=== PATIENT | female | born 1965 | race Caucasian/White ===

== ENCOUNTER 2020-07-19 15:05 | Outpatient (CLI) | payer OTHER, SELFPAY ==
--- NOTE | 2020-07-19 15:18 | ECG_ITS ---
Measurements Intervals [place] Rate: 79 P: 67 [place]: 153 QRS: 73 QRSD: 101 T: 43 QT: 359 QTc: 413 Interpretive Statements SINUS RHYTHM BASELINE ARTIFACT- I, II, III, AVR, AVL NORMAL ECG Electronically Signed On 07-19-2020 15:36:19 CDT by Hudson Montoya D.O.
== END 2020-07-19 15:06 | disposition home or self-care (01) ==
LOC: ANHCARD 15:08
PROVIDERS: PCP Family Medicine; Visit Provider Podiatrist Foot & Ankle Surgery
DX: R03.0 Elevated blood-pressure reading, without diagnosis of hypertension (principal)
CPT/HCPCS: 93005

== ENCOUNTER → 2021-04-15 16:32 | Outpatient (CLI) | payer OTHER, SELFPAY ==
--- NOTE | ~2021-04-15 | MM_ITS ---
EXAMINATION: MM screening [facility] BI w kimber[place] HISTORY: Screening TECHNIQUE: Craniocaudal and mediolateral oblique 3-D tomosynthesis images were obtained and synthetic 2-D images were generated. CAD analysis was submitted and interpreted. COMPARISON: Comparison to multiple prior studies sequentially, with oldest reviewed study dated 12/2010. BREAST PARENCHYMAL COMPOSITION: There are scattered areas of fibroglandular density. FINDINGS: There is no evidence of suspicious mass, calcification, or architectural distortion to sugg est malignancy in either breast. There has been no suspicious interval change. IMPRESSION: 1. No mammographic evidence of malignancy. 2. Recommend routine screening mammography in one year. BI-RADS Category 1: Negative Reviewed, dictated and finalized at location A.
== END ==
PROVIDERS: Visit Provider Obstetrics & Gynecology
DX: Z12.31 Encounter for screening mammogram for malignant neoplasm of breast (principal)
CPT/HCPCS: 77063; 77067

== ENCOUNTER → 2022-07-01 15:10 | Outpatient (CLI) | payer OTHER, SELFPAY ==
--- NOTE | ~2022-07-01 | MM_ITS ---
EXAMINATION: MM screening [facility] BI w [place] HISTORY: Screening mammogram TECHNIQUE: Craniocaudal and mediolateral oblique 3-D tomosynthesis images were obtained and synthetic 2-D images were generated. CAD analysis was submitted and interpreted. COMPARISON: 04/07/2021 bilateral screening mammogram 05/31/2018 bilateral diagnostic mammography and limited left breast ultrasound 03/23/2017 bilateral screening mammogram BREAST PARENCHYMAL COMPOSITION: There are scattered areas of fibroglandular density. FINDINGS: Interval increased density is suggested in the anterior upper right breast on MLO view. New irregular approximately 1.5 x 5 mm opacity is noted in the right axillary tail area, upper outer quadrant of right breast. Diagnostic right mammogram and right breast ultrasound are recommended. Otherwise there is no evidence of suspicious mass, calcification, or architectural distortion to sugg est malignancy in either breast. There has been no other suspicious interval change. IMPRESSION: 1. Asymmetric increased density is in the upper anterior right breast and axillary tail of right calixto st on MLO view 2. Diagnostic right mammogram and right breast ultrasound examination are recommended BI-RADS Category 0: Incomplete: Needs additional imaging evaluation. Reviewed, dictated and finalized at location A. IMPRESSION: 1. Asymmetric increased density is in the upper anterior right breast and axill pam tail of right breast on MLO view 2. Diagnostic right mammogram and right breast ultrasound examination are recom mended BI-RADS Category 0: Incomplete: Needs additional imaging evaluation.
== END ==
PROVIDERS: PCP Family Medicine; Visit Provider Obstetrics & Gynecology
DX: Z12.31 Encounter for screening mammogram for malignant neoplasm of breast (principal); R92.8 Other abnormal and inconclusive findings on diagnostic imaging of breast
CPT/HCPCS: 77063; 77067

== ENCOUNTER → 2022-07-18 08:22 | Outpatient (CLI) | payer OTHER, SELFPAY ==
--- NOTE | ~2022-07-18 | MMUS_ITS ---
EXAMINATION: MM diagnostic [facility] RT w kimberley, US breast RT limited HISTORY: Asymmetric density in upper anterior right breast and right axillary tail TECHNIQUE: Additional 3-D tomosynthesis images of the right breast were performed and synthetic 2-D i mages were generated. CAD analysis was submitted and interpreted. High resolution upper outer and low er-outer quadrants and subareolar right breast ultrasound was performed. COMPARISON: 07/01/2022 bilateral screening mammogram FINDINGS: MAMMOGRAPHIC FINDINGS: No suspicious mass or architectural distortion is detected. No malignant calcification, skin thickeni ng or retraction. ULTRASOUND: There is a parallel circumscribed approximately 2 x 4.4 mm small cluster of cysts, without internal v ascularity or posterior shadowing, at 1:00 subareolar area. No suspicious mass is noted elsewhere in the subareolar area or lateral half of the right breast. IMPRESSION: 1. No mammographic evidence of malignancy 2. Routine mammographic screening is recommended BI-RADS Category 2: Benign finding(s). Reviewed, dictated and finalized at location A. IMPRESSION: 1. No mammographic evidence of malignancy 2. Routine mammographic screening is recommended BI-RADS Category 2: Benign finding(s).
== END ==
PROVIDERS: PCP Family Medicine; Visit Provider Obstetrics & Gynecology
DX: R92.8 Other abnormal and inconclusive findings on diagnostic imaging of breast (principal)
CPT/HCPCS: 76642; 77061; 77065; G0279

== ENCOUNTER 2022-12-11 09:48 | Outpatient (CLI) | payer OTHER, SELFPAY ==
--- NOTE | 2022-12-11 10:45 | NEURO_ITS ---
Impression: # Complains of pain in right wrist. # No Carpal Tunnel Syndrome or ulnar neuropathy. # Normal needle/EMG exam. # Clinical correlation recommended. Motor Nerve Conduction Upper Extremities Median Nerve Conduction Velocity (m/sec) Terminal Latency (msec) Response Voltage(mV) Elbow-Wrist Wrist Elbow Wrist Right 55 2.9 4 7 Left 55 3.3 2 4 Ulnar Nerve Conduction Velocity (m/sec) Terminal Latency (msec) Response Voltage(mV) Above Elbow Below Elbow Wrist Above Elbow Below Elbow Wrist Right 59 2.1 4 7 Left 57 2.2 5 6 F-Wave Latency Median (ms) Ulnar (ms) Right 25.1 25.1 Left 25.6 24.7 Sensory Nerve Conduction Upper Extremities Median Nerve Stimulation Terminal Latency (msec) Wrist/Digit Response Voltage (uV) Wrist Right 3.4/3.5 78/71 Left 3.0/2.9 89/80 Ulnar Nerve Stimulation Terminal Latency (msec) Wrist/Digit Response Voltage (uV) Wrist Right 2.5 78 Left 2.3 52 Radial Nerve Terminal Latency (msec) Response Voltage(mV) Right 2.3 16 Left 2.0 21 Left Right Muscles Examined Fibrillation Fasciculation Scarcity Voltage Duration Left Right Left Right Left Right Left Right Left Right Deltoid Biceps X X Brachioradialis Triceps X X Pronator Teres X X Ext Indicis X X Ext Digitorum X X Abd Poll Brev X X 1st Dorsal Interosseus X X Abd Dig Min MTDD
== END 2022-12-11 09:49 | disposition home or self-care (01) ==
LOC: ANHNEURO 09:48
PROVIDERS: PCP Family Medicine; Visit Provider Family Medicine
DX: M25.539 Pain in unspecified wrist (principal)
CPT/HCPCS: 95886; 95911

== ENCOUNTER → 2023-09-24 11:17 | Outpatient (CLI) | payer OTHER, SELFPAY ==
--- NOTE | ~2023-09-24 | MM_ITS ---
EXAMINATION: MM screening [facility] BI w kimber[place] HISTORY: Screening mammogram TECHNIQUE: Craniocaudal and mediolateral oblique 3-D tomosynthesis images were obtained and synthetic 2-D images were generated. CAD analysis was submitted and interpreted. COMPARISON: 07/18/2022, 07/01/2022, 04/15/2021, 05/31/2018 BREAST PARENCHYMAL COMPOSITION: There are scattered areas of fibroglandular density. FINDINGS: No suspicious mass, calcification, or architectural distortion are identified in either arnold ast to suggest malignancy. There has been no suspicious interval change. IMPRESSION: 1. No mammographic evidence of malignancy. 2. Recommend routine screening mammography in one year. BI-RADS Category 1: Negative Reviewed, dictated and finalized at location A. F MARKETING OFFICER
== END ==
PROVIDERS: PCP Family Medicine; Visit Provider Obstetrics & Gynecology
DX: Z12.31 Encounter for screening mammogram for malignant neoplasm of breast (principal)
CPT/HCPCS: 77063; 77067

== ENCOUNTER 2023-12-10 10:33 | Outpatient (CLI) | payer OTHER, SELFPAY ==
--- NOTE | 2023-12-10 11:07 | ECG_ITS ---
Measurements Intervals [place] Rate: 71 P: 66 [place]: 159 QRS: 72 QRSD: 104 T: 42 QT: 392 QTc: 428 Interpretive Statements SINUS RHYTHM COMPARED TO ECG 07/19/2020 15:27:45 NO SIGNIFICANT CHANGES Electronically Signed On 12-10-2023 13:29:27 PROMOTION OFFICER by Korina Roberts M.D.
[2023-12-10 11:20] LABS: Basophils Absolute Auto 0.1 K/mm3 (0.0-0.1); Basophils Percent Auto 0.8 % (0.2-1.2); Eosinophils Absolute Auto 0.1 K/mm3 (0-0.3); Eosinophils Percent Auto 1.1 % (0-4.4); Hematocrit 40.6 % (37.0-47.0); Hemoglobin 13.5 g/dL (12.0-15.0); Immature Granulocyte Absolute 0.02 K/mm3 (0.00-0.031); Immature Granulocyte Percent A 0.3 % (0-0.5); Lymphocytes Absolute Auto 2.36 K/mm3 (0.9-3.2); Lymphocytes Percent Auto 35.4 % (18.3-44.2); Mean Corpuscular HGB Conc 33.3 g/dl (32-36); Mean Corpuscular Volume 93.3 fl (80-100); Mean Platelet Volume 9.7 fl (7.4-10.4); Monocytes Absolute Auto 0.5 K/mm3 (0.1-0.6); Monocytes Percent Auto 7.5 % (2.6-8.5); Neutrophils Absolute Auto 3.7 K/mm3 (1.3-6.7); Neutrophils Percent Auto 54.9 % (45.5-73.1); Platelet Count Result 220 k/mm3 (150-375); Red Blood Count 4.35 M/mm3 (4.2-5.4); Red Cell Distribution Width 12.6 % (11.5-14.5); White Blood Count 6.7 K/mm3 (4.5-10.0)
[2023-12-10 11:32] LABS: Alanine Aminotransferase 43 U/L (6-35); Albumin Level 4.1 g/dL (3.5-5.1); Alkaline Phosphatase 88 U/L (38-126); Anion Gap 3 mmol/L (8-16); Aspartate Amino Transferase 39 U/L (14-36); Bilirubin,Total 0.5 mg/dL (0.2-1.3); Blood Urea Nitrogen 15 mg/dL (7-17); Calcium 9.4 mg/dL (8.4-10.2); Carbon Dioxide 30 mmol/L (22-30); Chloride 101 mmol/L (98-107); Estimated Glomerular Filt Rate > 60; Glucose 91 mg/dL (65-110); Potassium 3.6 mmol/L (3.4-5.0); Sodium 134 mmol/L (137-145)
== END 2023-12-10 10:34 | disposition home or self-care (01) ==
PROVIDERS: PCP Family Medicine; Referring Provider Orthopaedic Surgery; Visit Provider Family Medicine
DX: E11.9 Type 2 diabetes mellitus without complications (principal); R53.83 Other fatigue; I10 Essential (primary) hypertension; Z01.818 Encounter for other preprocedural examination; M75.121 Complete rotator cuff tear or rupture of right shoulder, not specified as traumatic
CPT/HCPCS: 36415; 80053; 85025; 93005

== ENCOUNTER 2024-08-22 09:37 | Outpatient (CLI) | payer OTHER, SELFPAY ==
--- NOTE | 2024-08-22 09:52 | ECG_ITS ---
Test Date: 2024-08-22 09:59:45 Measurements Intervals [place] Rate: 77 P: 64 [place]: 163 QRS: 69 QRSD: 104 T: 44 QT: 369 QTc: 418 Interpretive Statements SINUS RHYTHM BORDERLINE ST ABNORMALITY- INF/LAT LEADS BORDERLINE ECG No previous ECG available for comparison Electronically Signed On 08-22-2024 11:35:53 COMMISSARY REPRESENTATIVE by Hudson Montoya D.O.
== END 2024-08-22 09:38 | disposition home or self-care (01) ==
PROVIDERS: PCP Family Medicine; Visit Provider Family Medicine
DX: R55 Syncope and collapse (principal); R94.31 Abnormal electrocardiogram [ECG] [EKG]
CPT/HCPCS: 93005

== ENCOUNTER 2024-09-07 09:55 | Outpatient (CLI) | payer OTHER, SELFPAY ==
--- NOTE | ~2024-09-07 | CT_ITS ---
Non-contrast Head CT History: Syncope and collapse Technique: Axial non-contrast imaging of the brain was performed. Dose reduction technique was used on this scan by utilizing automated exposure control and iterative reconstruction technique. The dose -length product (DLP) was 599.57 mGy-cm. Findings: There is no evidence of intracranial hemorrhage, mass lesion, or acute infarct. Brain par enchyma appears normal. The ventricles and subarachnoid spaces are normal in size. The calvarium ap pears normal. The visualized paranasal sinuses and mastoid air cells are clear. Impression: No significant abnormality seen. Reviewed, dictated and finalized at location . LE WEBCENTER CONSULTANT Impression: No significant abnormality seen.
== END 2024-09-07 09:56 | disposition home or self-care (01) ==
LOC: MICIMG 09:56
PROVIDERS: PCP Family Medicine; Visit Provider Family Medicine
DX: R55 Syncope and collapse (principal)
CPT/HCPCS: 70450

== ENCOUNTER 2024-09-26 15:29 | Outpatient (CLI) | payer OTHER, SELFPAY ==
--- NOTE | ~2024-09-26 | MM_ITS ---
EXAMINATION: MM screening [facility] BI w [place] HISTORY: Screening TECHNIQUE: Craniocaudal and mediolateral oblique 3-D tomosynthesis images were obtained and synthetic 2-D images were generated. CAD analysis was submitted and interpreted. COMPARISON: Comparison to multiple prior studies sequentially, with oldest reviewed study dated 02/2017. BREAST PARENCHYMAL COMPOSITION: Not dense: There are scattered areas of fibroglandular density. FINDINGS: There is no evidence of suspicious mass, calcification, or architectural distortion to sugg est malignancy in either breast. There has been no suspicious interval change. IMPRESSION: 1. No mammographic evidence of malignancy. 2. Recommend routine screening mammography in one year. BI-RADS Category 1: Negative Reviewed, dictated and finalized at location B. ERCIAL ANALYST
== END 2024-09-26 15:30 | disposition home or self-care (01) ==
LOC: MICIMG 15:30
PROVIDERS: PCP Obstetrics & Gynecology; Visit Provider Obstetrics & Gynecology
DX: Z12.31 Encounter for screening mammogram for malignant neoplasm of breast (principal)
CPT/HCPCS: 77063; 77067

== ENCOUNTER 2025-01-02 14:56 | Observation (INO) | payer OTHER, SELFPAY ==
[2025-01-02] VITALS (12 sets, daily range): BP systolic 108–217; BP diastolic 55–96; PULSE 73–103; RESP 16–20; TEMP 36.4–36.8; O2SAT 96–100
--- NOTE | ~2025-01-02 | XR_ITS ---
CHEST RADIOGRAPH, PA AND LATERAL CLINICAL HISTORY: palpitations . COMPARISON: 07/31/2017 TECHNIQUE: PA and lateral views of the chest. FINDINGS The cardiomediastinal silhouette is unremarkable. The lungs are clear. Visualized osseous structures and soft tissues are unremarkable. IMPRESSION: No focal infiltrate or effusion. Reviewed, dictated and finalized at location A.
--- NOTE | ~2025-01-02 | CT_ITS ---
History: Headache PROCEDURE: CT head without contrast. COMPARISON: 09/07/2024 TECHNIQUE: Axial imaging of the head performed from the skull base to the vertex without IV contrast. Sagittal a nd coronal reformations obtained. DLP: 605 mGy-cm FINDINGS: The ventricles are normal in size, shape and position. There is no mass, mass effect or midline shift. Punctate calcification within the right basal ganglia, unchanged from prior. There is no abnormal extra-axial fluid collection or intracranial hemorrhage. Visualized paranasal sinuses are clear. The mastoid air cells are well aerated. No acute displaced fractures within the overlying cranium. Impression: No acute intracranial hemorrhage or suspicious mass effect. Reviewed, dictated and finalized at location A. Impression: No acute intracranial hemorrhage or suspicious mass effect.
--- NOTE | ~2025-01-02 | US_ITS ---
EXAMINATION: US retroperitoneal duplex ltd, US renal BI DATE: 01/04/2025 09:32 INDICATION: Uncontrolled hypertension TECHNIQUE: Multiple grayscale, color Doppler, and pulsed Doppler images of the kidneys and renal obdulio samuel were obtained. COMPARISON: None. FINDINGS: There is normal renal contour and echogenicity bilaterally. The right kidney measures 11.9 x 5.6 x 5. 8 cm and the left 11.7 x 7.1 x 7.7 cm. There are no focal renal lesions identified. There is no hyd ronephrosis. Bladder is normal. The aorta peak systolic velocity is 58 cm/s. The right renal artery peak systolic velocity is 71 cm/s in the proximal segment, 82 cm/s in the mid segment, and 51 cm/s in the distal segment. Normal segme ntal renal arterial resistive indices of 0.66-0.68 in the right kidney. The left renal artery peak sy stolic velocity is 98 cm/s in the proximal segment, 82 cm/s in the mid segment, and 98 cm/s in the di stal segment. Normal segmental renal arterial resistive indices of 0.51-0.66 in the left kidney. IMPRESSION: 1. Normal kidneys with no hydronephrosis. 2. No Doppler evidence of renal artery stenosis. Reviewed, dictated and finalized at location A. IMPRESSION: 1. Normal kidneys with no hydronephrosis. 2. No Doppler evidence of renal artery stenosis.
--- NOTE | 2025-01-02 16:23 | ECG_ITS ---
Test Date: 2025-01-02 17:45:13 Measurements Intervals [place] Rate: 84 P: 59 [place]: 168 QRS: 42 QRSD: 110 T: 22 QT: 373 QTc: 441 Interpretive Statements SINUS RHYTHM Compared to ECG 08/22/2024 09:59:45 No significant changes Electronically Signed On 01-03-2025 16:43:47 CDT by Korina Roberts M.D.
[2025-01-02 16:43] LABS: Basophils Percent Auto 0.4 % (0.2-1.2); Hematocrit 43.3 % (37.0-47.0); Hemoglobin 14.6 g/dL (12.0-15.0); Immature Granulocyte Absolute 0.03 K/mm3 (0.00-0.031); Immature Granulocyte Percent A 0.3 % (0-0.5); Immature Platelet Fraction Pct 4.2 % (0.9-11.2); Lymphocytes Absolute Auto 1.75 K/mm3 (0.9-3.2); Lymphocytes Percent Auto 15.5 % (18.3-44.2); Mean Corpuscular HGB Conc 33.7 g/dl (32-36); Mean Corpuscular Hemoglobin 30.6 pg (26-34); Mean Corpuscular Volume 90.8 fl (80-100); Mean Platelet Volume 10.1 fl (7.4-10.4); Monocytes Absolute Auto 0.5 K/mm3 (0.1-0.6); Monocytes Percent Auto 4.8 % (2.6-8.5); Neutrophils Absolute Auto 8.9 K/mm3 (1.3-6.7); Platelet Count Result 195 k/mm3 (150-375); Red Blood Count 4.77 M/mm3 (4.2-5.4); Red Cell Distribution Width 12.3 % (11.5-14.5); White Blood Count 11.3 K/mm3 (4.5-10.0)
[2025-01-02 17:04] LABS: NT Pro B Type Natriuretic Pept 23 pg/mL (19.9-100); Troponin I < 0.012 ng/mL (0.000-0.034)
[2025-01-02 17:17] LABS: Influenza A QL RT-PCR Negative (Negative); Influenza B QL RT-PCR Negative (Negative); RSV RNA, RT-PCR Negative (Negative); SARS-CoV-2 RNA PCR Negative (Negative)
--- NOTE | 2025-01-02 17:33 | PC.NURSE ---
IV attempted by 2x RN. RADHA Grace to bedside to attempt peripheral IV access.
--- OUTSIDE RECORDS SUMMARY | 2025-01-02 17:40 | XMS_ITS ---
Author Organization Unknown Medications Medication Instructions Effective Dates (start - stop) Status losartan potassium 50 MG Oral Tablet 202300:00:00Z - Completed estradiol 0.5 MG Oral Tablet [id number] 0:00:00Z - Completed diazepam 5 MG Oral Tablet [id number]:0 0:00Z - Completed losartan potassium 50 MG Oral Tablet 202200:00:00Z - Completed cephalexin 500 MG Oral Tablet 2023-12-21 00:00:00Z - Completed azelaic acid 0.15 MG/MG Topical Gel 00:00:00Z - Completed hydrochlorothiazide 25 MG Or al Tablet - Completed hydrochlorothiazide 25 MG Or al Tablet - Completed - - Compl eted hydrochlorothiazide 25 MG Or al Tablet - Completed estradiol 0.5 MG Oral Tablet [id number] 0:00:00Z - Completed diazepam 5 MG Oral Tablet [id number]:0 0:00Z - Completed estradiol 1 MG Oral Tablet [id number]: 00:00Z - Completed losartan potassium 50 MG Oral Tablet 202200:00:00Z - Completed acetaminophen 325 MG / oxyco done hydrochloride 5 MG Oral Tablet - Comple norman hydrochlorothiazide 25 MG Or al Tablet - Completed azelaic acid 0.15 MG/MG Topical Gel 00:00:00Z - Completed Patient Care team information Name Category Status Period Participants - - Proposed period not known -
--- OUTSIDE RECORDS SUMMARY | 2025-01-02 17:40 | XMS_ITS | Referral Summary ---
Author Organization [facility] Address [address] [place] [id number] Care Team Providers Care Quality Assurance/R&D Lab Technician Name Role Phone Luisa Jerry MD Primary Care Provider [phone] Allergies Active Allergy Reactions Criticality Noted Date Comments Nitroglycerin Unknown 08/20/2017 Medications indapamide (LOZOL) 2.5 mg tablet Take 2.5 mg by mouth daily. 08/16/2017 Active KLOR-CON 10 10 mEq CR tablet Take 10 mEq by mouth 2 (two) times a day. 08/16/2017 Active SOY ISOFLA/BLK COHOSH/MAG BARK (ESTROVEN ORAL) Take by mouth daily. Active cyanocobalamin (Vitamin B-12) 1,000 mcg tabletIndication s:Prevention of Vitamin B12 Deficiency Take 100 mcg by mouth daily. Active losartan (COZAAR) 50 mg tablet Take 50 mg by mouth daily 1 09/06/2019 Active hydroCHLOROthiaz ezio (HYDRODIURIL) 25 mg tablet Take 25 mg by mouth daily 1 08/04/2019 Active Active Problems No known active problems Social History Tobacco Use Types Packs/Day Years Used Date Smoking Tobacco: Never Smokeless Tobacco: Never Alcohol Use Standard Drinks/Week Comments No 0 (1 standard drink = 0.6 oz pur e alcohol) Comments Unknown Sex and Gender Information Value Date Recorded Sex Assigned at Not on file Legal Sex Female 3:31 AM CIVIL ENGINEERING SPECIALIST Gender Identity Not on file Sexual Orientation Not on file Last Filed Vital Signs Vital Sign Reading Time Taken Comments Blood Pressure 158/94 09/18/2017 10:01 AM CIVIL ENGINEERING SPECIALIST Pulse 75 08/20/2017 2:20 PM CDT Temperature - - Respiratory Rate - - Oxygen Saturation 98% 08/20/2017 2:20 PM CDT Inhaled Oxygen Concentration - - Weight 95.7 kg (211 lb) 09/18/2017 10:01 AM CIVIL ENGINEERING SPECIALIST Height 160 cm (5' 3 ) 09/18/2017 10:01 AM CIVIL ENGINEERING SPECIALIST Body Mass Index 37.38 09/18/2017 10:01 AM CIVIL ENGINEERING SPECIALIST Plan of Treatment Not on file Procedures Procedure Name Priority Date/Time Associated Diagnosis Comments MCT - MOBILE CARDIAC TELEMETRY EVENT MONITOR Routine 10/05/2024 3:41 PM CIVIL ENGINEERING SPECIALIST Dizziness Syncope and collapse from Last 3 Months Results * MCT Mobile Cardiac Telemetry Event Monitor (10/05/2024 3:41 PM CIVIL ENGINEERING SPECIALIST) Anatomical Region Laterality Modality Electrocardiogra phy Narrative 10/05/2024 3:41 PM CIVIL ENGINEERING SPECIALIST AMBULATORY MOLDER REPORT Patient Name: Radha Viera Date of : 1965 Requesting Physician: Dr. Gutierrez Date of interpretation: 10/05/24 Type of monitor : 30 day event monitor, time monitored 28 days, 7 hours, 35 minutes Date of the study/Enrollment period: 08/31/2024-09/30/2024 Indication: Dizziness Quality of the study: Adequate Interpretation: Underlying rhythm is sinus rhythm, heart rate ranges between 50 beats per minute to 132 beats per minute, average heart rate 82 beats per minute. Occasional PVCs and PACs with a burden of 1%, and less than 1% respectively for the duration of the study. One brief episode of supraventricular run at a heart rate of 136 beats per minute. No other significant arrhythmias or heart blocks. No symptoms reported. Conclusions: Predominant underlying rhythm is sinus rhythm, average heart rate 82 beats per minute. Occasional PACs and PVCs with a burden of less than 1%, and 1% respectively for the duration of the study. No symptoms reported. Voice recognition software was used to complete this document, therefore, restrictive preparation operator variances may occur. Norris Rodriguez MD, [facility] 10/05/24 Procedure Note Norris Rodriguez MD - 10/05/2024 AMBULATORY MOLDER REPORT Patient Name: Radha Viera Date of : 1965 Requesting Physician: Dr. Gutierrez Date of interpretation: 10/05/24 Type of monitor : 30 day event monitor, time monitored 28 days, 7 hours,35 minutes Date of the study/Enrollment period: 08/31/2024-09/30/2024 Indication: Dizziness Quality of the study: Adequate Interpretation: Underlying rhythm is sinus rhythm, heart rate rangesbetween 50 beats per minute to 132 beats per minute, average heart rate 82beats per minute. Occasional PVCs and PACs with a burden of 1%, and lessthan 1% respectively for the duration of the study. One brief episode ofsupraventricular run at a heart rate of 136 beats per minute. No othersignificant arrhythmias or heart blocks. No symptoms reported. Conclusions: Predominant underlying rhythm is sinus rhythm, average heart rate 82 beatsper minute. Occasional PACs and PVCs with a burden of less than 1%, and 1%respectively for the duration of the study. No symptoms reported. Voice recognition software was used to complete this document, therefore,restrictive preparation operator variances may occur. Norris Rodriguez MD, [facility] 10/05/24 Michelle Gutierrez MD [facility] PROCEDURES Final Result from Last 3 Months Insurance T SIG [id number] [facility] Care Teams Quality Assurance/R&D Lab Technician Relationship Specialty Start Date End Date Luisa Jerry MD PCP - General Family Practice 05/03/19
--- OUTSIDE RECORDS SUMMARY | 2025-01-02 17:40 | XMS_ITS | Encounter Summary ---
Author Organization [facility] Address [address] [place] [address] Care Team Providers Care Assistant Banquet Manager Name Role Phone Juan Rinaldi MD Primary Care Provider [phone] Encounter Details Date Type Department Care Team (Late st Contact Info) Description 08/24/2019 Lab Requisition [facility] [address] [place] [address] Leland Olivas MD [address] [place] [address] Social History Tobacco Use Types Packs/Day Years Used Date Smoking Tobacco: Never Assessed Sex and Gender Information Value Date Recorded Sex Assigned at Not on file Gender Identity Not on file Sexual Orientation Not on file documented as of this encounter Plan of Treatment Not on file documented as of this encounter Procedures Procedure Name Priority Date/Time Associated Diagnosis Comments DERMATOPATHOLOGY Routine 08/23/2019 12:0 0 AM VICE PRESIDENT AND PORTFOLIO MANAGER documented in this encounter Results * DERMATOPATHOLOGY (08/23/2019 12:00 AM VICE PRESIDENT AND PORTFOLIO MANAGER) Case Report Dermatopathology Report Case: [id number] Authorizing Provider: Leland Olivas MD Collected: 08/23/2019 12:00 AM Ordering Location: [facility] Received: 08/24/2019 12:40 PM Pathologist: Esteban Leonard MD Specimens: A) - Skin, above right elbow medially B) - Skin, left lateral breast C) - Skin, left medial breast 9 4:47 PM VICE PRESIDENT AND PORTFOLIO MANAGER DERMATOPATHOLOGY LABORATORY Final Diagnosis Specimen A. SKIN, above right elbow medially: LENTIGINOUS MELANOCYTIC NEVUS, COMPOUND TYPE, IRRITATED (COMPOUND MELANOCYTIC NEVUS WITH ARCHITECTURAL DISORDER) (D22.61) Specimen B. SKIN, left lateral breast: LENTIGINOUS MELANOCYTIC NEVUS, JUNCTIONAL TYPE, IRRITATED (JUNCTIONAL MELANOCYTIC NEVUS WITH ARCHITECTURAL DISORDER) (D22.5) Specimen C. SKIN, left medial breast: LENTIGINOUS MELANOCYTIC NEVUS, COMPOUND TYPE, IRRITATED (COMPOUND MELANOCYTIC NEVUS WITH ARCHITECTURAL DISORDER) (D22.5) 4:47 PM VICE PRESIDENT AND PORTFOLIO MANAGER DERMATOPATHOLOGY LABORATORY Clinical History A-C: R/O dys nevus. 4:47 PM [facility] Gross Description Specimen A: Received is one formalin filled container labeled with the patient's name and designated above right elbow medially. The specimen consists of a shave biopsy measuring [id number]. Jar 0. Specimen B: Received is one formalin filled container labeled with the patient's name and designated left lateral breast. The specimen consists of a shave biopsy measuring [id number]. Jar 0. Specimen C: Received is one formalin filled container labeled with the patient's name and designated left medial breast. The specimen consists of a shave biopsy measuring [id number]. Jar 0. 4:47 PM [facility] Microscopic Description Specimen A. SKIN, above right elbow medially: This is a compound nevus. There is melanin pigment in the stratum corneum. There is architectural disorder characterized by a lentiginous proliferation of melanocytes between irregular nevus nests of cells along the dermal epidermal junction. There is underlying fibroplasia of the papillary dermis. The intradermal component is bland in appearance and matures with depth. (Compound Erick's Nevus or Compound Dysplastic Nevus) Specimen B. SKIN, left lateral breast: This is a junctional nevus. There is melanin pigment in the stratum corneum. There is architectural disorder characterized by a lentiginous proliferation of melanocytes between irregular nests of cells along the dermal-epidermal junction. There is underlying fibroplasia of the papillary dermis. (Junctional Erick's Nevus or Junctional Dysplastic Nevus) Specimen C. SKIN, left medial breast: This is a compound nevus. There is melanin pigment in the stratum corneum. There is architectural disorder characterized by a lentiginous proliferation of melanocytes between irregular nevus nests of cells along the dermal epidermal junction. There is underlying fibroplasia of the papillary dermis. The intradermal component is bland in appearance and matures with depth. (Compound Erick's Nevus or Compound Dysplastic Nevus) 9 4:47 PM [facility] Disclaimer An external and internal positive and negative controls are appropriate for the histochemical, immunohistochemical and immunofluorescence stain(s) in this case (if any), except where stated explicitly. The performance characteristics of the stain(s) cited in this report were developed and its performance characteristic determined by the Dermatopathology Laboratory at [facility], directed by Dr. Gaurav Leonard. These tests need not be, and therefore are not, approved by the [place] Food and Drug Administration. The tests are used for clinical purposes. Billing Codes Specimen Charges Stain Charges 33757 [id number] 88286 1 1 1 9 4:47 PM VICE PRESIDENT AND PORTFOLIO MANAGER DERMATOPATHOLOGY LABORATORY Embedded Images 4:47 PM VICE PRESIDENT AND PORTFOLIO MANAGER DERMATOPATHOLOGY LABORATORY Pathology/Cytology TISSUE SPECIMEN FROM SKIN / Unknown 08/23/2019 08/24/2019 12:40 PM VICE PRESIDENT AND PORTFOLIO MANAGER Miscellaneous samples (specimen) TISSUE SPECIMEN FROM SKIN / Unknown 08/23/2019 08/24/2019 12:40 PM VICE PRESIDENT AND PORTFOLIO MANAGER Miscellaneous samples (specimen) TISSUE SPECIMEN FROM SKIN / Unknown 08/23/2019 08/24/2019 12:40 PM VICE PRESIDENT AND PORTFOLIO MANAGER Leland Olivas MD LAB - PATHOLOGY/CYTO LOGY ORDERABLES DERMATOPATHOLOGY LABORATORY [facility] - Department of Dermatology [facility] 5th Floor Lab [address] [phone] documented in this encounter Visit Diagnoses Not on filedocumented in this encounter Care Teams Assistant Banquet Manager Relationship Specialty Start Date End Date Juan Rinaldi MD [address] [place] [address] PCP - General 09/15/18 documented as of this encounter
--- OUTSIDE RECORDS SUMMARY | 2025-01-02 17:40 | XMS_ITS | Encounter Summary ---
Author Organization [facility] Address [address] [facility] [place] [address] Care Team Providers Care Tower Switch Operator Name Role Phone Juan Rinaldi MD Primary Care Provider [phone] Encounter Details Date Type Department Care Team (Late st Contact Info) Description 09/15/2018 Lab Requisition [facility] Care DermPath Lab [address] [facility], [place] [address] Leland Olivas MD [address] [place] [address] Social History Tobacco Use Types [...] Priority Date/Time Associated Diagnosis Comments DERMATOPATHOLOGY Routine 09/14/2018 12:0 0 AM MEDICAL CODER documented in this encounter Results * DERMATOPATHOLOGY (09/14/2018 12:00 AM MEDICAL CODER) Case Report Dermatopathology Report Case: [id number] Authorizing Provider: Leland Olivas MD Collected: 09/14/2018 12:00 AM Pathologist: Esteban Leonard MD Received: 09/15/2018 11:31 AM Specimens: A) - Skin, right deltoid B) - Skin, right proximal extensor forearm C) - Skin, RUQ abd on sup border of scar D) - Skin, right zygoma 8 5:23 PM MEDICAL CODER DERMATOPATHOLOGY LABORATORY Final Diagnosis Specimen A. SKIN, right deltoid: LENTIGINOUS MELANOCYTIC NEVUS, COMPOUND TYPE, IRRITATED (COMPOUND MELANOCYTIC NEVUS WITH ARCHITECTURAL DISORDER) (D22.61) Specimen B. SKIN, right proximal extensor forearm: LENTIGINOUS MELANOCYTIC NEVUS, COMPOUND TYPE, IRRITATED (COMPOUND MELANOCYTIC NEVUS WITH ARCHITECTURAL DISORDER) (D22.61) Specimen C. SKIN, RUQ abd on sup border of scar: LENTIGINOUS MELANOCYTIC NEVUS, COMPOUND TYPE, IRRITATED (COMPOUND MELANOCYTIC NEVUS WITH ARCHITECTURAL DISORDER) (D22.5) Specimen D. SKIN, right zygoma: COMPOUND MELANOCYTIC NEVUS, IRRITATED (D22.39) CHRONIC PERIFOLLICULITIS (L73.8) 8 5:23 PM [facility] DERMATOPATHOLOGY LABORATORY Clinical History A-D: R/O Dys nevus 8 5:23 PM [facility] DERMATOPATHOLOGY LABORATORY Gross Description Specimen A: Received is one formalin filled container labeled with the patient's name and designated right deltoid. The specimen consists of a shave biopsy measuring 7x7x1 mm. Jar 0. Specimen B: Received is one formalin filled container labeled with the patient's name and designated right proximal extensor forearm. The specimen consists of a shave biopsy measuring 8x7x1 mm. Jar 0. Specimen C: Received is one formalin filled container labeled with the patient's name and designated RUQ abd on sup border of scar. The specimen consists of a shave biopsy measuring 9x7x1 mm. Jar 0. Specimen D: Received is one formalin filled container labeled with the patient's name and designated right zygoma. The specimen consists of a shave biopsy measuring 5x5x1 mm. Jar 0. 8 5:23 PM [facility] DERMATOPATHOLOGY LABORATORY Microscopic Description Specimen A. SKIN, right deltoid: This is a compound nevus. There is [...] or Compound Dysplastic Nevus) Specimen B. SKIN, right proximal extensor forearm: This is a compound nevus. There is melanin pigment in the stratum corneum. There is architectural disorder characterized by a lentiginous proliferation of melanocytes between irregular nevus nests of cells along the dermal epidermal junction. There is underlying fibroplasia of the papillary dermis. The intradermal component is bland in appearance and matures with depth. (Compound Erick's Nevus or Compound Dysplastic Nevus) Specimen C. SKIN, RUQ abd on sup border of scar: This is a compound nevus. There is melanin pigment in the stratum corneum. There is architectural disorder characterized by a lentiginous proliferation of melanocytes between irregular nevus nests of cells along the dermal epidermal junction. There is underlying fibroplasia of the papillary dermis. The intradermal component is bland in appearance and matures with depth. (Compound Erick's Nevus or Compound Dysplastic Nevus) Specimen D. SKIN, right zygoma: There is melanin pigment in the stratum corneum. There are nests of melanocytes at the dermal-epidermal junction and within the dermis. Sections show a perifollicular lymphohistiocytic infiltrate. 8 5:23 PM MEDICAL CODER DERMATOPATHOLOGY LABORATORY Disclaimer An external and internal positive and negative controls are appropriate for the histochemical, immunohistochemical and immunofluorescence stain(s) in this case (if any), except where stated explicitly. The performance characteristics of the stain(s) cited in this report were developed and its performance characteristic determined by the Dermatopathology Laboratory at [facility]. These tests need not be, and therefore are not, approved by the [place] Food and Drug Administration. The tests are used for clinical purposes. Billing Codes Specimen Charges Stain Charges 40329 76069 47789 14194 1 1 1 1 8 5:23 PM MEDICAL CODER DERMATOPATHOLOGY LABORATORY Embedded Images 8 5:23 PM MEDICAL CODER DERMATOPATHOLOGY LABORATORY Pathology/Cytology TISSUE SPECIMEN FROM SKIN / Unknown 09/14/2018 09/15/2018 11:31 AM MEDICAL CODER Miscellaneous samples (specimen) TISSUE SPECIMEN FROM SKIN / Unknown 09/14/2018 09/15/2018 11:31 AM MEDICAL CODER Miscellaneous samples (specimen) TISSUE SPECIMEN FROM SKIN / Unknown 09/14/2018 09/15/2018 11:31 AM MEDICAL CODER Miscellaneous samples (specimen) TISSUE SPECIMEN FROM SKIN / Unknown 09/14/2018 09/15/2018 11:31 AM MEDICAL CODER Leland Olivas MD LAB - PATHOLOGY/CYTO LOGY ORDERABLES DERMATOPATHOLOGY LABORATORY [facility] - Department of Dermatology [facility] [facility], 5th Floor Lab B [address] [phone] documented in this encounter Visit Diagnoses Not on filedocumented in this encounter Care Teams Tower Switch Operator Relationship Specialty Start Date End Date Juan Rinaldi MD [address] [place], [place] [id number] PCP - General 09/15/18 documented as of this encounter
--- OUTSIDE RECORDS SUMMARY | 2025-01-02 17:41 | XMS_ITS | Encounter Summary ---
Author Organization [facility] Address [address] [facility] [place] [address] Care Team Providers Care Hand Alterations Tailor Name Role Phone Juan Rinaldi MD Primary Care Provider [phone] Encounter Details Date Type Department Care Team (Late st Contact Info) Description 11/07/2020 Lab Requisition [facility] DermPath Lab [address] [facility], [place] [address] Leland Olivas MD [address] [place] [address] Social History Tobacco Use Types [...] Priority Date/Time Associated Diagnosis Comments DERMATOPATHOLOGY Routine 11/06/2020 12:0 0 AM BISCUIT FACTORY WORKER documented in this encounter Results * DERMATOPATHOLOGY (11/06/2020 12:00 AM BISCUIT FACTORY WORKER) Case Report Dermatopathology Report Case: [id number] Authorizing Provider: Leland Olivas MD Collected: 11/06/2020 12:00 AM Ordering Location: [facility] DermPath Lab Received: 11/07/2020 02:27 PM Pathologist: Maureen Blount MD Specimens: A) - Skin, left superior buttock B) - Skin, right buttocks 3:21 PM BISCUIT FACTORY WORKER DERMATOPATHOLOGY LABORATORY Final Diagnosis Specimen A. SKIN, left superior buttock: LENTIGINOUS MELANOCYTIC NEVUS, COMPOUND TYPE, IRRITATED (COMPOUND MELANOCYTIC NEVUS WITH ARCHITECTURAL DISORDER) (D22.5) (see microscopic description) Specimen B. SKIN, right buttocks: LENTIGINOUS MELANOCYTIC NEVUS, COMPOUND TYPE, IRRITATED (COMPOUND MELANOCYTIC NEVUS WITH ARCHITECTURAL DISORDER) (D22.5) (see microscopic description) 3:21 PM [facility] DERMATOPATHOLOGY LABORATORY Clinical History A-B: R/O dys nevus. 3:21 PM [facility] DERMATOPATHOLOGY LABORATORY Gross Description Specimen A: Received is one formalin filled container labeled with the patient's name and designated left superior buttock. The specimen consists of a shave biopsy measuring [id number]. Jar 0. Specimen B: Received is one formalin filled container labeled with the patient's name and designated right buttocks. The specimen consists of a shave biopsy measuring [id number]. Jar 0. 3:21 PM [facility] DERMATOPATHOLOGY LABORATORY Microscopic Description Specimen A. SKIN, left superior buttock: This is a compound nevus. There is melanin pigment in the stratum corneum. There is architectural disorder characterized by a lentiginous proliferation of melanocytes between irregular nests of cells along the dermal-epidermal junction, highlighted by MART-1/Melan-A immunohistochemical staining. There is underlying fibroplasia of the papillary dermis. The intradermal component is bland appearance and matures with depth. (Compound Erick's Nevus or Compound Dysplastic Nevus) Specimen B. SKIN, right buttocks: This is a compound nevus. There is melanin pigment in the stratum corneum. There is architectural disorder characterized by a lentiginous proliferation of melanocytes between irregular nests of cells along the dermal-epidermal junction, highlighted by MART-1/Melan-A immunohistochemical staining. There is underlying fibroplasia of the papillary dermis. The intradermal component is bland appearance and matures with depth. (Compound Erick's Nevus or Compound Dysplastic Nevus) 3:21 PM [facility] DERMATOPATHOLOGY LABORATORY Disclaimer An external and internal positive and negative controls are appropriate for the histochemical, immunohistochemical and immunofluorescence stain(s) in this case (if any), except where stated explicitly. The performance characteristics of the stain(s) cited in this report were developed and its performance characteristic determined by the Dermatopathology Laboratory at [facility], directed by Dr. Gaurav Leonard. These tests need not be, and therefore are not, approved by the [place] Food and Drug Administration. The tests are used for clinical purposes. Billing Codes Specimen Charges Stain Charges 13429 36029 1 1 07637 54324 1 1 1 3:21 PM BISCUIT FACTORY WORKER DERMATOPATHOLOGY LABORATORY Embedded Images 3:21 PM BISCUIT FACTORY WORKER DERMATOPATHOLOGY LABORATORY Pathology/Cytology TISSUE SPECIMEN FROM SKIN / Unknown 11/06/2020 11/07/2020 2:27 PM BISCUIT FACTORY WORKER Miscellaneous samples (specimen) TISSUE SPECIMEN FROM SKIN / Unknown 11/06/2020 11/07/2020 2:27 PM BISCUIT FACTORY WORKER Leland Olivas MD LAB - PATHOLOGY/CYTO LOGY ORDERABLES DERMATOPATHOLOGY LABORATORY [facility] - Department of Dermatology [facility] Medicine [address] [place] [address], [address] [phone] documented in this encounter Visit Diagnoses Not on filedocumented in this encounter Care Teams Hand Alterations Tailor Relationship Specialty Start Date End Date Juan Rinaldi MD [address] [place] [address] PCP - General 09/15/18 documented as of this encounter
--- OUTSIDE RECORDS SUMMARY | 2025-01-02 17:41 | XMS_ITS | Encounter Summary ---
Author Organization [facility] Address [address] [facility] [place] [address] Care Team Providers Care Yard Engineer Name Role Phone Juan Rinaldi MD Primary Care Provider [phone] Encounter Details Date Type Department Care Team (Late st Contact Info) Description 11/05/2022 Lab Requisition [facility] DermPath Lab [address] [facility], [place] [address] Leland Olivas MD [address] [place] [address] Social History Tobacco Use Types [...] Priority Date/Time Associated Diagnosis Comments DERMATOPATHOLOGY Routine 11/04/2022 12:0 0 AM FOREST FIRE PREVENTION SPECIALIST documented in this encounter Results * DERMATOPATHOLOGY (11/04/2022 12:00 AM FOREST FIRE PREVENTION SPECIALIST) Case Report Dermatopathology Report Case: [id number] Authorizing Provider: Leland Olivas MD Collected: 11/04/2022 12:00 AM Ordering Location: [facility] DermPath Lab Received: 11/05/2022 02:16 PM Pathologist: Maureen Blount MD Specimen: Skin, right upper lateral breast 1:58 PM FOREST FIRE PREVENTION SPECIALIST DERMATOPATHOLOGY LABORATORY Final Diagnosis Specimen A. SKIN, right upper lateral breast: LENTIGINOUS MELANOCYTIC NEVUS, COMPOUND TYPE, IRRITATED (D22.5) 1:58 PM FOREST FIRE PREVENTION SPECIALIST DERMATOPATHOLOGY LABORATORY Clinical History R/O Dysplastic Nevus 3 1:58 PM [facility] DERMATOPATHOLOGY LABORATORY Gross Description Specimen A: Received is one formalin filled container labeled with the patient's name and designated right upper lateral breast. The specimen consists of a punch biopsy measuring 4x4x4 mm. Jar 0. 3 1:58 PM [facility] DERMATOPATHOLOGY LABORATORY Microscopic Description Specimen A. SKIN, right upper lateral breast: This is a compound nevus. There is melanin pigment in the stratum corneum. There is a lentiginous proliferation of melanocytes between nevus nests of cells along the dermal epidermal junction. There is underlying fibroplasia of the papillary dermis. The intradermal component is bland in appearance and matures with depth. (Compound Erick's Nevus) 3 1:58 PM [facility] DERMATOPATHOLOGY LABORATORY Disclaimer An external and internal positive and negative controls are appropriate for the histochemical, immunohistochemical and immunofluorescence stain(s) in this case (if any), except where stated explicitly. The performance characteristics of the stain(s) cited in this report were developed and its performance characteristic determined by the Dermatopathology Laboratory at [facility], directed by Dr. Gaurav Leonard. These tests need not be, and therefore are not, approved by the [place] Food and Drug Administration. The tests are used for clinical purposes. Billing Codes Specimen Charges Stain Charges 00687 1 3 1:58 PM FOREST FIRE PREVENTION SPECIALIST DERMATOPATHOLOGY LABORATORY Embedded Images 3 1:58 PM [facility] DERMATOPATHOLOGY LABORATORY Pathology/Cytolog y TISSUE SPECIMEN FROM SKIN / Unknown 11/04/2022 11/05/2022 2:16 PM FOREST FIRE PREVENTION SPECIALIST Leland Olivas MD LAB - PATHOLOGY/CYTO LOGY ORDERABLES DERMATOPATHOLOGY LABORATORY [facility] - Department of Dermatology [facility] Medicine [address] [place] [address], [address] [phone] documented in this encounter Visit Diagnoses Not on filedocumented in this encounter Care Teams Yard Engineer Relationship Specialty Start Date End Date Juan Rinaldi MD [address] [place] [address] PCP - General 09/15/18 documented as of this encounter
--- OUTSIDE RECORDS SUMMARY | 2025-01-02 17:41 | XMS_ITS | Clinical Summary ---
Author Organization [facility] Address [address], [address] [address] Phone Care Team Providers Care Casino Manager Name Role Phone Luisa Doll MD Primary Care Provi ivanna Social History Tobacco Use Types Packs/Day Years Used Date Smoking Tobacco: Never Assessed Comments Unknown Sex and Gender Information Value Date Recorded Sex Assigned at Not on file Legal Sex Female 12:10 AM CDT Gender Identity Not on file Sexual Orientation Not on file Plan of Treatment Health Maintenance Due Date Last Done Comments Hepatitis C Virus (HCV) Screening 1965 TdaP Immunization 1965 Hepatitis B Immunization (1 of 3 - 19+ 3-dose series) 1984 Pap Smear 1986 Cervical Cancer Screening (CCS) 1995 HPV/Cotest 1995 Cologuard 2015 Immunochemical Fecal Occult Blood 2015 Mammogram 2015 Pneumococcal Immunization (5 0+ years) (1 of 1 - PCV) 2015 Zoster Immunization (1 of 2) 2015 Influenza Immunization (#1) 2024 SARS-COV-2 Immunization ( - season) 2024 Colonoscopy 10/03/2024 10/03/2019 Colorectal Cancer Screening 10/03/2024 Respiratory Syncytial Virus (RSV) Immunization (Adult) (1 - 1-dose 75+ series) 2040 10/03/2019 Meningococcal Immunization (ACWY) Aged Out No longer eligible based on patient's age to complete this topic Pneumococcal Immunization Combined Aged Out No longer eligible based on patient's age to complete this topic Rotavirus Immunization Aged Out No lo nger eligible based on patient's age to complete this topic Procedures Procedure Name Priority Date/Time Associated Diagnosis Comments COLONOSCOPY Routine 10/03/2019 from Last 3 Months or Most Recently Relevant to Health Maintenance Results * COLONOSCOPY (10/03/2019) Krzysztof Earl Figueroa DO PROCEDURE/MINOR SURGICAL ORDERA BLES Final Result from Last 3 Months or Most Recently Relevant to Health Maintenance Insurance [facility] Care Teams Casino Manager Relationship Specialty Start Date End Date Luisa Doll MD [address] [place] [address] PCP - General Family Medicine 12/20/18
--- OUTSIDE RECORDS SUMMARY | 2025-01-02 17:41 | XMS_ITS | Encounter Summary ---
Author Organization [facility] Address [address] [facility] [place] [address] Care Team Providers Care Production Planner Name Role Phone Juan Rinaldi MD Primary Care Provider [phone] Encounter Details Date Type Department Care Team (Late st Contact Info) Description 04/28/2019 Lab Requisition [facility] Care DermPath Lab [address] [facility], [place] [address] Leland Olivas MD [address] [place] [address] Social History Tobacco Use Types [...] Priority Date/Time Associated Diagnosis Comments DERMATOPATHOLOGY Routine 04/27/2019 12:0 0 AM CDT documented in this encounter Results * DERMATOPATHOLOGY (04/27/2019 12:00 AM CDT) Case Report Dermatopathology Report Case: [id number] Authorizing Provider: Leland Olivas MD Collected: 04/27/2019 12:00 AM Pathologist: Esteban Leonard MD Received: 04/28/2019 12:06 PM Specimen: Skin, left sup breast cleavage 9 5:20 PM CDT DERMATOPATHOLOGY LABORATORY Final Diagnosis Specimen A. SKIN, left sup breast cleavage: MALIGNANT MELANOMA, LENTIGINOUS TYPE (C43.52) BRESLOW THICKNESS 0.6 MM, ERICK LEVEL III NOT PRESENT AT SAMPLED MARGIN (see microscopic description and synoptic report) 5:20 PM [facility] Clinical History R/O dys nevus with hemangioma 5:20 PM [facility] Gross Description Specimen A: Received is one formalin filled container labeled with the patient's name and designated left sup breast cleavage. The specimen consists of a shave biopsy measuring 31d80y9 mm. Jar 0. 5:20 PM [facility] Microscopic Description Specimen A. SKIN, left sup breast cleavage: There is an asymmetric proliferation of melanocytes distributed in an irregular pattern along the dermal-epidermal junction with single cells predominating, prominent extension down the follicular epithelium, and focal areas of confluence. In the dermis there are irregular nests of cytologically similar melanocytes. An immunostain for MART-1/Melan-A highlights the described distribution of melanocytes. There is focal inflammation and fibrosis with scattered melanophages. 5:20 PM [facility] Disclaimer An external and internal positive and negative controls are appropriate for the histochemical, immunohistochemical and immunofluorescence stain(s) in this case (if any), except where stated explicitly. The performance characteristics of the stain(s) cited in this report were developed and its performance characteristic determined by the Dermatopathology Laboratory at [facility], directed by Dr. Gaurav Leonard. These tests need not be, and therefore are not, approved by the [place] Food and Drug Administration. The tests are used for clinical purposes. Billing Codes Specimen Charges Stain Charges 23500 1 90804 1 5:20 PM [facility] Embedded Images 5:20 PM [facility] Synoptic Report MELANOMA OF THE SKIN: Biopsy (Melanoma Bx - A) SPECIMEN Procedure: Biopsy, shave Specimen Laterality: Left TUMOR Tumor Site: Skin of trunk: Left superior breast cleavage : Histologic Type: Lentigo maligna melanoma Maximum Tumor (Breslow) Thickness in Millimeters: 0.6 Millimeters (mm) Tumor Extent: Ulceration: Not identified Anatomic (Erick) Level: III (melanoma fills and expands papillary dermis) Accessory Findings: Mitotic Rate: None identified Lymphovascular Invasion: Not identified Neurotropism: Not identified Tumor-Infiltrating Lymphocytes: Present, nonbrisk Tumor Regression: Present MARGINS: Peripheral Margins: Uninvolved by invasive melanoma Status of Melanoma In Situ Involvement at Peripheral Margins: Uninvolved by melanoma in situ Deep Margin: Uninvolved by invasive melanoma PATHOLOGIC STAGE CLASSIFICATION (pTNM, AJCC 8th Edition): Primary Tumor (pT): pT1a 9 5:20 PM CDT DERMATOPATHOLOGY LABORATORY Pathology/Cytolog y TISSUE SPECIMEN FROM SKIN / Unknown 04/27/2019 04/28/2019 12:06 PM CDT Leland Olivas MD LAB - PATHOLOGY/CYTO LOGY ORDERABLES DERMATOPATHOLOGY LABORATORY [facility] - Department of Dermatology [address] [place] [address] [address] [phone] documented in this encounter Visit Diagnoses Not on filedocumented in this encounter Care Teams Production Planner Relationship Specialty Start Date End Date Juan Rinaldi MD [address] [place] [address] PCP - General 09/15/18 documented as of this encounter
--- OUTSIDE RECORDS SUMMARY | 2025-01-02 17:41 | XMS_ITS | Encounter Summary ---
Author Organization [facility] Address [address] [place] [address] Care Team Providers Care Insole Doubler Name Role Phone Juan Rinaldi MD Primary Care Provider [phone] Encounter Details Date Type Department Care Team (Late st Contact Info) Description 05/08/2023 Lab Requisition [facility] - DermPath Lab [address] [facility], [place] [address] Vero Mckeon PA [address] [place] [address] Neoplasm of uncertain behavior of skin Social History Tobacco Use Types Packs/Day Years Used Date Smoking Tobacco: Never Assessed Sex and Gender Information Value Date Recorded Sex Assigned at Not on file Gender Identity Not on file Sexual Orientation Not on file documented as of this encounter Plan of Treatment Not on file documented as of this encounter Procedures Procedure Name Priority Date/Time Associated Diagnosis Comments DERMATOPATHOLOGY Routine 05/07/2023 12:0 0 AM CDT Neoplasm of uncertain behavior of skin documented in this encounter Results * DERMATOPATHOLOGY (05/07/2023 12:00 AM CDT) Case Report Dermatopathology Report Case: [id number] Authorizing Provider: Vero Mckeon PA Collected: 05/07/2023 12:00 AM Ordering Location: [facility] DermPath Lab Received: 05/13/2023 01:28 PM Pathologist: Maureen Blount MD Specimens: A) - Skin, left mid-upper back B) - Skin, medial upper back 12:34 PM CDT DERMATOPATHOLOGY LABORATORY Final Diagnosis Specimen A. SKIN, left mid-upper back: LENTIGINOUS MELANOCYTIC NEVUS, COMPOUND TYPE, IRRITATED (D22.5) Specimen B. SKIN, medial upper back: LENTIGINOUS MELANOCYTIC NEVUS, COMPOUND TYPE, IRRITATED (D22.5) 3 12:34 PM [facility] DERMATOPATHOLOGY LABORATORY Clinical History A-B: Atypical Nevus vs. Melanoma 12:34 PM [facility] DERMATOPATHOLOGY LABORATORY Gross Description Specimen A: Received is one formalin filled container labeled with the patient's name and designated left mid-upper back. The specimen consists of a shave biopsy measuring 7x6x1 mm. Jar 0. Specimen B: Received is one formalin filled container labeled with the patient's name and designated medial upper back. The specimen consists of a shave biopsy measuring 7x7x1 mm. Jar 0. 3 12:34 PM [facility] DERMATOPATHOLOGY LABORATORY Microscopic Description Specimen A. SKIN, left mid-upper back: This is a compound nevus. There is melanin pigment within the stratum corneum. There is a lentiginous proliferation of melanocytes between nests of cells along the dermal-epidermal junction, highlighted by MART-1/Melan-A immunohistochemical staining. There is underlying fibroplasia of the papillary dermis. The intradermal component is bland appearance and matures with depth. (Compound Erick's Nevus) Specimen B. SKIN, medial upper back: This is a compound nevus. There is melanin pigment within the stratum corneum. There is a lentiginous proliferation of melanocytes between nests of cells along the dermal-epidermal junction, highlighted by MART-1/Melan-A immunohistochemical staining. There is underlying fibroplasia of the papillary dermis. The intradermal component is bland appearance and matures with depth. (Compound Erick's Nevus) 3 12:34 PM [facility] DERMATOPATHOLOGY LABORATORY Disclaimer An external and internal positive and negative controls are appropriate for the histochemical, immunohistochemical and immunofluorescence stain(s) in this case (if any), except where stated explicitly. The performance characteristics of the stain(s) cited in this report were developed and its performance characteristic determined by the Dermatopathology Laboratory at [facility], directed by Dr. Gaurav Leonard. These tests need not be, and therefore are not, approved by the [place] Food and Drug Administration. The tests are used for clinical purposes. Billing Codes Specimen Charges Stain Charges 56909 20701 1 1 77700 98990 1 1 3 12:34 PM CDT DERMATOPATHOLOGY LABORATORY Embedded Images 3 12:34 PM CDT DERMATOPATHOLOGY LABORATORY Pathology/Cytology TISSUE SPECIMEN FROM SKIN / Unknown 05/07/2023 05/13/2023 1:28 PM CDT Miscellaneous samples (specimen) TISSUE SPECIMEN FROM SKIN / Unknown 05/07/2023 05/13/2023 1:28 PM CDT [facility] - PATHOLOGY/CYT OLOGY ORDERABLES DERMATOPATHOLOGY LABORATORY [facility] - Department of Dermatology [address], [address] [phone] documented in this encounter Visit Diagnoses Diagnosis Neoplasm of uncertain behavior of skin documented in this encounter Care Teams Insole Doubler Relationship Specialty Start Date End Date Juan Rinaldi MD [address] [place] [address] PCP - General 09/15/18 documented as of this encounter
--- OUTSIDE RECORDS SUMMARY | 2025-01-02 17:41 | XMS_ITS | Clinical Summary ---
Author Organization [facility] [employer] Address [address] [place] [address] Care Team Providers Care Transportation Maintenance Worker Name Role Phone Juan Rinaldi MD Primary Care Provider Source Comments [facility] [employer],non-owned Affiliates and Associated Physician Practices is amultiple site organization consisting of ambulatory clinics and hospital sitesin [place], [place], [place] and [place]. This disclosure is being madepursuant to the Care Everywhere program and may not contain all information available regarding this patient. Last updated 18.[facility] [employer] Social History Tobacco Use Types Packs/Day Years Used Date Smoking Tobacco: Never Assessed Sex and Gender Information Value Date Recorded Sex Assigned at Not on file Gender Identity Not on file Sexual Orientation Not on file Plan of Treatment Health Maintenance Due Date Last Done Comments COLOGUARD (AGES 45-75) - COL ON CA SCREENING 1965 COLON MONITORING 1965 COLONOSCOPY - COLON CA SCREENING 1965 CT COLONOGRAPHY - COLON CA SCREENING 1965 Colorectal Cancer Screening 1965 FIT - COLON CA SCREENING 1965 FLEX SIG - COLON CA SCREENING 1965 LIPID TESTING 1965 MAMMOGRAM 1965 PAP SMEAR 1965 HIV SCREENING 1980 HEPATITIS C SCREENING 08/11/1983 DTAP/TDAP/TD VACCINES (1 - Tdap) 1984 HEPATITIS B VACCINE (1 of 3 - 19+ 3-dose series) 1984 PNEUMOCOCCAL VACCINE 50+ (1 of 1 - PCV) 2015 ZOSTER VACCINE (1 of 2) 2015 COVID-19 VACCINE ( - 2023-2 5 season) 2024 INFLUENZA VACCINE (#1) 2024 DEPRESSION SCREENING 10/19/2024 HIB VACCINE Aged Out No longer eligi ble based on patient's age to complete this topic HPV VACCINE Aged Out No longer eligi ble based on patient's age to complete this topic MENINGOCOCCAL (Group B) VACC INE SHARED DECISION-MAKING Aged Out No longer eligibl e based on patient's age to complete this topic MENINGOCOCCAL GROUPS A/C/Y/W VACCINE Aged Out No longer eligible b ased on patient's age to complete this topic PNEUMOCOCCAL VACCINE Aged Out No long er eligible based on patient's age to complete this topic Care Teams Transportation Maintenance Worker Relationship Specialty Start Date End Date Juan Rinaldi MD [address] [place] [address] PCP - General 09/15/18
--- OUTSIDE RECORDS SUMMARY | 2025-01-02 17:41 | XMS_ITS | Patient Health Summary ---
Author Organization [facility] Address [address] [place] [address] Care Team Providers Care Employee Relations Administrator Name Role Phone Juan Rinaldi MD Primary Care Provider [phone] Note from [facility],non-owned Affiliates and Associated Physician Practices is amultiple site organization consisting of ambulatory clinics and hospital sitesin [place], [place], [place] and [place]. This disclosure is being madepursuant to the Care Everywhere program and may not contain all information available regarding this patient. Last updated 18.[facility] Social History Tobacco Use Types Packs/Day Years Used Date Smoking Tobacco: Never Assessed Sex and Gender Information Value Date Recorded Sex Assigned at Not on file Gender Identity Not on file Sexual Orientation Not on file Procedures * DERMATOPATHOLOGY(Performed 05/07/2023) Performed for Neoplasm of uncertain behavior of skin * DERMATOPATHOLOGY(Performed 11/04/2022) * DERMATOPATHOLOGY(Performed 11/06/2020) * DERMATOPATHOLOGY(Performed 10/24/2020) * DERMATOPATHOLOGY(Performed 08/31/2019) * DERMATOPATHOLOGY(Performed 08/23/2019) * DERMATOPATHOLOGY(Performed 04/27/2019) * DERMATOPATHOLOGY(Performed 09/14/2018) * DERMATOPATHOLOGY(Performed 01/28/2011) * DERMATOPATHOLOGY(Performed 01/15/2011) Results * DERMATOPATHOLOGY (05/07/2023 12:00 AM CDT) Only the most recent of10 resultswithin the time period is included. Case Report Dermatopathology Report Case: [id number] Authorizing Provider: Vero Mckeon PA Collected: 05/07/2023 12:00 AM Ordering Location: [facility] DermPath Lab Received: 05/13/2023 01:28 PM Pathologist: Maureen Blount MD Specimens: A) - Skin, left mid-upper back B) - Skin, medial upper back 3 12:34 PM [facility] DERMATOPATHOLOGY LABORATORY Final Diagnosis Specimen A. SKIN, left mid-upper back: LENTIGINOUS MELANOCYTIC NEVUS, COMPOUND TYPE, IRRITATED (D22.5) Specimen B. SKIN, medial upper back: LENTIGINOUS MELANOCYTIC NEVUS, COMPOUND TYPE, IRRITATED (D22.5) 12:34 PM [facility] DERMATOPATHOLOGY LABORATORY Clinical History A-B: Atypical Nevus vs. Melanoma 12:34 PM [facility] DERMATOPATHOLOGY LABORATORY Gross Description Specimen [...] 7x7x1 mm. Jar 0. 3 12:34 PM [facility] DERMATOPATHOLOGY LABORATORY Microscopic Description Specimen [...] and matures with depth. (Compound Erick's Nevus) 12:34 PM [facility] DERMATOPATHOLOGY LABORATORY Disclaimer An external and internal positive and negative controls are appropriate for the histochemical, immunohistochemical and immunofluorescence stain(s) in this case (if any), except where stated explicitly. The performance characteristics of the stain(s) cited in this report were developed and its performance characteristic determined by the Dermatopathology Laboratory at [facility], directed by Dr. Gaurav Leonard. These tests need not be, and therefore are not, approved by the [place] Food and Drug Administration. The tests are used for clinical purposes. Billing Codes Specimen Charges Stain Charges 83131 75908 1 1 44165 48231 1 1 3 12:34 PM CDT DERMATOPATHOLOGY LABORATORY Embedded Images 3 12:34 PM CDT DERMATOPATHOLOGY LABORATORY Pathology/Cytology TISSUE SPECIMEN FROM SKIN / Unknown 05/07/2023 05/13/2023 1:28 PM CDT Miscellaneous samples (specimen) TISSUE SPECIMEN FROM SKIN / Unknown 05/07/2023 05/13/2023 1:28 PM CDT [facility] - PATHOLOGY/CYT OLOGY ORDERABLES DERMATOPATHOLOGY LABORATORY [facility] - Department of Dermatology [facility] [address] [place] [address], [address] [phone] Care Teams Employee Relations Administrator Relationship Specialty Start Date End Date Juan Rinaldi MD [address] [place] [address] PCP - General 09/15/18
--- OUTSIDE RECORDS SUMMARY | 2025-01-02 17:41 | XMS_ITS | Encounter Summary ---
Author Organization [facility] Address [address] [place] [address] Care Team Providers Care Paint Preparer Name Role Phone Juan Rinaldi MD Primary Care Provider [phone] Encounter Details Date Type Department Care Team (Late st Contact Info) Description 10/25/2020 Lab Requisition [facility] DermPath Lab [address] [facility] [place] [address] Leland Olivas MD [address] [place] [address] Social History Tobacco Use Types [...] Priority Date/Time Associated Diagnosis Comments DERMATOPATHOLOGY Routine 10/24/2020 12:0 0 AM ADJUNCT PROFESSOR OF ENGLISH documented in this encounter Results * DERMATOPATHOLOGY (10/24/2020 12:00 AM ADJUNCT PROFESSOR OF ENGLISH) Case Report Dermatopathology Report Case: [id number] Authorizing Provider: Leland Olivas MD Collected: 10/24/2020 12:00 AM Ordering Location: [facility] DermPath Lab Received: 10/25/2020 11:17 AM Pathologist: Esteban Leonard MD Specimens: A) - Skin, midline upper back B) - Skin, right distal lateral anterior thigh 1:02 PM ADJUNCT PROFESSOR OF ENGLISH DERMATOPATHOLOGY LABORATORY Final Diagnosis Specimen A. SKIN, midline upper back: LENTIGINOUS MELANOCYTIC NEVUS, COMPOUND TYPE (COMPOUND MELANOCYTIC NEVUS WITH ARCHITECTURAL DISORDER) (D22.5) Specimen B. SKIN, right distal lateral anterior thigh: LENTIGINOUS MELANOCYTIC NEVUS, JUNCTIONAL TYPE, IRRITATED (JUNCTIONAL MELANOCYTIC NEVUS WITH ARCHITECTURAL DISORDER) (D22.71) NOT PRESENT AT SAMPLED MARGIN 1 1:02 PM [facility] DERMATOPATHOLOGY LABORATORY Clinical History A: R/O dysplastic nevus B: R/O dysplastic nevus. Check margins 1:02 PM [facility] DERMATOPATHOLOGY LABORATORY Gross Description Specimen A: Received is one formalin filled container labeled with the patient's name and designated midline upper back. The specimen consists of a shave biopsy measuring 54k85a9 mm. Jar 0. Specimen B: Received is one formalin filled container labeled with the patients name and designated right distal lateral anterior thigh. The specimen consists of a shave removal measuring 9x6x1 mm, inked. Jar 0. 1 1:02 PM [facility] DERMATOPATHOLOGY LABORATORY Microscopic Description Specimen A. SKIN, midline upper back: This is a compound nevus. There is architectural disorder characterized by a lentiginous proliferation of melanocytes along the dermal-epidermal junction, highlighted by MART-1/Melan-A immunohistochemical staining. There is underlying fibroplasia of the papillary dermis. The intradermal component is bland in appearance and matures with depth. Original and deeper sections were reviewed. (Compound Erick's Nevus or Compound Dysplastic Nevus) Specimen B. SKIN, right distal lateral anterior thigh: This is a junctional nevus. There is melanin pigment in the stratum corneum. There is architectural disorder characterized by a lentiginous proliferation of melanocytes between irregular nests of cells along the dermal-epidermal junction. There is underlying fibroplasia of the papillary dermis. (Junctional Erick's Nevus or Junctional Dysplastic Nevus) This lesion is not present at the sampled margin of the specimen. 1 1:02 PM [facility] DERMATOPATHOLOGY LABORATORY Disclaimer An external and internal positive and negative controls are appropriate for the histochemical, immunohistochemical and immunofluorescence stain(s) in this case (if any), except where stated explicitly. The performance characteristics of the stain(s) cited in this report were developed and its performance characteristic determined by the Dermatopathology Laboratory at [facility], directed by Dr. Gaurav Leonard. These tests need not be, and therefore are not, approved by the [place] Food and Drug Administration. The tests are used for clinical purposes. Billing Codes Specimen Charges Stain Charges 77953 65002 1 1 43972 1 1 1:02 PM ADJUNCT PROFESSOR OF ENGLISH DERMATOPATHOLOGY LABORATORY Embedded Images 1:02 PM ADJUNCT PROFESSOR OF ENGLISH DERMATOPATHOLOGY LABORATORY Pathology/Cytology TISSUE SPECIMEN FROM SKIN / Unknown 10/24/2020 10/25/2020 11:17 AM ADJUNCT PROFESSOR OF ENGLISH Miscellaneous samples (specimen) TISSUE SPECIMEN FROM SKIN / Unknown 10/24/2020 10/25/2020 11:17 AM ADJUNCT PROFESSOR OF ENGLISH Leland Olivas MD LAB - PATHOLOGY/CYTO LOGY ORDERABLES DERMATOPATHOLOGY LABORATORY [facility] - Department of Dermatology [address] [phone] documented in this encounter Visit Diagnoses Not on filedocumented in this encounter Care Teams Paint Preparer Relationship Specialty Start Date End Date Juan Rinaldi MD [address] [place] [address] PCP - General 09/15/18 documented as of this encounter
--- OUTSIDE RECORDS SUMMARY | 2025-01-02 17:41 | XMS_ITS | Clinical Summary ---
Author Organization [facility] Address [address] [place] [address] Care Team Providers Care Billboard Erector Helper Name Role Phone Luisa Jerry MD Primary Care Provider [phone] Allergies Active Allergy Reactions Criticality Noted Date [...] Active Active Problems No known active problems Medical History Medical History Date Comments Hypertension Family History Medical History Relation Name Comments Colon cancer Father Emphysema Father Heart disease Maternal Grandfather Diabetes Maternal Grandmother Heart disease Maternal Grandmother Alzheimer's disease Mother Diabetes Mother Heart disease Mother Hypertension Mother Heart attack Paternal Grandfather Relation Name Status Comments Father Maternal Grandfather Maternal Grandmother Mother Paternal Grandfather Social History Tobacco Use Types Packs/Day Years Used Date Smoking Tobacco: Never Smokeless Tobacco: Never Alcohol Use Standard Drinks/Week Comments No 0 (1 standard drink = 0.6 oz pur e alcohol) Comments Unknown Sex and Gender Information Value Date Recorded Sex Assigned at Not on file Legal Sex Female 3:31 AM BRIAR SHOP SUPERVISOR Gender Identity Not on file Sexual Orientation Not on file Obstetrics History Last Filed Vital Signs Vital Sign Reading Time Taken Comments Blood Pressure 158/94 09/18/2017 10:01 AM BRIAR SHOP SUPERVISOR Pulse 75 08/20/2017 2:20 PM CDT Temperature - - Respiratory Rate - - Oxygen Saturation 98% 08/20/2017 2:20 PM CDT Inhaled Oxygen Concentration - - Weight 95.7 kg (211 lb) 09/18/2017 10:01 AM BRIAR SHOP SUPERVISOR Height 160 cm (5' 3 ) 09/18/2017 10:01 AM BRIAR SHOP SUPERVISOR Body Mass Index 37.38 09/18/2017 10:01 AM BRIAR SHOP SUPERVISOR Plan of Treatment Not on file Procedures Procedure Name Priority Date/Time Associated Diagnosis Comments MCT - MOBILE CARDIAC TELEMETRY EVENT MONITOR Routine 10/05/2024 3:41 PM BRIAR SHOP SUPERVISOR Dizziness Syncope and collapse from Last 3 Months Results * MCT Mobile Cardiac Telemetry Event Monitor (10/05/2024 3:41 PM BRIAR SHOP SUPERVISOR) Anatomical Region Laterality Modality Electrocardiogra phy Narrative 10/05/2024 3:41 PM BRIAR SHOP SUPERVISOR AMBULATORY BEAD MAKER REPORT Patient Name: Radha Viera Date of [...] was used to complete this document, therefore, box toe buffer variances may occur. Norris Rodriguez MD, [facility] 10/05/24 Procedure Note Norris Rodriguez MD - 10/05/2024 AMBULATORY BEAD MAKER REPORT Patient Name: Radha Viera Date of [...] software was used to complete this document, therefore,box toe buffer variances may occur. Norris Rodriguez MD, [facility] 10/05/24 Michelle Gutierrez MD [facility] CARDIAC SERVICES PROCEDURES Final Result from Last 3 Months Insurance [employer] SIG [id number] [facility] Care Teams Billboard Erector Helper Relationship Specialty Start Date End Date Luisa Jerry MD PCP - General Family Practice 05/03/19
--- OUTSIDE RECORDS SUMMARY | 2025-01-02 17:41 | XMS_ITS | Encounter Summary ---
Author Organization [facility] Address [address] [facility] [place] [address] Care Team Providers Care Soap Inspector Name Role Phone Juan Rinaldi MD Primary Care Provider [phone] Encounter Details Date Type Department Care Team (Late st Contact Info) Description 09/01/2019 Lab Requisition [facility] DermPath Lab [address], [place] [address] Leland Olivas MD [address] [place] [address] Social History Tobacco Use Types [...] Priority Date/Time Associated Diagnosis Comments DERMATOPATHOLOGY Routine 08/31/2019 12:0 0 AM ARSON AND BOMB INVESTIGATOR documented in this encounter Results * DERMATOPATHOLOGY (08/31/2019 12:00 AM ARSON AND BOMB INVESTIGATOR) Case Report Dermatopathology Report [id number]: [id number] Authorizing Provider: Leland Olivas MD Collected: 08/31/2019 12:00 AM Ordering Location: [facility] DermPath Lab Received: 09/01/2019 01:56 PM Pathologist: Maureen Blount MD Specimens: A) - Skin, right medial calf anterior lesion B) - Skin, right medial calf posterior lesion 9 4:59 PM ARSON AND BOMB INVESTIGATOR DERMATOPATHOLOGY LABORATORY Final Diagnosis Specimen A. 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 SKIN, right medial calf posterior lesion: JUNCTIONAL MELANOCYTIC NEVUS (D22.71) 4:59 PM [facility] DERMATOPATHOLOGY LABORATORY Clinical History A-B: R/O dys nevus, lentiginous melanocytic nevus. 4:59 PM [facility] DERMATOPATHOLOGY LABORATORY Gross Description Specimen A: Received is one formalin filled container labeled with the patient's name and designated right medial calf anterior lesion. The specimen consists of a shave biopsy measuring 6j9u5ar. Jar 0. Specimen B: Received is one formalin filled container labeled with the patient's name and designated right medial calf posterior lesion. The specimen consists of a shave biopsy measuring 5v1l3ye. Jar 0. 4:59 PM [facility] DERMATOPATHOLOGY LABORATORY Microscopic Description Specimen A. SKIN, right medial calf anterior lesion: There are nests of melanocytes at the dermal-epidermal junction and within the dermis. The intraepidermal component shows focal bridging, and is composed of occasional larger melanocytes with dusky cytoplasm and small nucleoli. Superficial dermal fibrosis and mild perivascular lymphoid infiltrate are present. By immunohistochemistr y, Danielson-1 highlights the intraepidermal and dermal components of the melanocytic proliferation. HMB-45 shows weak patchy positivity in the superficial dermal component. Specimen B. SKIN, right medial calf posterior lesion: There are nests of melanocytes at the dermal-epidermal junction that show focal bridging. The lesion is composed of occasional larger melanocytes with dusky cytoplasm and small nucleoli. Superficial dermal fibrosis and mild perivascular lymphoid infiltrate are present. By immunohistochemistr y, Danielson-1 highlights the intraepidermal melanocytic proliferation without revealing a dermal component. HMB-45 is positive within the intraepidermal melanocytic proliferation. 4:59 PM [facility] DERMATOPATHOLOGY LABORATORY Disclaimer An external and internal positive and negative controls are appropriate for the histochemical, immunohistochemical and immunofluorescence stain(s) in this case (if any), except where stated explicitly. The performance characteristics of the stain(s) cited in this report were developed and its performance characteristic determined by the Dermatopathology Laboratory at [facility], directed by Dr. Gaurav Leonard. These tests need not be, and therefore are not, approved by the [place] Food and Drug Administration. The tests are used for clinical purposes. Billing Codes Specimen Charges Stain Charges 39278 04058 1 1 73113 88726 08304 86057 1 1 1 1 9 4:59 PM ARSON AND BOMB INVESTIGATOR DERMATOPATHOLOGY LABORATORY Embedded Images 9 4:59 PM ARSON AND BOMB INVESTIGATOR DERMATOPATHOLOGY LABORATORY Pathology/Cytology TISSUE SPECIMEN FROM SKIN / Unknown 08/31/2019 09/01/2019 1:56 PM ARSON AND BOMB INVESTIGATOR Miscellaneous samples (specimen) TISSUE SPECIMEN FROM SKIN / Unknown 08/31/2019 09/01/2019 1:56 PM ARSON AND BOMB INVESTIGATOR Leland Olivas MD LAB - PATHOLOGY/CYTO LOGY ORDERABLES DERMATOPATHOLOGY LABORATORY [facility] - Department of Dermatology [address] [place] [address] [address] [phone] documented in this encounter Visit Diagnoses Not on filedocumented in this encounter Care Teams Soap Inspector Relationship Specialty Start Date End Date Juan Rinaldi MD [address] [place] [address] PCP - General 09/15/18 documented as of this encounter
--- OUTSIDE RECORDS SUMMARY | 2025-01-02 17:41 | XMS_ITS | Continuity of Care Document ---
Author Organization [facility] Address [address] [facility] [address] [place] [address] Phone Care Team Providers Care Bearing Ring Assembler Name Role Phone Guido PT,MPT,ATC, Chandana Unavailable Unavai lable Procedures Procedure Date Therapeutic Activities Neuromuscular Re-Ed Therapeutic Exercise Therapeutic Activities Neuromuscular Re-Ed Therapeutic Exercise Therapeutic Activities Neuromuscular Re-Ed Therapeutic Exercise Therapeutic Activities Neuromuscular Re-Ed Therapeutic Exercise Therapeutic Activities Neuromuscular Re-Ed Therapeutic Exercise Therapeutic Activities Neuromuscular Re-Ed Therapeutic Exercise Therapeutic Activities Neuromuscular Re-Ed Therapeutic Exercise Therapeutic Activities Neuromuscular Re-Ed Hot or Cold Pack Therapeutic Exercise Electrical Stimulation Therapeutic Activities Neuromuscular Re-Ed Therapeutic Exercise Therapeutic Activities Therapeutic Exercise Neuromuscular Re-Ed Therapeutic Activities Neuromuscular Re-Ed Therapeutic Exercise Therapeutic Activities Neuromuscular Re-Ed Therapeutic Exercise Therapeutic Activities Neuromuscular Re-Ed Therapeutic Exercise FOUNDING PARTNER Acute Therapeutic Activities Neuromuscular Re-Ed Therapeutic Exercise Therapeutic Activities Neuromuscular Re-Ed Therapeutic Exercise Therapeutic Activities Neuromuscular Re-Ed Therapeutic Exercise Therapeutic Activities Neuromuscular Re-Ed Therapeutic Exercise Manual Therapy Therapeutic Activities Neuromuscular Re-Ed Therapeutic Exercise Manual Therapy Therapeutic Activities Neuromuscular Re-Ed Therapeutic Exercise Manual Therapy Therapeutic Activities Neuromuscular Re-Ed Therapeutic Exercise Manual Therapy Progress Note Therapeutic Activities Neuromuscular Re-Ed Therapeutic Exercise Manual Therapy Therapeutic Activities Neuromuscular Re-Ed Therapeutic Exercise Manual Therapy Therapeutic Activities Therapeutic Exercise Neuromuscular Re-Ed Manual Therapy Therapeutic Activities Neuromuscular Re-Ed Therapeutic Exercise Manual Therapy Therapeutic Activities Therapeutic Exercise Manual Therapy Therapeutic Activities Therapeutic Exercise Manual Therapy Progress Note Therapeutic Activities Therapeutic Exercise Manual Therapy Therapeutic Activities Therapeutic Exercise Manual Therapy Therapeutic Activities Therapeutic Exercise Manual Therapy Therapeutic Activities Therapeutic Exercise Manual Therapy Therapeutic Activities Therapeutic Exercise Manual Therapy Therapeutic Activities Therapeutic Exercise Manual Therapy Therapeutic Activities Therapeutic Exercise Manual Therapy Therapeutic Activities Therapeutic Exercise Manual Therapy Therapeutic Activities Neuromuscular Re-Ed Manual Therapy Therapeutic Exercise Therapeutic Activities Neuromuscular Re-Ed Therapeutic Exercise Manual Therapy Progress Note Therapeutic Activities Neuromuscular Re-Ed Therapeutic Exercise Manual Therapy Therapeutic Activities Neuromuscular Re-Ed Therapeutic Exercise Manual Therapy Therapeutic Activities Neuromuscular Re-Ed Therapeutic Exercise Manual Therapy Therapeutic Activities Therapeutic Exercise Manual Therapy Therapeutic Activities Therapeutic Exercise Therapeutic Activities Therapeutic Exercise Therapeutic Activities Therapeutic Exercise Therapeutic Activities Therapeutic Exercise Therapeutic Activities Therapeutic Exercise PT Evaluation Moderate Complexity Therapeutic Activities Therapeutic Exercise Neuromuscular Re-Ed Therapeutic Activities Progress Note Manual Therapy Therapeutic Exercise Therapeutic Activities Neuromuscular Re-Ed Hot or Cold Pack Manual Therapy Therapeutic Exercise Therapeutic Activities Manual Therapy Neuromuscular Re-Ed Therapeutic Exercise Therapeutic Activities Neuromuscular Re-Ed Therapeutic Exercise Manual Therapy Hot or Cold Pack Therapeutic Activities PT Evaluation Low Complexity Hot or Cold Pack Therapeutic Exercise Neuromuscular Re-Ed Advance Directives Directive Yes / No Effective Date File Name No Information Encounters Encounter Description Practice Location Reason(s) For Visit Diagnoses Date Provider Providers Copied on Encounter [facility], [id number], tel:[phone] [place] No Information 4 [place], [place], [place]. [facility] [facility] [address], [place], [place], [id number], tel:[phone] [place] No Information Jun- 4 Ohnesorge Emmanuel. . Referring Provider: Frankie Cook, [address], [place], [address]. tel:[phone] [facility] [facility] [address], [place], [place], [id number], tel:[phone] [place] No Information Sep- 4 Ohnesorge Emmanuel. . Referring Provider: Frankie Cook, [address], [place], [address]. tel:[phone] [facility] [facility] [address], [place], [place], [id number], tel:[phone] [place] No Information Sep-0 4 Ohnesorge Emmanuel. . Referring Provider: Frankie Cook, [address], [place], [address]. tel:[phone] [facility], [address], [place], [place], [id number], [place] tel:[phone] [place] No Information 4 Ohnesorge Emmanuel. . Referring Provider: Frankie Cook, [address], [place], [address]. tel:[phone] [facility], [address], [place], [place], [address], [place] tel:[phone] [place] No Information 4 [facility] [place] [place]. Referring Provider: Frankie Cook, [address], [place], [address]. tel:[phone] [facility], [place], [place], [address], [place] tel:[phone] [place] No Information 4 Ohnesorge Emmanuel. . Referring Provider: Frankie Cook, [address], [place], [address]. tel:[phone] [facility], [address], [place], [place], [address], [place] tel:[phone] [place] No Information 4 [facility] Referring Provider: Frankie Cook, [address], [place], [address]. tel:[phone] [facility], [place], [place], [id number], [place] tel:[phone] [place] No Information 4 [place] , [place], [place]. Referring Provider: Parish [address], [place], [address]. tel:[phone] [place] [address] [address], [place], [place], [address], [place] tel:[phone] [place] No Information 4 Guido Smith , [place], [place]. Referring Provider: Frankie Cook, [address], [place], [address]. tel:[phone] [facility], [place], [place], [address], [place] tel:[phone] [place] No Information 4 Ohnesorge Emmanuel. . Referring Provider: [address], [place], [address]. tel:[phone] [place] [address] [address], [place], [place], [id number], [place] tel:[phone] [place] No Information 4 Ohnesorge Emmanuel. . Referring Provider: [address], [place], [address]. tel:[phone] [place] [address] [address], [place], [place], [address], [place] tel:[phone] [place] No Information 4 Ohnesorge Emmanuel. . Referring Provider: [address], [place], [address]. tel:[phone] [place] [address] [address], [place], [place], [address], [place] tel:[phone] [place] No Information 4 Guido Smith , [place], [place]. Referring Provider: [address], [place], [address]. tel:[phone] [place] [address] [address], [place], [place], [address], [place] tel:[phone] [place] No Information 4 [facility]. Referring Provider: [address], [place], [address]. tel:[phone] [place] [address], [address], [place], [place], [address], [place] tel:[phone] [place] No Information 4 [facility] [place]. Referring Provider: [address], [place], [address]. tel:[phone] [place] [address], [address], [place], [place], [address], [place] tel:[phone] [place] No Information 4 [place], [place], [place]. Referring Provider: [address], [place], [address]. tel:[phone] [place] [address], [address], [place], [place], [address], [place] tel:[phone] [place] No Information 4 [place], [place], [place]. Referring Provider: [address], [place], [address]. tel:[phone] [place] [address], [address], [place], [place], [address], [place] tel:[phone] [place] No Information 4 Sourav Benitez. . Referring Provider: [address], [place], [address]. tel:[phone] [place] [address] [address], [place], [address], [place] tel:[phone] [place] No Information 4 Angelito Tam. . Referring Provider: [address], [place], [address]. tel:[phone] [facility], [address], [place], [place], [address], [place] tel:[phone] [place] No Information Apr-0 - 4 Klahn Yonatan. . Referring Provider: Frankie Cook, [address], [place], [address]. tel:[phone] [facility], [address], [place], [place], [address], [place] tel:[phone] [place] No Information Mar-2 4 Klahn Yonatan. . Referring Provider: Frankie Cook, [address], [place], [address]. tel:[phone] [place] [address], [address], [place], [place], [address], [place] tel:[phone] [place] No Information Mar-2 4 Klahn Yonatan. . Referring Provider: [address], [place], [address]. tel:[phone] [place] [address], [address], [place], [place], [address], [place] tel:[phone] [place] No Information 2 0 4 Klahn Yonatan. . Referring Provider: [address], [place], [address]. tel:[phone] [place] [address], [address], [place], [place], [address], [place] tel:[phone] [place] No Information 4 Klahn Yonatan. . Referring Provider: [address], [place], [address]. tel:[phone] [facility], [address], [place], [place], [address], [place] tel:[phone] [place] No Information Mar-1 3 4 Klahn Yonatan. . Referring Provider: Frankie Cook, [address], [place], [address]. tel:[phone] [place] [address], [address], [place], [place], [address], [place] tel:[phone] [place] No Information 1 4 Klahn Yonatan. . Referring Provider: Frankie Cook, [address], [place], [address]. tel:[phone] [place] [address] [facility] [address], [place], [place], [address], [place] tel:[phone] [place] No Information Brandon-0 4 Klahn Yonatan. . Referring Provider: Frankie Cook, [address], [place], [address]. tel:[phone] [place] [address] [address], [place], [place], [address], [place] tel:[phone] [place] No Information Brandon-0 4 Klahn Yonatan. . Referring Provider: [address], [place], [address]. tel:[phone] [place] [address] [address], [place], [place], [address], [place] tel:[phone] [place] No Information February-3 0 4 Klahn Yonatan. . Referring Provider: [address], [place], [address]. tel:[phone] [place] [address] [address], [place], [place], [address], [place] tel:[phone] [place] No Information February-2 4 Klahn Yonatan. . Referring Provider: [address], [place], [address]. tel:[phone] [place] [address], [address], [place], [place], [address], [place] tel:[phone] [place] No Information May-2 3-202 4 Klahn Yonatan. . Referring Provider: [address], [place], [address]. tel:[phone] [place] [address], [address], [place], [place], [address], [place] tel:[phone] [place] No Information May-2 1-202 4 Klahn Yonatan. . Referring Provider: [address], [place], [address]. tel:[phone] [place] [address], [address], [place], [address], [place] tel:[phone] [place] No Information May-1 4-202 4 Klahn Yonatan. . Referring Provider: [address], [place], [address]. tel:[phone] [place] [address], [address], [place], [place], [address], [place] tel:[phone] [place] No Information May-1 0-202 4 Klahn Yonatan. . Referring Provider: [address], [place], [address]. tel:[phone] [place] [address], [address], [place], [place], [address], [place] tel:[phone] [place] No Information May-0 7-202 4 Klahn Yonatan. . Referring Provider: [address], [place], [address]. tel:[phone] [place] [address], [address], [place], [place], [address], [place] tel:[phone] [place] No Information May-0 2-202 4 Klahn Yonatan. . Referring Provider: Frankie Joey, [address], [place], [address]. tel:[phone] [facility], [address], [place], [place], [address], [place] tel:[phone] [place] No Information 4 Angelito Tam. . Referring Provider: Frankie Cook, [address], [place], [address]. tel:[phone] [place] [address], [address], [place], [place], [address], [place] tel:[phone] [place] No Information 4 Angelito Tam. . Referring Provider: Frankie Cook, [address], [place], [address]. tel:[phone] [place] [address], [address], [place], [address], [place] tel:[phone] [place] No Information 4 Angelito Tam. . Referring Provider: [address], [place], [address]. tel:[phone] [place] [address], [address], [place], [place], [address], [place] tel:[phone] [place] No Information 4 Angelito Tam. . Referring Provider: [address], [place], [address]. tel:[phone] [place] [address], [address], [place], [place], [address], [place] tel:[phone] [place] No Information 4 Angelito Tam. . Referring Provider: Cherie [address], [place], [address]. tel:[phone] [facility], [address], [place], [place], [address], [place] tel:[phone] [place] No Information Apr-0 9- 4 Klahn Yonatan. . Referring Provider: Frankie Cook, [address], [place], [address]. tel:[phone] [facility], [address], [place], [place], [address], [place] tel:[phone] [place] No Information Apr-0 4-202 4 Klahn Yonatan. . Referring Provider: Frankie Cook, [address], [place], [address]. tel:[phone] [facility], [address], [place], [place], [address], [place] tel:[phone] [place] No Information Apr-0 2-202 4 Klahn Yonatan. . Referring Provider: Frankie Cook, [address], [place], [address]. tel:[phone] [place] [address], [address], [place], [place], [address], [place] tel:[phone] [place] No Information Mar-2 4 Klahn Yonatan. . Referring Provider: Frankie Cook, [address], [place], [address]. tel:[phone] [facility], [address] [place], [place] [address], [place], [place], [address], [place] tel:[phone] [place] No Information Mar-2 - 4 Klahn Yonatan. . Referring Provider: Frankie Cook, [address], [place], [address]. tel:[phone] [facility], [place], [place], [address], [place] tel:[phone] [place] No Information February-3 1-202 2 [place]. . Referring Provider: Michelle Gutierrez, [address] , [place], [address]. tel:[phone] [place] [address], [address], [id number], tel:[phone] [place] No Information 7- 2 [place]. . Referring Provider: [address], [place], [address]. tel:[phone] [facility] [address], [id number], tel:[phone] [place] No Information February- 4-202 2 [place]. . Referring Provider: [address], [place], [address]. tel:[phone] [facility] [address], [id number], tel:[phone] [place] No Information 0-202 2 [place]. . Referring Provider: [address], [place], [address]. tel:[phone] 4298 [facility] [address], [id number], tel:[phone] [place] No Information 2 [place]. . Referring Provider: [address], [place], [address]. tel:[phone] Family History Family Member Type Diagnosis Age At Onset No Information Payers Payer name Insurance type Covered republican ID William watkins(s) [employer] EPO WC SP WC [id number] Social History Type Description Quantity Date Captured Comments Sex Female Smoking Status No Information Chief Complaint And Reason For Visit No Information Reason For Referral Reason For Referral No Information History Of Present Illness Encounter Date Complaint History Of Prese nt Illness No Information Functional Status Date Functional Assessmen t No Information Instructions Date Instruction Additional Infor mation Giving encouragement to exercise Related to Overweight Giving encouragement to exercise Related to Overweight Assessments Type Assessment Date No Information Patient Care Teams Name Effective Dates (start - stop) Status Members No Information
--- OUTSIDE RECORDS SUMMARY | 2025-01-02 17:41 | XMS_ITS | Referral Summary ---
Author Organization [facility] Address [address] [place] [address] Care Team Providers Care Data Integration Analyst Name Role Phone Juan Rinaldi MD Primary Care Provider [phone] Source Comments [facility],non-owned Affiliates and Associated Physician Practices is amultiple site organization consisting of ambulatory clinics and hospital sitesin [place], [place] and [place]. This disclosure is being madepursuant to the Care Everywhere program and may not contain all information available regarding this patient. Last updated 18.[facility] Social History Tobacco Use Types Packs/Day Years Used Date Smoking Tobacco: Never Assessed Sex and Gender Information Value Date Recorded Sex Assigned at Not on file Gender Identity Not on file Sexual Orientation Not on file Plan of Treatment Not on file Care Teams Data Integration Analyst Relationship Specialty Start Date End Date Juan Rinaldi MD [address] [place] [address] PCP - General 09/15/18
[2025-01-02 17:42] LABS: Alanine Aminotransferase 25 U/L (6-35); Albumin Level 4.6 g/dL (3.5-5.1); Alkaline Phosphatase 122 U/L (38-126); Anion Gap 11 mmol/L (4-12); Aspartate Amino Transferase 27 U/L (14-36); Bilirubin,Total 0.4 mg/dL (0.2-1.3); Blood Urea Nitrogen 14 mg/dL (7-17); Calcium 9.8 mg/dL (8.4-10.2); Carbon Dioxide 26 mmol/L (22-30); Chloride 95 mmol/L (98-107); Estimated Glomerular Filt Rate > 60; Glucose 106 mg/dL (65-110); Potassium 3.1 mmol/L (3.4-5.0); Sodium 132 mmol/L (137-145)
[2025-01-02 17:43] LABS: INR 0.9; Prothrombin Time 12.4 Seconds (11.1-14.7)
[2025-01-02 17:44] LABS: Partial Thromboplastin Time 27.3 Seconds (22.3-36.8)
[2025-01-02] MEDS: hydrALAZINE HCL 20 MG/ML VIAL 10 MG IV PUSH ×2 (17:53→18:41)
[2025-01-02] MEDS: POTASSIUM CHLORIDE 20 MEQ ER TABLET 40 MEQ PO (17:58)
--- NOTE | 2025-01-02 18:04 | ED.GENADULT ---
HPI - General Adult General Chief complaint: Weakness Stated complaint: near syncopal, dizziness, weakness Time Seen by Provider: 01/02/25 16:13 History of Present Illness HPI narrative: Patient is a 59-year-old female who presents ER with feeling weak and lightheaded. This has happened to her in the past and she has had episodes of syncope that she did not lose consciousness today. Symptoms have been persistent since earlier this morning when she was doing some filing work. She has had some discomfort in her left neck radiating up from her chest but no chest pain. She has had some sensation palpitations. Has history of vertigo but this is different as there is no rotational spinning. Patient has history of hypertension and has been compliant with her medications. No decongestants. Blood pressure elevated in the 200s. Patient has had issues with hypokalemia in the past when she is on hydrochlorothiazide and she was switched to chlorthalidone. No numbness or weakness in arm or leg. No slurred speech. Patient does report increased fatigue over the last month. Related Data Home Medications ?Medication ?Instructions ?Recorded ?Confirmed ?Last Taken ?Type azelaic acid 15 % topical gel 1 applic topical HS 10/26/24 12/28/24 Unknown History cholecalciferol (vitamin D3) 25 25 mcg PO DAILY 10/26/24 12/28/24 Unknown History mcg (1,000 unit) capsule loratadine 10 mg tablet (Claritin) 10 mg PO DAILY 10/26/24 12/28/24 Unknown History multivitamin (Daily Multi-Vitamin 1 tablet PO DAILY 10/26/24 12/28/24 Unknown History tablet) Allergies Allergy/AdvReac Type Severity Reaction Status Date / Time morphine Allergy Mild Vomiting Verified 12/28/24 08:32 nitroglycerin Allergy Unknown Other Verified 12/28/24 08:32 FOR[facility]LY [facility] Past Medical History Medical History Rosacea Melanoma (~05/2019) surgery to remove Torn rotator cuff Breast asymmetry Screening mammogram, encounter for Breast lump 05-31-2018 left breast lump, US done Benign subcutaneous cyst Acute viral syndrome Viral labyrinthitis syndrome Hx of melanoma of skin Hx of adenomatous colonic polyps Hypertension Surgical History Surgical History H/O rotator cuff surgery (~12/23/23) History of orthopedic surgery (08/13/20) joint replacement right foot History of hysterectomy, supracervical abdominal (subtotal) 03/19/05 enlarged uterus/menometrorrhagia/dsymenorrhea/extensive adhesiolysis, adenomyosis History of bunionectomy Hx of section x3 Hx of cholecystectomy 2003 Hx of appendectomy age 12 Family History Family History Mother Family history of thyroid disease Diabetes mellitus Hypertension Family history of transient ischemic attacks Family history of cardiovascular disease Family history of Alzheimer's disease Heart disease Father Hypertension Carcinoma of colon Family history of emphysema Sibling Heart disease brother Social History Social History (Updated 12/28/24 @ 08:42 by RIZWAN Lance) Smoking status: Never smoker Second hand tobacco smoke exposure: No Alcohol intake: never Substance use: never Substance use type: does not use Do You Feel Safe in your Home?: Yes Lack of Transportation: No Lack of Food: Never True Current Housing: I Have Housing Concerned About Future Housing: No Difficulty Paying Gas/Electric Bills: No Difficulty Paying for Meds: No Currently Unemployed: No Education: Trade/Vocational Certificate Difficulty w/ Childcare or Family Care: No Living arrangements: other Additional living arrangements comments: Occupation/Education: occupation 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 HEAD: Normocephalic, atraumatic. ENT: Mucous membranes moist. CHEST: Clear to auscultation. No respiratory distress. HEART: Regular rate and rhythm. Normal peripheral pulses. ABDOMEN: Soft, nontender, nondistended. EXTREMITIES: Normal range of motion. No edema. SKIN: Warm, dry, no rash. NEURO: No focal deficits. Alert and oriented x3. PSYCH: Normal mood and affect. Course Course Emergency Course: 1838: Patient still with significant elevated blood pressures after 10 of hydralazine. She is due for her home losartan 50 mg which she has with her and she is going to take. I will also give her 2nd dose of hydralazine. Patient's lab work appears normal the exception mild hypokalemia. I have given her oral potassium replacement. Reports mild BASS but dizziness/woozy feeling is improved. 1923: BP 108/55, patient feels lightheaded and nausous. Placed in trendelenburg, will give 1L NS and zofran. 1935: BP up to 131/67, she will go for CT. 2017: Accepted by hospitalist service. Will place on telemetry given significant rapid drop in blood pressure. Patient is feeling improved at this time. Vital Signs Vital signs: Vital Signs Temperature 97.5 F L 01/02/25 15:33 Pulse Rate 84 01/02/25 15:33 Respiratory Rate 16 01/02/25 15:33 Blood Pressure 217/90 H 01/02/25 15:33 Pulse Oximetry 100 01/02/25 15:33 Oxygen Delivery Room Air 01/02/25 15:33 Temperature 98.3 F 01/02/25 16:48 Pulse Rate 93 01/02/25 19:50 Respiratory Rate 16 01/02/25 19:50 Blood Pressure 129/65 01/02/25 19:50 Pulse Oximetry 100 01/02/25 19:50 Oxygen Delivery Room Air 01/02/25 16:48 Medical Decision Making Vital Signs Vital Signs: Vital Signs Temperature 97.5 F L 01/02/25 15:33 Pulse Rate 84 01/02/25 15:33 Respiratory Rate 16 01/02/25 15:33 Blood Pressure 217/90 H 01/02/25 15:33 Pulse Oximetry 100 01/02/25 15:33 Oxygen Delivery Room Air 01/02/25 15:33 Temperature 98.3 F 01/02/25 16:48 Pulse Rate 93 01/02/25 19:50 Respiratory Rate 16 01/02/25 19:50 Blood Pressure 129/65 01/02/25 19:50 Pulse Oximetry 100 01/02/25 19:50 Oxygen Delivery Room Air 01/02/25 16:48 Lab Data 01/02/25 16:36 01/02/25 17:20 Labs: Lab Results 01/02/25 01/02/25 01/02/25 Range/Units 16:36 17:20 19:30 WBC 11.3 H (4.5-10.0) K/mm3 RBC 4.77 (4.2-5.4) M/mm3 Hgb 14.6 (12.0-15.0) g/dL Hct 43.3 (37.0-47.0) % MCV 90.8 (80-100) fl MCH 30.6 (26-34) pg MCHC 33.7 (32-36) g/dl RDW 12.3 (11.5-14.5) % Plt Count 195 (150-375) k/mm3 MPV 10.1 (7.4-10.4) fl Immature Gran % (Auto) 0.3 (0-0.5) % Neut % (Auto) 79.0 H (45.5-73.1) % Lymph % (Auto) 15.5 L (18.3-44.2) % [place] % (Auto) 4.8 (2.6-8.5) % Eos % (Auto) 0.0 (0-4.4) % Baso % (Auto) 0.4 (0.2-1.2) % Lymph # (Auto) 1.75 (0.9-3.2) K/mm3 [place] # (Auto) 0.5 (0.1-0.6) K/mm3 Eos # (Auto) 0.0 (0-0.3) K/mm3 Baso # (Auto) 0.0 (0.0-0.1) K/mm3 Abs Immat Gran (auto) 0.03 (0.00-0.031) K/mm3 Absolute Neuts (auto) 8.9 H (1.3-6.7) K/mm3 Absolute Nucleated RBC 0.000 (0.0-0.012) K/mm3 Nucleated RBC % 0.0 (0.0-0.2) % % Immature Plt Fraction 4.2 (0.9-11.2) % PT 12.4 (11.1-14.7) Seconds INR 0.9 APTT 27.3 (22.3-36.8) Seconds Sodium Cancelled 132 L Potassium Cancelled 3.1 L Chloride Cancelled 95 L Carbon Dioxide Cancelled 26 Anion Gap Cancelled 11 BUN Cancelled 14 Creatinine Cancelled 0.56 L Estim Creat Clear Calc Cancelled Not Reportable Estimated GFR Cancelled > 60 Glucose Cancelled 106 Calcium Cancelled 9.8 Total Bilirubin Cancelled 0.4 AST Cancelled 27 ALT Cancelled 25 Alkaline Phosphatase Cancelled 122 Troponin I < 0.012 < 0.012 (0.000-0.034) ng/mL NT-Pro-B Natriuret Pep 23 (19.9-100) pg/mL Total Protein Cancelled 8.0 Albumin Cancelled 4.6 TSH (Reflex) 1.150 (0.465-4.68) uIU/mL Influenza A (RT-PCR) Negative (Negative) Influenza B (RT-PCR) Negative (Negative) RSV (RT-PCR) Negative (Negative) SARS-CoV-2 RNA (RT-PCR) Negative (Negative) Imaging Data Radiologist's impression: ITS Impressions Chest X-Ray 01/02/25 18:00 IMPRESSION: No focal infiltrate or effusion. ITS Impressions Chest X-Ray 01/02/25 18:00 IMPRESSION: No focal infiltrate or effusion. ECG Data EKG #1: ECG completion date: 01/02/25 ECG completion time: 17:45 EKG Interpretation: normal rate (84), sinus rhythm, non-specific ST changes, normal QRS, normal QT and NL axis Discharge Plan Discharge Clinical Impression: Hypertensive urgency, Acute hypokalemia Patient Disposition: Still a Patient Condition: Stable Patient Language: Estonian Prescriptions: No Action potassium chloride 10 mEq capsule, extended release 10 meq PO DAILY Qty: 90 1RF azelaic acid 15 % gel 1 applic TOPICAL HS cholecalciferol (vitamin D3) 25 mcg (1,000 unit) capsule 25 mcg PO DAILY multivitamin [Daily Multi-Vitamin] Tablet 1 tablet PO DAILY loratadine [Claritin] 10 mg tablet 10 mg PO DAILY estradiol 0.5 mg tablet 0.5 mg PO DAILY Qty: 90 3RF losartan 50 mg tablet 50 mg PO BID Qty: 180 1RF chlorthalidone 25 mg tablet 25 mg PO DAILY Qty: 30 1RF Follow-up/Referrals: Michelle Gutierrez MD [Primary Care Provider] -
--- NOTE | 2025-01-02 18:39 | PC.NURSE ---
Patient took home dose of losartan 50mg. EDP ok with patient taking home medication, this RN witnessed.
--- OUTSIDE RECORDS SUMMARY | 2025-01-02 18:51 | XMS_ITS | Encounter Summary ---
Author Organization [facility] Address [address] [place] [address] Care Team Providers Care Scientific Programmer Name Role Phone Juan Rinaldi MD Primary Care Provider [phone] Encounter Details Date Type Department Care Team (Late st Contact Info) Description 09/01/[address] [facility] DermPath Lab [address] [place] [address] Leland Olivas MD [address] [place] [address] Social History Tobacco Use Types [...] Comments DERMATOPATHOLOGY Routine 08/31/2019 12:0 0 AM OBIEE CONSULTANT documented in this encounter Results * DERMATOPATHOLOGY (08/31/2019 12:00 AM OBIEE CONSULTANT) Case Report Dermatopathology Report Case: [id number] Authorizing Provider: Leland Olivas MD Collected: 08/31/2019 12:00 AM Ordering Location: [facility] DermPath Lab Received: 09/01/2019 01:56 PM Pathologist: Maureen Blount MD Specimens: A) - Skin, right medial calf anterior lesion B) - Skin, right medial calf posterior lesion 9 4:59 PM [facility]BIEE CONSULTANT DERMATOPATHOLOGY LABORATORY Final Diagnosis Specimen A. 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 SKIN, right medial calf posterior lesion: JUNCTIONAL MELANOCYTIC NEVUS (D22.71) 4:59 PM [facility] DERMATOPATHOLOGY LABORATORY Clinical History A-B: R/O dys nevus, lentiginous melanocytic nevus. 4:59 PM [facility] DERMATOPATHOLOGY LABORATORY Gross Description Specimen A: Received is one formalin filled container labeled with the patient's name and designated right medial calf anterior lesion. The specimen consists of a shave biopsy measuring [id number]. Jar 0. Specimen B: Received is one formalin filled container labeled with the patient's name and designated right medial calf posterior lesion. The specimen consists of a shave biopsy measuring [id number]. Jar 0. 4:59 PM [facility] DERMATOPATHOLOGY LABORATORY Microscopic Description Specimen A. SKIN, right medial calf anterior lesion: There are nests of melanocytes at the dermal-epidermal junction and within the dermis. The intraepidermal component shows focal bridging, and is composed of occasional larger melanocytes with dusky cytoplasm and small nucleoli. Superficial dermal fibrosis and mild perivascular lymphoid infiltrate are present. By immunohistochemistr y, Brighton-1 highlights the intraepidermal and dermal components of [...] lymphoid infiltrate are present. By immunohistochemistr y, Brighton-1 highlights the intraepidermal melanocytic proliferation without revealing a dermal component. HMB-45 is positive within the intraepidermal melanocytic proliferation. 4:59 PM [facility] DERMATOPATHOLOGY LABORATORY Disclaimer An external and internal positive and negative controls are appropriate for the histochemical, immunohistochemical and immunofluorescence stain(s) in this case (if any), except where stated explicitly. The performance characteristics of the stain(s) cited in this report were developed and its performance characteristic determined by the Dermatopathology Laboratory at [facility], directed by Dr. Gaurav Leonard. These tests need not be, and therefore are not, approved by the [place] Food and Drug Administration. The tests are used for clinical purposes. Billing Codes Specimen Charges Stain Charges 72468 53482 1 1 74183 12520 [id number] 23345 1 1 1 1 9 4:59 PM [facility]EE CONSULTANT DERMATOPATHOLOGY LABORATORY Embedded Images 9 4:59 PM [facility]BIEE CONSULTANT DERMATOPATHOLOGY LABORATORY Pathology/Cytology TISSUE SPECIMEN FROM SKIN / Unknown 08/31/2019 09/01/2019 1:56 PM OBIEE CONSULTANT Miscellaneous samples (specimen) TISSUE SPECIMEN FROM SKIN / Unknown 08/31/2019 09/01/2019 1:56 PM OBIEE CONSULTANT Leland Olivas MD LAB - PATHOLOGY/CYTO LOGY ORDERABLES DERMATOPATHOLOGY LABORATORY [facility] - Department of Dermatology [address] [place] [address] [address] [phone] documented in this encounter Visit Diagnoses Not on filedocumented in this encounter Care Teams Scientific Programmer Relationship Specialty Start Date End Date Juan Rnialdi MD [address] [place] [address] PCP - General 09/15/18 documented as of this encounter
--- OUTSIDE RECORDS SUMMARY | 2025-01-02 18:51 | XMS_ITS | Encounter Summary ---
Author Organization [facility] Address [address] [place] [address] Care Team Providers Care Staff Internist Office Based Only Name Role Phone Juan Rinaldi MD Primary Care Provider [phone] Encounter Details Date Type Department Care Team (Late st Contact Info) Description 05/08/2023 Lab Requisition [facility] - DermPath Lab [address] [place] [address] Vero Mckeon PA [address] [place] [address] Neoplasm of uncertain behavior of [...] AM CDT) Case Report Dermatopathology Report Case: [id number] Authorizing Provider: Vero Mckeon PA Collected: 05/07/2023 12:00 AM Ordering Location: [facility] DermPath Lab Received: 05/13/2023 01:28 PM Pathologist: Maureen Blount MD Specimens: A) - Skin, left mid-upper back B) - Skin, medial upper back 12:34 PM CDT DERMATOPATHOLOGY LABORATORY Final Diagnosis Specimen A. SKIN, left mid-upper back: LENTIGINOUS MELANOCYTIC NEVUS, COMPOUND TYPE, IRRITATED (D22.5) Specimen B. SKIN, medial upper back: LENTIGINOUS MELANOCYTIC NEVUS, COMPOUND TYPE, IRRITATED (D22.5) 3 12:34 PM [facility] DERMATOPATHOLOGY LABORATORY Clinical History A-B: Atypical Nevus vs. Melanoma 12:34 PM [facility] DERMATOPATHOLOGY LABORATORY Gross Description Specimen A: [...] 7x7x1 mm. Jar 0. 3 12:34 PM [facility] DERMATOPATHOLOGY LABORATORY Microscopic Description Specimen A. [...] depth. (Compound Erick's Nevus) 3 12:34 PM [facility] DERMATOPATHOLOGY LABORATORY Disclaimer An external and internal positive and negative controls are appropriate for the histochemical, immunohistochemical and immunofluorescence stain(s) in this case (if any), except where stated explicitly. The performance characteristics of the stain(s) cited in this report were developed and its performance characteristic determined by the Dermatopathology Laboratory at [facility], directed by Dr. Gaurav Leonard. These tests need not be, and therefore are not, approved by the [place] Food and Drug Administration. The tests are used for clinical purposes. Billing Codes Specimen Charges Stain Charges 91124 81235 1 1 62150 65625 1 1 3 12:34 PM CDT DERMATOPATHOLOGY LABORATORY Embedded Images 3 12:34 PM CDT DERMATOPATHOLOGY LABORATORY Pathology/Cytology TISSUE SPECIMEN FROM SKIN / Unknown 05/07/2023 05/13/2023 1:28 PM CDT Miscellaneous samples (specimen) TISSUE SPECIMEN FROM SKIN / Unknown 05/07/2023 05/13/2023 1:28 PM CDT [facility] - PATHOLOGY/CYT OLOGY ORDERABLES DERMATOPATHOLOGY LABORATORY [facility] - Department of Dermatology [address], [address] [phone] documented in this encounter Visit Diagnoses Diagnosis Neoplasm of uncertain behavior of skin documented in this encounter Care Teams Staff Internist Office Based Only Relationship Specialty Start Date End Date Juan Rinaldi MD [address] [place] [address] PCP - General 09/15/18 documented as of this encounter
--- OUTSIDE RECORDS SUMMARY | 2025-01-02 18:51 | XMS_ITS | Clinical Summary ---
Author Organization [facility] Address [address], [address] [address] Phone Care Team Providers Care Rattle Leak And Squeak Repairer Name Role Phone Luisa Doll MD Primary [...] Most Recently Relevant to Health Maintenance Insurance [facility] Care Teams Rattle Leak And Squeak Repairer Relationship Specialty Start Date End Date Luisa Doll MD [address] [place] [id number] PCP - General Family Medicine 12/20/18
--- OUTSIDE RECORDS SUMMARY | 2025-01-02 18:51 | XMS_ITS | Patient Health Summary ---
Author Organization [facility] Address [address] [place] [address] Care Team Providers Care Financial Planning Advisor Name Role Phone Juan Rinaldi MD Primary Care Provider [phone] Note from [facility],non-owned Affiliates and Associated Physician Practices is amultiple site organization consisting of ambulatory clinics and hospital sitesin [place], [place], [place] and [place]. This disclosure is being madepursuant to the Care Everywhere program and may not contain all information available regarding this patient. Last updated 18.[facility] Social History Tobacco Use Types Packs/Day Years [...] is included. Case Report Dermatopathology Report Case: [id number] Authorizing Provider: Vero Mckeon PA Collected: 05/07/2023 12:00 AM Ordering Location: [facility] DermPath Lab Received: 05/13/2023 01:28 PM Pathologist: Maureen Blount MD Specimens: A) - Skin, left mid-upper back B) - Skin, medial upper back 3 12:[address] [facility] DERMATOPATHOLOGY LABORATORY Final Diagnosis Specimen A. SKIN, left mid-upper back: LENTIGINOUS MELANOCYTIC NEVUS, COMPOUND TYPE, IRRITATED (D22.5) Specimen B. SKIN, medial upper back: LENTIGINOUS MELANOCYTIC NEVUS, COMPOUND TYPE, IRRITATED (D22.5) 12:[address] [facility] DERMATOPATHOLOGY LABORATORY Clinical History A-B: Atypical Nevus vs. Melanoma 12:[address] [facility] DERMATOPATHOLOGY LABORATORY Gross Description Specimen A: [...] 7x7x1 mm. Jar 0. 3 12:[address] [facility] DERMATOPATHOLOGY LABORATORY Microscopic Description Specimen A. [...] with depth. (Compound Erick's Nevus) 12:[address] [facility] DERMATOPATHOLOGY LABORATORY Disclaimer An external and internal positive and negative controls are appropriate for the histochemical, immunohistochemical and immunofluorescence stain(s) in this case (if any), except where stated explicitly. The performance characteristics of the stain(s) cited in this report were developed and its performance characteristic determined by the Dermatopathology Laboratory at [facility], directed by Dr. Gaurav Leonard. These tests need not be, and therefore are not, approved by the [place] Food and Drug Administration. The tests are used for clinical purposes. Billing Codes Specimen Charges Stain Charges [id number] 74774 1 1 69418 54045 1 1 3 12:34 PM CDT DERMATOPATHOLOGY LABORATORY Embedded Images 3 12:34 PM CDT DERMATOPATHOLOGY LABORATORY Pathology/Cytology TISSUE SPECIMEN FROM SKIN / Unknown 05/07/2023 05/13/2023 1:28 PM CDT Miscellaneous samples (specimen) TISSUE SPECIMEN FROM SKIN / Unknown 05/07/2023 05/13/2023 1:28 PM CDT [facility] - PATHOLOGY/CYT OLOGY ORDERABLES DERMATOPATHOLOGY LABORATORY [facility] - Department of Dermatology [facility] [address] [place] [address], [address] [phone] Care Teams Financial Planning Advisor Relationship Specialty Start Date End Date Juan Rinaldi MD [address] [place] [address] PCP - General 09/15/18
--- OUTSIDE RECORDS SUMMARY | 2025-01-02 18:51 | XMS_ITS | Encounter Summary ---
Author Organization [facility] Address [address] [facility] [address] Care Team Providers Care Residential Sales Representative Name Role Phone Juan Rinaldi MD Primary Care Provider [phone] Encounter Details Date Type Department Care Team (Late st Contact Info) Description 10/25/2020 Lab Requisition [facility] DermPath Lab [address] [facility] [place] [address] Leland Olivas MD [address] [place] [...] Comments DERMATOPATHOLOGY Routine 10/24/2020 12:0 0 AM SALES SERVICE TECHNICIAN documented in this encounter Results * DERMATOPATHOLOGY (10/24/2020 12:00 AM SALES SERVICE TECHNICIAN) Case Report Dermatopathology Report Case: [id number] Authorizing Provider: Leland Olivas MD Collected: 10/24/2020 12:00 AM Ordering Location: [facility] DermPath Lab Received: 10/25/2020 11:17 AM Pathologist: Esteban Leonard MD Specimens: A) - Skin, midline upper back B) - Skin, right distal lateral anterior thigh 1:02 PM SALES SERVICE TECHNICIAN DERMATOPATHOLOGY LABORATORY Final Diagnosis Specimen A. SKIN, midline upper back: LENTIGINOUS MELANOCYTIC NEVUS, COMPOUND TYPE (COMPOUND MELANOCYTIC NEVUS WITH ARCHITECTURAL DISORDER) (D22.5) Specimen B. SKIN, right distal lateral anterior thigh: LENTIGINOUS MELANOCYTIC NEVUS, JUNCTIONAL TYPE, IRRITATED (JUNCTIONAL MELANOCYTIC NEVUS WITH ARCHITECTURAL DISORDER) (D22.71) NOT PRESENT AT SAMPLED MARGIN 1 1:02 PM [facility] DERMATOPATHOLOGY LABORATORY Clinical History A: R/O dysplastic nevus B: R/O dysplastic nevus. Check margins 1:02 PM [facility] DERMATOPATHOLOGY LABORATORY Gross Description Specimen A: Received is one formalin filled container labeled with the patient's name and designated midline upper back. The specimen consists of a shave biopsy measuring [id number] mm. Jar 0. Specimen B: Received is one formalin filled container labeled with the patients name and designated right distal lateral anterior thigh. The specimen consists of a shave removal measuring 9x6x1 mm, inked. Jar 0. 1 1:02 PM [facility] DERMATOPATHOLOGY LABORATORY Microscopic Description Specimen A. SKIN, [...] margin of the specimen. 1 1:02 PM [facility] DERMATOPATHOLOGY LABORATORY Disclaimer An external and internal positive and negative controls are appropriate for the histochemical, immunohistochemical and immunofluorescence stain(s) in this case (if any), except where stated explicitly. The performance characteristics of the stain(s) cited in this report were developed and its performance characteristic determined by the Dermatopathology Laboratory at [facility], directed by Dr. Gaurav Leonard. These tests need not be, and therefore are not, approved by the [place] Food and Drug Administration. The tests are used for clinical purposes. Billing Codes Specimen Charges Stain Charges 74555 03567 1 1 69002 1 1 1:02 PM SALES SERVICE TECHNICIAN DERMATOPATHOLOGY LABORATORY Embedded Images 1:02 PM SALES SERVICE TECHNICIAN DERMATOPATHOLOGY LABORATORY Pathology/Cytology TISSUE SPECIMEN FROM SKIN / Unknown 10/24/2020 10/25/2020 11:17 AM SALES SERVICE TECHNICIAN Miscellaneous samples (specimen) TISSUE SPECIMEN FROM SKIN / Unknown 10/24/2020 10/25/2020 11:17 AM SALES SERVICE TECHNICIAN Leland Olivas MD LAB - PATHOLOGY/CYTO LOGY ORDERABLES DERMATOPATHOLOGY LABORATORY [facility] - Department of Dermatology [address], [address] [phone] documented in this encounter Visit Diagnoses Not on filedocumented in this encounter Care Teams Residential Sales Representative Relationship Specialty Start Date End Date Juan Rinaldi MD [address] [place] [address] PCP - General 09/15/18 documented as of this encounter
--- OUTSIDE RECORDS SUMMARY | 2025-01-02 18:51 | XMS_ITS | Continuity of Care Document ---
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 Acute Therapeutic Activities Neuromuscular Re-Ed Therapeutic Exercise [...] Therapy Therapeutic Exercise Therapeutic Activities Neuromuscular Re-Ed Manual Therapy Hot or Cold Pack Therapeutic Exercise Therapeutic Activities Manual Therapy Neuromuscular Re-Ed Therapeutic Exercise Therapeutic Activities Neuromuscular Re-Ed Therapeutic Exercise Manual Therapy Hot or Cold Pack PT Evaluation Low Complexity Therapeutic Activities Neuromuscular Re-Ed Therapeutic Exercise Hot or Cold Pack Advance Directives Directive Yes / No Effective Date File Name No Information Encounters Encounter Description Practice Location Reason(s) For Visit Diagnoses Date Provider Providers Copied on Encounter [facility], [id number], tel:[phone] [place] No Information 4 [place], [place], [place]. [facility], [place], [place], [id number], tel:[phone] [place] No Information Jun- 4 [place]. . Referring Provider: Frankie Cook, [address], [place], [address]. tel:[phone] [facility], [place], [place], [id number], tel:[phone] [place] No Information Sep- 4 [place] Emmanuel. . Referring Provider: Frankie Cook, [address], [place], [address]. tel:[phone] [facility], [place], [place], [id number], tel:[phone] [place] No Information Sep-0 4 [place] Emmanuel. . Referring Provider: Frankie Cook, [address], [place], [address]. tel:[phone] [facility], [address], [place], [place], [id number], [place] tel:[phone] [place] No Information 4 [place] Emmanuel. . Referring Provider: Frankie Cook, [address], [place], [address]. tel:[phone] [facility], [address], [place], [place], [address], [place] tel:[phone] [place] No Information 4 [facility] [place]. Referring Provider: Frankie Cook, [address], [place], [address]. tel:[phone] [facility], [place], [place], [address], [place] tel:[phone] [place] No Information 4 [place] Emmanuel. . Referring Provider: Frankie Cook, [address], [place], [address]. tel:[phone] [facility], [address], [place], [address], [place] tel:[phone] [place] No Information 4 [facility] [place] Referring Provider: Frankie Cook, [address], [place], [address]. tel:[phone] [facility], [place], [address], [place] tel:[phone] [place] No Information 4 [place] , [place], [place]. Referring Provider: Parsih Barbour [address], [place], [address]. tel:[phone] [place] [address] [address], [place], [address], [place] tel:[phone] [place] No Information 4 Guido Smith , [place], [place]. Referring Provider: Frankie Cook, [address], [place], [address]. tel:[phone] [facility], [place], [address], [place] tel:[phone] [place] No Information 4 [place] Emmanuel. . Referring Provider: Parish [address], [place], [address]. tel:[phone] [place] [address] [address], [place], [place], [address], [place] tel:[phone] [place] No Information 4 [place] Emmanuel. . Referring Provider: Parish [address], [place], [address]. tel:[phone] [place] [address] [address], [place], [address], [place] tel:[phone] [place] No Information 4 [place] Emmanuel. . Referring Provider: Parish [address], [place], [address]. tel:[phone] [place] [address] [address], [place], [address], [place] tel:[phone] [place] No Information 4 Guido [place] , [place], [place]. Referring Provider: Parish [address], [place], [address]. tel:[phone] [place] [address] [address], [place], [place], [address], [place] tel:[phone] [place] No Information 4 [facility] [place] Referring Provider: Parish Barbour [address], [place], [address]. tel:[phone] [place] [address], [address], [place], [place], [address], [place] tel:[phone] [place] No Information 4 [facility] [place]. Referring Provider: Parish [address], [place], [address]. tel:[phone] [place] [address], [address], [place], [address], [place] tel:[phone] [place] No Information 4 [place], [place]. Referring Provider: Parish [address], [place], [address]. tel:[phone] [place] [address], [address], [place], [place], [address], [place] tel:[phone] [place] No Information 4 [place], [place]. Referring Provider: Parish [address], [place], [address]. tel:[phone] [place] [address], [address], [place], [place], [address], [place] tel:[phone] W[place] No Information 4 Sourav Benitez. . Referring Provider: Parish [address], [place], [address]. tel:[phone] [place] [address] [address], [place], [place], [address], [place] tel:[phone] [place] No Information 4 Angelito Tam. . Referring Provider: Parish [address], [place], [address]. tel:[phone] [facility], [address], [place], [place], [address], [place] tel:[phone] [place] No Information Apr-0 - 4 Klahn Yonatan. . Referring Provider: Frankie Cook, [address], [place], [address]. tel:[phone] [facility], [address], [place], [place], [address], [place] tel:[phone] [place] No Information Mar-2 4 Klahn Yonatan. . Referring Provider: Frankie Cook, [address], [place], [address]. tel:[phone] [place] [address], [address], [place], [place], [address], [place] tel:[phone] [place] No Information Mar-2 4 Klahn Yonatan. . Referring Provider: Parish [address], [place], [address]. tel:[phone] [place] [address], [address], [place], [address], [place] tel:[phone] [place] No Information 2 0 4 Klahn Yonatan. . Referring Provider: Parish [address], [place], [address]. tel:[phone] [place] [address], [address], [place], [address], [place] tel:[phone] [place] No Information 4 Klahn Yonatan. . Referring Provider: Parish [address], [place], [address]. tel:[phone] [facility], [address], [place], [address], [place] tel:[phone] [place] No Information Mar-1 3 4 Klahn Yonatan. . Referring Provider: Frankie Cook, [address], [place], [address]. tel:[phone] [place] [address], [address], [place], [address], [place] tel:[phone] [place] No Information 1 4 Klahn Yonatan. . Referring Provider: Frankie Cook, [address], [place], [address]. tel:[phone] [place] [address] [facility] [address], [place], [place], [address], [place] tel:[phone] [place] No Information Brandon-0 4 Klahn Yonatan. . Referring Provider: Frankie Cook, [address], [place], [address]. tel:[phone] [place] [address] [address], [place], [place], [address], [place] tel:[phone] [place] No Information Brandon-0 4 Klahn Yonatan. . Referring Provider: Parish [address], [place], [address]. tel:[phone] [place] [address] [address], [place], [place], [address], [place] tel:[phone] [place] No Information February-3 0 4 Klahn Yonatan. . Referring Provider: Parish Bar[address], [place], [address]. tel:[phone] [place] [address] [address], [place], [address], [place] tel:[phone] [place] No Information February-2 4 Klahn Yonatan. . Referring Provider: Parish Bar[address], [place], [address]. tel:[phone] [place] [address], [address], [place], [place], [address], [place] tel:[phone] [place] No Information May-2 3-202 4 Klahn Yonatan. . Referring Provider: Parish Bar[address], [place], [address]. tel:[phone] [place] [address], [address], [place], [place], [address], [place] tel:[phone] [place] No Information May-2 1-202 4 Klahn Yonatan. . Referring Provider: Parish Bar[address], [place], [address]. tel:[phone] [place] [address], [address], [place], [place], [address], [place] tel:[phone] [place] No Information May-1 4-202 4 Klahn Yonatan. . Referring Provider: Parish Barbour [address], [place], [address]. tel:[phone] [place] [address], [address], [place], [place], [address], [place] tel:[phone] [place] No Information May-1 0-202 4 Klahn Yonatan. . Referring Provider: Parish Barbour [address], [place], [address]. tel:[phone] [place] [address], [address], [place], [place], [address], [place] tel:[phone] [place] No Information May-0 7-202 4 Klahn Yonatan. . Referring Provider: Parish Barbour [address], [place], [address]. tel:[phone] [place] [address], [address], [place], [place], [address], [place] tel:[phone] [place] No Information May-0 2-202 4 Klahn Yonatan. . Referring Provider: Frankie Joey, [address], [place], [address]. tel:[phone] [facility], [address], [place], [place], [address], [place] tel:[phone] [place] No Information 4 Angelito Tam. . Referring Provider: Frankie Cook, [address], [place], [address]. tel:[phone] [place] [address], [address], [place], [address], [place] tel:[phone] [place] No Information 4 Angelito Tam. . Referring Provider: Frankie Cook, [address], [place], [address]. tel:[phone] [place] [address], [address], [place], [address], [place] tel:[phone] [place] No Information 4 Angelito Tam. . Referring Provider: Parish Barbour [address], [place], [address]. tel:[phone] [place] [address], [address], [place], [address], [place] tel:[phone] [place] No Information 4 Angelito Tam. . Referring Provider: Parish Barbour [address], [place], [address]. tel:[phone] [place] [address], [address], [place], [place], [address], [place] tel:[phone] [place] No Information 4 Angelito Tam. . Referring Provider: Cherie [address], [place], [address]. tel:[phone] [facility], [address], [place], [place], [address], [place] tel:[phone] [place] No Information Apr-0 9- 4 Klahn Yonatan. . Referring Provider: Frankie Cook, [address], [place], [address]. tel:[phone] [facility], [address], [place], [address], [place] tel:[phone] [place] No Information Apr-0 4-202 4 Klahn Yonatan. . Referring Provider: Frankie Cook, [address], [place], [address]. tel:[phone] [facility], [address], [place], [place], [address], [place] tel:[phone] [place] No Information Apr-0 2-202 4 Klahn Yonatan. . Referring Provider: Frankie Cook, [address], [place], [address]. tel:[phone] [place] [address], [address], [place], [place], [address], [place] tel:[phone] [place] No Information Mar-2 4 Klahn Yonatan. . Referring Provider: Frankie Cook, [address], [place], [address]. tel:[phone] [facility], [address] [place], [place] [address], [place], [place], [address], [place] tel:[phone] [place] No Information Mar-2 - 4 Klahn Yonatan. . Referring Provider: Frankie Cook, [address], [place], [address]. tel:[phone] [facility], [place], [place], [address], [place] tel:[phone] [place] No Information February-3 1-202 2 [place]. . Referring Provider: Michelle Gutierrez, [address] , [place], [address]. tel:[phone] [place] [address], [address], [id number], tel:[phone] [place] No Information 7- 2 [place]. . Referring Provider: [address], [place], [address]. tel:[phone] [facility] [address], [id number], tel:[phone] [place] No Information February- 4-202 2 [place]. . Referring Provider: [address], [place], [address]. tel:[phone] [facility] [address], [id number], tel:[phone] [place] No Information 0-202 2 [place]. . Referring Provider: [address], [place], [address]. tel:[phone] [facility] [address], [id number], tel:[phone] [place] No Information 2 [place]. . Referring Provider: [address], [place], [address]. tel:[phone] Family History Family Member Type Diagnosis Age At Onset No Information Payers Payer name Insurance type Covered democrat ID William watkins(s) [employer] EPO WC SP WC [id number] Social History Type Description Quantity Date Captured [...]
--- OUTSIDE RECORDS SUMMARY | 2025-01-02 18:51 | XMS_ITS | Encounter Summary ---
Author Organization [facility] Address [address] [facility] [place] [address] Care Team Providers Care Marketing Production Specialist Name Role Phone Juan Rinaldi MD Primary Care Provider [phone] Encounter Details Date Type Department Care Team (Late st Contact Info) Description 11/07/2020 Lab Requisition [facility] DermPath Lab [address] [facility] [place] [address] Leland Olivas MD [address] [place] [address] Social History Tobacco Use Types [...] Comments DERMATOPATHOLOGY Routine 11/06/2020 12:0 0 AM COLLET GLUER documented in this encounter Results * DERMATOPATHOLOGY (11/06/2020 12:00 AM COLLET GLUER) Case Report Dermatopathology Report Case: [id number] Authorizing Provider: Leland Olivas MD Collected: 11/06/2020 12:00 AM Ordering Location: [facility] DermPath Lab Received: 11/07/2020 02:27 PM Pathologist: Maureen Blount MD Specimens: A) - Skin, left superior buttock B) - Skin, right buttocks 3:21 PM COLLET GLUER DERMATOPATHOLOGY LABORATORY Final Diagnosis Specimen A. SKIN, left superior buttock: LENTIGINOUS MELANOCYTIC NEVUS, COMPOUND TYPE, IRRITATED (COMPOUND MELANOCYTIC NEVUS WITH ARCHITECTURAL DISORDER) (D22.5) (see microscopic description) Specimen B. SKIN, right buttocks: LENTIGINOUS MELANOCYTIC NEVUS, COMPOUND TYPE, IRRITATED (COMPOUND MELANOCYTIC NEVUS WITH ARCHITECTURAL DISORDER) (D22.5) (see microscopic description) 3:21 PM [facility] DERMATOPATHOLOGY LABORATORY Clinical History A-B: R/O dys nevus. 3:21 PM [facility] DERMATOPATHOLOGY LABORATORY Gross Description Specimen A: Received is one formalin filled container labeled with the patient's name and designated left superior buttock. The specimen consists of a shave biopsy measuring [id number]. Jar 0. Specimen B: Received is one formalin filled container labeled with the patient's name and designated right buttocks. The specimen consists of a shave biopsy measuring [id number]. Jar 0. 3:21 PM [facility] DERMATOPATHOLOGY LABORATORY Microscopic Description Specimen A. [...] Nevus or Compound Dysplastic Nevus) 3:21 PM [facility] DERMATOPATHOLOGY LABORATORY Disclaimer An external and internal positive and negative controls are appropriate for the histochemical, immunohistochemical and immunofluorescence stain(s) in this case (if any), except where stated explicitly. The performance characteristics of the stain(s) cited in this report were developed and its performance characteristic determined by the Dermatopathology Laboratory at [facility], directed by Dr. Gaurav Leonard. These tests need not be, and therefore are not, approved by the [place] Food and Drug Administration. The tests are used for clinical purposes. Billing Codes Specimen Charges Stain Charges 58664 55256 1 1 21567 36925 1 1 1 3:21 PM COLLET GL[facility]ER DERMATOPATHOLOGY LABORATORY Embedded Images 3:21 PM [facility] DERMATOPATHOLOGY LABORATORY Pathology/Cytology TISSUE SPECIMEN FROM SKIN / Unknown 11/06/2020 11/07/2020 2:27 PM COLLET GLUER Miscellaneous samples (specimen) TISSUE SPECIMEN FROM SKIN / Unknown 11/06/2020 11/07/2020 2:27 PM COLLET GLUER Leland Olivas MD LAB - PATHOLOGY/CYTO LOGY ORDERABLES DERMATOPATHOLOGY LABORATORY [facility] - Department of Dermatology [facility] [address] [place] [address], [address] [phone] documented in this encounter Visit Diagnoses Not on filedocumented in this encounter Care Teams Marketing Production Specialist Relationship Specialty Start Date End Date Juan Rinaldi MD [address] [place] [address] PCP - General 09/15/18 documented as of this encounter
--- OUTSIDE RECORDS SUMMARY | 2025-01-02 18:51 | XMS_ITS ---
Author Organization Unknown Medications Medication Instructions Effective Dates (start - stop) Status losartan potassium 50 MG Oral Tablet 202300:00:00Z - Completed estradiol 0.5 MG Oral Tablet [id number] 0:00:00Z - Completed diazepam 5 MG Oral Tablet [id number]:0 0:00Z - Completed losartan potassium 50 MG Oral Tablet 202200:00:00Z - Completed cephalexin 500 MG Oral Tablet 2023-12-21 00:00:00Z - Completed azelaic acid 0.15 MG/MG Topical Gel 00:00:00Z - Completed hydrochlorothiazide 25 MG Or al Tablet - Completed hydrochlorothiazide 25 MG Or al Tablet - Completed - - Compl eted hydrochlorothiazide 25 MG Or al Tablet - Completed estradiol 0.5 MG Oral Tablet [id number] 0:00:00Z - Completed diazepam 5 MG Oral Tablet [id number]:0 0:00Z - Completed estradiol 1 MG Oral Tablet [id number]: 00:00Z - Completed losartan potassium 50 MG [...]
--- OUTSIDE RECORDS SUMMARY | 2025-01-02 18:51 | XMS_ITS | Encounter Summary ---
Author Organization [facility] Address [address] [facility] [place] [address] Care Team Providers Care Neck Cutter Name Role Phone Juan Rinaldi MD Primary Care Provider [phone] Encounter Details Date Type Department Care Team (Late st Contact Info) Description 04/28/2019 Lab Requisition [facility] Care DermPath Lab [address] [facility], [place] [address] Leland Olivas MD [address] [place] [address] Social History Tobacco Use Types [...] AM CDT) Case Report Dermatopathology Report Case: [id number] Authorizing Provider: Leland Olivas MD Collected: 04/27/2019 12:00 AM Pathologist: Esteban Leonard MD Received: 04/28/2019 12:06 PM Specimen: Skin, left sup breast cleavage 9 5:20 PM CDT DERMATOPATHOLOGY LABORATORY Final Diagnosis Specimen A. 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 The specimen consists of a shave biopsy measuring [id number] mm. Jar 0. 5:20 PM [facility] DERMATOPATHOLOGY LABORATORY Microscopic Description [...] and fibrosis with scattered melanophages. 5:20 PM [facility] DERMATOPATHOLOGY LABORATORY Disclaimer An external and internal positive and negative controls are appropriate for the histochemical, immunohistochemical and immunofluorescence stain(s) in this case (if any), except where stated explicitly. The performance characteristics of the stain(s) cited in this report were developed and its performance characteristic determined by the Dermatopathology Laboratory at [facility], directed by Dr. Gaurav Leonard. These tests need not be, and therefore are not, approved by the [place] Food and Drug Administration. The tests are used for clinical purposes. Billing Codes Specimen Charges Stain Charges 90890 1 90873 1 5:20 PM [facility] DERMATOPATHOLOGY LABORATORY Embedded Images 5:20 PM [facility] DERMATOPATHOLOGY LABORATORY Synoptic Report MELANOMA OF THE [...] DERMATOPATHOLOGY LABORATORY [facility] - Department of Dermatology [address] [place] [address] [address] [phone] documented in this encounter Visit Diagnoses Not on filedocumented in this encounter Care Teams Neck Cutter Relationship Specialty Start Date End Date Juan Rinaldi MD [address] [place] [address] PCP - General 09/15/18 documented as of this encounter
--- OUTSIDE RECORDS SUMMARY | 2025-01-02 18:51 | XMS_ITS | Referral Summary ---
Author Organization [facility] Address [address] [place] [id number] Care Team Providers Care Solutions Specialist Name Role Phone Luisa Jerry MD Primary Care Provider [phone] Allergies Active Allergy Reactions Criticality Noted Date [...] on file Legal Sex Female 3:31 AM SENIOR SOFTWARE ENGINEER Gender Identity Not on file Sexual Orientation Not on file Last Filed Vital Signs Vital Sign Reading Time Taken Comments Blood Pressure 158/94 09/18/2017 10:01 AM SENIOR SOFTWARE ENGINEER Pulse 75 08/20/2017 2:20 PM CDT Temperature - - Respiratory Rate - - Oxygen Saturation 98% 08/20/2017 2:20 PM CDT Inhaled Oxygen Concentration - - Weight 95.7 kg (211 lb) 09/18/2017 10:01 AM SENIOR SOFTWARE ENGINEER Height 160 cm (5' 3 ) 09/18/2017 10:01 AM SENIOR SOFTWARE ENGINEER Body Mass Index 37.38 09/18/2017 10:01 AM SENIOR SOFTWARE ENGINEER Plan of Treatment Not on file Procedures Procedure Name Priority Date/Time Associated Diagnosis Comments MCT - MOBILE CARDIAC TELEMETRY EVENT MONITOR Routine 10/05/2024 3:41 PM SENIOR SOFTWARE ENGINEER Dizziness Syncope and collapse from Last 3 Months Results * MCT Mobile Cardiac Telemetry Event Monitor (10/05/2024 3:41 PM SENIOR SOFTWARE ENGINEER) Anatomical Region Laterality Modality Electrocardiogra phy Narrative 10/05/2024 3:41 PM SENIOR SOFTWARE ENGINEER AMBULATORY E COMMERCE MARKETING ANALYST REPORT Patient Name: Radha Viera Date of [...] was used to complete this document, therefore, client experience manager variances may occur. Norris Rodriguez MD, [facility] 10/05/24 Procedure Note Norris Rodriguez MD - 10/05/2024 AMBULATORY E COMMERCE MARKETING ANALYST REPORT Patient Name: Radha Viera Date of [...] software was used to complete this document, therefore,client experience manager variances may occur. Norris Rodriguez MD, [facility] 10/05/24 Michelle Gutierrez MD CV CARDIAC SERVICES PROCEDURES Final Result from Last 3 Months Insurance T SIG [id number] [facility] Care Teams Solutions Specialist Relationship Specialty Start Date End Date Luisa Jerry MD PCP - General Family Practice 05/03/19
--- OUTSIDE RECORDS SUMMARY | 2025-01-02 18:51 | XMS_ITS | Encounter Summary ---
Author Organization [facility] Address [address] [facility] [place] [address] Care Team Providers Care Product Marketer Name Role Phone Juan Rinaldi MD Primary Care Provider [phone] Encounter Details Date Type Department Care Team (Late st Contact Info) Description 11/05/2022 Lab Requisition [facility] DermPath Lab [address] [facility], [place] [address] Leland Olivas MD [address] [place] [address] Social History Tobacco Use Types [...] Comments DERMATOPATHOLOGY Routine 11/04/2022 12:0 0 AM STRAIGHTEDGE MAN documented in this encounter Results * DERMATOPATHOLOGY (11/04/2022 12:00 AM STRAIGHTEDGE MAN) Case Report Dermatopathology Report Case: [id number] Authorizing Provider: Leland Olivas MD Collected: 11/04/2022 12:00 AM Ordering Location: [facility] DermPath Lab Received: 11/05/2022 02:16 PM Pathologist: Maureen Blount MD Specimen: Skin, right upper lateral breast 1:58 PM STRAIGHTEDGE MAN DERMATOPATHOLOGY LABORATORY Final Diagnosis Specimen A. SKIN, right upper lateral breast: LENTIGINOUS MELANOCYTIC NEVUS, COMPOUND TYPE, IRRITATED (D22.5) 1:58 PM STRAIGHTEDGE MAN DERMATOPATHOLOGY LABORATORY Clinical History R/O Dysplastic Nevus 3 1:58 PM [facility] DERMATOPATHOLOGY LABORATORY Gross Description Specimen A: Received is one formalin filled container labeled with the patient's name and designated right upper lateral breast. The specimen consists of a punch biopsy measuring 4x4x4 mm. Jar 0. 3 1:58 PM [facility] DERMATOPATHOLOGY LABORATORY Microscopic Description Specimen A. SKIN, [...] depth. (Compound Erick's Nevus) 3 1:58 PM [facility] DERMATOPATHOLOGY LABORATORY Disclaimer An external and internal positive and negative controls are appropriate for the histochemical, immunohistochemical and immunofluorescence stain(s) in this case (if any), except where stated explicitly. The performance characteristics of the stain(s) cited in this report were developed and its performance characteristic determined by the Dermatopathology Laboratory at [facility], directed by Dr. Gaurav Leonard. These tests need not be, and therefore are not, approved by the [place] Food and Drug Administration. The tests are used for clinical purposes. Billing Codes Specimen Charges Stain Charges 56464 1 3 1:58 PM STRAIGHTEDGE MAN DERMATOPATHOLOGY LABORATORY Embedded Images 3 1:58 PM [facility] DERMATOPATHOLOGY LABORATORY Pathology/Cytolog y TISSUE SPECIMEN FROM SKIN / Unknown 11/04/2022 11/05/2022 2:16 PM STRAIGHTEDGE MAN Leland Olivas MD LAB - PATHOLOGY/CYTO LOGY ORDERABLES DERMATOPATHOLOGY LABORATORY [facility] - Department of Dermatology [facility] Medicine [address] [place] [address], [address]rd [address] [phone] documented in this encounter Visit Diagnoses Not on filedocumented in this encounter Care Teams Product Marketer Relationship Specialty Start Date End Date Juan Rinaldi MD [address] [place] [address] PCP - General 09/15/18 documented as of this encounter
--- OUTSIDE RECORDS SUMMARY | 2025-01-02 18:51 | XMS_ITS | Referral Summary ---
Author Organization [facility] Address [address] [facility] [place] [address] Care Team Providers Care Repair Department Supervisor Name Role Phone Juan Rinaldi MD Primary Care Provider [phone] Source Comments [facility],non-owned Affiliates and Associated Physician Practices is amultiple site organization consisting of ambulatory clinics and hospital sitesin [place], [place], [place] and [place]. This disclosure is being madepursuant to the Care Everywhere program and may not contain all information available regarding this patient. Last updated 18.[facility] [employer] Social History Tobacco Use Types Packs/Day Years Used Date Smoking Tobacco: Never Assessed Sex and Gender Information Value Date Recorded Sex Assigned at Not on file Gender Identity Not on file Sexual Orientation Not on file Plan of Treatment Not on file Care Teams Repair Department Supervisor Relationship Specialty Start Date End Date Juan Rinaldi MD [address] [address] PCP - General 09/15/18
--- OUTSIDE RECORDS SUMMARY | 2025-01-02 18:51 | XMS_ITS | Encounter Summary ---
Author Organization [facility] Address [address] [facility] [place] [address] Care Team Providers Care Pst Specialist Name Role Phone Juan Rinaldi MD Primary Care Provider [phone] Encounter Details Date Type Department Care Team (Late st Contact Info) Description 09/15/2018 Lab Requisition [facility] Care DermPath Lab [address] [facility] [place] [address] Leland Olivas MD [address] [place] [address] Social History Tobacco Use Types [...] Comments DERMATOPATHOLOGY Routine 09/14/2018 12:0 0 AM BORDER POLICE documented in this encounter Results * DERMATOPATHOLOGY (09/14/2018 12:00 AM BORDER POLICE) Case Report Dermatopathology Report Case: [id number] Authorizing Provider: Leland Olivas MD Collected: 09/14/2018 12:00 AM Pathologist: Esteban Leonard MD Received: 09/15/2018 11:31 AM Specimens: A) - Skin, right deltoid B) - Skin, right proximal extensor forearm C) - Skin, RUQ abd on sup border of scar D) - Skin, right zygoma 8 5:23 PM [employer] DERMATOPATHOLOGY LABORATORY Final Diagnosis Specimen A. SKIN, [...] (D22.39) CHRONIC PERIFOLLICULITIS (L73.8) 8 5:23 PM [facility] DERMATOPATHOLOGY LABORATORY Clinical History A-D: R/O Dys nevus 8 5:23 PM [facility] DERMATOPATHOLOGY LABORATORY Gross Description Specimen [...] 5x5x1 mm. Jar 0. 8 5:23 PM [facility] DERMATOPATHOLOGY LABORATORY Microscopic Description Specimen [...] a perifollicular lymphohistiocytic infiltrate. 8 5:23 PM [employer] DERMATOPATHOLOGY LABORATORY Disclaimer An external and internal positive and negative controls are appropriate for the histochemical, immunohistochemical and immunofluorescence stain(s) in this case (if any), except where stated explicitly. The performance characteristics of the stain(s) cited in this report were developed and its performance characteristic determined by the Dermatopathology Laboratory at [facility]. These tests need not be, and therefore are not, approved by the [place] Food and Drug Administration. The tests are used for clinical purposes. Billing Codes Specimen Charges Stain Charges 71734 56342 60288 13712 1 1 1 1 8 5:23 PM [employer] DERMATOPATHOLOGY LABORATORY Embedded Images 8 5:23 PM [employer] DERMATOPATHOLOGY LABORATORY Pathology/Cytology TISSUE SPECIMEN FROM SKIN / Unknown 09/14/2018 09/15/2018 11:31 AM BORDER POLICE Miscellaneous samples (specimen) TISSUE SPECIMEN FROM SKIN / Unknown 09/14/2018 09/15/2018 11:31 AM BORDER POLICE Miscellaneous samples (specimen) TISSUE SPECIMEN FROM SKIN / Unknown 09/14/2018 09/15/2018 11:31 AM [employer]ORDER POLICE Miscellaneous samples (specimen) TISSUE SPECIMEN FROM SKIN / Unknown 09/14/2018 09/15/2018 11:31 AM BORDER POLICE Leland Olivas MD LAB - PATHOLOGY/CYTO LOGY ORDERABLES DERMATOPATHOLOGY LABORATORY [facility] - Department of Dermatology [facility] [facility], 5th Floor Lab B [address] [phone] documented in this encounter Visit Diagnoses Not on filedocumented in this encounter Care Teams Pst Specialist Relationship Specialty Start Date End Date Juan Rinaldi MD [address] [place], [place] [id number] PCP - General 09/15/18 documented as of this encounter
--- OUTSIDE RECORDS SUMMARY | 2025-01-02 18:51 | XMS_ITS | Encounter Summary ---
Author Organization [facility] Address [address] [facility] [place] [address] Care Team Providers Care Tufting Supervisor Name Role Phone Juan Rinaldi MD Primary Care Provider [phone] Encounter Details Date Type Department Care Team (Late st Contact Info) Description 08/24/2019 Lab Requisition [facility] DermPath Lab [address] [facility], [place] [address] Leland Olivas MD [address] [place] [address] Social History Tobacco Use Types [...] Comments DERMATOPATHOLOGY Routine 08/23/2019 12:0 0 AM HAIR SALON MANAGER documented in this encounter Results * DERMATOPATHOLOGY (08/23/2019 12:00 AM HAIR SALON MANAGER) Case Report Dermatopathology Report Case: [id number] Authorizing Provider: Leland Olivas MD Collected: 08/23/2019 12:00 AM Ordering Location: [facility] DermPath Lab Received: 08/24/2019 12:40 PM Pathologist: Esteban Leonard MD Specimens: A) - Skin, above right elbow medially B) - Skin, left lateral breast C) - Skin, left medial breast 9 4:47 PM HAIR SALON MANAGER DERMATOPATHOLOGY LABORATORY Final Diagnosis Specimen A. [...] NEVUS WITH ARCHITECTURAL DISORDER) (D22.5) 4:47 PM HAIR SALON MANAGER DERMATOPATHOLOGY LABORATORY Clinical History A-C: R/O dys nevus. 4:47 PM [facility] DERMATOPATHOLOGY LABORATORY Gross Description Specimen A: Received is one formalin filled container labeled with the patient's name and designated above right elbow medially. The specimen consists of a shave biopsy measuring [id number]. Jar 0. Specimen B: Received is one formalin filled container labeled with the patient's name and designated left lateral breast. The specimen consists of a shave biopsy measuring 2j4j8wn. Jar 0. Specimen C: Received is one formalin filled container labeled with the patient's name and designated left medial breast. The specimen consists of a shave biopsy measuring 8w3m3ci. Jar 0. 4:47 PM [facility] DERMATOPATHOLOGY LABORATORY Microscopic Description Specimen [...] or Compound Dysplastic Nevus) 9 4:47 PM [facility] DERMATOPATHOLOGY LABORATORY Disclaimer An external and internal positive and negative controls are appropriate for the histochemical, immunohistochemical and immunofluorescence stain(s) in this case (if any), except where stated explicitly. The performance characteristics of the stain(s) cited in this report were developed and its performance characteristic determined by the Dermatopathology Laboratory at [facility], directed by Dr. Gaurav Leonard. These tests need not be, and therefore are not, approved by the [place] Food and Drug Administration. The tests are used for clinical purposes. Billing Codes Specimen Charges Stain Charges 26389 80344 86521 1 1 1 9 4:47 PM HAIR SALON MANAGER DERMATOPATHOLOGY LABORATORY Embedded Images 4:47 PM HAIR SALON MANAGER DERMATOPATHOLOGY LABORATORY Pathology/Cytology TISSUE SPECIMEN FROM SKIN / Unknown 08/23/2019 08/24/2019 12:40 PM HAIR SALON MANAGER Miscellaneous samples (specimen) TISSUE SPECIMEN FROM SKIN / Unknown 08/23/2019 08/24/2019 12:40 PM HAIR SALON MANAGER Miscellaneous samples (specimen) TISSUE SPECIMEN FROM SKIN / Unknown 08/23/2019 08/24/2019 12:40 PM HAIR SALON MANAGER Leland Olivas MD LAB - PATHOLOGY/CYTO LOGY ORDERABLES DERMATOPATHOLOGY LABORATORY [facility] - Department of Dermatology [facility] [facility] 5th Floor Lab B [address] [phone] documented in this encounter Visit Diagnoses Not on filedocumented in this encounter Care Teams Tufting Supervisor Relationship Specialty Start Date End Date Juan Rinaldi MD [address] [place] [address] PCP - General 09/15/18 documented as of this encounter
--- OUTSIDE RECORDS SUMMARY | 2025-01-02 18:51 | XMS_ITS | Clinical Summary ---
Author Organization [facility] Address [address] [place] [id number] Care Team Providers Care Freight Rate Specialist Name Role Phone Luisa Jerry MD Primary Care Provider [phone] Allergies Active Allergy Reactions Criticality Noted Date [...] on file Legal Sex Female 3:31 AM LAPIDARIST Gender Identity Not on file Sexual Orientation Not on file Obstetrics History Last Filed Vital Signs Vital Sign Reading Time Taken Comments Blood Pressure 158/94 09/18/2017 10:01 AM LAPIDARIST Pulse 75 08/20/2017 2:20 PM CDT Temperature - - Respiratory Rate - - Oxygen Saturation 98% 08/20/2017 2:20 PM CDT Inhaled Oxygen Concentration - - Weight 95.7 kg (211 lb) 09/18/2017 10:01 AM LAPIDARIST Height 160 cm (5' 3 ) 09/18/2017 10:01 AM LAPIDARIST Body Mass Index 37.38 09/18/2017 10:01 AM LAPIDARIST Plan of Treatment Not on file Procedures Procedure Name Priority Date/Time Associated Diagnosis Comments MCT - MOBILE CARDIAC TELEMETRY EVENT MONITOR Routine 10/05/2024 3:41 PM LAPIDARIST Dizziness Syncope and collapse from Last 3 Months Results * MCT Mobile Cardiac Telemetry Event Monitor (10/05/2024 3:41 PM LAPIDARIST) Anatomical Region Laterality Modality Electrocardiogra phy Narrative 10/05/2024 3:41 PM LAPIDARIST AMBULATORY PARTS PERSON REPORT Patient Name: Radha Viera Date of [...] was used to complete this document, therefore, gunstock spray unit adjuster variances may occur. Norris Rodriguez MD, [facility] 10/05/24 Procedure Note Norris Rodriguez MD - 10/05/2024 AMBULATORY PARTS PERSON REPORT Patient Name: Radha Viera Date of [...] software was used to complete this document, therefore,gunstock spray unit adjuster variances may occur. Norris Rodriguez MD, [facility] 10/05/24 Michelle Gutierrez MD CV CARDIAC SERVICES PROCEDURES Final Result from Last 3 Months Insurance [employer] SIG [id number] [facility] Care Teams Freight Rate Specialist Relationship Specialty Start Date End Date Luisa Jerry MD PCP - General Family Practice 05/03/19
--- OUTSIDE RECORDS SUMMARY | 2025-01-02 18:51 | XMS_ITS | Clinical Summary ---
Author Organization [facility] Address [address] [place] [address] Care Team Providers Care Parts Representative Name Role Phone Juan Rinaldi MD Primary Care Provider Source Comments [facility],non-owned Affiliates and Associated Physician Practices is amultiple site organization consisting of ambulatory clinics and hospital sitesin [place], [place], [place] and [place]. This disclosure is being madepursuant to the Care Everywhere program and may not contain all information available regarding this patient. Last updated 18.[facility] Social History Tobacco Use Types Packs/Day Years [...] age to complete this topic Care Teams Parts Representative Relationship Specialty Start Date End Date Juan Rinaldi MD [address] [place] [address] PCP - General 09/15/18
--- NOTE | 2025-01-02 19:20 | PC.NURSE ---
Pt. BP dropped significantly. Pt. diaphoretic and reports nausea. Dr. Givens immediately notified and to bedside to assess pt. Pt. placed in reverse Trendelenburg. See MAR for ordered interventions.
[2025-01-02] MEDS: SODIUM CHLORIDE 0.9% IV 1,000 ML 999 ML IV CONT (19:30)
--- NOTE | 2025-01-02 19:37 | PC.NURSE ---
Pt. reports no nausea. Speech clear. Pt. able to move all extremities without difficulty. Per Dr. Givens, pt. ok to go to CT at this time.
[2025-01-02] MEDS: ONDANSETRON INJ 4 MG/2 ML VIAL IV PUSH (19:49)
[2025-01-02 19:59] LABS: Troponin I < 0.012 ng/mL (0.000-0.034)
--- NOTE | 2025-01-02 20:10 | ECG_ITS ---
Test Date: 2025-01-02 20:39:02 Measurements Intervals [place] Rate: 94 P: 68 WA: 151 QRS: 71 QRSD: 106 T: 45 QT: 378 QTc: 473 Interpretive Statements SINUS RHYTHM WITH OCCASIONAL VENTRICULAR PREMATURE COMPLEXES WITH OCCASIONAL SUPRAVENTRICULAR PREMATURE COMPLEXES Compared to ECG 01/02/2025 17:45:13 Ventricular premature complex(es) now present Electronically Signed On 01-03-2025 16:46:07 CDT by Korina Roberts M.D.
[2025-01-02] MEDS: ACETAMINOPHEN 325 MG TABLET 650 MG PO (22:31)
--- NOTE | 2025-01-02 22:37 | ECG_ITS ---
Test Date: 2025-01-02 22:56:22 Measurements Intervals [place] Rate: 100 P: 62 CA: 116 QRS: 74 QRSD: 104 T: 46 QT: 375 QTc: 485 Interpretive Statements SINUS TACHYCARDIA Compared to ECG 01/02/2025 20:39:02 Ventricular premature complex(es) no longer present Electronically Signed On 01-03-2025 16:47:52 CDT by Korina Roberts M.D.
--- NOTE | 2025-01-02 22:56 | PC.NURSE ---
EKG for 6 hour troponin completed today at [address] Vargas.
[2025-01-02 23:39] LABS: Troponin I 0.029 ng/mL (0.000-0.034)
[2025-01-03] VITALS (10 sets, daily range): BP systolic 115–138; BP diastolic 61–71; PULSE 76–96; RESP 16–22; TEMP 35.7–37; O2SAT 97–98; BMI 41.3
--- NOTE | 2025-01-03 | ECHO_ITS ---
Patient Info Name: Radha Viera Age: 59 years : 1965 Gender: Female Ht: 62 in Wt: 200 lbs BSA: 2.04 m2 HR: 86 bpm BP: 125 / 61 mmHg Heart Rhythm: Sinus Rhythm Technical Quality: Good Exam Date: 01/03/2025 10:51 AM Exam Location: Echo Lab Patient Status: Outpatient Admit Date: 01/02/2025 Staff Ordering Physician: Wendy Vega DO [employer] [place]: Pat Rader RDCS Attending Provider: Wendy Vega DO Referring Physician: Gary SANABRIA; Exam Type: CA echo doppler color flow Study Info Indications - PND - Episodic hypertensive crisis Complete two-dimensional, color flow and Doppler transthoracic echocardiogram is performed. Summary 1. Left ventricular chamber dimension is normal. 2. Left ventricular systolic function is normal, estimated at 65-70%. 3. The left ventricular diastolic function is grade I diastolic dysfunction. 4. No significant valvular disease. Left Ventricle Left ventricular chamber dimension is normal. Left ventricular systolic function is normal, estimated at 65-70%. There is no increased left ventricular wall thickness. The left ventricular diastolic function is grade I diastolic dysfunction. Right Ventricle Right ventricular chamber dimension is normal. Right ventricular systolic function is normal. Left Atria Left atrial chamber dimension is normal. Right Atria Right atrial chamber dimension is normal. Atrial Septum Intact interatrial septum visualized by color flow imaging. Aortic Valve The aortic valve is probable trileaflet. There is no aortic valve stenosis. There is no aortic valve regurgitation. Pulmonic Valve The pulmonic valve is not well visualized. There is trace pulmonic regurgitation. Mitral Valve There is trace mitral valve regurgitation. Tricuspid Valve There is trace tricuspid valve regurgitation. Pericardium/Pleural There is no pericardial effusion. Inferior Vena Cava Normal inferior vena cava with >50% collapse upon inspiration consistent with normal right atrial pressure, 3 mmHg. Aorta The aortic root size at the sinus of Valsalva is normal. Left Ventricular Outflow Tract Name Value Normal LVOT 2D LVOT Diameter 1.9 cm LVOT Doppler LVOT Peak Gradient 7 mmHg LVOT Mean Gradient 4 mmHg LVOT VTI 24 cm LVOT VTI/AV VTI Ratio 0.8 LVOT Stroke Volume 67 ml LVOT CO 15.7 l/min LVOT CI 7.7 l/min/m2 Pulmonic Valve Name Value Normal PV Doppler PV Peak Gradient 4 mmHg Mitral Valve Name Value Normal MV Doppler MV Decel Moody 311 cm/s2 MV PHT 70 ms MV Area (PHT) 3.2 cm2 4.0-5.0 MV Diastolic Function MV E Peak Velocity 75 cm/s MV A Peak Velocity 103 cm/s MV E/A 0.7 MV Decel Time 240 ms MV Annular TDI MV E/e' (Septal) 7.0 <=8.0 MV E/e' (Lateral) 7.5 <=8.0 MV E/e' (Average) 7.2 Tricuspid Valve Name Value Normal TV Regurgitation Doppler TR Peak Velocity 215 cm/s TR Peak Gradient 17 mmHg Estimated PAP/RSVP RA Pressure 3 mmHg <=5 PA Systolic Pressure 22 mmHg <36 RV Systolic Pressure 22 mmHg <36 Aorta Name Value Normal Ascending Aorta Ao Root Diameter (MM) 2.5 cm Ao Root Diam Index (MM) 1.2 cm/m2 Aortic Valve Name Value Normal AV Doppler AV Peak Velocity 172 cm/s AV Peak Gradient 12 mmHg AV Mean Gradient 6 mmHg AV VTI 30 cm AV Area (Cont Eq VTI) 2.2 cm2 >=3.0 AV Area (Cont Eq Christ) 2.2 cm2 AV Regurgitation 2D LVOT Area 2.8 cm2 Ventricles Name Value Normal LV Dimensions 2D/MM IVS Diastolic Thickness (2D) 0.9 cm 0.6-1.0 LVID Diastole (2D) 4.6 cm 3.8-5.2 LVIW Diastolic Thickness (2D) 1.1 cm 0.6-0.9 LVID Systole (2D) 2.5 cm 2.2-3.5 LVOT Diameter 1.9 cm LV Mass (2D Cubed) 156.95 g 67.00-162.00 LV Mass Index (2D Cubed) 77 g/m2 43-95 Relative Wall Thickness (2D) 0.46 LV Fractional Shortening/Ejection Fraction 2D/MM LV Fractional Shortening (2D) 45 % 27-45 LV EF (2D Teicholz) 77 % 54-74 LV Diastolic Volume (4C MOD) 97 ml LV EF (4C MOD) 63 % LV Diastolic Volume (2C MOD) 84 ml LV EF (2C MOD) 66 % LV Diastolic Volume (BP MOD) 91 ml 46-106 LV Diastolic Volume Index (BP MOD) 45 ml/m2 29-61 LV Systolic Volume (BP MOD) 32 ml 14-42 LV Systolic Volume Index (BP MOD) 16 ml/m2 8-24 LV EF (BP MOD) 65 % 54-74 LV Diastolic Length (4C) 7.6 cm LV Systolic Length (4C) 6.0 cm LV Stroke Volume (4C MOD) 61 ml RV Dimensions 2D/MM RVID Diastole (2D) 4.5 cm 2.5-3.5 Atria Name Value Normal LA Dimensions LA Dimension (MM) 3.3 cm 2.7-3.8 LA Volume (4C A-L) 41 ml LA Volume (BP A-L) 45 ml RA Dimensions RA Area (4C) 15.5 cm2 <=18.0 Report Signatures
--- NOTE | 2025-01-03 00:24 | ADMGEN ---
This patient, Radha Viera, was admitted to [facility] Surg Room 324-02. Patient/family oriented to hospital policies and general routines including ID bracelet, bed and alarms, visiting hours, pain management, procedures, bathroom and other care routines, personal items, smoking policy, room service/diet, and visiting hours. Information on how to activate the Rapid Response Team has been discussed. Patient/Family are encouraged to report perceived risks to care and to ask questions if they do not understand what they are told or what they should do.
--- NOTE | 2025-01-03 01:35 | P.HP_ITS ---
H&P: HPI History of Present Illness Date/Time: 01/03/25 01:35 Chief Complaint: Feeling weak and lightheaded Narrative: 59-year-old female with a past medical history of postmenopausal, essential hypertension and obesity who presented to the ER with feeling is that she is going to pass out. 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 She reported that initially her mouth became dry and shortly thereafter she became lightheaded. She had his sensation of overall heaviness of her body. She felt as if she was being pushed down into the ground. She had a sensation of tightness in her neck. She denied any chest pain. She did feel a few palpitations. She does occasionally have palpitations but they do not necessarily correlate with these other symptoms. She has intermittent episodes of sweating and feeling flushed. She always assume that the symptoms were associated with her postmenopausal state. She is on hormone replacement therapy. She has had episodes of syncope in the past with associated elevated blood pressure. She has had several similar episodes over several years. Her most remarkable episode was in July where she had complete syncope after she got out of the shower and had markedly elevated blood pressures. At that time her potassium was noted to be low and her doctor had stopped her hydrochlorothiazide and switched her to amlodipine. However when she was placed on the amlodipine in October her blood pressures became much more elevated. Subsequently her Norvasc was discontinued and on the she was switched to chlorthalidone. Her losartan was also recently split from 100 mg once a day dosing to 50 mg b.i.d. dosing. She has not missed any of heard doses of her medications. She had not had routine monitoring of her blood pressures until her episode in July at which time she pre keeping a log to take to her doctor. Her logs at home had her blood pressures recently running around 130/80. She also reports that she has been having symptoms of fatigue. In recent months she has noticed a of heaviness in her neck area that makes her feels if she has trouble getting a good breath when she is lying down. She reports that the symptoms are better if she lays on her side. She does have a history of snoring but she always attributed this to her sinuses. She does notice some daytime fatigue mostly in the afternoon. She reports that any time she actually sits down at night she will immediately fall asleep even if she intends to do other activities. She has never been tested for sleep apnea. She denies any lower extremity edema or dyspnea on exertion. She had a echocardiogram September 2017 that demonstrated EF of 61 and was otherwise normal. Patient is an excellent historian and provides the majority of history. Med information also obtained from ER records and review external medical records. Review of Systems 2 Review of Systems: 12 systems were reviewed with pertinent positives and negatives per HPI. Except as documented in the HPI, all other systems were reviewed and are negative. [facility] Past Medical History Medical History (Updated 01/03/25 @ 04:29 by Wendy Vega DO) Morbid obesity with BMI of 40.0-44.9, adult Rosacea Melanoma (~05/2019) Torn rotator cuff Breast lump 05-31-2018 left breast lump, US done Benign subcutaneous cyst Viral labyrinthitis syndrome Hx of adenomatous colonic polyps Hypertension Surgical History Surgical History (Updated 01/03/25 @ 01:41 by Wendy Vega DO) S/P skin cancer resection (~05/2019) Removed from between her breast. H/O rotator cuff surgery (~12/23/23) History of orthopedic surgery (08/13/20) joint replacement right foot History of hysterectomy, supracervical abdominal (subtotal) 03/19/05 enlarged uterus/menometrorrhagia/dsymenorrhea/extensive adhesiolysis, adenomyosis History of bunionectomy Hx of section x3 Hx of cholecystectomy 2003 Hx of appendectomy age 12 Family History Family History (Updated 01/03/25 @ 04:29 by Wendy Vega DO) Mother Family history of thyroid disease Diabetes mellitus Hypertension Family history of transient ischemic attacks Family history of cardiovascular disease Family history of Alzheimer's disease Heart disease Father Hypertension Carcinoma of colon Family history of emphysema Intracranial aneurysm Sibling Heart disease brother Social History Social History (Updated 01/03/25 @ 04:28 by Wendy Vega DO) Social History: Code status: Full code Surrogate decision maker: Eduardo () Smoking status: Never smoker Second hand tobacco smoke exposure: No Alcohol intake: never Substance use: never Substance use type: does not use Do You Feel Safe in your Home?: Yes Lack of Transportation: No Lack of Food: Never True Current Housing: I Have Housing Concerned About Future Housing: No Difficulty Paying Gas/Electric Bills: No Difficulty Paying for Meds: No Currently Unemployed: No Education: Trade/Vocational Certificate Difficulty w/ Childcare or Family Care: No Living arrangements: other Additional living arrangements comments: Occupation/Education: occupation 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 Gender identity (if verbalized by the patient): Female Sexual Orientation (if Verbalized by the Patient): Straight or Heterosexual Spiritual care concerns: No Agree to blood products: Yes Meds Home Medications and Allergies Home Medications ?Medication ?Instructions ?Recorded ?Confirmed ?Type estradiol 0.5 mg tablet 0.5 mg PO DAILY #90 tabs 05/31/24 01/03/25 Rx potassium chloride 10 mEq 10 meq PO DAILY #90 caps 08/17/24 01/03/25 Rx capsule,extended release losartan 50 mg tablet 50 mg PO BID #180 tabs 09/16/24 01/03/25 Rx azelaic acid 15 % topical gel 1 applic topical HS 10/26/24 01/03/25 History cholecalciferol (vitamin D3) 25 25 mcg PO DAILY 10/26/24 01/03/25 History mcg (1,000 unit) capsule loratadine 10 mg tablet (Claritin) 10 mg PO DAILY 10/26/24 01/03/25 History multivitamin (Daily Multi-Vitamin 1 tablet PO DAILY 10/26/24 01/03/25 History tablet) chlorthalidone 25 mg tablet 25 mg PO DAILY #30 tabs 12/26/24 01/03/25 Rx Allergies Allergy/AdvReac Type Severity Reaction Status Date / Time morphine Allergy Mild Vomiting Verified 12/28/24 08:32 nitroglycerin Allergy Unknown Other Verified 12/28/24 08:32 Vital Signs Vital Signs - 24 hr 01/02/25 15:33 01/02/25 16:48 01/02/25 17:20 Temperature 97.5 F L 98.3 F Pulse Rate 84 86 87 Respiratory Rate 16 18 20 Blood Pressure 217/90 H 182/87 H 188/76 H Pulse Oximetry 100 100 97 Oxygen Delivery Room Air Room Air 01/02/25 17:53 01/02/25 18:37 01/02/25 19:20 Temperature Pulse Rate 88 97 90 Respiratory Rate 20 16 Blood Pressure 189/96 H 205/87 H 108/55 L Pulse Oximetry 100 100 Oxygen Delivery 01/02/25 19:35 01/02/25 19:50 01/02/25 20:30 Temperature Pulse Rate 73 93 88 Respiratory Rate 16 16 16 Blood Pressure 134/73 129/65 141/69 H Pulse Oximetry 100 100 100 Oxygen Delivery 01/02/25 21:39 01/02/25 22:20 01/02/25 23:15 Temperature Pulse Rate 85 98 103 H Respiratory Rate 18 16 20 Blood Pressure 136/69 122/70 122/70 Pulse Oximetry 97 96 98 Oxygen Delivery 01/03/25 00:13 01/03/25 00:20 Temperature 96.3 F L Pulse Rate 89 Respiratory Rate 16 Blood Pressure 138/71 Pulse Oximetry 98 Oxygen Delivery Room Air Exam 2 Narrative: Weight 102.5 kg BMI 41.3 Const: Other: Obese, no acute distress, appears stated age HENMT: Other: Crowded posterior oropharynx, no oral pharyngeal erythema, head is normocephalic atraumatic Eyes: Other: Pupils are equal and reactive, no scleral icterus, no conjunctival pallor Neck: Other: No JVD, large neck circumference, no thyromegaly Resp: Other: Clear to auscultation bilaterally, no increased work of breathing Cardio: Other: No JVD, regular rate, regular rhythm, normal S1-S2 GI: Other: Soft, nontender, nondistended, positive bowel sounds Skin: Other: No jaundice, no pallor, numerous moles Neuro: Other: Alert oriented x4, speech is clear, no facial asymmetry Extrem: Other: No clubbing, cyanosis or edema Psych: Other: Appropriate mood and affect, pleasant and cooperative, judgment and insight intact H&P: Results Labs Labs: Laboratory Tests 01/02/25 16:36 01/02/25 17:20 01/02/25 01/02/25 01/02/25 16:36 17:20 19:30 WBC 11.3 H RBC 4.77 Hgb 14.6 Hct 43.3 MCV 90.8 MCH 30.6 MCHC 33.7 RDW 12.3 Plt Count 195 MPV 10.1 Immature Gran % (Auto) 0.3 Neut % (Auto) 79.0 H Lymph % (Auto) 15.5 L [place] % (Auto) 4.8 Eos % (Auto) 0.0 Baso % (Auto) 0.4 Lymph # (Auto) 1.75 [place] # (Auto) 0.5 Eos # (Auto) 0.0 Baso # (Auto) 0.0 Abs Immat Gran (auto) 0.03 Absolute Neuts (auto) 8.9 H Absolute Nucleated RBC 0.000 Nucleated RBC % 0.0 % Immature Plt Fraction 4.2 PT 12.4 INR 0.9 APTT 27.3 Sodium Cancelled 132 L Potassium Cancelled 3.1 L Chloride Cancelled 95 L Carbon Dioxide Cancelled 26 Anion Gap Cancelled 11 BUN Cancelled 14 Creatinine Cancelled 0.56 L Estim Creat Clear Calc Cancelled Not Reportable Estimated GFR Cancelled > 60 Glucose Cancelled 106 Calcium Cancelled 9.8 Total Bilirubin Cancelled 0.4 AST Cancelled 27 ALT Cancelled 25 Alkaline Phosphatase Cancelled 122 Troponin I < 0.012 < 0.012 NT-Pro-B Natriuret Pep 23 Total Protein Cancelled 8.0 Albumin Cancelled 4.6 TSH (Reflex) 1.150 Influenza A (RT-PCR) Negative Influenza B (RT-PCR) Negative RSV (RT-PCR) Negative SARS-CoV-2 RNA (RT-PCR) Negative 01/02/25 22:52 WBC RBC Hgb Hct MCV MCH MCHC RDW Plt Count MPV Immature Gran % (Auto) Neut % (Auto) Lymph % (Auto) [place] % (Auto) Eos % (Auto) Baso % (Auto) Lymph # (Auto) [place] # (Auto) Eos # (Auto) Baso # (Auto) Abs Immat Gran (auto) Absolute Neuts (auto) Absolute Nucleated RBC Nucleated RBC % % Immature Plt Fraction PT INR APTT Sodium Potassium Chloride Carbon Dioxide Anion Gap BUN Creatinine Estim Creat Clear Calc Estimated GFR Glucose Calcium Total Bilirubin AST ALT Alkaline Phosphatase Troponin I 0.029 D NT-Pro-B Natriuret Pep Total Protein Albumin TSH (Reflex) Influenza A (RT-PCR) Influenza B (RT-PCR) RSV (RT-PCR) SARS-CoV-2 RNA (RT-PCR) Impressions Chest X-Ray 01/02/25 18:00 IMPRESSION: No focal infiltrate or effusion. Head CT 01/02/25 20:22 Impression: No acute intracranial hemorrhage or suspicious mass effect. EKG: Multiple EKGs reviewed. 1st EKG Sinus rhythm rate 84 QTC 441 cardiology interpretation pending Second EKG demonstrated occasional premature ventricular complexes the 30 EKG demonstrated sinus tachycardia with a rate of 100 with short AK interval All imaging and EKGs personally reviewed and interpreted. And unless stated otherwise agree with radiologic and cardiology interpretation. Assessment and Plan Assessment and plan (1) Hypertensive urgency: Code(s): I16.0 - Hypertensive urgency Status: Acute (2) Acute hypokalemia: Code(s): E87.6 - Hypokalemia Status: Acute (3) Paroxysmal nocturnal dyspnea: Code(s): R06.00 - Dyspnea, unspecified Status: Acute (4) Morbid obesity with BMI of 40.0-44.9, adult: Code(s): E66.01 - Morbid (severe) obesity due to excess calories; Z68.41 - Body mass index [BMI] 40.0-44.9, adult Status: Acute Plan The patient multiple episodes of hypertensive urgency. She also has some other concerning symptoms including flushing, sweating, palpitations, her symptoms of hypertension are also paroxysmal in nature. She has also been having some intermittent headaches. And reports some paroxysmal nocturnal dyspnea. Differential includes idiopathic causes verses anxiety versus pathology such as pheochromocytoma. Will order urine metanephrines. Will monitor blood pressures closely. The patient had a precipitous drop in her blood pressure after receiving her home losartan and dose of IV hydralazine and about the same time. Her blood pressures have returned to normal limits. Will resume the patient's home antihypertensives. She did not have any chest pain and cardiac ischemia ruled out with serial troponins she is being monitored on telemetry and has no evidence of arrhythmia. She does report paroxysmal nocturnal dyspnea and some daytime fatigue and snoring in given her body habitus she is certainly at increased risk of obstructive sleep apnea. Will obtain echocardiogram to further evaluate cardiac structure and function and she would benefit from outpatient polysomnogram. Patient has been admitted as observation status. Quality VTE Prophylaxis VTE prophylaxis: pharmacologic ordered (Lovenox 40 mg subQ daily.) Hospitalist [facility] Advance Care Plan I have confirmed that the patient's Advanced Care Plan is present, code status is documented, or surrogate decision maker is listed in patient medical record.: Yes Medication Reconciliation I have utilized all available resources to obtain, update and review the patients current medications (includes all prescriptions, OTC, herbals, cannabis, and nutritional supplements).: Yes
[2025-01-03] MEDS: ENOXAPARIN 40 MG/0.4 ML SYRINGE SUB-Q (08:34)
[2025-01-03] MEDS: LOSARTAN POTASSIUM 50 MG TABLET PO ×2 (08:34→16:54)
[2025-01-03] MEDS: LORATADINE 10 MG TABLET PO (08:34)
[2025-01-03] MEDS: POTASSIUM CHLORIDE 20 MEQ ER TABLET PO (08:34)
[2025-01-03] MEDS: CHLORTHALIDONE 25 MG TABLET PO (08:34)
[2025-01-03] MEDS: CHOLECALCIFEROL 1,000 UNITS TABLET 1000 UNITS PO (08:34)
[2025-01-03] MEDS: MULTIVITAMINS THERAPEUTIC TAB (*BKC) 1 TABLET PO (08:34)
--- NOTE | 2025-01-03 11:01 | PM.IMPN ---
Progress Note: A&P Assessment and Plan (1) Hypertensive urgency: Code(s): I16.0 - Hypertensive urgency Status: Acute (2) Acute hypokalemia: Code(s): E87.6 - Hypokalemia Status: Acute (3) Paroxysmal nocturnal dyspnea: Code(s): R06.00 - Dyspnea, unspecified Status: Acute (4) Morbid obesity with BMI of 40.0-44.9, adult: Code(s): E66.01 - Morbid (severe) obesity due to excess calories; Z68.41 - Body mass index [BMI] 40.0-44.9, adult Status: Acute Plan 59-year-old female with a past medical history of postmenopausal, essential hypertension and obesity who presented to the ER with feeling is that she is going to pass out. 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 She reported that initially her mouth became dry and shortly thereafter she became lightheaded. She had his sensation of overall heaviness of her body. She felt as if she was being pushed down into the ground. She had a sensation of tightness in her neck. She denied any chest pain. She did feel a few palpitations. Near-syncope Possible vasovagal syncope, or due to uncontrolled hypertension. Patient had symptoms of flushing, sweating, palpitations Patient does not have focal weakness, CT head shows no acute intracranial issues Neuro check Pending echocardiogram Telemetry monitoring Patient has intermittent palpitation, chest tightness associated with near syncope. Need to rule out arrhythmia related syncope. 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 Follow-up BMP outpatient polysomnogram. Patient has been admitted as observation status. Subjective Date/time seen: 01/03/25 11:01 Exam Narrative: GENERAL: Pleasant, in no acute distress. Well-nourished. - EYES: EOMI. Anicteric. - HENT: Moist mucous membranes. - LUNGS: Coarse breath sound bilaterally - CARDIOVASCULAR: Regular rate and rhythm. No murmur. No JVD. - ABDOMEN: Soft, non-tender and non-distended. No palpable masses. - EXTREMITIES: No edema. Peripheral pulses 2+. Non-tender. - NEUROLOGIC: No focal neurological deficits. CN II-XII grossly intact. - PSYCHIATRIC: Awake, Alert and oriented x 3. Appropriate mood and affect. - SKIN: No rashes or lesions. Warm. - LYMPH: No cervical lymphadenopathy. Objective Data Vital Signs Vital Signs: Vital Signs - 24 hr 01/02/25 15:33 01/02/25 16:48 01/02/25 17:20 Temperature 97.5 F L 98.3 F Pulse Rate 84 86 87 Respiratory Rate 16 18 20 Blood Pressure 217/90 H 182/87 H 188/76 H Pulse Oximetry 100 100 97 Oxygen Delivery Room Air Room Air 01/02/25 17:53 01/02/25 18:37 01/02/25 19:20 Temperature Pulse Rate 88 97 90 Respiratory Rate 20 16 Blood Pressure 189/96 H 205/87 H 108/55 L Pulse Oximetry 100 100 Oxygen Delivery 01/02/25 19:35 01/02/25 19:50 01/02/25 20:30 Temperature Pulse Rate 73 93 88 Respiratory Rate 16 16 16 Blood Pressure 134/73 129/65 141/69 H Pulse Oximetry 100 100 100 Oxygen Delivery 01/02/25 21:39 01/02/25 22:20 01/02/25 23:15 Temperature Pulse Rate 85 98 103 H Respiratory Rate 18 16 20 Blood Pressure 136/69 122/70 122/70 Pulse Oximetry 97 96 98 Oxygen Delivery 01/03/25 00:13 01/03/25 00:20 01/03/25 04:00 Temperature 96.3 F L Pulse Rate 89 87 Respiratory Rate 16 Blood Pressure 138/71 Pulse Oximetry 98 Oxygen Delivery Room Air 01/03/25 05:05 01/03/25 09:29 Temperature 98.2 F Pulse Rate 81 Respiratory Rate 16 Blood Pressure 125/61 Pulse Oximetry 97 97 Oxygen Delivery Room Air Intake/Output Intake/Output: Intake & Output 12/31/24 01/01/25 01/02/25 01/03/25 23:59 23:59 23:59 23:59 Intake Total 1000 290 Balance 1000 290 Meds/Results Medications: Active Medications Generic Name Dose Route Start Last Admin Trade Name Yoelq PRN Reason Stop Dose Admin Acetaminophen 650 mg 01/02/25 20:15 01/02/25 22:31 Acetaminophen 325 Mg Tablet PO 650 mg Q4H PRN Administration Mild Pain (1-3) or Fever Chlorthalidone 25 mg 01/03/25 09:00 01/03/25 08:34 Chlorthalidone 25 Mg Tablet PO 25 mg DAILY PIO Administration Enoxaparin Sodium 40 mg 01/03/25 09:00 01/03/25 08:34 Enoxaparin 40 Mg/0.4 Ml Syringe SUB-Q 40 mg DAILY PIO Administration Loratadine 10 mg 01/03/25 09:00 01/03/25 08:34 Loratadine 10 Mg Tablet PO 10 mg DAILY PIO Administration Losartan Potassium 50 mg 01/03/25 09:00 01/03/25 08:34 Losartan Potassium 50 Mg Tablet PO 50 mg BID PIO Administration Multivitamins Therapeutic 1 tablet 01/03/25 09:00 01/03/25 08:34 Multivitamins Therapeutic Tab (*Bkc) PO 1 tablet DAILY PIO Administration Ondansetron HCl 4 mg 01/02/25 20:15 Ondansetron Inj 4 Mg/2 Ml Vial IV PUSH Q4H PRN Nausea Perflutren Lipid Microsphere 0 ml 01/03/25 04:05 Perflutren Lipid Microspheres 1.5 Ml Vial Diluted To 10 Ml Total Volume IV PUSH 01/06/25 04:05 ONCE PRN adequate visualization Protocol Potassium Chloride 20 meq 01/03/25 08:00 01/03/25 08:34 Potassium Chloride 20 Meq Er Tablet PO 20 meq DAILY@0800 PIO Administration Vitamin D 1,000 units 01/03/25 09:00 01/03/25 08:34 Cholecalciferol 1,000 Units Tablet PO 1,000 units DAILY PIO Administration Radiology Results: ITS Impressions Chest X-Ray 01/02/25 18:00 IMPRESSION: No focal infiltrate or effusion. Head CT 01/02/25 20:22 Impression: No acute intracranial hemorrhage or suspicious mass effect. Labs Labs: Laboratory Results - last 24 hr 01/02/25 01/02/25 01/02/25 16:36 17:20 19:30 WBC 11.3 H RBC 4.77 Hgb 14.6 Hct 43.3 MCV 90.8 MCH 30.6 MCHC 33.7 RDW 12.3 Plt Count 195 MPV 10.1 Immature Gran % (Auto) 0.3 Neut % (Auto) 79.0 H Lymph % (Auto) 15.5 L [place] % (Auto) 4.8 Eos % (Auto) 0.0 Baso % (Auto) 0.4 Lymph # (Auto) 1.75 [place] # (Auto) 0.5 Eos # (Auto) 0.0 Baso # (Auto) 0.0 Abs Immat Gran (auto) 0.03 Absolute Neuts (auto) 8.9 H Absolute Nucleated RBC 0.000 Nucleated RBC % 0.0 % Immature Plt Fraction 4.2 PT 12.4 INR 0.9 APTT 27.3 Sodium Cancelled 132 L Potassium Cancelled 3.1 L Chloride Cancelled 95 L Carbon Dioxide Cancelled 26 Anion Gap Cancelled 11 BUN Cancelled 14 Creatinine Cancelled 0.56 L Estim Creat Clear Calc Cancelled Not Reportable Estimated GFR Cancelled > 60 Glucose Cancelled 106 Calcium Cancelled 9.8 Total Bilirubin Cancelled 0.4 AST Cancelled 27 ALT Cancelled 25 Alkaline Phosphatase Cancelled 122 Troponin I < 0.012 < 0.012 NT-Pro-B Natriuret Pep 23 Total Protein Cancelled 8.0 Albumin Cancelled 4.6 TSH (Reflex) 1.150 Influenza A (RT-PCR) Negative Influenza B (RT-PCR) Negative RSV (RT-PCR) Negative SARS-CoV-2 RNA (RT-PCR) Negative 01/02/25 22:52 WBC RBC Hgb Hct MCV MCH MCHC RDW Plt Count MPV Immature Gran % (Auto) Neut % (Auto) Lymph % (Auto) [place] % (Auto) Eos % (Auto) Baso % (Auto) Lymph # (Auto) [place] # (Auto) Eos # (Auto) Baso # (Auto) Abs Immat Gran (auto) Absolute Neuts (auto) Absolute Nucleated RBC Nucleated RBC % % Immature Plt Fraction PT INR APTT Sodium Potassium Chloride Carbon Dioxide Anion Gap BUN Creatinine Estim Creat Clear Calc Estimated GFR Glucose Calcium Total Bilirubin AST ALT Alkaline Phosphatase Troponin I 0.029 D NT-Pro-B Natriuret Pep Total Protein Albumin TSH (Reflex) Influenza A (RT-PCR) Influenza B (RT-PCR) RSV (RT-PCR) SARS-CoV-2 RNA (RT-PCR)
[2025-01-04] VITALS (10 sets, daily range): BP systolic 130–149; BP diastolic 69–78; PULSE 71–91; RESP 16–18; TEMP 36.4–37.1; O2SAT 96–99
[2025-01-04 07:05] LABS: Potassium 3.7 mmol/L (3.4-5.0)
[2025-01-04 08:21] LABS: Basophils Percent Auto 0.5 % (0.2-1.2); Eosinophils Absolute Auto 0.1 K/mm3 (0-0.3); Eosinophils Percent Auto 1.4 % (0-4.4); Hematocrit 37.8 % (37.0-47.0); Hemoglobin 12.6 g/dL (12.0-15.0); Immature Granulocyte Absolute 0.02 K/mm3 (0.00-0.031); Immature Granulocyte Percent A 0.3 % (0-0.5); Lymphocytes Absolute Auto 2.43 K/mm3 (0.9-3.2); Lymphocytes Percent Auto 41.4 % (18.3-44.2); Mean Corpuscular HGB Conc 33.3 g/dl (32-36); Mean Corpuscular Volume 92.9 fl (80-100); Mean Platelet Volume 10.1 fl (7.4-10.4); Monocytes Absolute Auto 0.5 K/mm3 (0.1-0.6); Monocytes Percent Auto 8.2 % (2.6-8.5); Neutrophils Absolute Auto 2.8 K/mm3 (1.3-6.7); Neutrophils Percent Auto 48.2 % (45.5-73.1); Platelet Count Result 202 k/mm3 (150-375); Red Blood Count 4.07 M/mm3 (4.2-5.4); Red Cell Distribution Width 12.8 % (11.5-14.5); White Blood Count 5.9 K/mm3 (4.5-10.0)
--- NOTE | 2025-01-04 08:54 | PM.IMPN ---
Progress Note: A&P Assessment and Plan (1) Hypertensive urgency: Code(s): I16.0 - Hypertensive urgency Status: Acute (2) Acute hypokalemia: Code(s): E87.6 - Hypokalemia Status: Acute (3) Paroxysmal nocturnal dyspnea: Code(s): R06.00 - Dyspnea, unspecified Status: Acute (4) Morbid obesity with BMI of 40.0-44.9, adult: Code(s): E66.01 - Morbid (severe) obesity due to excess calories; Z68.41 - Body mass index [BMI] 40.0-44.9, adult Status: Acute Plan 59-year-old female with a past medical history of postmenopausal, essential hypertension and obesity who presented to the ER with feeling is that she is going to pass out. 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 She reported that initially her mouth became dry and shortly thereafter she became lightheaded. She had his sensation of overall heaviness of her body. She felt as if she was being pushed down into the ground. She had a sensation of tightness in her neck. She denied any chest pain. She did feel a few palpitations. Near-syncope Possible vasovagal syncope, or due to uncontrolled hypertension. Patient had symptoms of flushing, sweating, palpitations Patient does not have focal weakness, CT head shows no acute intracranial issues Neuro check echocardiogram 1. Left ventricular chamber dimension is normal. 2. Left ventricular systolic function is normal, estimated at 65-70%. 3. The left ventricular diastolic function is grade I diastolic dysfunction. 4. No significant valvular disease. Telemetry monitoring Patient has intermittent palpitation, chest tightness associated with near syncope. Need to rule out arrhythmia related syncope. Consult account general manager for evaluation treatment Hypertension urgency paroxysmal nocturnal dyspnea possible due to anxiety Suspecting pheochromocytoma, urine metanephrines 24 hour urine is ordered per warehouse handler, result is pending Continue home medication losartan, patient also received hydralazine IV Blood pressure is better control now Follow renal ultrasound, renal arterial Doppler, pending Hyponatremia, hypokalemia Mild hyponatremia, possible due to hydrochlorothiazide Follow-up TSH 1.15 Replete potassium chloride p.o. Follow-up BMP outpatient polysomnogram. Patient has been admitted as observation status. Subjective Date/time seen: 01/04/25 08:54 Interval history: Blood pressure is well controlled, patient denies lightheadedness, headache, palpitation, chest pain abdomen pain nausea vomiting. Exam Narrative: GENERAL: Pleasant, in no acute distress. Well-nourished. - EYES: EOMI. Anicteric. - HENT: Moist mucous membranes. - LUNGS: Lungs clear bilaterally - CARDIOVASCULAR: Regular rate and rhythm. No murmur. No JVD. - ABDOMEN: Soft, non-tender and non-distended. No palpable masses. - EXTREMITIES: No edema. Peripheral pulses 2+. Non-tender. - NEUROLOGIC: No focal neurological deficits. CN II-XII grossly intact. - PSYCHIATRIC: Awake, Alert and oriented x 3. Appropriate mood and affect. - SKIN: No rashes or lesions. Warm. - LYMPH: No cervical lymphadenopathy. Objective Data Vital Signs Vital Signs: Vital Signs - 24 hr 01/03/25 09:29 01/03/25 12:03 01/03/25 14:00 Temperature 98.3 F Pulse Rate 96 87 Respiratory Rate 22 H Blood Pressure 115/65 Pulse Oximetry 97 98 Oxygen Delivery Room Air 01/03/25 16:01 01/03/25 20:00 01/03/25 20:00 Temperature Pulse Rate 82 82 82 Respiratory Rate 22 H Blood Pressure Pulse Oximetry 98 Oxygen Delivery Room Air 01/03/25 21:43 01/04/25 00:00 01/04/25 00:55 Temperature 98.6 F Pulse Rate 76 75 89 Respiratory Rate 16 Blood Pressure 136/69 Pulse Oximetry 98 Oxygen Delivery 01/04/25 04:00 01/04/25 05:48 Temperature 98.7 F Pulse Rate 71 75 Respiratory Rate 16 Blood Pressure 130/69 Pulse Oximetry 99 Oxygen Delivery Intake/Output Intake/Output: Intake & Output 01/01/25 01/02/25 01/03/25 01/04/25 23:59 23:59 23:59 23:59 Intake Total 1000 1440 200 Output Total 1750 300 Balance 1000 -310 -100 Meds/Results Medications: Active Medications Generic Name Dose Route Start Last Admin Trade Name Freq PRN Reason Stop Dose Admin Acetaminophen 650 mg 01/02/25 20:15 01/02/25 22:31 Acetaminophen 325 Mg Tablet PO 650 mg Q4H PRN Administration Mild Pain (1-3) or Fever Chlorthalidone 25 mg 01/03/25 09:00 01/03/25 08:34 Chlorthalidone 25 Mg Tablet PO 25 mg DAILY PIO Administration Enoxaparin Sodium 40 mg 01/03/25 09:00 01/03/25 08:34 Enoxaparin 40 Mg/0.4 Ml Syringe SUB-Q 40 mg DAILY PIO Administration Loratadine 10 mg 01/03/25 09:00 01/03/25 08:34 Loratadine 10 Mg Tablet PO 10 mg DAILY PIO Administration Losartan Potassium 50 mg 01/03/25 09:00 01/03/25 16:54 Losartan Potassium 50 Mg Tablet PO 50 mg BID PIO Administration Multivitamins Therapeutic 1 tablet 01/03/25 09:00 01/03/25 08:34 Multivitamins Therapeutic Tab (*Bkc) PO 1 tablet DAILY PIO Administration Ondansetron HCl 4 mg 01/02/25 20:15 Ondansetron Inj 4 Mg/2 Ml Vial IV PUSH Q4H PRN Nausea Perflutren Lipid Microsphere 0 ml 01/03/25 04:05 Perflutren Lipid Microspheres 1.5 Ml Vial Diluted To 10 Ml Total Volume IV PUSH 01/06/25 04:05 ONCE PRN adequate visualization Protocol Potassium Chloride 20 meq 01/03/25 08:00 01/03/25 08:34 Potassium Chloride 20 Meq Er Tablet PO 20 meq DAILY@0800 PIO Administration Vitamin D 1,000 units 01/03/25 09:00 01/03/25 08:34 Cholecalciferol 1,000 Units Tablet PO 1,000 units DAILY PIO Administration Radiology Results: ITS Impressions Chest X-Ray 01/02/25 18:00 IMPRESSION: No focal infiltrate or effusion. Head CT 01/02/25 20:22 Impression: No acute intracranial hemorrhage or suspicious mass effect. Labs Labs: Laboratory Results - last 24 hr 01/04/25 06:38 WBC 5.9 RBC 4.07 L Hgb 12.6 Hct 37.8 MCV 92.9 MCH 31.0 MCHC 33.3 RDW 12.8 Plt Count 202 MPV 10.1 Immature Gran % (Auto) 0.3 Neut % (Auto) 48.2 Lymph % (Auto) 41.4 [place] % (Auto) 8.2 Eos % (Auto) 1.4 Baso % (Auto) 0.5 Lymph # (Auto) 2.43 [place] # (Auto) 0.5 Eos # (Auto) 0.1 Baso # (Auto) 0.0 Abs Immat Gran (auto) 0.02 Absolute Neuts (auto) 2.8 Absolute Nucleated RBC 0.000 Nucleated RBC % 0.0 Potassium 3.7
[2025-01-04] MEDS: CHLORTHALIDONE 25 MG TABLET PO (09:35)
[2025-01-04] MEDS: ENOXAPARIN 40 MG/0.4 ML SYRINGE SUB-Q (09:35)
[2025-01-04] MEDS: MULTIVITAMINS THERAPEUTIC TAB (*BKC) 1 TABLET PO (09:35)
[2025-01-04] MEDS: LORATADINE 10 MG TABLET PO (09:35)
[2025-01-04] MEDS: CHOLECALCIFEROL 1,000 UNITS TABLET 1000 UNITS PO (09:35)
[2025-01-04] MEDS: LOSARTAN POTASSIUM 50 MG TABLET PO ×2 (09:35→17:54)
[2025-01-04] MEDS: POTASSIUM CHLORIDE 20 MEQ ER TABLET PO (09:36)
[2025-01-04 10:03] LABS: Alanine Aminotransferase 20 U/L (6-35); Albumin Level 3.6 g/dL (3.5-5.1); Alkaline Phosphatase 83 U/L (38-126); Anion Gap 8 mmol/L (4-12); Aspartate Amino Transferase 30 U/L (14-36); Bilirubin,Total 0.5 mg/dL (0.2-1.3); Blood Urea Nitrogen 11 mg/dL (7-17); Calcium 8.7 mg/dL (8.4-10.2); Carbon Dioxide 29 mmol/L (22-30); Chloride 97 mmol/L (98-107); Estimated CRCL calculation 96 ml/min; Estimated Glomerular Filt Rate > 60; Glucose 91 mg/dL (65-110); Potassium 3.8 mmol/L (3.4-5.0); Sodium 134 mmol/L (137-145)
[2025-01-05] VITALS: PULSE 72
[2025-01-05 04:00] VITALS: PULSE 75
[2025-01-05 04:44] VITALS: BP 140/77; PULSE 73; RESP 16; TEMP 37; O2SAT 96
--- NOTE | 2025-01-05 09:02 | PM.IMPN ---
Progress Note: A&P Assessment and Plan (1) Hypertensive urgency: Code(s): I16.0 - Hypertensive urgency Status: Acute (2) Acute hypokalemia: Code(s): E87.6 - Hypokalemia Status: Acute (3) Paroxysmal nocturnal dyspnea: Code(s): R06.00 - Dyspnea, unspecified Status: Acute (4) Morbid obesity with BMI of 40.0-44.9, adult: Code(s): E66.01 - Morbid (severe) obesity due to excess calories; Z68.41 - Body mass index [BMI] 40.0-44.9, adult Status: Acute Plan 59-year-old female with a past medical history of postmenopausal, essential hypertension and obesity who presented to the ER with feeling is that she is going to pass out. 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 She reported that initially her mouth became dry and shortly thereafter she became lightheaded. She had his sensation of overall heaviness of her body. She felt as if she was being pushed down into the ground. She had a sensation of tightness in her neck. She denied any chest pain. She did feel a few palpitations. Near-syncope Possible vasovagal syncope, or due to uncontrolled hypertension. Patient had symptoms of flushing, sweating, palpitations Patient does not have focal weakness, CT head shows no acute intracranial issues Neuro check echocardiogram 1. Left ventricular chamber dimension is normal. 2. Left ventricular systolic function is normal, estimated at 65-70%. 3. The left ventricular diastolic function is grade I diastolic dysfunction. 4. No significant valvular disease. Telemetry monitoring Patient has intermittent palpitation, chest tightness associated with near syncope. Need to rule out arrhythmia related syncope. Consult traffic division commanding officer for evaluation treatment traffic division commanding officer will follow-up patient in the office Hypertension urgency paroxysmal nocturnal dyspnea possible due to anxiety Suspecting pheochromocytoma, urine metanephrines 24 hour urine is ordered per grain and yeast plants supervisor, Urine epinephrine, norepinephrine, dopamine, catecholamine results are pending Continue home medication losartan, patient also received hydralazine IV Blood pressure is better control now Follow renal ultrasound, renal arterial Doppler, 1. Normal kidneys with no hydronephrosis. 2. No Doppler evidence of renal artery stenosis. blood pressure stable, continue home medication Hyponatremia, hypokalemia Mild hyponatremia, possible due to hydrochlorothiazide Follow-up TSH 1.15 Replete potassium chloride p.o. Follow-up BMP corrected outpatient polysomnogram. Subjective Date/time seen: 01/05/25 09:02 Interval history: Blood pressure is well controlled, patient has no new issue Or events overnight.patient denies lightheadedness, headache, palpitation, chest pain abdomen pain nausea vomiting. Exam Narrative: GENERAL: Pleasant, in no acute distress. Well-nourished. - EYES: EOMI. Anicteric. - HENT: Moist mucous membranes. - LUNGS: Lungs clear bilaterally - CARDIOVASCULAR: Regular rate and rhythm. No murmur. No JVD. - ABDOMEN: Soft, non-tender and non-distended. No palpable masses. - EXTREMITIES: No edema. Peripheral pulses 2+. Non-tender. - NEUROLOGIC: No focal neurological deficits. CN II-XII grossly intact. - PSYCHIATRIC: Awake, Alert and oriented x 3. Appropriate mood and affect. - SKIN: No rashes or lesions. Warm. - LYMPH: No cervical lymphadenopathy. Objective Data Vital Signs Vital Signs: Vital Signs - 24 hr 01/04/25 09:40 01/04/25 12:00 01/04/25 13:43 Temperature 98.7 F Pulse Rate 91 77 Respiratory Rate 18 Blood Pressure 144/78 H Pulse Oximetry 96 Oxygen Delivery Room Air 01/04/25 16:00 01/04/25 20:00 01/04/25 20:00 Temperature Pulse Rate 77 77 79 Respiratory Rate 18 Blood Pressure Pulse Oximetry 96 Oxygen Delivery Room Air 01/04/25 21:37 01/05/25 00:00 01/05/25 04:00 Temperature 97.6 F Pulse Rate 79 72 75 Respiratory Rate 16 Blood Pressure 149/75 H Pulse Oximetry 98 Oxygen Delivery 01/05/25 04:44 Temperature 98.6 F Pulse Rate 73 Respiratory Rate 16 Blood Pressure 140/77 Pulse Oximetry 96 Oxygen Delivery Intake/Output Intake/Output: Intake & Output 01/02/25 01/03/25 01/04/25 01/05/25 23:59 23:59 23:59 23:59 Intake Total 1000 1440 1920 275 Output Total 1750 300 Balance 1000 -310 1620 275 Meds/Results Medications: Active Medications Generic Name Dose Route Start Last Admin Trade Name Freq PRN Reason Stop Dose Admin Acetaminophen 650 mg 01/02/25 20:15 01/02/25 22:31 Acetaminophen 325 Mg Tablet PO 650 mg Q4H PRN Administration Mild Pain (1-3) or Fever Chlorthalidone 25 mg 01/03/25 09:00 01/04/25 09:35 Chlorthalidone 25 Mg Tablet PO 25 mg DAILY PIO Administration Enoxaparin Sodium 40 mg 01/03/25 09:00 01/04/25 09:35 Enoxaparin 40 Mg/0.4 Ml Syringe SUB-Q 40 mg DAILY PIO Administration Loratadine 10 mg 01/03/25 09:00 01/04/25 09:35 Loratadine 10 Mg Tablet PO 10 mg DAILY PIO Administration Losartan Potassium 50 mg 01/03/25 09:00 01/04/25 17:54 Losartan Potassium 50 Mg Tablet PO 50 mg BID PIO Administration Multivitamins Therapeutic 1 tablet 01/03/25 09:00 01/04/25 09:35 Multivitamins Therapeutic Tab (*Bkc) PO 1 tablet DAILY PIO Administration Ondansetron HCl 4 mg 01/02/25 20:15 Ondansetron Inj 4 Mg/2 Ml Vial IV PUSH Q4H PRN Nausea Perflutren Lipid Microsphere 0 ml 01/03/25 04:05 Perflutren Lipid Microspheres 1.5 Ml Vial Diluted To 10 Ml Total Volume IV PUSH 01/06/25 04:05 ONCE PRN adequate visualization Protocol Potassium Chloride 20 meq 01/03/25 08:00 01/04/25 09:36 Potassium Chloride 20 Meq Er Tablet PO 20 meq DAILY@0800 PIO Administration Vitamin D 1,000 units 01/03/25 09:00 01/04/25 09:35 Cholecalciferol 1,000 Units Tablet PO 1,000 units DAILY PIO Administration Radiology Results: ITS Impressions Chest X-Ray 01/02/25 18:00 IMPRESSION: No focal infiltrate or effusion. Head CT 01/02/25 20:22 Impression: No acute intracranial hemorrhage or suspicious mass effect. Arterial/Peripheral Duplex 01/04/25 11:01 IMPRESSION: 1. Normal kidneys with no hydronephrosis. 2. No Doppler evidence of renal artery stenosis. Renal Ultrasound 01/04/25 11:01 IMPRESSION: 1. Normal kidneys with no hydronephrosis. 2. No Doppler evidence of renal artery stenosis. Labs Labs: Laboratory Results - last 24 hr 01/04/25 06:38 Sodium 134 L Potassium 3.8 Chloride 97 L Carbon Dioxide 29 Anion Gap 8 BUN 11 Creatinine 0.60 L Estim Creat Clear Calc 96 Estimated GFR > 60 Glucose 91 Calcium 8.7 Total Bilirubin 0.5 AST 30 ALT 20 Alkaline Phosphatase 83 Total Protein 6.0 L Albumin 3.6
--- NOTE | 2025-01-05 09:03 | PM.CNCAR ---
Assessment and Plan Assessment and plan (1) Near syncope: Code(s): R55 - Syncope and collapse Status: Acute Assessment and Plan: History of syncope and near syncope with associated light headedness, palpitations, and a sensation of feeling as if she is going to pass out. Telemetry was reviewed and she has not demonstrated any arrhythmias - she is in sinus rhythm with rare PVC's. Echocardiogram was performed and showed normal LV function and structure and no significant valvular disease. Since structural cardiac problems have been ruled out and no arrhythmias have been identified, doubt there is a cardiac etiology to these events. Furthermore, her description of these events is more consistent with reflex/vasovagal syncope. No further inpatient cardiac workup is warranted. I did discuss the concept of a loop recorder since she has had multiple events over a span of years with two 30 day monitors not capturing any arrhythmias. She is unsure about loop implantation and would like some time to think about it. Can be discussed in outpatient follow up. (2) Hypertension: Qualifiers: Hypertension type: essential hypertension Qualified Code(s): I10 - Essential (primary) hypertension Code(s): I10 - Essential (primary) hypertension Status: Acute Assessment and Plan: Her blood pressure is controlled. Continue current medical regimen without change (3) Fatigue: Code(s): R53.83 - Other fatigue Status: Acute Assessment and Plan: Reports excessive daytime sleepiness. She does snore. Has not had evaluation for sleep apnea. Recommend outpatient sleep study. History of Present Illness History of Present Illness Consult date/time: 01/05/25 09:03 Requesting physician: Alireza Leija MD Consult reason: hypertension Reason For Visit: Hypertensive urgency, Hypokalemia Narrative: Radha Viera is a 59 year old female with morbid obesity and hypertension. She comes to the hospital after having an episode of feeling as if she was going to pass out. Cardiology is consulted for hypertension and near syncope. Patient reports multiple occurrences of near syncope and syncope dating back to 2018. She has worn 30 day telemetry monitors in the past that reportedly did not reveal any arrhythmias. 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 She sat down but her symptoms persisted, therefore she called EMS and was brought to the hospital. In July of last year she reports an episode of syncope which occurred immediately after taking a shower. She reports a near syncopal event while riding a motorcycle and another time while sitting in the car. These episodes are always associated with a prodrome and she has never had an abrupt loss of consciousness without any warning signs. At the time of my evaluation she is feeling well and has not had any near syncopal or syncopal episodes while hospitalized. Review of Systems Review of Systems: All systems reviewed & are unremarkable except as noted in HPI and below PMFSH Past Medical History Medical History Morbid obesity with BMI of 40.0-44.9, adult Rosacea Melanoma (~05/2019) Torn rotator cuff Breast lump 05-31-2018 left breast lump, US done Benign subcutaneous cyst Viral labyrinthitis syndrome Hx of adenomatous colonic polyps Hypertension Surgical History Surgical History S/P skin cancer resection (~05/2019) Removed from between her breast. H/O rotator cuff surgery (~12/23/23) History of orthopedic surgery (08/13/20) joint replacement right foot History of hysterectomy, supracervical abdominal (subtotal) 03/19/05 enlarged uterus/menometrorrhagia/dsymenorrhea/extensive adhesiolysis, adenomyosis History of bunionectomy Hx of section x3 Hx of cholecystectomy 2003 Hx of appendectomy age 12 Family History Family History Mother Family history of thyroid disease Diabetes mellitus Hypertension Family history of transient ischemic attacks Family history of cardiovascular disease Family history of Alzheimer's disease Heart disease Father Hypertension Carcinoma of colon Family history of emphysema Intracranial aneurysm Sibling Heart disease brother Social History Social History Social History: Code status: Full code Surrogate decision maker: Eduardo () Smoking status: Never smoker Second hand tobacco smoke exposure: No Alcohol intake: never Substance use: never Substance use type: does not use Do You Feel Safe in your Home?: Yes Lack of Transportation: No Lack of Food: Never True Current Housing: I Have Housing Concerned About Future Housing: No Difficulty Paying Gas/Electric Bills: No Difficulty Paying for Meds: No Currently Unemployed: No Education: Trade/Vocational Certificate Difficulty w/ Childcare or Family Care: No Living arrangements: other Additional living arrangements comments: Occupation/Education: occupation 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 Gender identity (if verbalized by the patient): Female Sexual Orientation (if Verbalized by the Patient): Straight or Heterosexual Spiritual care concerns: No Agree to blood products: Yes Meds Home Medications and Allergies Home Medications ?Medication ?Instructions ?Recorded ?Confirmed ?Type estradiol 0.5 mg tablet 0.5 mg PO DAILY #90 tabs 05/31/24 01/03/25 Rx potassium chloride 10 mEq 10 meq PO DAILY #90 caps 08/17/24 01/03/25 Rx capsule,extended release losartan 50 mg tablet 50 mg PO BID #180 tabs 09/16/24 01/03/25 Rx azelaic acid 15 % topical gel 1 applic topical HS 10/26/24 01/03/25 History cholecalciferol (vitamin D3) 25 25 mcg PO DAILY 10/26/24 01/03/25 History mcg (1,000 unit) capsule loratadine 10 mg tablet (Claritin) 10 mg PO DAILY 10/26/24 01/03/25 History multivitamin (Daily Multi-Vitamin 1 tablet PO DAILY 10/26/24 01/03/25 History tablet) chlorthalidone 25 mg tablet 25 mg PO DAILY #30 tabs 12/26/24 01/03/25 Rx Allergies Allergy/AdvReac Type Severity Reaction Status Date / Time morphine Allergy Mild Vomiting Verified 12/28/24 08:32 nitroglycerin Allergy Unknown Other Verified 12/28/24 08:32 Vital Signs Vital Signs - 24 hr 01/04/25 09:40 01/04/25 12:00 01/04/25 13:43 Temperature 37.1 C Pulse Rate 91 77 Respiratory Rate 18 Blood Pressure 144/78 H Pulse Oximetry 96 Oxygen Delivery Room Air 01/04/25 16:00 01/04/25 20:00 01/04/25 20:00 Temperature Pulse Rate 77 77 79 Respiratory Rate 18 Blood Pressure Pulse Oximetry 96 Oxygen Delivery Room Air 01/04/25 21:37 01/05/25 00:00 01/05/25 04:00 Temperature 36.4 C Pulse Rate 79 72 75 Respiratory Rate 16 Blood Pressure 149/75 H Pulse Oximetry 98 Oxygen Delivery 01/05/25 04:44 Temperature 37.0 C Pulse Rate 73 Respiratory Rate 16 Blood Pressure 140/77 Pulse Oximetry 96 Oxygen Delivery Exam Const: General: comfortable, no acute distress, alert and awake Orientation/consciousness: patient oriented x3 HENMT: Head: normal to inspection Eyes: General: appearance normal, both eyes and all related structures Pupils: Equal, round and reactive pupils present Neck: Neck: normal visual inspection, supple and no JVD Carotids: normal carotid upstroke and no bruits Resp: Effort & Inspection: normal respiratory effort Auscultation: clear to auscultation bilaterally Cardio: Rate: regular rate Rhythm: regular rhythm Heart sounds: S1 normal heart sound present, S2 normal heart sound present and no murmurs GI: Auscultation: normal bowel sounds Skin: General skin exam: normal color Neuro: General: patient oriented x3 Cranial nerves: Yes Equal, round and reactive pupils present Extrem: General: normal to inspection Psych: Appearance: grossly normal Mental Status: mental status grossly normal Results Labs and Meds 01/04/25 06:38 01/04/25 06:38 Lab results: Cardiac Enzymes 01/04/25 Range/Units 06:38 AST 30 (14-36) U/L Comprehensive Metabolic Panel 01/04/25 Range/Units 06:38 Sodium 134 L (137-145) mmol/L Potassium 3.8 (3.4-5.0) mmol/L Chloride 97 L (98-107) mmol/L Carbon Dioxide 29 (22-30) mmol/L BUN 11 (7-17) mg/dL Creatinine 0.60 L (0.7-1.0) mg/dL Glucose 91 (65-110) mg/dL Calcium 8.7 (8.4-10.2) mg/dL AST 30 (14-36) U/L ALT 20 (6-35) U/L Alkaline Phosphatase 83 (38-126) U/L Total Protein 6.0 L (6.3-8.2) g/dL Albumin 3.6 (3.5-5.1) g/dL Intake and Output 01/04/25 01/05/25 01/05/25 23:59 07:59 15:59 Intake Total 1240 275 Balance 1240 275 Intake: Oral 1240 275 Other: # Unmeasured Voids 1 3
[2025-01-05] MEDS: POTASSIUM CHLORIDE 20 MEQ ER TABLET PO (09:55)
[2025-01-05] MEDS: LORATADINE 10 MG TABLET PO (09:55)
[2025-01-05] MEDS: LOSARTAN POTASSIUM 50 MG TABLET PO (09:55)
[2025-01-05] MEDS: MULTIVITAMINS THERAPEUTIC TAB (*BKC) 1 TABLET PO (09:55)
[2025-01-05] MEDS: ENOXAPARIN 40 MG/0.4 ML SYRINGE SUB-Q (09:56)
[2025-01-05] MEDS: CHOLECALCIFEROL 1,000 UNITS TABLET 1000 UNITS PO (09:56)
[2025-01-05] MEDS: CHLORTHALIDONE 25 MG TABLET PO (09:56)
--- NOTE | 2025-01-05 11:48 | PM.DS ---
DS: Admitting Diagnosis Discharge Date 01/05 Admitting Diagnosis (1) Hypertensive urgency: Code(s): I16.0 - Hypertensive urgency Status: Acute (2) Acute hypokalemia: Code(s): E87.6 - Hypokalemia Status: Acute (3) Paroxysmal nocturnal dyspnea: Code(s): R06.00 - Dyspnea, unspecified Status: Acute (4) Morbid obesity with BMI of 40.0-44.9, adult: Code(s): E66.01 - Morbid (severe) obesity due to excess calories; Z68.41 - Body mass index [BMI] 40.0-44.9, adult Status: Acute DS: Discharge Diagnosis Discharge Diagnosis (1) Hypertensive urgency: Code(s): I16.0 - Hypertensive urgency Status: Acute (2) Acute hypokalemia: Code(s): E87.6 - Hypokalemia Status: Acute (3) Paroxysmal nocturnal dyspnea: Code(s): R06.00 - Dyspnea, unspecified Status: Acute (4) Morbid obesity with BMI of 40.0-44.9, adult: Code(s): E66.01 - Morbid (severe) obesity due to excess calories; Z68.41 - Body mass index [BMI] 40.0-44.9, adult Status: Acute DS: Summary Hospital Course Hospital Course: 59-year-old female with a past medical history of postmenopausal, essential hypertension and obesity who presented to the ER with feeling is that she is going to pass out. 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 She reported that initially her mouth became dry and shortly thereafter she became lightheaded. She had his sensation of overall heaviness of her body. She felt as if she was being pushed down into the ground. She had a sensation of tightness in her neck. She denied any chest pain. She did feel a few palpitations. the following med issues have been addressed during hospitalization Near-syncope Possible vasovagal syncope, or due to uncontrolled hypertension. Patient had symptoms of flushing, sweating, palpitations Patient does not have focal weakness, CT head shows no acute intracranial issues Neuro check echocardiogram 1. Left ventricular chamber dimension is normal. 2. Left ventricular systolic function is normal, estimated at 65-70%. 3. The left ventricular diastolic function is grade I diastolic dysfunction. 4. No significant valvular disease. Telemetry monitoring: no significant arrhythmia related to syncope Patient has intermittent palpitation, chest tightness associated with near syncope. Need to rule out arrhythmia related syncope. Consult surgical manager for evaluation treatment surgical manager will follow-up patient in the office Hypertension urgency paroxysmal nocturnal dyspnea possible due to anxiety Suspecting pheochromocytoma, urine metanephrines 24 hour urine is ordered per teletray operator, Urine epinephrine, norepinephrine, dopamine, catecholamine results are pending Continue home medication losartan, patient also received hydralazine IV Blood pressure is better control now Follow renal ultrasound, renal arterial Doppler, 1. Normal kidneys with no hydronephrosis. 2. No Doppler evidence of renal artery stenosis. blood pressure stable, continue home medication Hyponatremia, hypokalemia Mild hyponatremia, possible due to hydrochlorothiazide Follow-up TSH 1.15 Replete potassium chloride p.o. Follow-up BMP corrected outpatient polysomnogram. Time Spent with Patient Time attestation: Total time spent providing and/or coordinating discharge services: Exam Narrative: GENERAL: Pleasant, in no acute distress. Well-nourished. - EYES: EOMI. Anicteric. - HENT: Moist mucous membranes. - LUNGS: Lungs clear bilaterally - CARDIOVASCULAR: Regular rate and rhythm. No murmur. No JVD. - ABDOMEN: Soft, non-tender and non-distended. No palpable masses. - EXTREMITIES: No edema. Peripheral pulses 2+. Non-tender. - NEUROLOGIC: No focal neurological deficits. CN II-XII grossly intact. - PSYCHIATRIC: Awake, Alert and oriented x 3. Appropriate mood and affect. - SKIN: No rashes or lesions. Warm. - LYMPH: No cervical lymphadenopathy. Discharge Plan Discharge Attending physician on discharge: Alireza Leija Consulting providers: Pily Guzman Discharging Clinician: Alireza Leija Anticipated Discharge Date/Time: 01/05/25 11:48 Patient Disposition: Home, Self-Care Activity: as tolerated Diet: as tolerated and heart healthy Patient Instructions: Antibiotic Form Patient Language: Hong Konger Stand Alone Forms: General Discharge Information Follow-up/Referrals: Michelle Gutierrez MD [Primary Care Provider] - (pt needs to see PCP in one week ) Saulo Mora MD [Physician] - 3 Weeks (4/10/25 at 10:00. Arrive at 9:45.) Discharge Medications: Continued potassium chloride 10 mEq capsule, extended release 10 meq PO DAILY Qty: 90 1RF azelaic acid 15 % gel 1 applic TOPICAL HS cholecalciferol (vitamin D3) 25 mcg (1,000 unit) capsule 25 mcg PO DAILY multivitamin [Daily Multi-Vitamin] Tablet 1 tablet PO DAILY loratadine [Claritin] 10 mg tablet 10 mg PO DAILY estradiol 0.5 mg tablet 0.5 mg PO DAILY Qty: 90 3RF losartan 50 mg tablet 50 mg PO BID Qty: 180 1RF chlorthalidone 25 mg tablet 25 mg PO DAILY Qty: 30 1RF Date of admission: 01/02/25 20:15 Primary Care Provider: Michelle Gutierrez Admitting Provider: Wendy Vega Attending physician on admission: Wendy Vega Condition: Stable
[2025-01-07 18:38] LABS: Calculated Total (E+NE) 57 mcg/24 h (26-121); Dopamine, 24hr Urine 244 mcg/24 h (52-480); Norepinephrine, 24hr Urine 57 mcg/24 h (15-100)
== END 2025-01-05 13:10 | disposition home or self-care (01) ==
LOC: ANHED 20:18 → ANH3MEDSUR 01-03 15:30
PROVIDERS: Admitting Provider Internal Medicine; Emergency Provider Emergency Medicine; PCP Family Medicine; Visit Provider Hospitalist
DX: I16.0 Hypertensive urgency (principal); I10 Essential (primary) hypertension; E87.6 Hypokalemia; E87.1 Hypo-osmolality and hyponatremia; R55 Syncope and collapse; R06.83 Snoring; R53.83 Other fatigue; E66.9 Obesity, unspecified; Z68.41 Body mass index [BMI] 40.0-44.9, adult; Z78.0 Asymptomatic menopausal state; Z79.899 Other long term (current) drug therapy; R06.00 Dyspnea, unspecified; Z20.822 Contact with and (suspected) exposure to COVID-19; Z90.711 Acquired absence of uterus with remaining cervical stump; Z90.49 Acquired absence of other specified parts of digestive tract
CPT/HCPCS: 36415; 70450; 71046; 76775; 80053; 82384; 83880; 84132; 84443; 84484; 85025; 85055; 85610; 85730; 87637; 93005; 93306; 93976; 96361; 96372; 96374; 96375; 96376; 99285; A9270; G0378; J0360; J1650; J2405; J7030

== ENCOUNTER 2025-02-08 10:12 | Outpatient (CLI) | payer OTHER, SELFPAY ==
--- NOTE | ~2025-02-08 | XR_ITS ---
Left foot Technique: AP, oblique, and lateral views were obtained. Clinical History: Pain Findings: No acute fracture or dislocation is seen. Osseous alignment is anatomic. There is postopera tive change about the first MTP joint region. Joint spaces are preserved without erosive or degenerat jacob change. Soft tissues are unremarkable. Impression: No acute abnormality. Postoperative change, as above. Reviewed, dictated and finalized at location . Impression: No acute abnormality. Postoperative change, as above.
--- NOTE | ~2025-02-08 | XR_ITS ---
Left ankle Technique: AP, oblique, and lateral views were obtained. Clinical History: Pain Findings: No acute fracture or dislocation is seen. Chronic avulsion fracture from the medial malleol us noted. Osseous alignment is anatomic. Ankle mortise and other visualized joint spaces are preserve d. Soft tissues are otherwise unremarkable. Impression: No acute abnormality. Reviewed, dictated and finalized at location . Impression: No acute abnormality.
== END 2025-02-08 10:13 | disposition home or self-care (01) ==
LOC: MICIMG 10:14
PROVIDERS: PCP Family Medicine; Visit Provider Family Medicine
DX: M25.572 Pain in left ankle and joints of left foot (principal); M79.672 Pain in left foot
CPT/HCPCS: 73610; 73630

== ENCOUNTER 2025-03-10 01:49 | Day surgery (SDC) | payer OTHER, SELFPAY ==
[2024-10-26 13:36] VITALS: BMI 36.6
--- NOTE | 2025-03-02 13:44 | PC.NURSE ---
Called and spoke with patient regarding rescheduled procedure. Updated patient with new dates and times. Patient denies any changes to health history, and medications have been updated. Patient has no questions at this time.
--- OUTSIDE RECORDS SUMMARY | 2025-03-10 01:51 | XMS_ITS | Clinical Summary ---
Author Organization [facility] Address [address], [address] [address] Phone Care Team Providers Care Picker / Packer Name Role Phone Luisa Doll MD Primary [...] Most Recently Relevant to Health Maintenance Insurance [facility] Care Teams Picker / Packer Relationship Specialty Start Date End Date Luisa Doll MD [address] [place] [address] PCP - General Family Medicine 12/20/18
--- OUTSIDE RECORDS SUMMARY | 2025-03-10 01:51 | XMS_ITS | Clinical Summary ---
Author Organization [facility] Address [address] [place] [id number] Care Team Providers Care Tassel Maker Name Role Phone Michelle Gutierrez MD Primary Care Provider [phone] Allergies Active Allergy Reactions Criticality Noted Date Comments Nitroglycerin Other (See comments) High 08/20/2017 She had a sinus pause of 5 seconds after receiving NTG in the ER Medications losartan (COZAAR) 50 mg tablet Take 1 tablet (50 mg total) by mouth 2 (two) times a day 1 9 Active estradioL (ESTRACE) 0.5 mg tablet Take 1 tablet (0.5 mg total) by mouth daily 5 Active doxycycline hyclate 100 mg capsule PLEASE SEE ATTACHED FOR DETAILED DIRECTIONS 5 Active spironolactone (ALDACTONE) 25 mg tablet Take 1 tablet (25 mg total) by mouth every morning 5 Active Active Problems No known active problems Encounters Date Type Department Care Team Description 03/06/2025 Results Follow-Up [facility] Card[facility] [address] [place] [address] [place] [phone] Jesenia Jacob NP Aldosterone/Renin Ratio 01/26/2025 10:00 AM CDT Office Visit [facility] Cardiology [address] [place] [address] [address] [place] [phone] Jesenia Jacob NP Labile hypertension (Primary Dx); Near syncope; History of syncope; Hospital discharge follow-up 01/10/2025 Orders Only [facility] Cardiology [address] [place] [address] [address] [place] [address] Pily Guzman NP from Last 3 Months Medical History Medical History Date Comments Hypertension [...] Date Smoking Tobacco: Never Smokeless Tobacco: Never Tobacco Cessation:Counseling Given: Not Answered Alcohol Use Standard Drinks/Week Comments No 0 (1 standard drink = 0.6 oz pur e alcohol) Comments Unknown Sex and Gender Information Value Date Recorded Sex Assigned at Not on file Legal Sex Female 3:31 AM SWITCH MAKER Gender Identity Not on file Sexual Orientation Not on file Obstetrics History Last Filed Vital Signs Vital Sign Reading Time Taken Comments Blood Pressure 144/84 01/26/2025 10:00 AM CDT Pulse 73 01/26/2025 10:00 AM CDT Temperature - - Respiratory Rate - - Oxygen Saturation 99% 01/26/2025 10:00 AM CDT Inhaled Oxygen Concentration - - Weight 98 kg (216 lb) 01/26/2025 10:00 AM CDT Height 160 cm (5' 3 ) 01/26/2025 10:00 AM CDT Body Mass Index 38.26 01/26/2025 10:00 AM CDT Plan of Treatment Health Maintenance Due Date Last Done Comments Breast Cancer Screening-Mammogram 1965 Cervical Cancer Screening 1965 Colon Cancer Screening-Colonoscopy 1965 Depression Screening 1965 Hepatitis C Screening 1965 Hepatitis B Screening 1983 Regular Well Visit/Exam 18-64 1983 Zoster Vaccine (1 of 2) 2015 DTaP/Tdap/Td Vaccine (2 - Td or Tdap) 08/05/2024 08/05/2014 Influenza Vaccine (Season Ended) 2025 Pneumococcal vaccine <65 Aged Out No longer eligible based on patient's age to complete this topic Procedures Procedure Name Priority Date/Time Associated Diagnosis Comments ALDOSTERONE/RENIN RATIO Routine 03/01/2025 8:05 AM CDT Labile hypertension CARDIOLOGY DOCUMENT SCAN Routine 01/05/2025 10:26 AM CDT from Last 3 Months Results * Aldosterone/Renin Ratio (03/01/2025 8:05 AM CDT) Aldosterone 6.0 0.0 - 30.0 ng/dL [facility] - 01 Renin Activity, Plasma 0.693 0.167 - 5.380 ng/mL/hr [facility] - 01 Aldos/Renin Ratio 8.7 0.0 - 30.0 [facility] - 01 Comment:Units: ng/dL per ng/ mL/hr Blood 03/01/2025 8:05 AM CDT 03/01/2025 Narrative [facility] - 03/06/2025 11:10 AM CDT Test(s) [id number]; [id number]-[id number] Activity, Plasma was developed and its performance characteristics determined by [facility]. It has not been cleared or approved by the Food and Drug Administration. Performed at: 01 - [address] [id number] [employer]: Austin Peters MD, Phone: [phone] Specimen Comment: A courtesy copy of this report has been sent to [phone] Jesenia Jacob NP LAB BLOOD ORDERABLES Debbie tapia Result [facility] - 01 * Cardiology Document Scan (01/05/2025 10:26 AM CDT) Anatomical Region Laterality Modality Other Pily Guzman NP CV CARDIAC SERVICES PROCEDUR ES Final Result from Last 3 Months Insurance [employer] SIG [id number] [facility] [facility] Care Teams Tassel Maker Relationship Specialty Start Date End Date Michelle Gutierrez MD [address] [place] [address] PCP - General Family Medicine 01/26/25
--- OUTSIDE RECORDS SUMMARY | 2025-03-10 01:51 | XMS_ITS | Encounter Summary ---
Author Organization [facility] Address [address] [place] [address] Care Team Providers Care Ceramic Painter Name Role Phone Juan Rinaldi MD Primary Care Provider [phone] Encounter Details Date Type Department Care Team (Late st Contact Info) Description 09/15/2018 Lab Requisition [facility] [address] [facility] [place] [address] Leland Olivas MD [address] [place] [address] Social History Tobacco Use Types Packs/Day Years Used Date Smoking Tobacco: Never Assessed Comments Unknown Sex and Gender Information Value Date Recorded Sex Assigned at Not on file Legal Sex Female 5:51 AM RAW STOCK MACHINE 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 Gender Identity Not on file Sexual Orientation Not on file documented as of this encounter Plan of Treatment Not on file documented as of this encounter Procedures Procedure Name Priority Date/Time Associated Diagnosis Comments DERMATOPATHOLOGY Routine 09/14/2018 12:0 0 AM RAW STOCK MACHINE LOADER documented in this encounter Results * DERMATOPATHOLOGY (09/14/2018 12:00 AM RAW STOCK MACHINE LOADER) Case Report Dermatopathology Report Case: [id number] Authorizing Provider: Leland Olivas MD Collected: 09/14/2018 12:00 AM Pathologist: Esteban Leonard MD Received: 09/15/2018 11:31 AM Specimens: A) - Skin, right deltoid B) - Skin, right proximal extensor forearm C) - Skin, RUQ abd on sup border of scar D) - Skin, right zygoma 8 5:23 PM RAW STOCK MACHINE LOADER DERMATOPATHOLOGY LABORATORY Final Diagnosis Specimen A. SKIN, [...] (D22.39) CHRONIC PERIFOLLICULITIS (L73.8) 8 5:23 PM [facility] DERMATOPATHOLOGY [facility]ORATORY at [address] RAW STOCK MACHINE LOADER Clinical History A-D: R/O Dys nevus 8 5:23 PM [facility] DERMATOPATHOLOGY LABORATORY [...] 5x5x1 mm. Jar 0. 8 5:23 PM [facility] DERMATOPATHOLOGY [facility]ORATORY [...] a perifollicular lymphohistiocytic infiltrate. 8 5:23 PM [facility] DERMATOPATHOLOGY [facility]ORATORY Disclaimer An external and internal positive and negative controls are appropriate for the histochemical, immunohistochemical and immunofluorescence stain(s) in this case (if any), except where stated explicitly. The performance characteristics of the stain(s) cited in this report were developed and its performance characteristic determined by the Dermatopathology Laboratory at [facility]. These tests need not be, and therefore are not, approved by the [place] Food and Drug Administration. The tests are used for clinical purposes. Billing Codes Specimen Charges Stain Charges 42207 [id number] 1 1 1 1 8 5:23 PM RAW STOCK MACHINE LOADER DERMATOPATHOLOGY LABORATORY Embedded Images 8 5:23 PM RAW STOCK MACHINE LOADER DERMATOPATHOLOGY LABORATORY Pathology/Cytology TISSUE SPECIMEN FROM SKIN / Unknown 09/14/2018 09/15/2018 11:31 AM RAW STOCK MACHINE LOADER Miscellaneous samples (specimen) TISSUE SPECIMEN FROM SKIN / Unknown 09/14/2018 09/15/2018 11:31 AM RAW STOCK MACHINE LOADER Miscellaneous samples (specimen) TISSUE SPECIMEN FROM SKIN / Unknown 09/14/2018 09/15/2018 11:31 AM RAW STOCK MACHINE LOADER Miscellaneous samples (specimen) TISSUE SPECIMEN FROM SKIN / Unknown 09/14/2018 09/15/2018 11:31 AM RAW STOCK MACHINE LOADER us Leland Olivas MD LAB - PATHOLOGY/CYTOLOGY ORD ERABLES Final Result DERMATOPATHOLOGY LABORATORY [facility] - Department of Dermatology [address] [facility] [address] [place] [address], [facility] [phone] documented in this encounter Visit Diagnoses Not on filedocumented in this encounter Care Teams Ceramic Painter Relationship Specialty Start Date End Date Juan Rinaldi MD [address] [place] [address] PCP - General 09/15/18 documented as of this encounter
--- OUTSIDE RECORDS SUMMARY | 2025-03-10 01:51 | XMS_ITS | Encounter Summary ---
Author Organization [facility] Address [address] [place] [address] Care Team Providers Care Senior Case Manager Name Role Phone Juan Rinaldi MD Primary Care Provider [phone] Encounter Details Date Type Department Care Team (Late st Contact Info) Description 11/05/2022 Lab Requisition [facility] DermPath Lab [address] [facility] [address] [place] [address] Leland Olivas MD [address] [place] [address] Social History Tobacco Use Types Packs/Day Years Used Date Smoking Tobacco: Never Assessed Comments Unknown Sex and Gender Information Value Date Recorded Sex Assigned at Not on file Legal Sex Female 5:51 AM HANDWRITING EXPERT Gender Identity Not on file Sexual Orientation Not on file documented as of this encounter Plan of Treatment Not on file documented as of this encounter Procedures Procedure Name Priority Date/Time Associated Diagnosis Comments DERMATOPATHOLOGY Routine 11/04/2022 12:0 0 AM HANDWRITING EXPERT documented in this encounter Results * DERMATOPATHOLOGY (11/04/2022 12:00 AM HANDWRITING EXPERT) Case Report Dermatopathology Report Case: [id number] Authorizing Provider: Leland Olivas MD Collected: 11/04/2022 12:00 AM Ordering Location: [facility] DermPath Lab Received: 11/05/2022 02:16 PM Pathologist: Maureen Blount MD Specimen: Skin, right upper lateral breast 1:58 PM HANDWRITING EXPERT DERMATOPATHOLOGY LABORATORY Final Diagnosis Specimen A. SKIN, right upper lateral breast: LENTIGINOUS MELANOCYTIC NEVUS, COMPOUND TYPE, IRRITATED (D22.5) 3 1:58 PM [facility] DERMATOPATHOLOGY LABORATORY at 1358 HANDWRITING EXPERT Clinical History R/O Dysplastic Nevus 3 1:58 PM [facility] DERMATOPATHOLOGY LABORATORY Gross Description Specimen A: Received is one formalin filled container labeled with the patient's name and designated right upper lateral breast. The specimen consists of a punch biopsy measuring 4x4x4 mm. Jar 0. 3 1:58 PM [facility] DERMATOPATHOLOGY LABORATORY Microscopic Description Specimen [...] depth. (Compound Erick's Nevus) 3 1:58 PM [facility] DERMATOPATHOLOGY LABORATORY Disclaimer An external and internal positive and negative controls are appropriate for the histochemical, immunohistochemical and immunofluorescence stain(s) in this case (if any), except where stated explicitly. The performance characteristics of the stain(s) cited in this report were developed and its performance characteristic determined by the Dermatopathology Laboratory at [facility], directed by Dr. Gaurav Leonard. These tests need not be, and therefore are not, approved by the [place] Food and Drug Administration. The tests are used for clinical purposes. Billing Codes Specimen Charges Stain Charges 65162 1 3 1:58 PM [facility] DERMATOPATHOLOGY LABORATORY Embedded Images 3 1:58 PM [facility] DERMATOPATHOLOGY LABORATORY Pathology/Cytolog y TISSUE SPECIMEN FROM SKIN / Unknown 11/04/2022 11/05/2022 2:16 PM [facility] Leland Olivas MD LAB - PATHOLOGY/CYTOLOGY ORD ERABLES Final Result DERMATOPATHOLOGY LABORATORY [facility] - Department of Dermatology [address], [address] [phone] documented in this encounter Visit Diagnoses Not on filedocumented in this encounter Care Teams Senior Case Manager Relationship Specialty Start Date End Date Malench, Juan E, MD [address] [place] [address] PCP - General 09/15/18 documented as of this encounter
--- OUTSIDE RECORDS SUMMARY | 2025-03-10 01:51 | XMS_ITS | Encounter Summary ---
Author Organization [facility] Address [address] [place] [address] Care Team Providers Care Gate Watchman Name Role Phone Juan Rinaldi MD Primary Care Provider [phone] Encounter Details Date Type Department Care Team (Late st Contact Info) Description 04/28/2019 Lab Requisition [facility] Care DermPath Lab [address] [facility] [place] [address] Leland Olivas MD [address] [place] [address] Social History Tobacco Use Types Packs/Day Years Used Date Smoking Tobacco: Never Assessed Comments Unknown Sex and Gender Information Value Date Recorded Sex Assigned at Not on file Legal Sex Female 5: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 Gender Identity Not on file Sexual Orientation Not on file documented as of this encounter Plan of Treatment Not on file documented as of this encounter Procedures Procedure Name Priority Date/Time Associated Diagnosis Comments DERMATOPATHOLOGY Routine 04/27/2019 12:0 0 AM CDT documented in this encounter Results * DERMATOPATHOLOGY (04/27/2019 12:00 AM CDT) Case Report Dermatopathology Report Case: [id number] Authorizing Provider: Leland Olivas MD Collected: 04/27/2019 12:00 AM Pathologist: Esteban Leonard MD Received: 04/28/2019 12:06 PM Specimen: Skin, left sup breast cleavage 9 5:20 PM CDT DERMATOPATHOLOGY LABORATORY Final Diagnosis Specimen A. 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 The specimen consists of a shave biopsy measuring [id number] mm. Jar 0. 5:20 PM CDT DERMATOPATHOLOGY LABORATORY Microscopic Description Specimen A. SKIN, [...] and fibrosis with scattered melanophages. 5:20 PM [facility] DERMATOPATHOLOGY LABORATORY Disclaimer An external and internal positive and negative controls are appropriate for the histochemical, immunohistochemical and immunofluorescence stain(s) in this case (if any), except where stated explicitly. The performance characteristics of the stain(s) cited in this report were developed and its performance characteristic determined by the Dermatopathology Laboratory at [facility], directed by Dr. Gaurav Leonard. These tests need not be, and therefore are not, approved by the [place] Food and Drug Administration. The tests are used for clinical purposes. Billing Codes Specimen Charges Stain Charges 25112 1 75846 1 5:20 PM CDT DERMATOPATHOLOGY LABORATORY Embedded Images 5:20 PM T DERMATOPATHOLOGY LABORATORY Synoptic Report MELANOMA OF THE [...] PM CDT Leland Olivas MD LAB - PATHOLOGY/CYTOLOGY ORD ERABLES Final Result DERMATOPATHOLOGY LABORATORY [facility] - Department of Dermatology [address] [place] [address], [address] Floor Lab [address] [phone] documented in this encounter Visit Diagnoses Not on filedocumented in this encounter Care Teams Gate Watchman Relationship Specialty Start Date End Date Juan Rinaldi MD [address] [place] [address] PCP - General 09/15/18 documented as of this encounter
--- OUTSIDE RECORDS SUMMARY | 2025-03-10 01:51 | XMS_ITS | Clinical Summary ---
Author Organization [facility] Address [address] [place] [address] Care Team Providers Care Web Mobile Designer Name Role Phone Juan Rinaldi MD Primary Care Provider Source Comments [facility],non-owned Affiliates and Associated Physician Practices is amultiple site organization consisting of ambulatory clinics and hospital sitesin [place], [place], [place] and [place]. This disclosure is being madepursuant to the Care Everywhere program and may not contain all information available regarding this patient. 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
--- OUTSIDE RECORDS SUMMARY | 2025-03-10 01:51 | XMS_ITS | Continuity of Care Document ---
Author Organization [facility] Address [address] [facility] [address] [place] [address] Phone Care Team Providers Care Welding Machine Operator Arc Name Role Phone Guido PT,MPT,ATC, Chandana Unavailable [...] Exercise Therapeutic Activities Neuromuscular Re-Ed Therapeutic Exercise DRIVER MESSENGER Acute Therapeutic Activities Neuromuscular Re-Ed Therapeutic Exercise [...] Complexity Therapeutic Activities Therapeutic Exercise Neuromuscular Re-Ed Progress Note Therapeutic Activities Therapeutic Exercise Manual Therapy Therapeutic Activities Therapeutic Exercise Manual Therapy Hot or Cold Pack Neuromuscular Re-Ed Therapeutic Activities Manual Therapy Neuromuscular Re-Ed Therapeutic Exercise Therapeutic Activities Neuromuscular Re-Ed Therapeutic Exercise Manual Therapy Hot or Cold Pack PT Evaluation Low Complexity Therapeutic Activities Neuromuscular Re-Ed Hot or Cold Pack Therapeutic Exercise Advance Directives Directive Yes / No Effective Date File Name No Information Encounters Encounter Description Practice Location Reason(s) For Visit Diagnoses Date Provider Providers Copied on Encounter [facility], [id number], tel:[phone] [place] No Information 4 [place], [place], [place]. [facility] [facility] [address] [place] [address], [id number], tel:[phone] [place] No Information Jun- 4 Sourav Benitez. . Referring Provider: Frankie Cook, [address], [place], [address]. tel:[phone] [facility] [facility], [place], [place], [id number], tel:[phone] [place] No Information Sep- 4 Ohkrunal Benitez. . Referring Provider: Frankie Cook, [address], [place], [address]. tel:[phone] [facility] [facility], [place], [place], [id number], tel:[phone] [place] No Information Sep-0 4 Ohnesorge Emmanuel. . Referring Provider: Frankie Cook, [address], [place], [address]. tel:[phone] [place] [address], [address], [place], [place], [id number], [place] tel:[phone] [place] No Information 4 Ohnesorge Emmanuel. . Referring Provider: Frankie Cook, [address], [place], [address]. tel:[phone] [place] [address], [address], [place], [id number], [place] tel:[phone] [place] No Information 4 [place]. Referring Provider: Frankie Cook, [address], [place], [address]. tel:[phone] [place] [address], [place], [place], [id number], [place] tel:[phone] [place] No Information 4 Ohnesorge Emmanuel. . Referring Provider: Frankie Cook, [address], [place], [address]. tel:[phone] [place] [address], [address], [place], [id number], [place] tel:[phone] [place] No Information 4 [facility] [place] Referring Provider: Cherie Barbour[address], [place], [address]. tel:[phone] [place] [address] [address], [place], [place], [id number], [place] tel:[phone] [place] No Information 4 [facility] [place] Referring Provider: Parish [address], [place], [address]. tel:[phone] [facility], [address], [place], [place], [id number], [place] tel:[phone] [place] No Information 4 Guido Smith , [place], [place]. Referring Provider: Frankie Cook, [address], [place], [address]. tel:[phone] [place], [place] [address], [place], [place], [id number], [place] tel:[phone] [place] No Information 4 Ohnesorge Emmanuel. . Referring Provider: Frankie Cook, [address], [place], [address]. tel:[phone] [place] [address], [address], [place], [place], [address], [place] tel:[phone] [place] No Information 4 Ohnesorge Emmanuel. . Referring Provider: Frankie Cook, [address], [place], [address]. tel:[phone] [place], [place] [address], [place], [place], [id number], [place] tel:[phone] [place] No Information 4 Ohnesorge Emmanuel. . Referring Provider: Parish [address], [place], [address]. tel:[phone] [place], [place] [address], [place], [place], [id number], [place] tel:[phone] [place] No Information 4 Guido Smith , [place], [place]. Referring Provider: Frankie Cook, [address], [place], [address]. tel:[phone] [place] [address], [address], [place], [place], [id number], [place] tel:[phone] [place] No Information 4 [facility] [place] [place]. Referring Provider: Parish [address], [place], [address]. tel:[phone] [place] [address], [address], [place], [place], [id number], [place] tel:[phone] [place] No Information 4 [facility] Referring Provider: Parish [address], [place], [address]. tel:[phone] [place] [address], [address], [place], [id number], [place] tel:[phone] [place] No Information 4 [facility] Referring Provider: Parish [address], [place], [address]. tel:[phone] [place] [address], [address], [place], [place], [id number], [place] tel:[phone] [place] No Information 4 [place]. Referring Provider: Parish [address], [place], [address]. tel:[phone] [place] [address], [address], [place], [place], [address], [place] tel:[phone] [place] No Information 4 Sourav Benitez. . Referring Provider: Parish [address], [place], [address]. tel:[phone] [place], [place] [address], [place], [place], [id number], [place] tel:[phone] [place] No Information 4 Angelito Tam. . Referring Provider: Parish [address], [place], [address]. tel:[phone] [facility], [address], [place], [place], [address], [place] tel:[phone] [place] No Information 0 2- 4 Klahn Yonatan. . Referring Provider: Frankie Cook, [address], [place], [address]. tel:[phone] [facility], [address], [place], [place], [address], [place] tel:[phone] [place] No Information Brandon-2 4 Klahn Yonatan. . Referring Provider: Frankie Cook, [address], [place], [address]. tel:[phone] [place] [address], [address], [place], [place], [address], [place] tel:[phone] [place] No Information Mar-2 4 Klahn Yonatan. . Referring Provider: Parish [address], [place], [address]. tel:[phone] [place] [address], [address], [place], [place], [address], [place] tel:[phone] [place] No Information Mar-2 0- 4 Klahn Yonatan. . Referring Provider: Parish [address], [place], [address]. tel:[phone] [place], [place] [address] [address], [place], [place], [address], [place] tel:[phone] [place] No Information 1 4 Klahn Yonatan. . Referring Provider: Parish [address], [place], [address]. tel:[phone] [facility], [address], [place], [place], [address], [place] tel:[phone] [place] No Information Brandon-1 3-202 4 Klahn Yonatan. . Referring Provider: Parish [address], [place], [address]. tel:[phone] [place] [address], [facility] [address], [place], [place], [id number], [place] tel:[phone] [place] No Information Brandon-1 1- 4 Klahn Yonatan. . Referring Provider: Frankie Cook, [address], [place], [address]. tel:[phone] [place] [address], [facility] [address], [place], [place], [address], [place] tel:[phone] [place] No Information Brandon-0 4 Klahn Yonatan. . Referring Provider: Parish [address], [place], [address]. tel:[phone] [place] [address] [facility] [address], [place], [place], [address], [place] tel:[phone] [place] No Information Brandon-0 - 4 Klahn Yonatan. . Referring Provider: Parish [address], [place], [address]. tel:[phone] [place] [address] [place], [place] [address], [place], [place], [address], [place] tel:[phone] [place] No Information February-3 0- 4 Klahn Yonatan. . Referring Provider: Parish [address], [place], [address]. tel:[phone] [place] [address] [address], [place], [place], [address], [place] tel:[phone] [place] No Information February-2 8 4 Klahn Yonatan. . Referring Provider: Parish [address], [place], [address]. tel:[phone] [place] [address] [address], [place], [place], [address], [place] tel:[phone] [place] No Information May-2 3-202 4 Klahn Yonatan. . Referring Provider: Parish [address], [place], [address]. tel:[phone] [place] [address], [address], [place], [place], [address], [place] tel:[phone] [place] No Information May-2 1-202 4 Klahn Yonatan. . Referring Provider: Parish [address], [place], [address]. tel:[phone] [place] [address], [address], [place], [place], [address], [place] tel:[phone] [place] No Information May-1 4-202 4 Klahn Yonatan. . Referring Provider: Parish [address], [place], [address]. tel:[phone] [place] [address], [address], [place], [place], [address], [place] tel:[phone] [place] No Information May-1 0-202 4 Klahn Yonatan. . Referring Provider: Parish [address], [place], [address]. tel:[phone] [place] [address] [address], [place], [place], [address], [place] tel:[phone] [place] No Information May-0 7-202 4 Klahn Yonatan. . Referring Provider: Parish [address], [place], [address]. tel:[phone] [place], [place] [address] [address], [place], [place], [address], [place] tel:[phone] [place] No Information May-0 2-202 4 Klahn Yonatan. . Referring Provider: Frankie Joey, [address], [place], [address]. tel:[phone] [facility], [address], [place], [place], [address], [place] tel:[phone] [place] No Information 4 Angelito Tam. . Referring Provider: Frankie Cook, [address], [place], [address]. tel:[phone] [place] [address], [address], [place], [address], [place] tel:[phone] [place] No Information 4 Angelito Tam. . Referring Provider: Frankie Cook, [address], [place], [address]. tel:[phone] [place] [address], [address], [place], [place], [address], [place] tel:[phone] [place] No Information 4 Angelito Tam. . Referring Provider: Frankie Cook, [address], [place], [address]. tel:[phone] [place] [address], [address], [place], [place], [address], [place] tel:[phone] [place] No Information 4 Angelito aTm. . Referring Provider: Cherie Barbour[address], [place], [address]. tel:[phone] [place] [address], [address], [place], [place], [address], [place] tel:[phone] [place] No Information 4 Angelito Tam. . Referring Provider: Frankie Cook, [address], [place], [address]. tel:[phone] [facility], [address], [place], [place], [address], [place] tel:[phone] [place] No Information Apr-0 9- 4 Klahn Yonatan. . Referring Provider: Parish [address], [place], [address]. tel:[phone] [facility], [address], [place], [place], [address], [place] tel:[phone] [place] No Information Apr-0 4-202 4 Klahn Yonatan. . Referring Provider: Frankie Cook, [address], [place], [address]. tel:[phone] [facility], [address], [place], [place], [address], [place] tel:[phone] [place] No Information Apr-0 2-202 4 Klahn Yonatan. . Referring Provider: Parish [address], [place], [address]. tel:[phone] [place], [place] [address], [place], [place], [address], [place] tel:[phone] [place] No Information Mar-2 4 Klahn Yonatan. . Referring Provider: Parish [address], [place], [address]. tel:[phone] [address], [place], [place], [address], [place] tel:[phone] [place] No Information Mar-2 - 4 Klahn Yonatan. . Referring Provider: Parish [address], [place], [address]. tel:[phone], [place], [place], [address], [place] tel:[phone] [place] No Information February-3 1-202 2 Short [place]. . Referring Provider: Michelle Gutierrez, [address] , [place], [address]. tel:[phone] [place] [address], [id number], tel:[phone] [place] No Information 2 [place]. . Referring Provider: [address], [place], [address]. tel:[phone] [address] [place] [address], [id number], tel:[phone] [place] No Information 4-202 2 [place]. . Referring Provider: [address], [place], [address]. tel:[phone] [address] [place] [address] [place] [address], [id number], tel:[phone] [place] No Information 0-202 2 Short [place]. . Referring Provider: [address], [place], [address]. tel:[phone] [address] [place] [address] [place] [address], [id number], tel:[phone] [place] No Information 2 Short [place]. . Referring Provider: Kyrie [address], [place], [address]. tel:[phone] Family History Family Member Type Diagnosis Age At Onset No Information Payers Payer name Insurance type Covered constitution party ID William watkins(s) [employer] EPO WC SP WC [id number] Social History Type Description Quantity Date Captured [...]
--- OUTSIDE RECORDS SUMMARY | 2025-03-10 01:51 | XMS_ITS | Encounter Summary ---
Author Organization [facility] Address [address] [facility] [place] [address] Care Team Providers Care Advocacy Director Name Role Phone Juan Rinaldi MD Primary Care Provider [phone] Encounter Details Date Type Department Care Team (Late st Contact Info) Description 10/25/2020 Lab Requisition [facility] [address] [facility], [place] [address] Leland Olivas MD [address] [place] [address] Social History Tobacco Use Types Packs/Day Years Used Date Smoking Tobacco: Never Assessed Comments Unknown Sex and Gender Information Value Date Recorded Sex Assigned at Not on file Legal Sex Female 5:51 AM TOWBOAT PILOT Gender Identity Not on file Sexual Orientation Not on file documented as of this encounter Plan of Treatment Not on file documented as of this encounter Procedures Procedure Name Priority Date/Time Associated Diagnosis Comments DERMATOPATHOLOGY Routine 10/24/2020 12:0 0 AM T[facility]BOAT PILOT documented in this encounter Results * DERMATOPATHOLOGY (10/24/2020 12:00 AM TOWBOAT PILOT) Case Report Dermatopathology Report Case: [id number] Authorizing Provider: Leland Olivas MD Collected: 10/24/2020 12:00 AM Ordering Location: [facility] Received: 10/25/2020 11:17 AM Pathologist: Esteban Leonard MD Specimens: A) - Skin, midline upper back B) - Skin, right distal lateral anterior thigh 1:02 PM [facility] DERMATOPATHOLOGY LABORATORY Final Diagnosis Specimen A. SKIN, midline upper back: LENTIGINOUS MELANOCYTIC NEVUS, COMPOUND TYPE (COMPOUND MELANOCYTIC NEVUS WITH ARCHITECTURAL DISORDER) (D22.5) Specimen B. SKIN, right distal lateral anterior thigh: LENTIGINOUS MELANOCYTIC NEVUS, JUNCTIONAL TYPE, IRRITATED (JUNCTIONAL MELANOCYTIC NEVUS WITH ARCHITECTURAL DISORDER) (D22.71) NOT PRESENT AT SAMPLED MARGIN 1 1:02 PM [facility]OR[facility] at [address]2 [address] Clinical History A: R/O dysplastic nevus B: R/O dysplastic nevus. Check margins 1 1:02 PM [facility] Gross Description Specimen A: Received is one formalin filled container labeled with the patient's name and designated midline upper back. The specimen consists of a shave biopsy measuring 89k70i6 mm. Jar 0. Specimen B: Received is one formalin filled container labeled with the patients name and designated right distal lateral anterior thigh. The specimen consists of a shave removal measuring 9x6x1 mm, inked. Jar 0. 1 1:02 PM [facility] Microscopic Description Specimen A. [...] margin of the specimen. 1 1:02 PM [facility] Disclaimer An external and internal positive and negative controls are appropriate for the histochemical, immunohistochemical and immunofluorescence stain(s) in this case (if any), except where stated explicitly. The performance characteristics of the stain(s) cited in this report were developed and its performance characteristic determined by the Dermatopathology Laboratory at [facility], directed by Dr. Gaurav Leonard. These tests need not be, and therefore are not, approved by the [place] Food and Drug Administration. The tests are used for clinical purposes. Billing Codes Specimen Charges Stain Charges 82857 71630 1 1 83306 1 1 1:02 PM [facility] DERMATOPATHOLOGY LABORATORY Embedded Images 1 1:02 PM [facility] DERMATOPATHOLOGY LABORATORY Pathology/Cytology TISSUE SPECIMEN FROM SKIN / Unknown 10/24/2020 10/25/2020 11:17 AM [facility] P[facility] Miscellaneous samples (specimen) TISSUE SPECIMEN FROM SKIN / Unknown 10/24/2020 10/25/2020 11:17 AM [facility] P[facility]OT Leland Olivas MD LAB - PATHOLOGY/CYTOLOGY ORD ERABLES Final Result DERMATOPATHOLOGY LABORATORY [facility] - Department of Dermatology [facility] Medicine [address] [place] [address], [address] [phone] documented in this encounter Visit Diagnoses Not on filedocumented in this encounter Care Teams Advocacy Director Relationship Specialty Start Date End Date Juan Rinaldi MD [address] [place] [address] PCP - General 09/15/18 documented as of this encounter
--- OUTSIDE RECORDS SUMMARY | 2025-03-10 01:51 | XMS_ITS | Encounter Summary ---
Author Organization [facility] Address [address] [facility] [place] [address] Care Team Providers Care Armored Car Driver Name Role Phone Juan Rinaldi MD Primary Care Provider [phone] Encounter Details Date Type Department Care Team (Late st Contact Info) Description 05/08/2023 Lab Requisition [facility] - [facility] [address] [facility], [place] [address] Vero Mckeon PA [address] [place] [address] Neoplasm of uncertain behavior of skin Social History Tobacco Use Types Packs/Day Years Used Date Smoking Tobacco: Never Assessed Comments Unknown Sex and Gender Information Value Date Recorded Sex Assigned at Not on file Legal Sex Female 5:51 AM 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 Gender Identity Not on file Sexual Orientation Not on file documented as of this encounter Plan of Treatment Not on file documented as of this encounter Procedures Procedure Name Priority Date/Time Associated Diagnosis Comments DERMATOPATHOLOGY Routine 05/07/2023 12:0 0 AM CDT Neoplasm of uncertain behavior of skin documented in this encounter Results * DERMATOPATHOLOGY (05/07/2023 12:00 AM CDT) Case Report Dermatopathology Report Case: [id number] Authorizing Provider: Vero Mckeon PA Collected: 05/07/2023 12:00 AM Ordering Location: [facility] Received: 05/13/2023 01:28 PM Pathologist: Maureen Blount MD Specimens: A) - Skin, left mid-upper back B) - Skin, medial upper back 3 12:34 PM CDT DERMATOPATHOLOGY LABORATORY Final Diagnosis Specimen A. SKIN, left mid-upper back: LENTIGINOUS MELANOCYTIC NEVUS, COMPOUND TYPE, IRRITATED (D22.5) Specimen B. SKIN, medial upper back: LENTIGINOUS MELANOCYTIC NEVUS, COMPOUND TYPE, IRRITATED (D22.5) 3 12:34 PM CDT DERMATOPATHOLOGY LABORATORY at 1234 CDT Clinical History A-B: Atypical Nevus vs. Melanoma 3 12:34 PM CDT DERMATOPATHOLOGY LABORATORY Gross Description Specimen A: Received [...] 7x7x1 mm. Jar 0. 3 12:34 PM CDT DERMATOPATHOLOGY LABORATORY Microscopic Description Specimen [...] depth. (Compound Erick's Nevus) 3 12:34 PM CDT DERMATOPATHOLOGY LABORATORY Disclaimer An external and internal positive and negative controls are appropriate for the histochemical, immunohistochemical and immunofluorescence stain(s) in this case (if any), except where stated explicitly. The performance characteristics of the stain(s) cited in this report were developed and its performance characteristic determined by the Dermatopathology Laboratory at [facility], directed by Dr. Gaurav Leonard. These tests need not be, and therefore are not, approved by the [place] Food and Drug Administration. The tests are used for clinical purposes. Billing Codes Specimen Charges Stain Charges 06440 67068 1 1 39513 34957 1 1 3 12:34 PM CDT DERMATOPATHOLOGY LABORATORY Embedded Images 3 12:34 PM CDT DERMATOPATHOLOGY LABORATORY Pathology/Cytology TISSUE SPECIMEN FROM SKIN / Unknown 05/07/2023 05/13/2023 1:28 PM CDT Miscellaneous samples (specimen) TISSUE SPECIMEN FROM SKIN / Unknown 05/07/2023 05/13/2023 1:28 PM CDT [facility] - PATHOLOGY/CYTOLOGY OR DERABLES Final Result DERMATOPATHOLOGY LABORATORY [facility] - Department of Dermatology [facility] Medicine [address] [place] [address], [address] [phone] documented in this encounter Visit Diagnoses Diagnosis Neoplasm of uncertain behavior of skin documented in this encounter Care Teams Armored Car Driver Relationship Specialty Start Date End Date Juan Rinaldi MD [address] [place], [place] [id number] PCP - General 09/15/18 documented as of this encounter
--- OUTSIDE RECORDS SUMMARY | 2025-03-10 01:51 | XMS_ITS | Encounter Summary ---
Author Organization [facility] Address [address] [facility] [place] [address] Care Team Providers Care Customer Supply Coordinator Name Role Phone Juan Rinaldi MD Primary Care Provider [phone] Encounter Details Date Type Department Care Team (Late st Contact Info) Description 08/24/2019 Lab Requisition [facility] DermPath Lab [address] 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 Gender Identity Not on file Sexual Orientation Not on file documented as of this encounter Plan of Treatment Not on file documented as of this encounter Procedures Procedure Name Priority Date/Time Associated Diagnosis Comments DERMATOPATHOLOGY Routine 08/23/2019 12:0 0 AM COUNTY HEALTH OFFICER documented in this encounter Results * DERMATOPATHOLOGY (08/23/2019 12:00 AM COUNTY HEALTH OFFICER) Case Report Dermatopathology Report Case: [id number] Authorizing Provider: Leland Olivas MD Collected: 08/23/2019 12:00 AM Ordering Location: [facility] DermPath Lab Received: 08/24/2019 12:40 PM Pathologist: Esteban Leonard MD Specimens: A) - Skin, above right elbow medially B) - Skin, left lateral breast C) - Skin, left medial breast 4:47 PM COUNTY HEALTH OFFICER DERMATOPATHOLOGY LABORATORY Final Diagnosis Specimen A. SKIN, [...] NEVUS WITH ARCHITECTURAL DISORDER) (D22.5) 4:47 PM [facility] DERMATOPATHOLOGY LABORATORY at [address] [facility] Clinical History A-C: R/O dys nevus. 4:47 PM [facility] DERMATOPATHOLOGY LABORATORY Gross Description Specimen A: Received is one formalin filled container labeled with the patient's name and designated above right elbow medially. The specimen consists of a shave biopsy measuring [id number]. Jar 0. Specimen B: Received is one formalin filled container labeled with the patient's name and designated left lateral breast. The specimen consists of a shave biopsy measuring [id number]. Jar 0. Specimen C: Received is one formalin filled container labeled with the patient's name and designated left medial breast. The specimen consists of a shave biopsy measuring 4m0w5sp. Jar 0. 4:47 PM [facility] DERMATOPATHOLOGY LABORATORY [...] or Compound Dysplastic Nevus) 9 4:47 PM COUNTY HEALTH OFFICER DERMATOPATHOLOGY LABORATORY Disclaimer An external and internal positive and negative controls are appropriate for the histochemical, immunohistochemical and immunofluorescence stain(s) in this case (if any), except where stated explicitly. The performance characteristics of the stain(s) cited in this report were developed and its performance characteristic determined by the Dermatopathology Laboratory at [facility], directed by Dr. Gaurav Leonard. These tests need not be, and therefore are not, approved by the [place] Food and Drug Administration. The tests are used for clinical purposes. Billing Codes Specimen Charges Stain Charges 61905 38989 32309 1 1 1 9 4:47 PM COUNTY HEALTH OFFICER DERMATOPATHOLOGY LABORATORY Embedded Images 9 4:47 PM COUNTY HEALTH OFFICER DERMATOPATHOLOGY LABORATORY Pathology/Cytology TISSUE SPECIMEN FROM SKIN / Unknown 08/23/2019 08/24/2019 12:40 PM COUNTY HEALTH OFFICER Miscellaneous samples (specimen) TISSUE SPECIMEN FROM SKIN / Unknown 08/23/2019 08/24/2019 12:40 PM COUNTY HEALTH OFFICER Miscellaneous samples (specimen) TISSUE SPECIMEN FROM SKIN / Unknown 08/23/2019 08/24/2019 12:40 PM COUNTY HEALTH OFFICER Leland Olivas MD LAB - PATHOLOGY/CYTOLOGY ORD ERABLES Final Result DERMATOPATHOLOGY LABORATORY [facility] - Department of Dermatology [address] [facility] [address] [facility], [address]th [place] [address], [facility] [phone] documented in this encounter Visit Diagnoses Not on filedocumented in this encounter Care Teams Customer Supply Coordinator Relationship Specialty Start Date End Date Juan Rinaldi MD [address] [place] [address] PCP - General 09/15/18 documented as of this encounter
--- OUTSIDE RECORDS SUMMARY | 2025-03-10 01:51 | XMS_ITS | Encounter Summary ---
Author Organization [facility] Address [address] [place] [address] Care Team Providers Care Director Of Automation Name Role Phone Juan Rinaldi MD Primary Care Provider [phone] Encounter Details Date Type Department Care Team (Late st Contact Info) Description 11/07/2020 Lab Requisition [facility] DermPath Lab [address] [facility] [place] [address] Leland Olivas MD [address] [place] [address] Social History Tobacco Use Types Packs/Day Years Used Date Smoking Tobacco: Never Assessed Comments Unknown Sex and Gender Information Value Date Recorded Sex Assigned at Not on file Legal Sex Female 5:51 AM CONTAINER REPAIRER Gender Identity Not on file Sexual Orientation Not on file documented as of this encounter Plan of Treatment Not on file documented as of this encounter Procedures Procedure Name Priority Date/Time Associated Diagnosis Comments DERMATOPATHOLOGY Routine 11/06/2020 12:0 0 AM CONTAINER REPAIRER documented in this encounter Results * DERMATOPATHOLOGY (11/06/2020 12:00 AM CONTAINER REPAIRER) Case Report Dermatopathology Report Case: [id number] Authorizing Provider: Leland Olivas MD Collected: 11/06/2020 12:00 AM Ordering Location: [facility] DermPath Lab Received: 11/07/2020 02:27 PM Pathologist: Maureen Blount MD Specimens: A) - Skin, left superior buttock B) - Skin, right buttocks 3:21 PM CONTAINER REPAIRER DERMATOPATHOLOGY LABORATORY Final Diagnosis Specimen A. SKIN, left superior buttock: LENTIGINOUS MELANOCYTIC NEVUS, COMPOUND TYPE, IRRITATED (COMPOUND MELANOCYTIC NEVUS WITH ARCHITECTURAL DISORDER) (D22.5) (see microscopic description) Specimen B. SKIN, right buttocks: LENTIGINOUS MELANOCYTIC NEVUS, COMPOUND TYPE, IRRITATED (COMPOUND MELANOCYTIC NEVUS WITH ARCHITECTURAL DISORDER) (D22.5) (see microscopic description) 3:21 PM [facility] DERMATOPATHOLOGY LABORATORY at [address] [facility] Clinical History A-B: R/O dys nevus. 3:21 PM [facility] DERMATOPATHOLOGY LABORATORY Gross Description Specimen A: Received is one formalin filled container labeled with the patient's name and designated left superior buttock. The specimen consists of a shave biopsy measuring 45a3d5ft. Jar 0. Specimen B: Received is one formalin filled container labeled with the patient's name and designated right buttocks. The specimen consists of a shave biopsy measuring [id number]. Jar 0. 3:21 PM [facility] DERMATOPATHOLOGY LABORATORY Microscopic Description Specimen [...] Nevus or Compound Dysplastic Nevus) 3:21 PM [facility] DERMATOPATHOLOGY LABORATORY Disclaimer An external and internal positive and negative controls are appropriate for the histochemical, immunohistochemical and immunofluorescence stain(s) in this case (if any), except where stated explicitly. The performance characteristics of the stain(s) cited in this report were developed and its performance characteristic determined by the Dermatopathology Laboratory at [facility], directed by Dr. Gaurav Leonard. These tests need not be, and therefore are not, approved by the [place] Food and Drug Administration. The tests are used for clinical purposes. Billing Codes Specimen Charges Stain Charges 04964 94612 1 1 93651 98382 1 1 1 3:21 PM CONTAINER REPAIRER DERMATOPATHOLOGY LABORATORY Embedded Images 1 3:21 PM CONTAINER REPAIRER DERMATOPATHOLOGY LABORATORY Pathology/Cytology TISSUE SPECIMEN FROM SKIN / Unknown 11/06/2020 11/07/2020 2:27 PM CONTAINER REPAIRER Miscellaneous samples (specimen) TISSUE SPECIMEN FROM SKIN / Unknown 11/06/2020 11/07/2020 2:27 PM CONTAINER REPAIRER Leland Olivas MD LAB - PATHOLOGY/CYTOLOGY ORD ERABLES Final Result DERMATOPATHOLOGY LABORATORY [facility] - Department of Dermatology [facility] Medicine [address] [place] [address], [address] [phone] documented in this encounter Visit Diagnoses Not on filedocumented in this encounter Care Teams Director Of Automation Relationship Specialty Start Date End Date Juan Rinaldi MD [address] [place] [address] PCP - General 09/15/18 documented as of this encounter
--- OUTSIDE RECORDS SUMMARY | 2025-03-10 01:51 | XMS_ITS | Referral Summary ---
Author Organization [facility] Address [address] [place] [address] Care Team Providers Care Branch Operations Specialist Name Role Phone Michelle Gutierrez MD Primary Care Provider [phone] Encounters Date Type Department Care Team Description 03/06/2025 Results Follow-Up [facility] Cardiology [address] [place] [address] [address] [place] [phone] Jesenia Jacob NP Aldosterone/Renin Ratio 01/26/2025 10:00 AM CDT Office Visit [facility] Medical [facility] Cardiology [address] [place] [address] [address] [place] [phone] Jesenia Jacob NP Labile hypertension (Primary Dx); Near syncope; History of syncope; Hospital discharge follow-up 01/10/2025 Orders Only [facility] Medical [facility] Cardiology [address] [place] [address] [address] [place] [phone] Pily Guzman NP from Last 3 Months Allergies Active Allergy Reactions Criticality Noted Date [...] (25 mg total) by mouth every morning Active Active Problems No known active problems Social History Tobacco Use Types Packs/Day Years Used Date Smoking Tobacco: Never Smokeless Tobacco: Never Tobacco Cessation:Counseling Given: Not Answered Alcohol Use Standard Drinks/Week Comments No 0 (1 standard drink = 0.6 oz pur e alcohol) Comments Unknown Sex and Gender Information Value Date Recorded Sex Assigned at Not on file Legal Sex Female 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 Gender Identity Not on file Sexual Orientation [...] 01/26/2025 10:00 AM CDT Plan of Treatment Not on file Procedures Procedure Name Priority Date/Time Associated Diagnosis Comments ALDOSTERONE/RENIN RATIO Routine 03/01/2025 8:05 AM CDT Labile hypertension CARDIOLOGY DOCUMENT SCAN Routine 01/05/2025 10:26 AM CDT from Last 3 Months Results * Aldosterone/Renin Ratio (03/01/2025 8:05 AM CDT) Pathologist [facility] Aldosterone 6.0 0.0 - 30.0 ng/dL [facility] - 01 Renin Activity, Plasma 0.693 0.167 - 5.380 ng/mL/hr [facility] - 01 Aldos/Renin Ratio 8.7 0.0 - 30.0 [facility] - 01 Comment:Units: ng/dL per ng /mL/hr Blood 03/01/2025 8:05 AM CDT 03/01/2025 Narrative [facility] - 03/06/2025 11:10 AM CDT Test(s) 731765-Qlrpljabntx; 235349-Qcgth Activity, Plasma was developed and its performance characteristics determined by [facility]. It has not been cleared or approved by the Food and Drug Administration. Performed at: - [facility] [address], [place], [place] [id number] Nut Orchardist: Austin Peters MD, Phone: [phone] Specimen Comment: A courtesy copy of this report has been sent to [phone] us Jesenia Jacob NP LAB BLOOD ORDERABLES Debbie tapia Result [facility] - 01 * Cardiology Document Scan (01/05/2025 10:26 AM CDT) Anatomical Region Laterality Modality Other us Pily Guzman NP CV CARDIAC SERVICES PROCEDUR ES Final Result from Last 3 Months Insurance [employer] [facility] [id number] [employer] [facility] Care Teams Branch Operations Specialist Relationship Specialty Start Date End Date Michelle Gutierrez MD [address] [place] [address] PCP - General Family Medicine 01/26/25
--- OUTSIDE RECORDS SUMMARY | 2025-03-10 01:51 | XMS_ITS | Encounter Summary ---
Author Organization [facility] Address [address] [place] [address] Care Team Providers Care Cigar Head Stringer Name Role Phone Juan Rinaldi MD Primary Care Provider [phone] Encounter Details Date Type Department Care Team (Late st Contact Info) Description 09/01/2019 Lab Requisition [facility] DermPath Lab [address] [facility] [place] [address] Leland Olivas MD [address] [place] [address] Social History Tobacco Use Types Packs/Day Years Used Date Smoking Tobacco: Never Assessed Comments Unknown Sex and Gender Information Value Date Recorded Sex Assigned at Not on file Legal Sex Female 5:51 AM PERSONAL CARE WORKER Gender Identity Not on file Sexual Orientation Not on file documented as of this encounter Plan of Treatment Not on file documented as of this encounter Procedures Procedure Name Priority Date/Time Associated Diagnosis Comments DERMATOPATHOLOGY Routine 08/31/2019 12:0 0 AM PERSONAL CARE WORKER documented in this encounter Results * DERMATOPATHOLOGY (08/31/2019 12:00 AM PERSONAL CARE WORKER) Case Report Dermatopathology Report Case: [id number] Authorizing Provider: Leland Olivas MD Collected: 08/31/2019 12:00 AM Ordering Location: [facility] DermPath Lab Received: 09/01/2019 01:56 PM Pathologist: Maureen Blount MD Specimens: A) - Skin, right medial calf anterior lesion B) - Skin, right medial calf posterior lesion 9 4:59 PM PERSONAL CARE WORKER DERMATOPATHOLOGY LABORATORY Final Diagnosis Specimen A. 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 SKIN, right medial calf posterior lesion: JUNCTIONAL MELANOCYTIC NEVUS (D22.71) 4:59 PM [facility] DERMATOPATHOLOGY LABORATORY at [address] PERSONAL CARE WORKER Clinical History A-B: R/O dys nevus, lentiginous melanocytic nevus. 4:59 PM [facility] DERMATOPATHOLOGY LABORATORY Gross Description Specimen A: Received is one formalin filled container labeled with the patient's name and designated right medial calf anterior lesion. The specimen consists of a shave biopsy measuring [id number]. Jar 0. Specimen B: Received is one formalin filled container labeled with the patient's name and designated right medial calf posterior lesion. The specimen consists of a shave biopsy measuring 2b4s3yo. Jar 0. 4:59 PM [facility] DERMATOPATHOLOGY LABORATORY Microscopic Description Specimen A. SKIN, right medial calf anterior lesion: There are nests of melanocytes at the dermal-epidermal junction and within the dermis. The intraepidermal component shows focal bridging, and is composed of occasional larger melanocytes with dusky cytoplasm and small nucleoli. Superficial dermal fibrosis and mild perivascular lymphoid infiltrate are present. By immunohistochemistr y, [place]-1 highlights the intraepidermal and dermal components of [...] lymphoid infiltrate are present. By immunohistochemistr y, [place]-1 highlights the intraepidermal melanocytic proliferation without revealing a dermal component. HMB-45 is positive within the intraepidermal melanocytic proliferation. 4:59 PM [facility] DERMATOPATHOLOGY LABORATORY Disclaimer An external and internal positive and negative controls are appropriate for the histochemical, immunohistochemical and immunofluorescence stain(s) in this case (if any), except where stated explicitly. The performance characteristics of the stain(s) cited in this report were developed and its performance characteristic determined by the Dermatopathology Laboratory at [facility], directed by Dr. Gaurav Leonard. These tests need not be, and therefore are not, approved by the [place] Food and Drug Administration. The tests are used for clinical purposes. Billing Codes Specimen Charges Stain Charges 86846 00538 1 1 53752 76042 89603 26012 1 1 1 1 9 4:59 PM PERSONAL CARE WORKER DERMATOPATHOLOGY LABORATORY Embedded Images 9 4:59 PM PERSONAL CARE WORKER DERMATOPATHOLOGY LABORATORY Pathology/Cytology TISSUE SPECIMEN FROM SKIN / Unknown 08/31/2019 09/01/2019 1:56 PM PERSONAL CARE WORKER Miscellaneous samples (specimen) TISSUE SPECIMEN FROM SKIN / Unknown 08/31/2019 09/01/2019 1:56 PM PERSONAL CARE WORKER Leland Olivas MD LAB - PATHOLOGY/CYTOLOGY ORD ERABLES Final Result DERMATOPATHOLOGY LABORATORY [facility] - Department of Dermatology [address] [place] [address], 5th Floor Lab [address] [phone] documented in this encounter Visit Diagnoses Not on filedocumented in this encounter Care Teams Cigar Head Stringer Relationship Specialty Start Date End Date Juan Rinaldi MD [address] [place] [address] PCP - General 09/15/18 documented as of this encounter
[2025-03-10 08:20] VITALS: BP 136/78; PULSE 85; RESP 16; TEMP 36.3; O2SAT 100; BMI 38.7
[2025-03-10] MEDS: LACTATED RINGERS 1,000 ML 150 ML IV CONT (09:17)
--- NOTE | 2025-03-10 09:24 | P.PNAN_ITS ---
Anes - Initial Pre Proc Eval Procedure: Operation Date: 03/10/25 09:30 Proposed Procedures p Screening Colonoscopy - Jose De Jesus Wong MD Date/Time: 03/10/25 09:24 Surgeon: Jose De Jesus Wong MD Pre Op Diagnosis: Screening for malignant neoplasm of colon Patient Data Age: 59 Gender: F Height: 1.57 m Weight: 96.2 kg Last Vital Signs Temp 36.3 C L 03/10/25 08:20 Pulse 85 03/10/25 08:20 Resp 16 03/10/25 08:20 BP 136/78 03/10/25 08:20 Pulse Ox 100 03/10/25 08:20 O2 Del Method Room Air 03/10/25 08:20 Allergies Allergy/AdvReac Type Severity Reaction Status Date / Time morphine Allergy Mild Vomiting Verified 03/10/25 08:18 nitroglycerin Allergy Unknown Other Verified 03/10/25 08:18 Home Medications ?Medication ?Instructions ?Recorded ?Confirmed ?Type estradiol 0.5 mg tablet 0.5 mg PO DAILY #90 tabs 05/31/24 03/10/25 Rx losartan 50 mg tablet 50 mg PO BID #180 tabs 09/16/24 03/10/25 Rx azelaic acid 15 % topical gel 1 applic topical HS 10/26/24 02/08/25 History cholecalciferol (vitamin D3) 25 25 mcg PO DAILY 10/26/24 03/10/25 History mcg (1,000 unit) capsule loratadine 10 mg tablet (Claritin) 10 mg PO DAILY 10/26/24 03/10/25 History multivitamin (Daily Multi-Vitamin 1 tablet PO DAILY 10/26/24 03/10/25 History tablet) spironolactone 25 mg tablet 25 mg PO DAILY #30 tabs 03/03/25 03/10/25 Rx Patient hx anesthesia problems: none Family hx anesthesia problems: none Results Review: All pre-operative results and documents have been reviewed as part of the pre- operative evaluation. [facility] Past Medical History Medical History Morbid obesity with BMI of 40.0-44.9, adult Rosacea Melanoma (~05/2019) Torn rotator cuff Breast lump 05-31-2018 left breast lump, US done Benign subcutaneous cyst Viral labyrinthitis syndrome Hx of adenomatous colonic polyps Hypertension Surgical History Surgical History S/P skin cancer resection (~05/2019) Removed from between her breast. H/O rotator cuff surgery (~12/23/23) History of orthopedic surgery (08/13/20) joint replacement right foot History of hysterectomy, supracervical abdominal (subtotal) 03/19/05 enlarged uterus/menometrorrhagia/dsymenorrhea/extensive adhesiolysis, adenomyosis History of bunionectomy Hx of section x3 Hx of cholecystectomy 2003 Hx of appendectomy age 12 Family History Family History Mother Family history of thyroid disease Diabetes mellitus Hypertension Family history of transient ischemic attacks Family history of cardiovascular disease Family history of Alzheimer's disease Heart disease Father Hypertension Carcinoma of colon Family history of emphysema Intracranial aneurysm Sibling Heart disease brother Social History Social History Social History: Code status: Full code Surrogate decision maker: Eduardo () Smoking status: Never smoker Second hand tobacco smoke exposure: No Alcohol intake: never Substance use: never Substance use type: does not use Do You Feel Safe in your Home?: Yes Lack of Transportation: No Lack of Food: Never True Current Housing: I Have Housing Concerned About Future Housing: No Difficulty Paying Gas/Electric Bills: No Difficulty Paying for Meds: No Currently Unemployed: No Education: Trade/Vocational Certificate Difficulty w/ Childcare or Family Care: No Living arrangements: other Additional living arrangements comments: Occupation/Education: occupation 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 Gender identity (if verbalized by the patient): Female Sexual Orientation (if Verbalized by the Patient): Straight or Heterosexual Spiritual care concerns: No Agree to blood products: Yes Anes - Eval Final PreProcedure Day of Procedure 03/10/25 09:24 Patient weight: obese Heart: regular rate and rhythm Lungs: clear to auscultation Airway: Mallampati scale class III Neurological: alert and oriented Last oral intake: >/= 8 hours ASA classification: III Emergent: no Anesthetic plan: proceed Anesthesia type and monitoring: general GIVS and standard monitoring Results Review: All pre-operative results and documents have been reviewed as part of the pre- operative evaluation. Informed Consent: The patient's anesthetic plan and its attendant risks and benefits were discussed with the patient/family/POA. Questions were solicited and answers provided to the satisfaction of the patient/family/POA.
--- NOTE | 2025-03-10 09:30 | PM.IMHP ---
H&P: HPI History of Present Illness Date/Time: 03/10/25 09:30 Chief Complaint: family history of colon cancer - history of colon polyps Narrative: This patient has family history of colorectal cancer. her father had when he was in his 50s. The patient has Also a history of colonic polyps, the last colonoscopy was 5 years ago. Review of Systems Review of Systems: All systems reviewed & are unremarkable except as noted in HPI and below PMFSH Past Medical History Medical History Morbid obesity with BMI of 40.0-44.9, adult Rosacea Melanoma (~05/2019) Torn rotator cuff Breast lump 05-31-2018 left breast lump, US done Benign subcutaneous cyst Viral labyrinthitis syndrome Hx of adenomatous colonic polyps Hypertension Surgical History Surgical History S/P skin cancer resection (~05/2019) Removed from between her breast. H/O rotator cuff surgery (~12/23/23) History of orthopedic surgery (08/13/20) joint replacement right foot History of hysterectomy, supracervical abdominal (subtotal) 03/19/05 enlarged uterus/menometrorrhagia/dsymenorrhea/extensive adhesiolysis, adenomyosis History of bunionectomy Hx of section x3 Hx of cholecystectomy 2003 Hx of appendectomy age 12 Family History Family History Mother Family history of thyroid disease Diabetes mellitus Hypertension Family history of transient ischemic attacks Family history of cardiovascular disease Family history of Alzheimer's disease Heart disease Father Hypertension Carcinoma of colon Family history of emphysema Intracranial aneurysm Sibling Heart disease brother Social History Social History Social History: Code status: Full code Surrogate decision maker: Eduardo () Smoking status: Never smoker Second hand tobacco smoke exposure: No Alcohol intake: never Substance use: never Substance use type: does not use Do You Feel Safe in your Home?: Yes Lack of Transportation: No Lack of Food: Never True Current Housing: I Have Housing Concerned About Future Housing: No Difficulty Paying Gas/Electric Bills: No Difficulty Paying for Meds: No Currently Unemployed: No Education: Trade/Vocational Certificate Difficulty w/ Childcare or Family Care: No Living arrangements: other Additional living arrangements comments: Occupation/Education: occupation 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 Gender identity (if verbalized by the patient): Female Sexual Orientation (if Verbalized by the Patient): Straight or Heterosexual Spiritual care concerns: No Agree to blood products: Yes Meds Home Medications and Allergies Home Medications ?Medication ?Instructions ?Recorded ?Confirmed ?Type estradiol 0.5 mg tablet 0.5 mg PO DAILY #90 tabs 05/31/24 03/10/25 Rx losartan 50 mg tablet 50 mg PO BID #180 tabs 09/16/24 03/10/25 Rx azelaic acid 15 % topical gel 1 applic topical HS 10/26/24 02/08/25 History cholecalciferol (vitamin D3) 25 25 mcg PO DAILY 10/26/24 03/10/25 History mcg (1,000 unit) capsule loratadine 10 mg tablet (Claritin) 10 mg PO DAILY 10/26/24 03/10/25 History multivitamin (Daily Multi-Vitamin 1 tablet PO DAILY 10/26/24 03/10/25 History tablet) spironolactone 25 mg tablet 25 mg PO DAILY #30 tabs 03/03/25 03/10/25 Rx Allergies Allergy/AdvReac Type Severity Reaction Status Date / Time morphine Allergy Mild Vomiting Verified 03/10/25 08:18 nitroglycerin Allergy Unknown Other Verified 03/10/25 08:18 Vital Signs Vital Signs - 24 hr 03/10/25 08:20 Temperature 97.4 F L Pulse Rate 85 Respiratory Rate 16 Blood Pressure 136/78 Pulse Oximetry 100 Oxygen Delivery Room Air Exam Const: General: cooperative and healthy appearing Resp: Effort & Inspection: normal respiratory effort and able to speak in complete sentences Auscultation: clear to auscultation bilaterally Cardio: Rate: regular rate Rhythm: regular rhythm GI: Inspection: normal to inspection GI Palp: No No hepatosplenomegaly present Auscultation: normal bowel sounds Rectal Exam: deferred Skin: General skin exam: normal color Psych: Appearance: grossly normal Mental Status: mental status grossly normal Assessment and Plan Assessment and plan (1) Family hx of colon cancer: Code(s): Z80.0 - Family history of malignant neoplasm of digestive organs Status: Acute Assessment and Plan: The patient is deemed a good candidate for the procedure. Consent signed. Will proceed. (2) Hx of adenomatous colonic polyps: Code(s): Z86.010 - Personal history of colon polyps Status: Acute
[2025-03-10 09:59] VITALS: BP 118/74; PULSE 70; RESP 19; O2SAT 100
[2025-03-10 10:09] VITALS: BP 123/77; PULSE 73; RESP 17; O2SAT 100
[2025-03-10 10:19] VITALS: BP 127/76; PULSE 74; RESP 18; O2SAT 100
== END 2025-03-10 10:35 | disposition home or self-care (01) ==
PROVIDERS: PCP Family Medicine; Visit Provider Internal Medicine Gastroenterology
PROC: 0DJD8ZZ Inspection of Lower Intestinal Tract, Via Natural or Artificial Opening Endoscopic (ICD-10-PCS; CPT 45378; principal; 2025-03-10 09:30)
DX: Z12.11 Encounter for screening for malignant neoplasm of colon (principal); K63.5 Polyp of colon; K57.30 Diverticulosis of large intestine without perforation or abscess without bleeding; I10 Essential (primary) hypertension; E66.9 Obesity, unspecified; Z68.38 Body mass index [BMI] 38.0-38.9, adult; Z98.890 Other specified postprocedural states; Z90.49 Acquired absence of other specified parts of digestive tract; Z85.820 Personal history of malignant melanoma of skin; Z80.0 Family history of malignant neoplasm of digestive organs; Z82.49 Family history of ischemic heart disease and other diseases of the circulatory system
CPT/HCPCS: 45385; 88305; J2704; J7120

== ENCOUNTER 2025-03-30 08:51 | Outpatient (CLI) | payer OTHER, SELFPAY ==
--- OUTSIDE RECORDS SUMMARY | 2025-03-30 09:13 | XMS_ITS | Encounter Summary ---
Author Organization [facility] Address [address] [facility] [place] [address] Care Team Providers Care Link Machine Operator Name Role Phone Juan Rinaldi MD Primary Care Provider [phone] Encounter Details Date Type Department Care Team (Late st Contact Info) Description 04/28/2019 Lab Requisition [facility] Care DermPath Lab [address] [facility], [place] [address] Leland Olivas MD [address] [place] [address] Social History Tobacco Use Types Packs/Day Years Used Date Smoking Tobacco: Never Assessed Comments Unknown Sex and Gender Information Value Date Recorded Sex Assigned at Not on file Legal Sex Female 5: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 MANAGER 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 Gender Identity Not on file Sexual Orientation Not on file documented as of this encounter Plan of Treatment Not on file documented as of this encounter Procedures Procedure Name Priority Date/Time Associated Diagnosis Comments DERMATOPATHOLOGY Routine 04/27/2019 12:0 0 AM CDT documented in this encounter Results * DERMATOPATHOLOGY (04/27/2019 12:00 AM CDT) Case Report Dermatopathology Report Case: [id number] Authorizing Provider: Leland Olivas MD Collected: 04/27/2019 12:00 AM Pathologist: Esteban Leonard MD Received: 04/28/2019 12:06 PM Specimen: Skin, left sup breast cleavage 9 5:20 PM CDT DERMATOPATHOLOGY LABORATORY Final Diagnosis Specimen A. SKIN, left sup breast cleavage: MALIGNANT MELANOMA, LENTIGINOUS TYPE (C43.52) BRESLOW THICKNESS 0.6 MM, ERICK LEVEL III NOT PRESENT AT SAMPLED MARGIN (see microscopic description and synoptic report) 5:20 PM T DERMATOPATHOLOGY LABORATORY at 1720 CDT Clinical History R/O dys nevus with hemangioma 5:20 PM CDT DERMATOPATHOLOGY LABORATORY Gross Description Specimen A: Received is one formalin filled container labeled with the patient's name and designated left sup breast cleavage. The specimen consists of a shave biopsy measuring [id number] mm. Jar 0. 5:20 PM T DERMATOPATHOLOGY LABORATORY Microscopic Description Specimen A. SKIN, [...] and fibrosis with scattered melanophages. 5:20 PM [facility] DERMATOPATHOLOGY LABORATORY Disclaimer An external and internal positive and negative controls are appropriate for the histochemical, immunohistochemical and immunofluorescence stain(s) in this case (if any), except where stated explicitly. The performance characteristics of the stain(s) cited in this report were developed and its performance characteristic determined by the Dermatopathology Laboratory at [facility], directed by Dr. Gaurav Leonard. These tests need not be, and therefore are not, approved by the [place] Food and Drug Administration. The tests are used for clinical purposes. Billing Codes Specimen Charges Stain Charges 29859 1 78949 1 5:20 PM CDT DERMATOPATHOLOGY LABORATORY Embedded Images 5:20 PM CDT DERMATOPATHOLOGY LABORATORY Synoptic Report MELANOMA OF THE [...] PATHOLOGY/CYTOLOGY ORD ERABLES Final Result DERMATOPATHOLOGY LABORATORY [facility] - Department of Dermatology [address] [facility], 5th Floor Lab B [address] [phone] documented in this encounter Visit Diagnoses Not on filedocumented in this encounter Care Teams Link Machine Operator Relationship Specialty Start Date End Date Juan Rinaldi MD [address] [place] [address] PCP - General 09/15/18 documented as of this encounter
--- OUTSIDE RECORDS SUMMARY | 2025-03-30 09:13 | XMS_ITS | Encounter Summary ---
Author Organization [facility] Address [address] [facility] [place] [address] Care Team Providers Care Sewer Line Repairer Name Role Phone Juan Rinaldi MD Primary Care Provider [phone] Encounter Details Date Type Department Care Team (Late st Contact Info) Description 09/01/[address] [facility] DermPath Lab [address] [facility], [place] [address] Leland Olivas MD [address] [place] [address] Social History Tobacco Use Types Packs/Day Years Used Date Smoking Tobacco: Never Assessed Comments Unknown Sex and Gender Information Value Date Recorded Sex Assigned at Not on file Legal Sex Female 5:51 AM LEAN MANAGER Gender Identity Not on file Sexual Orientation Not on file documented as of this encounter Plan of Treatment Not on file documented as of this encounter Procedures Procedure Name Priority Date/Time Associated Diagnosis Comments DERMATOPATHOLOGY Routine 08/31/2019 12:0 0 AM LEAN MANAGER documented in this encounter Results * DERMATOPATHOLOGY (08/31/2019 12:00 AM LEAN MANAGER) Case Report Dermatopathology Report Case: [id number] Authorizing Provider: Leland Olivas MD Collected: 08/31/2019 12:00 AM Ordering Location: [facility] DermPath Lab Received: 09/01/2019 01:56 PM Pathologist: Maureen Blount MD Specimens: A) - Skin, right medial calf anterior lesion B) - Skin, right medial calf posterior lesion 9 4:59 PM LEAN MANAGER DERMATOPATHOLOGY LABORATORY Final Diagnosis Specimen A. 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 SKIN, right medial calf posterior lesion: JUNCTIONAL MELANOCYTIC NEVUS (D22.71) 4:59 PM [facility] DERMATOPATHOLOGY LABORATORY at 1659 LEAN MANAGER Clinical History A-B: R/O dys nevus, lentiginous melanocytic nevus. 4:59 PM [facility] DERMATOPATHOLOGY LABORATORY Gross Description Specimen A: Received is one formalin filled container labeled with the patient's name and designated right medial calf anterior lesion. The specimen consists of a shave biopsy measuring [id number]. Jar 0. Specimen B: Received is one formalin filled container labeled with the patient's name and designated right medial calf posterior lesion. The specimen consists of a shave biopsy measuring 0s3i1mr. Jar 0. 4:59 PM [facility] lymphoid infiltrate are present. By immunohistochemistr y, [place]-1 highlights the intraepidermal and dermal components of [...] lymphoid infiltrate are present. By immunohistochemistr y, [place]-1 highlights the intraepidermal melanocytic proliferation without revealing [...] purposes. Billing Codes Specimen Charges Stain Charges 94310 93336 1 1 97723 02675 85188 66793 1 1 1 1 9 4:59 PM LEAN MANAGER DERMATOPATHOLOGY LABORATORY Embedded Images 9 4:59 PM LEAN MANAGER DERMATOPATHOLOGY LABORATORY Pathology/Cytology TISSUE SPECIMEN FROM SKIN / Unknown 08/31/2019 09/01/2019 1:56 PM LEAN MANAGER Miscellaneous samples (specimen) TISSUE SPECIMEN FROM SKIN / Unknown 08/31/2019 09/01/2019 1:56 PM LEAN MANAGER Leland Olivas MD LAB - PATHOLOGY/CYTOLOGY ORD ERABLES Final Result DERMATOPATHOLOGY LABORATORY [facility] - Department of Dermatology [address] [place] [address], 5th Floor Lab [address] [phone] documented in this encounter Visit Diagnoses Not on filedocumented in this encounter Care Teams Sewer Line Repairer Relationship Specialty Start Date End Date Juan Rinaldi MD [address] [facility] [place] [address] PCP - General 09/15/18 documented as of this encounter
--- OUTSIDE RECORDS SUMMARY | 2025-03-30 09:13 | XMS_ITS | Clinical Summary ---
Author Organization [facility] Address [address] [place] [phone] Care Team Providers Care Chief Controller Tower Name Role Phone Michelle Gutierrez MD Primary Care Provider [phone] Allergies Active Allergy Reactions Criticality Noted Date [...] Department Care Team Description 03/06/2025 Results Follow-Up [facility] Cardiology [address] [place] [address] [place] [phone] Jesenia Jacob NP Aldosterone/Renin Ratio 01/26/2025 10:00 AM CDT Office Visit [facility] Cardiology [address] [place] [address] [address] [place] [phone] Jesenia Jacob NP Labile hypertension (Primary Dx); Near syncope; History of syncope; Hospital discharge follow-up 01/10/2025 Orders Only [facility] Medical [facility] Cardiology [address] [place] [address] [address] [place] [address] Pily Guzman NP from Last 3 Months [...] on file Legal Sex Female 3:31 AM GAMING DEPARTMENT HEAD Gender Identity Not on file Sexual Orientation [...] 10:00 AM CDT Height 160 cm (5' 3) 01/26/2025 10:00 AM CDT Body Mass Index [...] [facility] - 03/06/2025 11:10 AM CDT Test(s) 164369-Nfckxvbvjnd; [id number]-Rhhcy Activity, Plasma was developed and its performance characteristics determined by [facility]. It has not been cleared or approved by the Food and Drug Administration. Performed at: 01 - [address] [id number] High School Business Teacher: Austin Peters MD, Phone: [phone] Specimen Comment: A courtesy copy of this report has been sent to [phone] Jesenia Jacob NP LAB BLOOD ORDERABLES Debbie tapia Result [facility] - 01 * Cardiology Document Scan (01/05/2025 10:26 AM CDT) Anatomical Region Laterality Modality Other Pily Guzman NP CV CARDIAC SERVICES PROCEDUR ES Final Result from Last 3 Months Insurance [employer] SIG [id number] [facility] Care Teams Chief Controller Tower Relationship Specialty Start Date End Date Michelle Gutierrez MD [address] [place] [address] PCP - General Family Medicine 01/26/25
--- OUTSIDE RECORDS SUMMARY | 2025-03-30 09:13 | XMS_ITS | Encounter Summary ---
Author Organization [facility] Address [address] [facility] [place] [address] Care Team Providers Care Editor Magazine Name Role Phone Juan Rinaldi MD Primary Care Provider [phone] Encounter Details Date Type Department Care Team (Late st Contact Info) Description 11/05/2022 Lab Requisition [facility] DermPath Lab [address] [facility] [place] [address] Leland Olivas MD [address] [place] [address] Social History Tobacco Use Types Packs/Day Years Used Date Smoking Tobacco: Never Assessed Comments Unknown Sex and Gender Information Value Date Recorded Sex Assigned at Not on file Legal Sex Female 5:51 AM CONTAINERS SALES REPRESENTATIVE Gender Identity Not on file Sexual Orientation Not on file documented as of this encounter Plan of Treatment Not on file documented as of this encounter Procedures Procedure Name Priority Date/Time Associated Diagnosis Comments DERMATOPATHOLOGY Routine 11/04/2022 12:0 0 AM CONTAINERS SALES REPRESENTATIVE documented in this encounter Results * DERMATOPATHOLOGY (11/04/2022 12:00 AM CONTAINERS SALES REPRESENTATIVE) Case Report Dermatopathology Report Case: [id number] Authorizing Provider: Leland Olivas MD Collected: 11/04/2022 12:00 AM Ordering Location: [facility] DermPath Lab Received: 11/05/2022 02:16 PM Pathologist: Maureen Blount MD Specimen: Skin, right upper lateral breast 1:58 PM CONTAINERS SALES REPRESENTATIVE DERMATOPATHOLOGY LABORATORY Final Diagnosis Specimen A. SKIN, right upper lateral breast: LENTIGINOUS MELANOCYTIC NEVUS, COMPOUND TYPE, IRRITATED (D22.5) 3 1:58 PM [facility] DERMATOPATHOLOGY LABORATORY at 1358 CONTAINERS SALES REPRESENTATIVE Clinical History R/O Dysplastic Nevus 3 1:58 PM [facility] DERMATOPATHOLOGY LABORATORY Gross Description Specimen A: Received is one formalin filled container labeled with the patient's name and designated right upper lateral breast. The specimen consists of a punch biopsy measuring 4x4x4 mm. Jar 0. 3 1:58 PM [facility] DERMATOPATHOLOGY LABORATORY Microscopic Description Specimen A. [...] depth. (Compound Erick's Nevus) 3 1:58 PM [facility] DERMATOPATHOLOGY LABORATORY Disclaimer An external and internal positive and negative controls are appropriate for the histochemical, immunohistochemical and immunofluorescence stain(s) in this case (if any), except where stated explicitly. The performance characteristics of the stain(s) cited in this report were developed and its performance characteristic determined by the Dermatopathology Laboratory at [facility], directed by Dr. Gaurav Leonard. These tests need not be, and therefore are not, approved by the [place] Food and Drug Administration. The tests are used for clinical purposes. Billing Codes Specimen Charges Stain Charges 12161 1 3 1:58 PM [facility] DERMATOPATHOLOGY LABORATORY Embedded Images 3 1:58 PM [facility] DERMATOPATHOLOGY LABORATORY Pathology/Cytolog y TISSUE SPECIMEN FROM SKIN / Unknown 11/04/2022 11/05/2022 2:16 PM [facility] Leland Olivas MD LAB - PATHOLOGY/CYTOLOGY ORD ERABLES Final Result DERMATOPATHOLOGY LABORATORY [facility] - Department of Dermatology [address], [address] [phone] documented in this encounter Visit Diagnoses Not on filedocumented in this encounter Care Teams Editor Magazine Relationship Specialty Start Date End Date Juan Rinaldi MD [address] [place] [address] PCP - General 09/15/18 documented as of this encounter
--- OUTSIDE RECORDS SUMMARY | 2025-03-30 09:13 | XMS_ITS | Encounter Summary ---
Author Organization [facility] Address [address] [facility] [place] [address] Care Team Providers Care Facing Baster Jumpbasting Name Role Phone Juan Rinaldi MD Primary Care Provider [phone] Encounter Details Date Type Department Care Team (Late st Contact Info) Description 08/24/2019 Lab Requisition [facility] DermPath Lab [address] [facility], [place] [address] Leland Olivas MD [address] [place] [address] Social History Tobacco Use Types Packs/Day Years Used Date Smoking Tobacco: Never Assessed Comments Unknown Sex and Gender Information Value Date Recorded Sex Assigned at Not on file Legal Sex Female 5:51 AM EDUCATIONAL ADMINISTRATION TEACHER Gender Identity Not on file Sexual Orientation Not on file documented as of this encounter Plan of Treatment Not on file documented as of this encounter Procedures Procedure Name Priority Date/Time Associated Diagnosis Comments DERMATOPATHOLOGY Routine 08/23/2019 12:0 0 AM EDUCATIONAL ADMINISTRATION TEACHER documented in this encounter Results * DERMATOPATHOLOGY (08/23/2019 12:00 AM EDUCATIONAL ADMINISTRATION TEACHER) Case Report Dermatopathology Report Case: [id number] Authorizing Provider: Leland Olivas MD Collected: 08/23/2019 12:00 AM Ordering Location: [facility] DermPath Lab Received: 08/24/2019 12:40 PM Pathologist: Esteban Leonard MD Specimens: A) - Skin, above right elbow medially B) - Skin, left lateral breast C) - Skin, left medial breast 9 4:47 PM EDUCATIONAL ADMINISTRATION TEACHER DERMATOPATHOLOGY LABORATORY Final Diagnosis Specimen A. SKIN, [...] NEVUS WITH ARCHITECTURAL DISORDER) (D22.5) 4:47 PM [facility] DERMATOPATHOLOGY LABORATORY at [address] [facility] Clinical History A-C: R/O dys nevus. 4:47 PM [facility] DERMATOPATHOLOGY LABORATORY Gross Description Specimen A: Received is one formalin filled container labeled with the patient's name and designated above right elbow medially. The specimen consists of a shave biopsy measuring 7v4w6jj. Jar 0. Specimen B: Received is one formalin filled container labeled with the patient's name and designated left lateral breast. The specimen consists of a shave biopsy measuring 2i5d5xh. Jar 0. Specimen C: Received is one formalin filled container labeled with the patient's name and designated left medial breast. The specimen consists of a shave biopsy measuring 3g1j7jl. Jar 0. 4:47 PM [facility] DERMATOPATHOLOGY LABORATORY Microscopic Description Specimen A. [...] or Compound Dysplastic Nevus) 9 4:47 PM [facility] DERMATOPATHOLOGY LABORATORY Disclaimer An external and internal positive and negative controls are appropriate for the histochemical, immunohistochemical and immunofluorescence stain(s) in this case (if any), except where stated explicitly. The performance characteristics of the stain(s) cited in this report were developed and its performance characteristic determined by the Dermatopathology Laboratory at [facility], directed by Dr. Gaurav Leonard. These tests need not be, and therefore are not, approved by the [place] Food and Drug Administration. The tests are used for clinical purposes. Billing Codes Specimen Charges Stain Charges 98522 17321 97952 1 1 1 9 4:47 PM EDUCATIONAL ADMINISTRATION TEACHER DERMATOPATHOLOGY LABORATORY Embedded Images 9 4:47 PM EDUCATIONAL ADMINISTRATION TEACHER DERMATOPATHOLOGY LABORATORY Pathology/Cytology TISSUE SPECIMEN FROM SKIN / Unknown 08/23/2019 08/24/2019 12:40 PM EDUCATIONAL ADMINISTRATION TEACHER Miscellaneous samples (specimen) TISSUE SPECIMEN FROM SKIN / Unknown 08/23/2019 08/24/2019 12:40 PM EDUCATIONAL ADMINISTRATION TEACHER Miscellaneous samples (specimen) TISSUE SPECIMEN FROM SKIN / Unknown 08/23/2019 08/24/2019 12:40 PM EDUCATIONAL ADMINISTRATION TEACHER Leland Olivas MD LAB - PATHOLOGY/CYTOLOGY ORD ERABLES Final Result DERMATOPATHOLOGY LABORATORY [facility] - Department of Dermatology [address] [facility], 5th [place] [address], [facility] [phone] documented in this encounter Visit Diagnoses Not on filedocumented in this encounter Care Teams Facing Baster Jumpbasting Relationship Specialty Start Date End Date Juan [place]inal[place] [address] [place] [address] PCP - General 09/15/18 documented as of this encounter
--- OUTSIDE RECORDS SUMMARY | 2025-03-30 09:13 | XMS_ITS ---
Author Organization Unknown Medications Medication Instructions Effective Dates (start - stop) Status losartan potassium 50 MG Oral Tablet 202300:00:00Z - Completed estradiol 0.5 MG Oral Tablet [id number] 0:00:00Z - Completed diazepam 5 MG Oral Tablet [id number]:0 0:00Z - Completed losartan potassium 50 MG Oral Tablet 202200:00:00Z - Completed cephalexin 500 MG Oral Tablet 2023-12-21 00:00:00Z - Completed azelaic acid 0.15 MG/MG Topical Gel 00:00:00Z - Completed hydrochlorothiazide 25 MG Or al Tablet - Completed hydrochlorothiazide 25 MG Or al Tablet - Completed - - Compl eted hydrochlorothiazide 25 MG Or al Tablet - Completed estradiol 0.5 MG Oral Tablet [id number] 0:00:00Z - Completed diazepam 5 MG Oral Tablet [id number]:0 0:00Z - Completed estradiol 1 MG Oral Tablet [id number]: 00:00Z - Completed losartan potassium 50 MG [...]
--- OUTSIDE RECORDS SUMMARY | 2025-03-30 09:13 | XMS_ITS | Encounter Summary ---
Author Organization [facility] Address [address] [place] [address] Care Team Providers Care Activated Sludge Operator Name Role Phone Juan Rinladi MD Primary Care Provider [phone] Encounter Details Date Type Department Care Team (Late st Contact Info) Description 05/08/2023 Lab Requisition [facility] - DermPath Lab [address] [place] [address] Vero Mckeon PA [address] [place] [address] Neoplasm of uncertain behavior of skin Social History Tobacco Use Types Packs/Day Years Used Date Smoking Tobacco: Never Assessed Comments Unknown Sex and Gender Information Value Date Recorded Sex Assigned at Not on file Legal Sex Female 5:51 AM NURSE PLASTICS Gender Identity Not on file Sexual Orientation Not on file documented as of this encounter Plan of Treatment Not on file documented as of this encounter Procedures Procedure Name Priority Date/Time Associated Diagnosis Comments DERMATOPATHOLOGY Routine 05/07/2023 12:0 0 AM CDT Neoplasm of uncertain behavior of skin documented in this encounter Results * DERMATOPATHOLOGY (05/07/2023 12:00 AM CDT) Case Report Dermatopathology Report Case: [id number] Authorizing Provider: Vero Mckeon PA Collected: 05/07/2023 [...] determined by the Dermatopathology Laboratory at [facility], directed by Dr. Gaurav Leonard. These tests need not be, and therefore are not, approved by the [place] Food and Drug Administration. The tests are used for clinical purposes. Billing Codes Specimen Charges Stain Charges 60394 05524 1 1 37286 49818 1 1 3 12:34 PM CDT DERMATOPATHOLOGY LABORATORY Embedded Images 3 12:34 PM CDT DERMATOPATHOLOGY LABORATORY Pathology/Cytology TISSUE SPECIMEN FROM SKIN / Unknown 05/07/2023 05/13/2023 1:28 PM CDT Miscellaneous samples (specimen) TISSUE SPECIMEN FROM SKIN / Unknown 05/07/2023 05/13/2023 1:28 PM CDT Vero VINSON LAB - PATHOLOGY/CYTOLOGY OR DERABLES Final Result DERMATOPATHOLOGY LABORATORY [facility] - Department of Dermatology [facility] Specialized Medicine [address] [place] [address], [address] [phone] documented in this encounter Visit Diagnoses Diagnosis Neoplasm of uncertain behavior of skin documented in this encounter Care Teams Activated Sludge Operator Relationship Specialty Start Date End Date Juan Rinaldi MD [address] [place] [address] PCP - General 09/15/18 documented as of this encounter
--- OUTSIDE RECORDS SUMMARY | 2025-03-30 09:13 | XMS_ITS | Encounter Summary ---
Author Organization [facility] Address [address] [facility] [place] [address] Care Team Providers Care Facility Rehab Director Name Role Phone Juan Rinaldi MD Primary Care Provider [phone] Encounter Details Date Type Department Care Team (Late st Contact Info) Description 10/25/2020 Lab Requisition [facility] DermPath Lab [address] [facility], [place] [address] Leland Olivas MD [address] [place] [address] Social History Tobacco Use Types Packs/Day Years Used Date Smoking Tobacco: Never Assessed Comments Unknown Sex and Gender Information Value Date Recorded Sex Assigned at Not on file Legal Sex Female 5:51 AM INDEPENDENT SALES REPRESENTATIVE Gender Identity Not on file Sexual Orientation Not on file documented as of this encounter Plan of Treatment Not on file documented as of this encounter Procedures Procedure Name Priority Date/Time Associated Diagnosis Comments DERMATOPATHOLOGY Routine 10/24/2020 12:0 0 AM INDEPENDENT SALES REPRESENTATIVE documented in this encounter Results * DERMATOPATHOLOGY (10/24/2020 12:00 AM INDEPENDENT SALES REPRESENTATIVE) Case Report Dermatopathology Report Case: [id number] Authorizing Provider: Leland Olivas MD Collected: 10/24/2020 12:00 AM Ordering Location: [facility] DermPath Lab Received: 10/25/2020 11:17 AM Pathologist: Esteban Leonard MD Specimens: A) - Skin, midline upper back B) - Skin, right distal lateral anterior thigh 1:02 PM INDEPENDENT SALES REPRESENTATIVE DERMATOPATHOLOGY LABORATORY Final Diagnosis Specimen A. SKIN, midline upper back: LENTIGINOUS MELANOCYTIC NEVUS, COMPOUND TYPE (COMPOUND MELANOCYTIC NEVUS WITH ARCHITECTURAL DISORDER) (D22.5) Specimen B. SKIN, right distal lateral anterior thigh: LENTIGINOUS MELANOCYTIC NEVUS, JUNCTIONAL TYPE, IRRITATED (JUNCTIONAL MELANOCYTIC NEVUS WITH ARCHITECTURAL DISORDER) (D22.71) NOT PRESENT AT SAMPLED MARGIN 1 1:02 PM [facility] at [address] INDEPENDENT SALES REPRESENTATIVE Clinical History A: R/O dysplastic nevus B: R/O dysplastic nevus. Check margins 1 1:02 PM [facility] Gross Description Specimen A: Received is one formalin filled container labeled with the patient's name and designated midline upper back. The specimen consists of a shave biopsy measuring [id number] mm. Jar 0. Specimen B: Received is one formalin filled container labeled with the patients name and designated right distal lateral anterior thigh. The specimen consists of a shave removal measuring 9x6x1 mm, inked. Jar 0. 1 1:02 PM [facility] Microscopic Description Specimen A. SKIN, [...] margin of the specimen. 1 1:02 PM [facility] Disclaimer An external and internal positive and negative controls are appropriate for the histochemical, immunohistochemical and immunofluorescence stain(s) in this case (if any), except where stated explicitly. The performance characteristics of the stain(s) cited in this report were developed and its performance characteristic determined by the Dermatopathology Laboratory at [facility], directed by Dr. Gaurav Leonard. These tests need not be, and therefore are not, approved by the [place] Food and Drug Administration. The tests are used for clinical purposes. Billing Codes Specimen Charges Stain Charges 99246 58529 1 1 09630 1 1 1:02 PM INDEPENDENT SALES REPRESENTATIVE DERMATOPATHOLOGY LABORATORY Embedded Images 1 1:02 PM INDEPENDENT SALES REPRESENTATIVE DERMATOPATHOLOGY LABORATORY Pathology/Cytology TISSUE SPECIMEN FROM SKIN / Unknown 10/24/2020 10/25/2020 11:17 AM INDEPENDENT SALES REPRESENTATIVE Miscellaneous samples (specimen) TISSUE SPECIMEN FROM SKIN / Unknown 10/24/2020 10/25/2020 11:17 AM INDEPENDENT SALES REPRESENTATIVE Leland Olivas MD LAB - PATHOLOGY/CYTOLOGY ORD ERABLES Final Result DERMATOPATHOLOGY LABORATORY [facility] - Department of Dermatology [facility] Specialized Medicine [address] [place] [address], [address] [phone] documented in this encounter Visit Diagnoses Not on filedocumented in this encounter Care Teams Facility Rehab Director Relationship Specialty Start Date End Date Juan Rinaldi MD [address] [place], [place] [id number] PCP - General 09/15/18 documented as of this encounter
--- OUTSIDE RECORDS SUMMARY | 2025-03-30 09:13 | XMS_ITS | Referral Summary ---
Author Organization [facility] Address [address] [place] [address] Care Team Providers Care Cake Icer Name Role Phone Michelle Gutierrez MD Primary Care Provider [phone] Encounters Date Type Department Care Team Description 03/06/2025 Results Follow-Up [facility] Medical Group Cardiology [address] [place] [address] [address] [place] [phone] Jesenia Jacob NP Aldosterone/Renin Ratio 01/26/2025 10:00 AM CDT Office Visit [facility] Medical [facility] Cardiology [address] [place] [address] [address] [place] [phone] Jesenia Jacob NP Labile hypertension (Primary Dx); Near syncope; History of syncope; Hospital discharge follow-up 01/10/2025 Orders Only [facility] Medical [facility] Cardiology [address] [place] [address] [address] [place] [phone] Pily Guzman NP from Last 3 [...] on file Legal Sex Female 3:31 AM PEDIATRIC DENTAL ASSISTANT Gender Identity Not on file Sexual Orientation [...] Aldosterone/Renin Ratio (03/01/2025 8:05 AM CDT) Pathologist [facility] Aldosterone 6.0 0.0 - 30.0 ng/dL [facility] - 01 Renin Activity, Plasma 0.693 0.167 - 5.380 ng/mL/hr [facility] - 01 Aldos/Renin Ratio 8.7 0.0 - 30.0 [facility] - 01 Comment:Units: ng/dL per ng /mL/hr Blood 03/01/2025 8:05 AM CDT 03/01/2025 Narrative [facility] - 03/06/2025 11:10 AM CDT Test(s) 656036-Koftbxjdgis; 027967-Bypxk Activity, Plasma was developed and its performance characteristics determined by [facility]. It has not been cleared or approved by the Food and Drug Administration. Performed at: - [facility] [address], [place], [place] [id number] Leadership Development Manager: Austin Peters MD, Phone: [phone] Specimen Comment: A courtesy copy of this report has been sent to [phone] us Jesenia Jacob NP LAB BLOOD ORDERABLES Debbie tapia Result [facility] - 01 * Cardiology Document Scan (01/05/2025 10:26 AM CDT) Anatomical Region Laterality Modality Other us Pily Guzman NP CV CARDIAC SERVICES PROCEDUR ES Final Result from Last 3 Months Insurance AETNA [facility] [id number] [employer]NA [facility] Care Teams Cake Icer Relationship Specialty Start Date End Date Michelle Gutierrez MD [address] [place] [address] PCP - General Family Medicine 01/26/25
--- OUTSIDE RECORDS SUMMARY | 2025-03-30 09:13 | XMS_ITS | Encounter Summary ---
Author Organization [facility] Address [address] [facility] [place] [address] Care Team Providers Care Packing And Wrapping Supervisor Name Role Phone Juan Rinaldi MD Primary Care Provider [phone] Encounter Details Date Type Department Care Team (Late st Contact Info) Description 11/07/2020 Lab Requisition [facility] DermPath Lab [address] [facility], [place] [address] Leland Olivas MD [address] [place] [address] Social History Tobacco Use Types Packs/Day Years Used Date Smoking Tobacco: Never Assessed Comments Unknown Sex and Gender Information Value Date Recorded Sex Assigned at Not on file Legal Sex Female 5:51 AM DREDGE PUMP OPERATOR Gender Identity Not on file Sexual Orientation Not on file documented as of this encounter Plan of Treatment Not on file documented as of this encounter Procedures Procedure Name Priority Date/Time Associated Diagnosis Comments DERMATOPATHOLOGY Routine 11/06/2020 12:0 0 AM DREDGE PUMP OPERATOR documented in this encounter Results * DERMATOPATHOLOGY (11/06/2020 12:00 AM DREDGE PUMP OPERATOR) Case Report Dermatopathology Report Case: [id number] Authorizing Provider: Leland Olivas MD Collected: 11/06/2020 12:00 AM Ordering Location: [facility] DermPath Lab Received: 11/07/2020 02:27 PM Pathologist: Maureen Blount MD Specimens: A) - Skin, left superior buttock B) - Skin, right buttocks 3:21 PM DREDGE PUMP OPERATOR DERMATOPATHOLOGY LABORATORY Final Diagnosis Specimen A. SKIN, left superior buttock: LENTIGINOUS MELANOCYTIC NEVUS, COMPOUND TYPE, IRRITATED (COMPOUND MELANOCYTIC NEVUS WITH ARCHITECTURAL DISORDER) (D22.5) (see microscopic description) Specimen B. SKIN, right buttocks: LENTIGINOUS MELANOCYTIC NEVUS, COMPOUND TYPE, IRRITATED (COMPOUND MELANOCYTIC NEVUS WITH ARCHITECTURAL DISORDER) (D22.5) (see microscopic description) 3:21 PM [facility] DERMATOPATHOLOGY LABORATORY at [address] [facility] Clinical History A-B: R/O dys nevus. 3:21 PM [facility] DERMATOPATHOLOGY LABORATORY Gross Description Specimen A: Received is one formalin filled container labeled with the patient's name and designated left superior buttock. The specimen consists of a shave biopsy measuring [id number]. Jar 0. Specimen B: Received is one formalin filled container labeled with the patient's name and designated right buttocks. The specimen consists of a shave biopsy measuring [id number]. Jar 0. 3:21 PM [facility] [...] by the Dermatopathology Laboratory at [facility], directed by Dr. Gaurav Leonard. These tests need not be, and therefore are not, approved by the [place] Food and Drug Administration. The tests are used for clinical purposes. Billing Codes Specimen Charges Stain Charges 66078 63251 1 1 83274 06815 1 1 1 3:21 PM DREDGE PUMP OPERATOR DERMATOPATHOLOGY LABORATORY Embedded Images 1 3:21 PM DREDGE PUMP OPERATOR DERMATOPATHOLOGY LABORATORY Pathology/Cytology TISSUE SPECIMEN FROM SKIN / Unknown 11/06/2020 11/07/2020 2:27 PM DREDGE PUMP OPERATOR Miscellaneous samples (specimen) TISSUE SPECIMEN FROM SKIN / Unknown 11/06/2020 11/07/2020 2:27 PM DREDGE PUMP OPERATOR Leland Olivas MD LAB - PATHOLOGY/CYTOLOGY ORD ERABLES Final Result DERMATOPATHOLOGY LABORATORY [facility] - Department of Dermatology [facility] Medicine [address] [place] [address], [address] [phone] documented in this encounter Visit Diagnoses Not on filedocumented in this encounter Care Teams Packing And Wrapping Supervisor Relationship Specialty Start Date End Date Juan Rinaldi MD [address] [place] [address] PCP - General 09/15/18 documented as of this encounter
--- OUTSIDE RECORDS SUMMARY | 2025-03-30 09:13 | XMS_ITS | Clinical Summary ---
Author Organization [facility] Address [address], [facility] [address] [place] [address] Phone Care Team Providers Care Drain Tile Machine Operator Name Role Phone Luisa Doll MD Primary [...] (Adult) (1 - 1-dose 75+ series) 2040 Meningococcal Immunization (ACWY) Aged Out No longer [...] Health Maintenance Results * COLONOSCOPY (10/03/2019) Krzysztof Figueroa DO PROCEDURE/MINOR SURGICAL ORDERA BLES Final Result from Last 3 Months or Most Recently Relevant to Health Maintenance Insurance [facility] Care Teams Drain Tile Machine Operator Relationship Specialty Start Date End Date Luisa Doll MD [address] [place] [id number] PCP - General Family Medicine 12/20/18
--- OUTSIDE RECORDS SUMMARY | 2025-03-30 09:13 | XMS_ITS | Encounter Summary ---
Author Organization [facility] Address [address] [facility] [place] [address] Care Team Providers Care Debate Director Name Role Phone Juan Rinaldi MD Primary Care Provider [phone] Encounter Details Date Type Department Care Team (Late st Contact Info) Description 09/15/2018 Lab Requisition [facility] Care DermPath Lab [address] [facility], [place] [address] Leland Olivas MD [address] [place] [address] Social History Tobacco Use Types Packs/Day Years Used Date Smoking Tobacco: Never Assessed Comments Unknown Sex and Gender Information Value Date Recorded Sex Assigned at Not on file Legal Sex Female 5:51 AM SPICE MILLER Gender Identity Not on file Sexual Orientation Not on file documented as of this encounter Plan of Treatment Not on file documented as of this encounter Procedures Procedure Name Priority Date/Time Associated Diagnosis Comments DERMATOPATHOLOGY Routine 09/14/2018 12:0 0 AM SPICE MILLER documented in this encounter Results * DERMATOPATHOLOGY (09/14/2018 12:00 AM SPICE MILLER) Case Report Dermatopathology Report Case: [id number] Authorizing Provider: Leland Olivas MD Collected: 09/14/2018 12:00 AM Pathologist: Esteban Leonard MD Received: 09/15/2018 11:31 AM Specimens: A) - Skin, right deltoid B) - Skin, right proximal extensor forearm C) - Skin, RUQ abd on sup border of scar D) - Skin, right zygoma 8 5:23 PM [facility] DERMATOPATH[facility]Y LABORATORY Final Diagnosis Specimen A. SKIN, [...] (D22.39) CHRONIC PERIFOLLICULITIS (L73.8) 8 5:23 PM [facility] DERMATOPATHOLOGY LABORATORY at [address] [facility] Clinical History A-D: R/O Dys nevus 8 5:23 PM [facility] DERMATOPATHOLOGY LABORATORY Gross Description [...] 5x5x1 mm. Jar 0. 8 5:23 PM [facility] DERMATOPATHOLOGY LABORATORY Microscopic Description [...] a perifollicular lymphohistiocytic infiltrate. 8 5:23 PM [facility] DERMATOPATHOLOGY LABORATORY Disclaimer An external and internal positive and negative controls are appropriate for the histochemical, immunohistochemical and immunofluorescence stain(s) in this case (if any), except where stated explicitly. The performance characteristics of the stain(s) cited in this report were developed and its performance characteristic determined by the Dermatopathology Laboratory at [facility]. These tests need not be, and therefore are not, approved by the [place] Food and Drug Administration. The tests are used for clinical purposes. Billing Codes Specimen Charges Stain Charges 88299 61061 95086 74219 1 1 1 1 8 5:23 PM [facility] DERMATOPATHOLOGY LABORATORY Embedded Images 8 5:23 PM [facility] DERMATOPATHOLOGY LABORATORY Pathology/Cytology TISSUE SPECIMEN FROM SKIN / Unknown 09/14/2018 09/15/2018 11:31 AM SPICE MILLER Miscellaneous samples (specimen) TISSUE SPECIMEN FROM SKIN / Unknown 09/14/2018 09/15/2018 11:31 AM SPICE MILLER Miscellaneous samples (specimen) TISSUE SPECIMEN FROM SKIN / Unknown 09/14/2018 09/15/2018 11:31 AM SPICE MILLER Miscellaneous samples (specimen) TISSUE SPECIMEN FROM SKIN / Unknown 09/14/2018 09/15/2018 11:31 AM SPICE MILLER us Leland Olivas MD LAB - PATHOLOGY/CYTOLOGY ORD ERABLES Final Result DERMATOPATHOLOGY LABORATORY [facility] - Department of Dermatology [address] [facility], 5th Floor Lab [address] [phone] documented in this encounter Visit Diagnoses Not on filedocumented in this encounter Care Teams Debate Director Relationship Specialty Start Date End Date Juan Rinaldi MD [address] [place] [address] PCP - General 09/15/18 documented as of this encounter
--- OUTSIDE RECORDS SUMMARY | 2025-03-30 09:13 | XMS_ITS | Clinical Summary ---
Author Organization [facility] Address [address] [place] [address] Care Team Providers Care License And Permit Specialist Name Role Phone Juan Rinaldi MD Primary Care Provider Source Comments [facility],non-owned Affiliates and Associated Physician Practices is amultiple site organization consisting of ambulatory clinics and hospital sitesin [place], [place], [place] and [place]. This disclosure is being madepursuant to the Care Everywhere program and may not contain all information available regarding this patient. Last updated 18.[facility] Social History Tobacco Use Types Packs/Day Years Used Date Smoking Tobacco: Never Assessed Comments Unknown Sex and Gender Information Value Date Recorded Sex Assigned at Not on file Legal Sex Female 5:51 AM ENGINEER GAS PUMPING STATION Gender Identity Not on file Sexual Orientation [...] SCREENING 1965 LIPID TESTING 1965 MAMMOGRAM 1965 HIV SCREENING 1980 HEPATITIS C SCREENING 08/11/1983 DTAP/TDAP/TD VACCINES (1 - Tdap) 1984 HEPATITIS B VACCINE (1 of 3 - 19+ 3-dose series) 1984 PAP SMEAR 1986 PAP with HPV 1995 PNEUMOCOCCAL VACCINE 50+ (1 of 1 - [...] to complete this topic Insurance A[employer]NA [facility] Address: [facility] [id number] [place] [phone] SELF PAY NO INSURANCE Member Subscriber Plan / Payer (Ef fective for All Dates) Name:Maximiliano Radha L Member ID:Not on file Relation to Subscriber:Not on file Name:RADHA REICH Subscriber ID:Not on file (Home) Address: [address] [place] [address] Payer ID:Not on file Group ID:Not on file Type:Self Pay Address: [place], [place] Care Teams License And Permit Specialist Relationship Specialty Start Date End Date Juan Rinaldi MD [address] [place] [address] PCP - General 09/15/18
--- NOTE | 2025-04-25 14:44 | WPDSLEEPSTUD ---
Sleep Study Date of Study: 03/30/25 Ordering Provider: Michelle Gutierrez MD Interpreting Physician: Charis Dubose DO Sleep Study Type: Split Polysomnogram Height: 1.57 m Weight: 90.718 kg Body Mass Index: 36.6 Neck Circumference (inches): 14.5 Jerome: 12 Reason for Sleep Study Daytime hypersomnia Sleep History The patient is a 59-year-old female who had a sleep study ordered by her primary care physician for evaluation of sleep apnea. The patient denies awakening from sleep short of breath. She occasionally awakens at night with heartburn, belching, or cough. She occasionally snores, and it is occasionally loud enough that others complain. She frequently has trouble sleeping when she has a cold. She denies waking up gasping for air throughout the night. She denies having breathing problems at night observed by herself or others. She denies sweating excessively at night. She denies having heart palpitations or irregular heartbeats during the night. She rarely falls asleep during the day and never while driving. She denies sleep paralysis, cataplexy, and hypnagogic/hypnopompic hallucinations. She rarely has trouble at school or work due to sleepiness. She denies feeling afraid of going to sleep. She occasionally has nightmares. She occasionally remembers her dreams. She occasionally has thoughts racing through her mind. She rarely feels sad or depressed. She occasionally has anxiety. She occasionally has muscular tension. She denies noticing parts of her body jerk. She rarely kicks during the night. She denies having crawling and aching feelings in her legs. She rarely experiences leg pain during the night. She frequently grinds her teeth during sleep but rarely awakens with morning jaw pain due to wearing a night mouth guard. She is occasionally bothered by pain during the day and rarely awakened by pain during the night. She is occasionally waking up feeling stiff in the morning. She occasionally wakes up with sore or achy muscles. She occasionally wakes up with pain in the neck, spine, and other joints. She goes to bed at 10:30 p.m. on weekdays and at 11 p.m. on the weekends. She's able to fall asleep immediately. She wakes up 1-2 times throughout the night to urinate and is able to fall back asleep immediately. She wakes up at 5:30 a.m. on weekdays and at 7 a.m. on the weekends. She typically gets 6-7 hours of sleep per night. She will stay in bed for five minutes after waking up in the morning. She currently lives with her . She denies consuming any caffeinated beverages within two hours of bedtime. She denies engaging in physical exercise before bedtime. She will read before falling asleep. She denies watching television before falling asleep. She denies taking naps in the afternoon or the evening. She consumes 2-3 cups of coffee every morning. She denies tobacco, alcohol, and recreational drug use. [facility] Past Medical History Medical History Morbid obesity with BMI of 40.0-44.9, adult Rosacea Melanoma (~05/2019) Torn rotator cuff Breast lump 05-31-2018 left breast lump, US done Benign subcutaneous cyst Viral labyrinthitis syndrome Hx of adenomatous colonic polyps Hypertension Surgical History Surgical History S/P skin cancer resection (~05/2019) Removed from between her breast. H/O rotator cuff surgery (~12/23/23) History of orthopedic surgery (08/13/20) joint replacement right foot History of hysterectomy, supracervical abdominal (subtotal) 03/19/05 enlarged uterus/menometrorrhagia/dsymenorrhea/extensive adhesiolysis, adenomyosis History of bunionectomy Hx of section x3 Hx of cholecystectomy 2003 Hx of appendectomy age 12 Family History Family History Mother Family history of thyroid disease Diabetes mellitus Hypertension Family history of transient ischemic attacks Family history of cardiovascular disease Family history of Alzheimer's disease Heart disease Father Hypertension Carcinoma of colon Family history of emphysema Intracranial aneurysm Sibling Heart disease brother Social History Social History Social History: Code status: Full code Surrogate decision maker: Eduardo () Smoking status: Never smoker Second hand tobacco smoke exposure: No Alcohol intake: never Substance use: never Substance use type: does not use Do You Feel Safe in your Home?: Yes Lack of Transportation: No Lack of Food: Never True Current Housing: I Have Housing Concerned About Future Housing: No Difficulty Paying Gas/Electric Bills: No Difficulty Paying for Meds: No Currently Unemployed: No Education: Trade/Vocational Certificate Difficulty w/ Childcare or Family Care: No Living arrangements: other Additional living arrangements comments: Occupation/Education: occupation 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 Gender identity (if verbalized by the patient): Female Sexual Orientation (if Verbalized by the Patient): Straight or Heterosexual Spiritual care concerns: No Agree to blood products: Yes Medications Home Medications ?Medication ?Instructions ?Recorded ?Confirmed ?Type estradiol 0.5 mg tablet 0.5 mg PO DAILY #90 tabs 05/31/24 03/10/25 Rx azelaic acid 15 % topical gel 1 applic topical HS 10/26/24 02/08/25 History cholecalciferol (vitamin D3) 25 25 mcg PO DAILY 10/26/24 03/10/25 History mcg (1,000 unit) capsule loratadine 10 mg tablet (Claritin) 10 mg PO DAILY 10/26/24 03/10/25 History multivitamin (Daily Multi-Vitamin 1 tablet PO DAILY 10/26/24 03/10/25 History tablet) losartan 50 mg tablet 50 mg PO BID #180 tabs 03/16/25 Rx spironolactone 25 mg tablet 25 mg PO DAILY #30 tabs 04/04/25 Rx Sleep Procedure A full night split study using the Post-i multi-channel system recorded the standard physiologic parameters including EEG, EOG, submentalis EMG, anterior tibialis EMG, EKG, body position, nasal and oral airflow using nasal pressure sensor and thermistor.? Respiratory parameters of chest and abdominal movements were recorded with Respiratory Inductance Plethysmography belts. Oxygen saturation was recorded by pulse oximetry. Video monitoring was also performed. Sleep stages, periodic limb movements, and EEG arousals were scored in 30 second epochs according to the criteria of the AASM Scoring Manual. The Apnea-Hypopnea Index was calculated using CMS guidelines for definition of hypopnea with 4% O2 desaturations while scoring respiratory events. Sleep Architecture During the diagnostic portion of the study, the total recording time was 161.4 minutes. The total sleep time was 135.5 minutes. Sleep latency was 14.9 minutes.? REM latency was 85.0 minutes. Sleep Efficiency was 84.0%. The patient had 6 awakenings for an awakening index of 2.7. Wake after sleep onset time was 11.0 minutes. The patient spent 4.0 minutes, 3.0% of total sleep time in Stage N1. The patient spent 63.5 minutes, 46.9% in Stage N2. The patient spent 45.0 minutes, 33.2% in Stage N3. The patient spent 23.0 minutes, 17.0% in Stage REM sleep. At 01:20:15 AM the patient was placed on PAP treatment and was titrated at pressures ranging from 5* cm/H20 with supplemental oxygen at - up to 7* cm/H20 with supplemental oxygen at -. During the treatment portion of the study, the total recording time was 206.3 minutes.? The total sleep time was 129.5 minutes. Sleep latency was 41.0 minutes. REM latency was 71.0 minutes. Sleep Efficiency was 62.8%. Wake after Sleep Onset time was 35.5 minutes. The patient spent 8.0 minutes, 6.2% of total sleep time in Stage N1. The patient spent 69.0 minutes, 53.3% in Stage N2. The patient spent 23.0 minutes, 17.8% in Stage N3. The patient spent 29.5 minutes, 22.8% in Stage REM. Respiratory Analysis During the diagnostic portion of the study, the patient had 18 hypopneas and 2 obstructive apneas for an overall Apnea Hypopnea Index of 8.9 events per hour. The REM Apnea Hypopnea Index was 47.0. The NREM Apnea Hypopnea Index was 1.6. The patient had a Central Apnea Hypopnea Index of 0. There was no evidence of Edgar-Miguel Respirations. During the treatment portion of the study, the patient had 2 hypopneas for an overall Apnea Hypopnea Index of 0.9 events per hour. The REM Apnea Hypopnea Index was 4.1. The NREM Apnea Hypopnea Index was 0. The patient had a Central Apnea Hypopnea Index of 0. There was no evidence of Edgar-Miguel Respirations. The patient was started on CPAP 5 cm H2O and titrated to CPAP 7 cm H2O due to hypopneas. The patient was able to fall asleep starting onCPAP 5 cm H2O. The patient was able to achieve REM sleep starting on CPAP 5 cm H2O. The patient was able to achieve a residual AHI less than 5 with both NREM and REM sleep in the supine position on both pressure settings. On CPAP 5 cm H2O, the patient spent 69 minutes in NREM and 16 minutes in REM with 1 hypopnea, resulting in an AHI of 0.7. On CPAP 7 cm H2O, the patient spent 31 minutes in NREM and 13.5 minutes in REM with 1 hypopnea, resulting in an AHI of 1.3. The patient had a sleep efficiency of 66.4% on 5 cm H2O and 56.7% on 7 cm H2O. Arousals During the diagnostic portion of the study, there were a total of 42 arousals for an arousal index of 18.6.? There were 3 respiratory arousals for an index of 1.3. There was 1 periodic limb movement arousal for an index of 0.4.? There were 3 isolated limb movement arousals for an index of 1.3. There were 35 spontaneous arousals for an index of 15.5. During the treatment portion of the study, there were a total of 38 arousals for an index of 17.6.? There were 0 respiratory arousals for an index of 0. There were 0 periodic limb movement arousals for an index of 0.? There were 3 isolated limb movement arousals for an index of 1.4. There were 35 spontaneous arousals for an index of 16.2. Periodic Limb Movements During the diagnostic portion of the study, the patient had 3 isolated limb movements with an index of 1.3. The patient had 4 periodic limb movements with an index of 1.8. The patient had a total of 7 limb movements with a total limb movement index of 3.1. During the treatment portion of the study, the patient had 7 isolated limb movements with an index of 3.2. The patient had 0 periodic limb movements with an index of 0. The patient had a total of 7 limb movements with a total limb movement index of 3.2. Oximetry Data During the diagnostic portion of the study, the patient had an average oxygen saturation of 97.2% in wake with a minimum oxygen saturation of 93% and a maximum oxygen saturation of 99%. The patient had an average oxygen saturation of 95.6% in sleep with a minimum oxygen saturation of 86.0% and a maximum oxygen saturation of 99.0%. The patient had 24 oxygen desaturations resulting in an Oxygen Desaturation Index of 10.6. The patient spent 0.9 minutes, 0.6% of total sleep time with an oxygen saturation less than 88%. During the treatment portion of the study, the patient had an average oxygen saturation of 95.9% in wake with a minimum oxygen saturation of 92.0% and a maximum oxygen saturation of 98.0%. The patient had an average oxygen saturation of 94.4% in sleep with a minimum oxygen saturation of 91.0% and a maximum oxygen saturation of 98.0%. The patient had 5 oxygen desaturations resulting in an Oxygen Desaturation Index of 2.3. The patient spent 0 minutes of total sleep time with an oxygen saturation less than 88%. Snoring Profile Snoring was not present throughout the study. Cardiac Profile The EKG lead showed normal sinus rhythm. No arrhythmias or premature beats were seen. During the diagnostic portion of the study, the average pulse rate was 67.7 bpm.? The minimum pulse rate was 61.0 bpm. The maximum pulse rate was 80.0 bpm. During the treatment portion of the study, the average pulse rate was 68.2 bpm.? The minimum pulse rate was 61.0 bpm. The maximum pulse rate was 93.0 bpm. EEG Profile No signs of seizure activity seen. Assessment and Plan Assessment and Plan (1) JOSE (obstructive sleep apnea): Code(s): G47.33 - Obstructive sleep apnea (adult) (pediatric) Status: Acute Assessment and Plan: In the baseline portion of the study, the patient had an overall AHI of 8.9 with desaturation down to 86%. This is consistent with mild sleep apnea. Due to the patient's hypertension, she qualifies for treatment. The patient was started on CPAP 5 cm H2O and titrated to CPAP 7 cm H2O due to hypopneas. I recommend that the patient be prescribed CPAP 7 cm H2O, size small Respironics DreamWear UTN nasal mask, CPAP filters/tubing and heated humidity. If the patient is not interested in CPAP therapy, she could consider a mandivular advancement device for treatment. This should be used with all episodes of sleep.? Compliance should be reviewed within 31-90 days of starting therapy for usage greater than 4 hours per night greater than 70% of the nights. The patient should be asked about symptoms such as?excessive daytime sleepiness, quality of sleep, decreased nocturia, increased?mental functioning such as memory, mood, and concentration. Data The data obtained during this sleep study is adequate for interpretation. Certification This sleep study has been reviewed by a board certified sleep medicine physician.
[2025-04-25 16:05] VITALS: BMI 36.6
== END 2025-03-31 05:32 | disposition home or self-care (01) ==
LOC: ANHCSM 08:52
PROVIDERS: PCP Family Medicine; Visit Provider Family Medicine
DX: G47.30 Sleep apnea, unspecified (principal); G47.33 Obstructive sleep apnea (adult) (pediatric)
CPT/HCPCS: 95811

== ENCOUNTER 2025-08-08 11:06 | Inpatient (IN) | payer OTHER, SELFPAY ==
[2025-08-08] VITALS (9 sets, daily range): BP systolic 138–200; BP diastolic 86–112; PULSE 18–95; RESP 15–20; TEMP 36.3–36.9; O2SAT 96–100; BMI 39.3
--- NOTE | ~2025-08-08 | CT_ITS ---
EXAMINATION: CT brain wo con DATE: 08/08/2025 12:50 INDICATION: Headache. Presyncope. TECHNIQUE: Computed tomography (CT) of the head was performed without intravenous contrast. Sagittal and coronal reconstructions were performed. The mA was adjusted according to patient size. Iterative reconstruction technique was employed. The dose-length product was 605.33 mGy-cm. COMPARISON: head CT dated 01/02/25 FINDINGS: No acute intracranial hemorrhage, acute infarction or abnormal extra axial fluid collection. There is mild scattered white matter hypoattenuation consistent with chronic small vessel ischemic disease. Ventricles are normal and symmetric. No mass/mass effect. Because of thickening bilateral ethmoid sinuses and small amount of dependently layering fluid/mucus in the left maxillary sinus which could be seen with acute sinusitis. The orbits and mastoid air cells are normal. IMPRESSION: 1. Mild scattered white matter hypoattenuation consistent with chronic small vessel ischemic disease. No acute intracranial process. 2. Mucosal thickening in the bilateral ethmoid sinuses with dependently layering fluid/mucous in the left maxillary sinus consistent with acute sinusitis. Reviewed, dictated and finalized at location A. IMPRESSION: 1. Mild scattered white matter hypoattenuation consistent with chronic small ve ssel ischemic disease. No acute intracranial process. 2. Mucosal thickening in the bilateral ethmoid sinuses with dependently layerin g fluid/mucous in the left maxillary sinus consistent with acute sinusitis.
--- NOTE | ~2025-08-08 | XR_ITS ---
EXAMINATION: XR chest 1V, 08/08/2025 12:50 CDT HISTORY: Presyncope COMPARISON: No comparisons available. Technique: Single view. Findings: The lungs are clear, no effusion. No pneumothorax. Heart is normal size. Mediastinal and hilar contours are within normal limits. Bony thorax no acute abnormality. Impression: No acute cardiopulmonary abnormality. Reviewed, dictated and finalized at location P. Impression: No acute cardiopulmonary abnormality.
--- NOTE | 2025-08-08 11:19 | ECG_ITS ---
Test Date: 2025-08-08 11:26:08 Measurements Intervals [place] Rate: 87 P: 62 AK: 157 QRS: 60 QRSD: 101 T: 25 QT: 354 QTc: 428 Interpretive Statements SINUS RHYTHM BORDERLINE ST-T WAVE ABNORMALITY- INF/LAT LEADS BASELINE ARTIFACT- II, III BORDERLINE ECG COMPARED WITH PRIOR ECG 01-02-25 22:56 HEART RATE HAS DECREASED Electronically Signed On 08-08-2025 11:27:24 CDT by Hudson Montoya D.O.
[2025-08-08 11:47] LABS: BEDSIDEPREGUCG Negative (Negative)
[2025-08-08 11:47] LABS: Add Urine Microscopic? NO; Appearance Urine Clear (Clear); Glucose Urine UA Negative (Negative); Leukocyte Esterase Ur Negative LEU/UL (Negative); Nitrate Urine Negative (Negative); Specific Grav Ur 1.004 (1.001-1.035)
[2025-08-08 11:56] LABS: Hematocrit 44.7 % (37.0-47.0); Hemoglobin 14.6 g/dL (12.0-15.0); Immature Granulocyte Percent A 0.4 % (0-0.5); Lymphocytes Absolute Auto 1.75 K/mm3 (0.9-3.2); Mean Corpuscular HGB Conc 32.7 g/dl (32-36); Mean Corpuscular Hemoglobin 30.5 pg (26-34); Mean Corpuscular Volume 93.3 fl (80-100); Nucleated Red Blood Cells Absolute Auto 0.000 K/mm3 (0.0-0.012); Nucleated Red Blood Cells Perc 0.0 % (0.0-0.2); Platelet Count Result 240 k/mm3 (150-375); Red Blood Count 4.79 M/mm3 (4.2-5.4); White Blood Count 7.9 K/mm3 (4.5-10.0)
[2025-08-08 12:21] LABS: Alanine Aminotransferase 49 U/L (6-35); Albumin Level 4.6 g/dL (3.5-5.1); Alkaline Phosphatase 125 U/L (38-126); Anion Gap 10 mmol/L (4-12); Aspartate Amino Transferase 47 U/L (14-36); Bilirubin,Total 0.5 mg/dL (0.2-1.3); Blood Urea Nitrogen 10 mg/dL (7-17); Calcium 9.2 mg/dL (8.4-10.2); Carbon Dioxide 23 mmol/L (22-30); Chloride 102 mmol/L (98-107); Estimated CRCL calculation 103 ml/min; Estimated Glomerular Filt Rate > 60; Glucose 104 mg/dL (65-110); Potassium 3.7 mmol/L (3.4-5.0); Sodium 135 mmol/L (137-145); Total Protein 8.6 g/dL (6.3-8.2)
[2025-08-08 12:53] LABS: Troponin I < 0.012 ng/mL (0.000-0.034)
--- OUTSIDE RECORDS SUMMARY | 2025-08-08 13:58 | XMS_ITS | Encounter Summary ---
Author Organization [facility] Address [address] [place] [address] Care Team Providers Care Food Counselor Name Role Phone Juan Rinaldi MD Primary Care Provider [phone] Encounter Details Date Type Department Care Team (Late st Contact Info) Description 06/14/2025 Lab Requisition [facility] - DermPath Lab [address] [place] [address] Sharif Coto MD [address] [place] [address] Basal cell carcinoma of skin of right upper limb, including shoulder Social History Tobacco Use Types Packs/Day Years Used Date Smoking Tobacco: Never Assessed Comments Unknown Sex and Gender Information Value Date Recorded Sex Assigned at Not on file 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 Gender Identity Not on file Sexual Orientation Not on file documented as of this encounter Plan of Treatment Not on file documented as of this encounter Procedures Procedure Name Priority Date/Time Associated Diagnosis Comments DERMATOPATHOLOGY Routine 06/13/2025 9:15 AM CDT Basal cell carcinoma of skin of right upper limb, including shoulder documented in this encounter Results * DERMATOPATHOLOGY (06/13/2025 9:15 AM CDT) Case Report Dermatopathology Report Case: [id number] Authorizing Provider: Sharif Coto MD Collected: 06/13/2025 09:15 AM Ordering Location: [facility] - Received: 06/14/2025 02:05 PM DermPath Lab Pathologist: Hilary Blount MD Specimen: Skin, right anterior shoulder 12:46 PM CDT DERMATOPATHOLOGY LABORATORY Final Diagnosis Specimen A. SKIN, right anterior shoulder: RESIDUAL BASAL CELL CARCINOMA (C44.612) NOT PRESENT AT MARGIN DERMAL SCAR (L90.5) (see microscopic description) 12:46 PM CDT DERMATOPATHOLOGY LABORATORY at 1246 CDT Clinical History BCC Check margins 12:46 PM CDT DERMATOPATHOLOGY LABORATORY Gross Description Specimen A: Received is one formalin filled container labeled with the patient's name and designated right anterior shoulder. The specimen consists of a non-oriented ellipse of skin measuring [id number] mm. The epidermal surface is unremarkable. The margin is inked green. The 12 o'clock and 6 o'clock tips are submitted in cassette 1. The remainder of the ellipse is serially sectioned and submitted in cassette 2-3. Jar 0. 12:46 PM CDT DERMATOPATHOLOGY LABORATORY Microscopic Description Specimen A. SKIN, right anterior shoulder: Sections show an area of fibrosis, flanked by residual neoplasm composed of atypical basaloid keratinocytes. This lesion is not present at the margin of the specimen. Additional deeper sections were obtained and reviewed. 12:46 PM CDT DERMATOPATHOLOGY LABORATORY Disclaimer An external and internal positive and negative controls are appropriate for the histochemical, immunohistochemical and immunofluorescence stain(s) in this case (if any), except where stated explicitly. The performance characteristics of the stain(s) cited in this report were developed and its performance characteristic determined by the Dermatopathology Laboratory at [facility], directed by Dr. Gaurav Leonard. These tests need not be, and therefore are not, approved by the [place] Food and Drug Administration. The tests are used for clinical purposes. Billing Codes Specimen Charges Stain Charges 97976 1 12:46 PM CDT DERMATOPATHOLOGY LABORATORY Embedded Images 12:46 PM CDT DERMATOPATHOLOGY LABORATORY Pathology/Cytolo gy TISSUE SPECIMEN FROM SKIN / Unknown 06/13/2025 9:15 AM CDT 06/14/2025 2:05 PM CDT Sharif Coto MD LAB - PATHOLOGY/CYTOLOGY ORDERAB LES Final Result DERMATOPATHOLOGY LABORATORY [facility] - Department of Dermatology [address] [phone] documented in this encounter Visit Diagnoses Diagnosis Basal cell carcinoma of skin of right upper limb, including shoulder Basal cell carcinoma of skin of upper limb, including shoulder documented in this encounter Care Teams Food Counselor Relationship Specialty Start Date End Date Juan Rinaldi MD [address] [place] [address] PCP - General 09/15/18 documented as of this encounter
--- OUTSIDE RECORDS SUMMARY | 2025-08-08 13:58 | XMS_ITS | Encounter Summary ---
Author Organization [facility] Address [address] [place] [address] Care Team Providers Care Account Manager Sales Representative Name Role Phone Juan Rinaldi MD Primary Care Provider [phone] Encounter Details Date Type Department Care Team (Late st Contact Info) Description 09/01/2019 Lab Requisition [facility] DermPath Lab [address] [place] [address] Leland Olivas MD [address] [place] [address] Social History Tobacco Use Types Packs/Day Years Used Date Smoking Tobacco: Never Assessed Comments Unknown Sex and Gender Information Value Date Recorded Sex Assigned at Not on file 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 Gender Identity Not on file Sexual Orientation Not on file documented as of this encounter Plan of Treatment Not on file documented as of this encounter Procedures Procedure Name Priority Date/Time Associated Diagnosis Comments DERMATOPATHOLOGY Routine 08/31/2019 12:0 0 AM DREDGING INSPECTOR documented in this encounter Results * DERMATOPATHOLOGY (08/31/2019 12:00 AM DREDGING INSPECTOR) Case Report Dermatopathology Report Case: [id number] Authorizing Provider: Leland Olivas MD Collected: 08/31/2019 12:00 AM Ordering Location: [facility] Derm[facility] Lab Received: 09/01/2019 01:56 PM Pathologist: Maureen Blount MD Specimens: A) - Skin, right medial calf anterior lesion B) - Skin, right medial calf posterior lesion 9 4:59 PM DREDGING INSPECTOR DERMATOPATHOLOGY LABORATORY Final Diagnosis Specimen A. 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 SKIN, right medial calf posterior lesion: JUNCTIONAL MELANOCYTIC NEVUS (D22.71) 4:[address] [facility] DERMATOPATHOLOGY LABORATORY at 1659 DREDGING INSPECTOR Clinical History A-B: R/O dys nevus, lentiginous melanocytic nevus. 4:[address] [facility] DERMATOPATHOLOGY LABORATORY Gross Description Specimen A: Received is one formalin filled container labeled with the patient's name and designated right medial calf anterior lesion. The specimen consists of a shave biopsy measuring [id number]. Jar 0. Specimen B: Received is one formalin filled container labeled with the patient's name and designated right medial calf posterior lesion. The specimen consists of a shave biopsy measuring [id number]. Jar 0. 4:[address] [facility] DERMATOPATHOLOGY LABORATORY Microscopic Description Specimen A. SKIN, right medial calf anterior lesion: There are nests of melanocytes at the dermal-epidermal junction and within the dermis. The intraepidermal component shows focal bridging, and is composed of occasional larger melanocytes with dusky cytoplasm and small nucleoli. Superficial dermal fibrosis and mild perivascular lymphoid infiltrate are present. By immunohistochemistr y, Wellington-1 highlights the intraepidermal and dermal components of [...] lymphoid infiltrate are present. By immunohistochemistr y, Wellington-1 highlights the intraepidermal melanocytic proliferation without revealing a dermal component. HMB-45 is positive within the intraepidermal melanocytic proliferation. 4:[address] [facility] DERMATOPATHOLOGY LABORATORY Disclaimer An external and internal positive and negative controls are appropriate for the histochemical, immunohistochemical and immunofluorescence stain(s) in this case (if any), except where stated explicitly. The performance characteristics of the stain(s) cited in this report were developed and its performance characteristic determined by the Dermatopathology Laboratory at [facility], directed by Dr. Gaurav Leonard. These tests need not be, and therefore are not, approved by the [place] Food and Drug Administration. The tests are used for clinical purposes. Billing Codes Specimen Charges Stain Charges 61515 44032 1 1 69197 62143 71460 05569 1 1 1 1 9 4:59 PM DREDGING INSPECTOR DERMATOPATHOLOGY LABORATORY Embedded Images 9 4:59 PM DREDGING INSPECTOR DERMATOPATHOLOGY LABORATORY Pathology/Cytology TISSUE SPECIMEN FROM SKIN / Unknown 08/31/2019 09/01/2019 1:56 PM DREDGING INSPECTOR Miscellaneous samples (specimen) TISSUE SPECIMEN FROM SKIN / Unknown 08/31/2019 09/01/2019 1:56 PM DREDGING INSPECTOR Leland Olivas MD LAB - PATHOLOGY/CYTOLOGY ORD ERABLES Final Result DERMATOPATHOLOGY LABORATORY [facility] - Department of Dermatology [address] [place] [address], [address] Floor Lab [address] [phone] documented in this encounter Visit Diagnoses Not on filedocumented in this encounter Care Teams Account Manager Sales Representative Relationship Specialty Start Date End Date Juan Rinaldi MD [address] [facility] [place] [address] PCP - General 09/15/18 documented as of this encounter
--- OUTSIDE RECORDS SUMMARY | 2025-08-08 13:58 | XMS_ITS | Clinical Summary ---
Author Organization [facility] Address [address], [address] [address] Phone Care Team Providers Care Wood Fuel Pelletizer Name Role Phone Luisa Doll MD Primary [...] Cancer Screening (CCS) 1995 HPV/Cotest 1995 Cologuard 2010 Immunochemical Fecal Occult Blood 2010 Pneumococcal Immunization (5 0+ years) (1 of 1 - PCV) 2015 Zoster Immunization (1 of 2) 2015 Colonoscopy 10/03/2024 10/03/2019 Colorectal Cancer Screening 10/03/2024 Influenza Immunization (#1) 2025 SARS-COV-2 Immunization ( season) 2025 Respiratory Syncytial Virus (RSV) Immunization (Adult) (1 - 1-dose 75+ series) 2040 Human Papillomavirus (HPV) Immunization Aged Out No longer eligible b ased on patient's age to complete this topic Meningococcal Immunization (ACWY) Aged Out No longer [...] Most Recently Relevant to Health Maintenance Insurance [facility] Care Teams Wood Fuel Pelletizer Relationship Specialty Start Date End Date Luisa Doll MD [address] [place] [id number] PCP - General Family Medicine 12/20/18
--- OUTSIDE RECORDS SUMMARY | 2025-08-08 13:58 | XMS_ITS | Clinical Summary ---
Author Organization [facility] Address [address] [place] [address] Care Team Providers Care Television Cameraman Name Role Phone Juan Rinaldi MD Primary Care Provider Source Comments [facility],non-owned Affiliates and Associated Physician Practices is amultiple site organization consisting of ambulatory clinics and hospital sitesin [place], [place], [place] and [place]. This disclosure is being madepursuant to the Care Everywhere program and may not contain all information available regarding this patient. Last updated 18.[facility] Encounters Date Type Department Care Team Description 06/14/2025 Lab Requisition [facility] - DermPath Lab [address] [place] [address] Sharif Coto MD Basal cell carcinoma of skin of right upper limb, including shoulder 05/24/2025 Lab Requisition [facility] - DermPath Lab [address] [place] [address] Dangelo Moses MD Neoplasm of uncertain behavior of skin from Last 3 Months Social History Tobacco Use Types Packs/Day Years Used Date Smoking Tobacco: Never Assessed Comments Unknown Sex and Gender Information Value Date Recorded Sex Assigned at Not on file 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 Case Report Dermatopathology Report Case: [id number] Authorizing Provider: Sharif Coto MD Collected: 06/13/2025 09:15 AM Ordering Location: [facility] - Received: 06/14/2025 02:05 PM DermPath Lab [...] of a non-oriented ellipse of skin measuring 04d63w0 mm. The epidermal surface is unremarkable. The [...] purposes. Billing Codes Specimen Charges Stain Charges 81573 1 12:46 PM CDT DERMATOPATHOLOGY LABORATORY Embedded Images 12:46 PM CDT DERMATOPATHOLOGY LABORATORY Pathology/Cytolo gy TISSUE SPECIMEN FROM SKIN / Unknown 06/13/2025 9:15 AM CDT 06/14/2025 2:05 PM CDT us Sharif Coto MD LAB - PATHOLOGY/CYTOLOGY ORDERAB LES Final Result DERMATOPATHOLOGY LABORATORY [facility] - Department of Dermatology [address], [address] [phone] from Last 3 Months Insurance AETNA AETNA SELF PAY NO INSURANCE Member Subscriber Plan / Payer (Ef fective for All Dates) Name:Radha Reich Member ID:Not on file Relation to Subscriber:Not on file Name:RADHA REICH Subscriber ID:Not on file (Home) Address: [address] [place] [address] Payer ID:Not on file Group ID:Not on file Type:Self Pay Address: [place], [place] Care Teams Television Cameraman Relationship Specialty Start Date End Date Juan Rinaldi MD [address] [place] [address] PCP - General 09/15/18
--- OUTSIDE RECORDS SUMMARY | 2025-08-08 13:58 | XMS_ITS | Encounter Summary ---
Author Organization [facility] Healthcare Address [address] [place] [address] Care Team Providers Care Profile Saw Setup Operator Name Role Phone Luisa Jerry MD Primary Care Provider Michelle Gutierrez MD Primary Care Provider [phone] Encounter Details Date Type Department Care Team (Late st Contact Info) Description 01/04/2025 Orders Only [facility] Health Information Management [address] [place] [phone] Scanning, Provider Social History Tobacco Use Types Packs/Day Years Used Date Smoking Tobacco: Never Smokeless Tobacco: Never Alcohol Use Standard Drinks/Week Comments No 0 (1 standard drink = 0.6 oz pur e alcohol) Comments Unknown Sex and Gender Information Value Date Recorded Sex Assigned at Not on file 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 Gender Identity Not on file Sexual Orientation Not on file documented as of this encounter Plan of Treatment Not on file documented as of this encounter Procedures Procedure Name Priority Date/Time Associated Diagnosis Comments SCAN - RADIOLOGY/IMAGING 01/04/2025 SCAN - LABS 01/04/2025 documented in this encounter Results * SCAN - LABS (01/04/2025) us Provider Scanning Final Result * SCAN - RADIOLOGY/IMAGING (01/04/2025) Anatomical Region Laterality Modality Other us Provider Scanning Final Result documented in this encounter Visit Diagnoses Not on filedocumented in this encounter Care Teams Profile Saw Setup Operator Relationship Specialty Start Date End Date Luisa Jerry MD PCP - General Family Practice 05/03/19 01/25/25 Michelle Gutierrez MD PCP - General Family Medicine 01/26/25 documented as of this encounter
--- OUTSIDE RECORDS SUMMARY | 2025-08-08 13:58 | XMS_ITS | Clinical Summary ---
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 Gender Identity Not on file Sexual Orientation Not on file Obstetrics History Last Filed Vital Signs Vital Sign Reading Time Taken Comments Blood Pressure 132/84 05/02/2025 8:15 AM CDT Pulse 76 05/02/2025 8:15 AM CDT Temperature - - Respiratory Rate - - Oxygen Saturation 98% 05/02/2025 8:15 AM CDT Inhaled Oxygen Concentration - - Weight 99.3 kg (219 lb) 05/02/2025 8:15 AM CDT Height 160 cm (5' 3) 05/02/2025 8:15 AM CDT Body Mass Index 38.79 05/02/2025 8:15 AM CDT Plan of Treatment Health Maintenance Due Date Last Done Comments Breast Cancer Screening-Mammogram 1965 Cervical Cancer Screening 1965 Colon Cancer Screening-Colonoscopy 1965 Depression Screening 1965 Hepatitis C Screening 1965 Hepatitis B Screening 1983 Regular Well Visit/Exam 18-64 1983 Zoster Vaccine (1 of 2) 2015 DTaP/Tdap/Td Vaccine (2 - Td or Tdap) 08/05/2024 08/05/2014 Influenza Vaccine (#1) 2025 Pneumococcal vaccine <65 Aged Out No longer eligible based on patient's age to complete this topic Insurance AETNA SIG [id number] AETNA [facility] Care Teams Asset Management Coordinator Relationship Specialty Start Date End Date Michelle Gutierrez MD PCP - General Family Medicine 01/26/25
--- OUTSIDE RECORDS SUMMARY | 2025-08-08 13:58 | XMS_ITS | Encounter Summary ---
Author Organization [facility] Address [address] [place] [address] Care Team Providers Care Administrative Assistant Receptionist Name Role Phone Juna Rinaldi MD Primary Care Provider [phone] Encounter Details Date Type Department Care Team (Late st Contact Info) Description 05/08/2023 Lab Requisition [facility] - DermPath Lab [address] [place] [address] Vero Mckeon PA [address] [place] [id number] Neoplasm of uncertain behavior of skin Social History Tobacco Use Types Packs/Day Years Used Date Smoking Tobacco: Never Assessed Comments Unknown Sex and Gender Information Value Date Recorded Sex Assigned at Not on file 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 DermPath Lab Received: 05/13/2023 01:28 PM Pathologist: [...] characteristic determined by the Dermatopathology Laboratory at [facility], directed by Dr. Gaurav Leonard. These tests need not be, and therefore are not, approved by the [place] Food and Drug Administration. The tests are used for clinical purposes. Billing Codes Specimen Charges Stain Charges 27066 96727 1 1 03330 75741 1 1 3 12:34 PM CDT DERMATOPATHOLOGY LABORATORY Embedded Images 3 12:34 PM CDT DERMATOPATHOLOGY LABORATORY Pathology/Cytology TISSUE SPECIMEN FROM SKIN / Unknown 05/07/2023 05/13/2023 1:28 PM CDT Miscellaneous samples (specimen) TISSUE SPECIMEN FROM SKIN / Unknown 05/07/2023 05/13/2023 1:28 PM CDT Vero VINSON LAB - PATHOLOGY/CYTOLOGY OR DERABLES Final Result DERMATOPATHOLOGY LABORATORY [facility] - Department of Dermatology [facility] [address] [place] [address], [address] [phone] documented in this encounter Visit Diagnoses Diagnosis Neoplasm of uncertain behavior of skin documented in this encounter Care Teams Administrative Assistant Receptionist Relationship Specialty Start Date End Date Jaun Rinaldi MD [address] [place] [address] PCP - General 09/15/18 documented as of this encounter
--- OUTSIDE RECORDS SUMMARY | 2025-08-08 13:58 | XMS_ITS | Encounter Summary ---
Author Organization [facility] Address [address] [place] [address] Care Team Providers Care Medical And Health Services Manager Name Role Phone Juan Rinaldi MD Primary Care Provider [phone] Encounter Details Date Type Department Care Team (Late st Contact Info) Description 11/05/2022 Lab Requisition [facility] DermPath Lab [address] [facility] [place] [address] Leland Olivas MD [address] [place] [address] Social History Tobacco Use Types Packs/Day Years Used Date Smoking Tobacco: Never Assessed Comments Unknown Sex and Gender Information Value Date Recorded Sex Assigned at Not on file 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 Gender Identity Not on file Sexual Orientation Not on file documented as of this encounter Plan of Treatment Not on file documented as of this encounter Procedures Procedure Name Priority Date/Time Associated Diagnosis Comments DERMATOPATHOLOGY Routine 11/04/2022 12:0 0 AM OIL FIELD WORKER documented in this encounter Results * DERMATOPATHOLOGY (11/04/2022 12:00 AM OIL FIELD WORKER) Case Report Dermatopathology Report Case: [id number] Authorizing Provider: Leland Olivas MD Collected: 11/04/2022 12:00 AM Ordering Location: [facility] DermPath Lab Received: 11/05/2022 02:16 PM Pathologist: Maureen Blount MD Specimen: Skin, right upper lateral breast 1:58 PM OIL FIELD WORKER DERMATOPATHOLOGY LABORATORY Final Diagnosis Specimen A. SKIN, right upper lateral breast: LENTIGINOUS MELANOCYTIC NEVUS, COMPOUND TYPE, IRRITATED (D22.5) 3 1:58 PM [facility] DERMATOPATHOLOGY LABORATORY at [address] OIL FIELD WORKER Clinical History R/O Dysplastic Nevus 3 1:58 PM [facility] DERMATOPATHOLOGY LABORATORY Gross Description Specimen A: Received is one formalin filled container labeled with the patient's name and designated right upper lateral breast. The specimen consists of a punch biopsy measuring 4x4x4 mm. Jar 0. 3 1:58 PM [facility] DERMATOPATHOLOGY LABORATORY Microscopic [...] depth. (Compound Erick's Nevus) 3 1:58 PM [facility] DERMATOPATHOLOGY LABORATORY Disclaimer An external and internal positive and negative controls are appropriate for the histochemical, immunohistochemical and immunofluorescence stain(s) in this case (if any), except where stated explicitly. The performance characteristics of the stain(s) cited in this report were developed and its performance characteristic determined by the Dermatopathology Laboratory at [facility], directed by Dr. Gaurav Leonard. These tests need not be, and therefore are not, approved by the [place] Food and Drug Administration. The tests are used for clinical purposes. Billing Codes Specimen Charges Stain Charges 69883 1 3 1:58 PM [facility] DERMATOPATHOLOGY LABORATORY Embedded Images 3 1:58 PM [facility] DERMATOPATHOLOGY LABORATORY Pathology/Cytolog y TISSUE SPECIMEN FROM SKIN / Unknown 11/04/2022 11/05/2022 2:16 PM [facility] Leland Olivas MD LAB - PATHOLOGY/CYTOLOGY ORD ERABLES Final Result DERMATOPATHOLOGY LABORATORY [facility] - Department of Dermatology [address], [address] [phone] documented in this encounter Visit Diagnoses Not on filedocumented in this encounter Care Teams Medical And Health Services Manager Relationship Specialty Start Date End Date Juan Rinaldi MD [address] [address] PCP - General 09/15/18 documented as of this encounter
--- OUTSIDE RECORDS SUMMARY | 2025-08-08 13:58 | XMS_ITS | Encounter Summary ---
Author Organization [facility] Healthcare Address [address] [place] [address] Care Team Providers Care Fuse Cup Expander Name Role Phone Luisa Jerry MD Primary Care Provider [phone] Michelle Gutierrez MD Primary Care Provider [phone] Encounter Details Date Type Department Care Team (Late st Contact Info) Description 01/02/2025 Orders Only [facility] Health Information Management [address] [place] [address] Scanning, Provider Social History Tobacco Use Types Packs/Day Years Used Date Smoking Tobacco: Never Smokeless Tobacco: Never Alcohol Use Standard Drinks/Week Comments No 0 (1 standard drink = 0.6 oz pur e alcohol) Comments Unknown Sex and Gender Information Value Date Recorded Sex Assigned at Not on file 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 Gender Identity Not on file Sexual Orientation Not on file documented as of this encounter Plan of Treatment Not on file documented as of this encounter Procedures Procedure Name Priority Date/Time Associated Diagnosis Comments SCAN - RADIOLOGY/IMAGING 01/02/2025 documented in this encounter Results * SCAN - RADIOLOGY/IMAGING (01/02/2025) Anatomical Region Laterality Modality Other us Provider Scanning Final Result documented in this encounter Visit Diagnoses Not on filedocumented in this encounter Care Teams Fuse Cup Expander Relationship Specialty Start Date End Date Luisa Jerry MD PCP - General Family Practice 05/03/19 01/25/25 Michelle Gutierrez MD PCP - General Family Medicine 01/26/25 documented as of this encounter
--- OUTSIDE RECORDS SUMMARY | 2025-08-08 13:58 | XMS_ITS | Encounter Summary ---
Author Organization [facility] Address [address] [facility] [place] [address] Care Team Providers Care Hoop Punch And Coiler Operator Helper Name Role Phone Juan Rinaldi MD Primary Care Provider [phone] Encounter Details Date Type Department Care Team (Late st Contact Info) Description 09/15/2018 Lab Requisition [facility] Care DermPath Lab [address] [facility] [place] [address] Leland Olivas MD [address] [place] [address] Social History Tobacco Use Types Packs/Day Years Used Date Smoking Tobacco: Never Assessed Comments Unknown Sex and Gender Information Value Date Recorded Sex Assigned at Not on file Legal Sex Female 5:51 AM GUN SEALING MACHINE OPERATOR Gender Identity Not on file Sexual Orientation Not on file documented as of this encounter Plan of Treatment Not on file documented as of this encounter Procedures Procedure Name Priority Date/Time Associated Diagnosis Comments DERMATOPATHOLOGY Routine 09/14/2018 12:0 0 AM GUN SEALING MACHINE OPERATOR documented in this encounter Results * DERMATOPATHOLOGY (09/14/2018 12:00 AM GUN SEALING MACHINE OPERATOR) Case Report Dermatopathology Report Case: [id number] Authorizing Provider: Leland Olivas MD Collected: 09/14/2018 12:00 AM Pathologist: Esteban Leonard MD Received: 09/15/2018 11:31 AM Specimens: A) - Skin, right deltoid B) - Skin, right proximal extensor forearm C) - Skin, RUQ abd on sup border of scar D) - Skin, right zygoma 8 5:23 PM GUN SEALING MACHINE OPERATOR DERMATOPATHOLOGY LABORATORY Final Diagnosis Specimen A. [...] (D22.39) CHRONIC PERIFOLLICULITIS (L73.8) 8 5:23 PM [facility] DERMATOPATHOLOGY LABORATORY at [address] GUN SEALING MACHINE OPERATOR Clinical History A-D: R/O Dys nevus 8 5:23 PM [facility] DERMATOPATHOLOGY LABORATORY Gross [...] 5x5x1 mm. Jar 0. 8 5:23 PM [facility] DERMATOPATHOLOGY LABORATORY Microscopic [...] a perifollicular lymphohistiocytic infiltrate. 8 5:23 PM [facility] DERMATOPATHOLOGY LABORATORY Disclaimer An external and internal positive and negative controls are appropriate for the histochemical, immunohistochemical and immunofluorescence stain(s) in this case (if any), except where stated explicitly. The performance characteristics of the stain(s) cited in this report were developed and its performance characteristic determined by the Dermatopathology Laboratory at [facility]. These tests need not be, and therefore are not, approved by the [place] Food and Drug Administration. The tests are used for clinical purposes. Billing Codes Specimen Charges Stain Charges 68719 57238 72870 68020 1 1 1 1 8 5:23 PM GUN SEALING MACHINE OPERATOR DERMATOPATHOLOGY LABORATORY Embedded Images 8 5:23 PM [facility] DERMATOPATHOLOGY LABORATORY Pathology/Cytology TISSUE SPECIMEN FROM SKIN / Unknown 09/14/2018 09/15/2018 11:31 AM GUN SEALING MACHINE OPERATOR Miscellaneous samples (specimen) TISSUE SPECIMEN FROM SKIN / Unknown 09/14/2018 09/15/2018 11:31 AM GUN SEALING MACHINE OPERATOR Miscellaneous samples (specimen) TISSUE SPECIMEN FROM SKIN / Unknown 09/14/2018 09/15/2018 11:31 AM GUN SEALING MACHINE OPERATOR Miscellaneous samples (specimen) TISSUE SPECIMEN FROM SKIN / Unknown 09/14/2018 09/15/2018 11:31 AM GUN SEALING MACHINE OPERATOR us Leland Olivas MD LAB - PATHOLOGY/CYTOLOGY ORD ERABLES Final Result DERMATOPATHOLOGY LABORATORY [facility] - Department of Dermatology [address] Lab [address] [phone] documented in this encounter Visit Diagnoses Not on filedocumented in this encounter Care Teams Hoop Punch And Coiler Operator Helper Relationship Specialty Start Date End Date Juan Rinaldi MD [address] [place] [address] PCP - General 09/15/18 documented as of this encounter
--- OUTSIDE RECORDS SUMMARY | 2025-08-08 13:58 | XMS_ITS | Encounter Summary ---
Author Organization [facility] Address [address] [facility] [place] [address] Care Team Providers Care Director Of Informatics Name Role Phone Juan Rinaldi MD Primary Care Provider [phone] Encounter Details Date Type Department Care Team (Late st Contact Info) Description 04/28/2019 Lab Requisition [facility] Care DermPath Lab [address] [facility] [place] [address] Leland Olivas MD [address] [place] [address] Social History Tobacco Use Types Packs/Day Years Used Date Smoking Tobacco: Never Assessed Comments Unknown Sex and Gender Information Value Date Recorded Sex Assigned at Not on file Legal Sex Female 5:51 AM RADIO CONTROL CRANE OPERATOR Gender Identity Not on file Sexual Orientation Not on file documented as of this encounter Plan of Treatment Not on file documented as of this encounter Procedures Procedure Name Priority Date/Time Associated Diagnosis Comments DERMATOPATHOLOGY Routine 04/27/2019 12:0 0 AM CDT documented in this encounter Results * DERMATOPATHOLOGY (04/27/2019 12:00 AM CDT) Case Report Dermatopathology Report Case: [id number] Authorizing Provider: Leland Olivas MD Collected: 04/27/2019 [...] specimen consists of a shave biopsy measuring 37k88m9 mm. Jar 0. 5:20 PM T DERMATOPATHOLOGY [...] and fibrosis with scattered melanophages. 5:20 PM [facility] DERMATOPATHOLOGY LABORATORY Disclaimer An external and internal positive and negative controls are appropriate for the histochemical, immunohistochemical and immunofluorescence stain(s) in this case (if any), except where stated explicitly. The performance characteristics of the stain(s) cited in this report were developed and its performance characteristic determined by the Dermatopathology Laboratory at [facility], directed by Dr. Gaurav Leonard. These tests need not be, and therefore are not, approved by the [place] Food and Drug Administration. The tests are used for clinical purposes. Billing Codes Specimen Charges Stain Charges 57828 1 04483 1 5:20 PM CDT DERMATOPATHOLOGY LABORATORY Embedded [...] PATHOLOGY/CYTOLOGY ORD ERABLES Final Result DERMATOPATHOLOGY LABORATORY [facility] - Department of Dermatology [address] [facility], 5th Floor Lab [address] [phone] documented in this encounter Visit Diagnoses Not on filedocumented in this encounter Care Teams Director Of Informatics Relationship Specialty Start Date End Date Juan Rinaldi MD [address] [place] [address] PCP - General 09/15/18 documented as of this encounter
--- OUTSIDE RECORDS SUMMARY | 2025-08-08 13:58 | XMS_ITS | Encounter Summary ---
Author Organization [facility] Address [address] [place] [address] Care Team Providers Care Lawnmower Repair Mechanic Name Role Phone Juan Rinaldi MD Primary Care Provider [phone] Encounter Details Date Type Department Care Team (Late st Contact Info) Description 11/07/2020 Lab Requisition [facility] DermPath Lab [address] [facility], [place] [address] Leland Olivas MD [address] [address] Social History Tobacco Use Types Packs/Day Years Used Date Smoking Tobacco: Never Assessed Comments Unknown Sex and Gender Information Value Date Recorded Sex Assigned at Not on file Legal Sex Female 5:51 AM STORAGE FACILITY RENTAL CLERK Gender Identity Not on file Sexual Orientation Not on file documented as of this encounter Plan of Treatment Not on file documented as of this encounter Procedures Procedure Name Priority Date/Time Associated Diagnosis Comments DERMATOPATHOLOGY Routine 11/06/2020 12:0 0 AM STORAGE FACILITY RENTAL CLERK documented in this encounter Results * DERMATOPATHOLOGY (11/06/2020 12:00 AM STORAGE FACILITY RENTAL CLERK) Case Report Dermatopathology Report Case: [id number] Authorizing Provider: Leland Olivas MD Collected: 11/06/2020 12:00 AM Ordering Location: [facility] DermPath Lab Received: 11/07/2020 02:27 PM Pathologist: Maureen Blount MD Specimens: A) - Skin, left superior buttock B) - Skin, right buttocks 3:21 PM STORAGE FACILITY RENTAL CLERK DERMATOPATHOLOGY LABORATORY Final Diagnosis Specimen A. SKIN, left superior buttock: LENTIGINOUS MELANOCYTIC NEVUS, COMPOUND TYPE, IRRITATED (COMPOUND MELANOCYTIC NEVUS WITH ARCHITECTURAL DISORDER) (D22.5) (see microscopic description) Specimen B. SKIN, right buttocks: LENTIGINOUS MELANOCYTIC NEVUS, COMPOUND TYPE, IRRITATED (COMPOUND MELANOCYTIC NEVUS WITH ARCHITECTURAL DISORDER) (D22.5) (see microscopic description) 3:21 PM [facility]MAT[facility] at [address] [facility] Clinical History A-B: R/O dys nevus. 3:21 PM [facility] DERMATOPATH[facility] Gross Description Specimen A: Received is one formalin filled container labeled with the patient's name and designated left superior buttock. The specimen consists of a shave biopsy measuring [id number]. Jar 0. Specimen B: Received is one formalin filled container labeled with the patient's name and designated right buttocks. The specimen consists of a shave biopsy measuring [id number]. Jar 0. 3:21 PM [facility]ERMATOPATH[facility] Microscopic Description Specimen [...] Nevus or Compound Dysplastic Nevus) 3:21 PM [facility]ER[facility]OP[facility] Disclaimer An external [...] purposes. Billing Codes Specimen Charges Stain Charges 85695 39696 1 1 07054 12635 1 1 1 3:21 PM STORAGE FACILITY RENTAL CLERK DERMATOPATHOLOGY LABORATORY Embedded Images 1 3:21 PM STORAGE FACILITY RENTAL CLERK DERMATOPATHOLOGY LABORATORY Pathology/Cytology TISSUE SPECIMEN FROM SKIN / Unknown 11/06/2020 11/07/2020 2:27 PM STORAGE FACILITY RENTAL CLERK Miscellaneous samples (specimen) TISSUE SPECIMEN FROM SKIN / Unknown 11/06/2020 11/07/2020 2:27 PM STORAGE FACILITY RENTAL CLERK Leland Olivas MD LAB - PATHOLOGY/CYTOLOGY ORD ERABLES Final Result DERMATOPATHOLOGY LABORATORY [facility] - Department of Dermatology [facility] Medicine [address] [place] [address], [address] [phone] documented in this encounter Visit Diagnoses Not on filedocumented in this encounter Care Teams Lawnmower Repair Mechanic Relationship Specialty Start Date End Date Juan Rinaldi MD [address] [place] [address] PCP - General 09/15/18 documented as of this encounter
--- OUTSIDE RECORDS SUMMARY | 2025-08-08 13:58 | XMS_ITS | Encounter Summary ---
Author Organization [facility] Address [address] [facility] [place] [address] Care Team Providers Care Cuff Setter Overlock Name Role Phone Juan Rinaldi MD Primary Care Provider [phone] Encounter Details Date Type Department Care Team (Late st Contact Info) Description 10/25/2020 Lab Requisition [facility] DermPath Lab [address] [facility], [place] [address] Leland Olivas MD [address] [place] [address] Social History Tobacco Use Types Packs/Day Years Used Date Smoking Tobacco: Never Assessed Comments Unknown Sex and Gender Information Value Date Recorded Sex Assigned at Not on file Legal Sex Female 5:51 AM SALES FLOOR ASSOCIATE Gender Identity Not on file Sexual Orientation Not on file documented as of this encounter Plan of Treatment Not on file documented as of this encounter Procedures Procedure Name Priority Date/Time Associated Diagnosis Comments DERMATOPATHOLOGY Routine 10/24/2020 12:0 0 AM SALES FLOOR ASSOCIATE documented in this encounter Results * DERMATOPATHOLOGY (10/24/2020 12:00 AM SALES FLOOR ASSOCIATE) Case Report Dermatopathology Report [id number]: [id number] Authorizing Provider: Leland Olivas MD Collected: 10/24/2020 12:00 AM Ordering Location: [facility] DermPath Lab Received: 10/25/2020 11:17 AM Pathologist: Esteban Leonard MD Specimens: A) - Skin, midline upper back B) - Skin, right distal lateral anterior thigh 1:02 PM SALES FLOOR ASSOCIATE DERMATOPATHOLOGY LABORATORY Final Diagnosis Specimen A. SKIN, midline upper back: LENTIGINOUS MELANOCYTIC NEVUS, COMPOUND TYPE (COMPOUND MELANOCYTIC NEVUS WITH ARCHITECTURAL DISORDER) (D22.5) Specimen B. SKIN, right distal lateral anterior thigh: LENTIGINOUS MELANOCYTIC NEVUS, JUNCTIONAL TYPE, IRRITATED (JUNCTIONAL MELANOCYTIC NEVUS WITH ARCHITECTURAL DISORDER) (D22.71) NOT PRESENT AT SAMPLED MARGIN 1 1:02 PM [facility] DERMATOPATHOLOGY LABORATORY at [address] SALES FLOOR ASSOCIATE Clinical History A: R/O dysplastic nevus B: R/O dysplastic nevus. Check margins 1 1:02 PM [facility] DERMATOPATHOLOGY LABORATORY Gross Description Specimen A: Received is one formalin filled container labeled with the patient's name and designated midline upper back. The specimen consists of a shave biopsy measuring 44i56e9 mm. Jar 0. Specimen B: Received is one formalin filled container labeled with the patients name and designated right distal lateral anterior thigh. The specimen consists of a shave removal measuring 9x6x1 mm, inked. Jar 0. 1 1:02 PM [facility] DERMATOPATHOLOGY LABORATORY Microscopic Description Specimen A. SKIN, [...] margin of the specimen. 1 1:02 PM [facility] DERMATOPATHOLOGY LABORATORY Disclaimer An external and internal positive and negative controls are appropriate for the histochemical, immunohistochemical and immunofluorescence stain(s) in this case (if any), except where stated explicitly. The performance characteristics of the stain(s) cited in this report were developed and its performance characteristic determined by the Dermatopathology Laboratory at [facility], directed by Dr. Gaurav Leonard. These tests need not be, and therefore are not, approved by the [place] Food and Drug Administration. The tests are used for clinical purposes. Billing Codes Specimen Charges Stain Charges 35147 57540 1 1 74327 1 1 1:02 PM SALES FLOOR ASSOCIATE DERMATOPATHOLOGY LABORATORY Embedded Images 1 1:02 PM SALES FLOOR ASSOCIATE DERMATOPATHOLOGY LABORATORY Pathology/Cytology TISSUE SPECIMEN FROM SKIN / Unknown 10/24/2020 10/25/2020 11:17 AM SALES FLOOR ASSOCIATE Miscellaneous samples (specimen) TISSUE SPECIMEN FROM SKIN / Unknown 10/24/2020 10/25/2020 11:17 AM SALES FLOOR ASSOCIATE Lelnad Olivas MD LAB - PATHOLOGY/CYTOLOGY ORD ERABLES Final Result DERMATOPATHOLOGY LABORATORY [facility] - Department of Dermatology [facility] Specialized Medicine [address] [place] [address], [address] [phone] documented in this encounter Visit Diagnoses Not on filedocumented in this encounter Care Teams Cuff Setter Overlock Relationship Specialty Start Date End Date Juan Rinaldi MD [address] [place], [place] [id number] PCP - General 09/15/18 documented as of this encounter
--- OUTSIDE RECORDS SUMMARY | 2025-08-08 13:58 | XMS_ITS | Encounter Summary ---
Author Organization [facility] Address [address] [facility] [place] [address] Care Team Providers Care Sales Rep Name Role Phone Juan Rinaldi MD Primary Care Provider [phone] Encounter Details Date Type Department Care Team (Late st Contact Info) Description 05/24/2025 Lab Requisition [facility] - DermPath Lab [address] [place] [address] Dangelo Moses MD [facility] DERMATOLOGY [address] [place] [phone] Neoplasm of uncertain behavior of skin Social History Tobacco Use Types Packs/Day Years Used Date Smoking Tobacco: Never Assessed Comments Unknown Sex and Gender Information Value Date Recorded Sex Assigned at Not on file Legal 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 Gender Identity Not on file Sexual Orientation Not on file documented as of this encounter Plan of Treatment Not on file documented as of this encounter Procedures Procedure Name Priority Date/Time Associated Diagnosis Comments DERMATOPATHOLOGY Routine 05/23/2025 12:0 0 AM CDT Neoplasm of uncertain behavior of skin documented in this encounter Results * DERMATOPATHOLOGY (05/23/2025 12:00 AM CDT) Case Report Dermatopathology Report Case: [id number] Authorizing Provider: Dangelo Moses MD Collected: 05/23/2025 12:00 AM Ordering Location: [facility] - Received: 05/25/2025 07:38 AM DermPath Lab Pathologist: Hilary Blount MD Specimens: A) - Skin, left lower forehead B) - Skin, right upper chest 10:27 AM T DERMATOPATHOLOGY LABORATORY Final Diagnosis Specimen A. SKIN, left lower forehead: BASAL CELL CARCINOMA, INFILTRATIVE PATTERN (C44.319) (see microscopic description) Specimen B. SKIN, right upper chest: BASAL CELL CARCINOMA, NODULAR TYPE (C44.519) 10:27 AM [facility] DERMATOPATHOLOGY LABORATORY at 1027 CDT Clinical History A-B: BCC 10:27 AM [facility] DERMATOPATHOLOGY LABORATORY Gross Description Specimen A: Received is one formalin filled container labeled with the patient's name and designated left lower forehead. The specimen consists of a shave biopsy measuring 5x3x1 mm. Jar 0. Specimen B: Received is one formalin filled container labeled with the patient's name and designated right upper chest. The specimen consists of a shave biopsy measuring 6x5x1 mm. Jar 0. 10:27 AM [facility] DERMATOPATHOLOGY LABORATORY Microscopic Description Specimen A. SKIN, left lower forehead: Within the dermis there are nodular aggregates of basaloid cells associated with fibromyxoid stroma and epithelial-stromal clefts. At the advancing margin of the neoplasm, there are smaller angulated nests that infiltrate the dermis. CK20 is negative within tumor cells. Specimen B. SKIN, right upper chest: Within the dermis there are aggregates of basaloid cells with a high nuclear to cytoplasmic ratio and peripheral palisading. 10:27 AM [facility] DERMATOPATHOLOGY LABORATORY Disclaimer An external and internal positive and negative controls are appropriate for the histochemical, immunohistochemical and immunofluorescence stain(s) in this case (if any), except where stated explicitly. The performance characteristics of the stain(s) cited in this report were developed and its performance characteristic determined by the Dermatopathology Laboratory at [facility], directed by Dr. Gaurav Leonard. These tests need not be, and therefore are not, approved by the [place] Food and Drug Administration. The tests are used for clinical purposes. Billing Codes Specimen Charges Stain Charges 72152 03556 1 1 08385 1 10:27 AM [facility] DERMATOPATHOLOGY LABORATORY Embedded Images 10:27 AM [facility] DERMATOPATHOLOGY LABORATORY Pathology/Cytology TISSUE SPECIMEN FROM SKIN / Unknown 05/23/2025 05/25/2025 7:38 AM CDT Miscellaneous samples (specimen) TISSUE SPECIMEN FROM SKIN / Unknown 05/23/2025 05/25/2025 7:38 AM CDT us Dangelo Moses MD LAB - PATHOLOGY/CYTOLOGY JONATHANE VICKIE Final Result DERMATOPATHOLOGY LABORATORY [facility] - Department of Dermatology [facility] Medicine [address] [place] [address], [address] [phone] documented in this encounter Visit Diagnoses Diagnosis Neoplasm of uncertain behavior of skin documented in this encounter Care Teams Sales Rep Relationship Specialty Start Date End Date Juan Rinaldi MD [address] [place] [address] PCP - General 09/15/18 documented as of this encounter
--- OUTSIDE RECORDS SUMMARY | 2025-08-08 13:58 | XMS_ITS | Encounter Summary ---
Author Organization [facility] Address [address] [place] [address] Care Team Providers Care Polysomnography Tech Name Role Phone Juan Rinaldi MD Primary Care Provider [phone] Encounter Details Date Type Department Care Team (Late st Contact Info) Description 08/24/2019 Lab Requisition [facility] DermPath Lab [address] [facility], [place] [address] Leland Olivas MD [address] [place] [address] Social History Tobacco Use Types Packs/Day Years Used Date Smoking Tobacco: Never Assessed Comments Unknown Sex and Gender Information Value Date Recorded Sex Assigned at Not on file Legal Sex Female 5:51 AM EHS ENGINEER Gender Identity Not on file Sexual Orientation Not on file documented as of this encounter Plan of Treatment Not on file documented as of this encounter Procedures Procedure Name Priority Date/Time Associated Diagnosis Comments DERMATOPATHOLOGY Routine 08/23/2019 12:0 0 AM EHS ENGINEER documented in this encounter Results * DERMATOPATHOLOGY (08/23/2019 12:00 AM EHS ENGINEER) Case Report Dermatopathology Report Case: [id number] Authorizing Provider: Leland Olivas MD Collected: 08/23/2019 12:00 AM Ordering Location: [facility] DermPath Lab Received: 08/24/2019 12:40 PM Pathologist: Esteban Leonard MD Specimens: A) - Skin, above right elbow medially B) - Skin, left lateral breast C) - Skin, left medial breast 9 4:47 PM EHS ENGINEER DERMATOPATHOLOGY LABORATORY Final Diagnosis Specimen A. SKIN, [...] NEVUS WITH ARCHITECTURAL DISORDER) (D22.5) 4:47 PM [facility] DERMATOPATHOLOGY LABORATORY at [address] [facility] Clinical History A-C: R/O dys nevus. 4:47 PM [facility] DERMATOPATHOLOGY LABORATORY Gross Description Specimen A: Received is one formalin filled container labeled with the patient's name and designated above right elbow medially. The specimen consists of a shave biopsy measuring [id number]. Jar 0. Specimen B: Received is one formalin filled container labeled with the patient's name and designated left lateral breast. The specimen consists of a shave biopsy measuring 6d2p8zy. Jar 0. Specimen C: Received is one formalin filled container labeled with the patient's name and designated left medial breast. The specimen consists of a shave biopsy measuring 4y2z9ge. Jar 0. 4:47 PM [facility] DERMATOPATHOLOGY LABORATORY Microscopic Description Specimen [...] or Compound Dysplastic Nevus) 9 4:47 PM [facility] DERMATOPATHOLOGY LABORATORY Disclaimer An external and internal positive and negative controls are appropriate for the histochemical, immunohistochemical and immunofluorescence stain(s) in this case (if any), except where stated explicitly. The performance characteristics of the stain(s) cited in this report were developed and its performance characteristic determined by the Dermatopathology Laboratory at [facility], directed by Dr. Gaurav Leonard. These tests need not be, and therefore are not, approved by the [place] Food and Drug Administration. The tests are used for clinical purposes. Billing Codes Specimen Charges Stain Charges 97191 83593 35045 1 1 1 9 4:47 PM EHS ENGINEER DERMATOPATHOLOGY LABORATORY Embedded Images 9 4:47 PM EHS ENGINEER DERMATOPATHOLOGY LABORATORY Pathology/Cytology TISSUE SPECIMEN FROM SKIN / Unknown 08/23/2019 08/24/2019 12:40 PM EHS ENGINEER Miscellaneous samples (specimen) TISSUE SPECIMEN FROM SKIN / Unknown 08/23/2019 08/24/2019 12:40 PM EHS ENGINEER Miscellaneous samples (specimen) TISSUE SPECIMEN FROM SKIN / Unknown 08/23/2019 08/24/2019 12:40 PM EHS ENGINEER Leland Olivas MD LAB - PATHOLOGY/CYTOLOGY ORD ERABLES Final Result DERMATOPATHOLOGY LABORATORY [facility] - Department of Dermatology [address] [facility], [address]th [place] [address], [facility] [phone] documented in this encounter Visit Diagnoses Not on filedocumented in this encounter Care Teams Polysomnography Tech Relationship Specialty Start Date End Date Juan Rinaldi [place] [address] PCP - General 09/15/18 documented as of this encounter
[2025-08-08 14:24] LABS: Influenza A QL RT-PCR Negative (Negative); Influenza B QL RT-PCR Negative (Negative); RSV RNA, RT-PCR Negative (Negative); SARS-CoV-2 RNA PCR Positive (Negative)
--- NOTE | 2025-08-08 14:29 | ECG_ITS ---
Test Date: 2025-08-08 14:32:34 Measurements Intervals Convoy Rate: 75 P: 64 FL: 155 QRS: 60 QRSD: 99 T: 47 QT: 381 QTc: 427 Interpretive Statements SINUS RHYTHM NORMAL ECG Compared to ECG 08/08/2025 11:26:08 No significant changes Electronically Signed On 08-08-2025 14:54:01 CDT by Hudson Montoya D.O.
--- OUTSIDE RECORDS SUMMARY | 2025-08-08 14:47 | XMS_ITS | Encounter Summary ---
Author Organization [facility] Address [address] [facility] [place] [address] Care Team Providers Care Assembler Caterpillar Spider Name Role Phone Juan Rinaldi MD Primary Care Provider [phone] Encounter Details Date Type Department Care Team (Late st Contact Info) Description 11/07/2020 Lab Requisition [facility] DermPath Lab [address] [facility], [place] [address] Leland Olivas MD [address] [place] [address] Social History Tobacco Use Types Packs/Day Years Used Date Smoking Tobacco: Never Assessed Comments Unknown Sex and Gender Information Value Date Recorded Sex Assigned at Not on file Legal Sex Female 5:51 AM RN ONCOLOGY CLINICAL Gender Identity Not on file Sexual Orientation Not on file documented as of this encounter Plan of Treatment Not on file documented as of this encounter Procedures Procedure Name Priority Date/Time Associated Diagnosis Comments DERMATOPATHOLOGY Routine 11/06/2020 12:0 0 AM RN ONCOLOGY CLINICAL documented in this encounter Results * DERMATOPATHOLOGY (11/06/2020 12:00 AM RN ONCOLOGY CLINICAL) Case Report Dermatopathology Report Case: [id number] Authorizing Provider: Leland Olivas MD Collected: 11/06/2020 12:00 AM Ordering Location: [facility] DermPath Lab Received: 11/07/2020 02:27 PM Pathologist: Maureen Blount MD Specimens: A) - Skin, left superior buttock B) - Skin, right buttocks 3:21 PM RN ONCOLOGY CLINICAL DERMATOPATHOLOGY LABORATORY Final Diagnosis Specimen A. SKIN, left superior buttock: LENTIGINOUS MELANOCYTIC NEVUS, COMPOUND TYPE, IRRITATED (COMPOUND MELANOCYTIC NEVUS WITH ARCHITECTURAL DISORDER) (D22.5) (see microscopic description) Specimen B. SKIN, right buttocks: LENTIGINOUS MELANOCYTIC NEVUS, COMPOUND TYPE, IRRITATED (COMPOUND MELANOCYTIC NEVUS WITH ARCHITECTURAL DISORDER) (D22.5) (see microscopic description) 3:21 PM [facility] DERMATOPATHOLOGY LABORATORY at [address] [facility] Clinical History A-B: R/O dys nevus. 3:21 PM [facility] DERMATOPATHOLOGY LABORATORY Gross Description Specimen A: Received is one formalin filled container labeled with the patient's name and designated left superior buttock. The specimen consists of a shave biopsy measuring 45l3v8wm. Jar 0. Specimen B: Received is one formalin filled container labeled with the patient's name and designated right buttocks. The specimen consists of a shave biopsy measuring 04e46z2fl. Jar 0. 3:21 PM [facility] DERMATOPATHOLOGY LABORATORY Microscopic Description Specimen [...] Nevus or Compound Dysplastic Nevus) 3:21 PM [facility] DERMATOPATHOLOGY LABORATORY Disclaimer An external and internal positive and negative controls are appropriate for the histochemical, immunohistochemical and immunofluorescence stain(s) in this case (if any), except where stated explicitly. The performance characteristics of the stain(s) cited in this report were developed and its performance characteristic determined by the Dermatopathology Laboratory at [facility], directed by Dr. Gaurav Leonard. These tests need not be, and therefore are not, approved by the [place] Food and Drug Administration. The tests are used for clinical purposes. Billing Codes Specimen Charges Stain Charges 11884 90635 1 1 57833 60516 1 1 1 3:21 PM RN ONCOLOGY CLINICAL DERMATOPATHOLOGY LABORATORY Embedded Images 1 3:21 PM RN ONCOLOGY CLINICAL DERMATOPATHOLOGY LABORATORY Pathology/Cytology TISSUE SPECIMEN FROM SKIN / Unknown 11/06/2020 11/07/2020 2:27 PM RN ONCOLOGY CLINICAL Miscellaneous samples (specimen) TISSUE SPECIMEN FROM SKIN / Unknown 11/06/2020 11/07/2020 2:27 PM RN ONCOLOGY CLINICAL Leland Olivas MD LAB - PATHOLOGY/CYTOLOGY ORD ERABLES Final Result DERMATOPATHOLOGY LABORATORY [facility] - Department of Dermatology [facility] Medicine [address] [place] [address], [address] [phone] documented in this encounter Visit Diagnoses Not on filedocumented in this encounter Care Teams Assembler Caterpillar Spider Relationship Specialty Start Date End Date Juan Rinaldi MD [address] [place] [address] PCP - General 09/15/18 documented as of this encounter
--- OUTSIDE RECORDS SUMMARY | 2025-08-08 14:47 | XMS_ITS | Encounter Summary ---
Author Organization [facility] Address [address] [facility] [place] [address] Care Team Providers Care Occupational Therapist Assistants Name Role Phone Juan Rinaldi MD Primary Care Provider [phone] Encounter Details Date Type Department Care Team (Late st Contact Info) Description 06/14/2025 Lab Requisition [facility] - DermPath Lab [address] [place] [address] Sharif Coto MD [address] [place] [address] Basal cell carcinoma of skin of right upper limb, including shoulder Social History Tobacco Use Types Packs/Day Years Used Date Smoking Tobacco: Never Assessed Comments Unknown Sex and Gender Information Value Date Recorded Sex Assigned at Not on file Legal Sex Female 5:51 AM TREE DRILLER Gender Identity Not on file Sexual Orientation [...] AM CDT) Case Report Dermatopathology Report Case: [id number] Authorizing Provider: Sharif Coto MD Collected: 06/13/2025 09:15 AM Ordering Location: [facility] - Received: 06/14/2025 02:05 PM DermPath Lab [...] of a non-oriented ellipse of skin measuring 16u64o5 mm. The epidermal surface is unremarkable. The [...] characteristic determined by the Dermatopathology Laboratory at [facility], directed by Dr. Gaurav Leonard. These tests need not be, and therefore are not, approved by the [place] Food and Drug Administration. The tests are used for clinical purposes. Billing Codes Specimen Charges Stain Charges 20600 1 12:46 PM CDT DERMATOPATHOLOGY LABORATORY Embedded Images 12:46 PM CDT DERMATOPATHOLOGY LABORATORY Pathology/Cytolo gy TISSUE SPECIMEN FROM SKIN / Unknown 06/13/2025 9:15 AM CDT 06/14/2025 2:05 PM CDT Sharif Coto MD LAB - PATHOLOGY/CYTOLOGY ORDERAB LES Final Result DERMATOPATHOLOGY LABORATORY [facility] - Department of Dermatology [address], [address] [phone] documented in this encounter Visit Diagnoses Diagnosis Basal cell carcinoma of skin of right upper limb, including shoulder Basal cell carcinoma of skin of upper limb, including shoulder documented in this encounter Care Teams Occupational Therapist Assistants Relationship Specialty Start Date End Date Juan Rinaldi MD [address] [place] [address] PCP - General 09/15/18 documented as of this encounter
--- OUTSIDE RECORDS SUMMARY | 2025-08-08 14:47 | XMS_ITS | Encounter Summary ---
Author Organization [facility] Address [address] [place] [address] Care Team Providers Care Messaging Architect Name Role Phone Juan Rinaldi MD Primary Care Provider [phone] Encounter Details Date Type Department Care Team (Late st Contact Info) Description 11/05/2022 Lab Requisition [facility] DermPath Lab [address] [facility] [place] [address] Leland Olivas MD [address] [place] [address] Social History Tobacco Use Types Packs/Day Years Used Date Smoking Tobacco: Never Assessed Comments Unknown Sex and Gender Information Value Date Recorded Sex Assigned at Not on file Legal Sex Female 5:51 AM BIOSTATISTICS TEACHER Gender Identity Not on file Sexual Orientation Not on file documented as of this encounter Plan of Treatment Not on file documented as of this encounter Procedures Procedure Name Priority Date/Time Associated Diagnosis Comments DERMATOPATHOLOGY Routine 11/04/2022 12:0 0 AM BIOSTATISTICS TEACHER documented in this encounter Results * DERMATOPATHOLOGY (11/04/2022 12:00 AM BIOSTATISTICS TEACHER) Case Report Dermatopathology Report Case: [id number] Authorizing Provider: Leland Olivas MD Collected: 11/04/2022 12:00 AM Ordering Location: [facility] DermPath Lab Received: 11/05/2022 02:16 PM Pathologist: Maureen Blount MD Specimen: Skin, right upper lateral breast 1:58 PM BIOSTATISTICS TEACHER DERMATOPATHOLOGY LABORATORY Final Diagnosis Specimen A. SKIN, right upper lateral breast: LENTIGINOUS MELANOCYTIC NEVUS, COMPOUND TYPE, IRRITATED (D22.5) 3 1:58 PM [facility] DERMATOPATHOLOGY LABORATORY at [address] BIOSTATISTICS TEACHER Clinical History R/O Dysplastic Nevus 3 1:58 PM [facility] DERMATOPATHOLOGY LABORATORY Gross Description Specimen A: Received is one formalin filled container labeled with the patient's name and designated right upper lateral breast. The specimen consists of a punch biopsy measuring 4x4x4 mm. Jar 0. 3 1:58 PM [facility] DERMATOPATHOLOGY LABORATORY Microscopic Description Specimen A. SKIN, [...] depth. (Compound Erick's Nevus) 3 1:58 PM [facility] DERMATOPATHOLOGY LABORATORY Disclaimer An external and internal [...] purposes. Billing Codes Specimen Charges Stain Charges 98841 1 3 1:58 PM [facility] DERMATOPATHOLOGY LABORATORY Embedded Images 3 1:58 PM [facility] DERMATOPATHOLOGY LABORATORY Pathology/Cytolog y TISSUE SPECIMEN FROM SKIN / Unknown 11/04/2022 11/05/2022 2:16 PM [facility] Leland Olivas MD LAB - PATHOLOGY/CYTOLOGY ORD ERABLES Final Result DERMATOPATHOLOGY LABORATORY [facility] - Department of Dermatology [address], [address] [phone] documented in this encounter Visit Diagnoses Not on filedocumented in this encounter Care Teams Messaging Architect Relationship Specialty Start Date End Date Juan Rinaldi MD [address] [place] [address] PCP - General 09/15/18 documented as of this encounter
--- OUTSIDE RECORDS SUMMARY | 2025-08-08 14:47 | XMS_ITS | Encounter Summary ---
Author Organization [facility] Address [address] [place] [address] Care Team Providers Care Electrical Systems Design Engineer Name Role Phone Juan Rinaldi MD Primary Care Provider [phone] Encounter Details Date Type Department Care Team (Late st Contact Info) Description 08/24/2019 Lab Requisition [facility] DermPath Lab [address] [facility] [place] [address] Leland Olivas MD [address] [place] [address] Social History Tobacco Use Types Packs/Day Years Used Date Smoking Tobacco: Never Assessed Comments Unknown Sex and Gender Information Value Date Recorded Sex Assigned at Not on file Legal Sex Female 5:51 AM RETURNED GOODS REPAIRER Gender Identity Not on file Sexual Orientation Not on file documented as of this encounter Plan of Treatment Not on file documented as of this encounter Procedures Procedure Name Priority Date/Time Associated Diagnosis Comments DERMATOPATHOLOGY Routine 08/23/2019 12:0 0 AM RETURNED GOODS REPAIRER documented in this encounter Results * DERMATOPATHOLOGY (08/23/2019 12:00 AM RETURNED GOODS REPAIRER) Case Report Dermatopathology Report Case: [id number] Authorizing Provider: Leland Olivas MD Collected: 08/23/2019 12:00 AM Ordering Location: [facility] DermPath Lab Received: 08/24/2019 12:40 PM Pathologist: Esteban Leonard MD Specimens: A) - Skin, above right elbow medially B) - Skin, left lateral breast C) - Skin, left medial breast 9 4:47 PM RETURNED GOODS REPAIRER DERMATOPATHOLOGY LABORATORY Final Diagnosis Specimen A. [...] NEVUS WITH ARCHITECTURAL DISORDER) (D22.5) 4:47 PM [facility] DERMATOPATHOLOGY LABORATORY at [address] [facility] Clinical History A-C: R/O dys nevus. 4:47 PM [facility] DERMATOPATHOLOGY LABORATORY Gross Description Specimen A: Received is one formalin filled container labeled with the patient's name and designated above right elbow medially. The specimen consists of a shave biopsy measuring 6v9u1fs. Jar 0. Specimen B: Received is one formalin filled container labeled with the patient's name and designated left lateral breast. The specimen consists of a shave biopsy measuring 9x4a7sj. Jar 0. Specimen C: Received is one formalin filled container labeled with the patient's name and designated left medial breast. The specimen consists of a shave biopsy measuring 1j8a3yv. Jar 0. 4:47 PM [facility] DERMATOPATHOLOGY LABORATORY Microscopic Description Specimen [...] Compound Dysplastic Nevus) 9 4:47 PM [facility] DERMATOPATHOLOGY LABORATORY Disclaimer An external and internal positive and negative controls are appropriate for the histochemical, immunohistochemical and immunofluorescence stain(s) in this case (if any), except where stated explicitly. The performance characteristics of the stain(s) cited in this report were developed and its performance characteristic determined by the Dermatopathology Laboratory at [facility], directed by Dr. Gaurav Leonard. These tests need not be, and therefore are not, approved by the [place] Food and Drug Administration. The tests are used for clinical purposes. Billing Codes Specimen Charges Stain Charges 56389 97694 39367 1 1 1 9 4:47 PM RETURNED GOODS REPAIRER DERMATOPATHOLOGY LABORATORY Embedded Images 9 4:47 PM RETURNED GOODS REPAIRER DERMATOPATHOLOGY LABORATORY Pathology/Cytology TISSUE SPECIMEN FROM SKIN / Unknown 08/23/2019 08/24/2019 12:40 PM RETURNED GOODS REPAIRER Miscellaneous samples (specimen) TISSUE SPECIMEN FROM SKIN / Unknown 08/23/2019 08/24/2019 12:40 PM RETURNED GOODS REPAIRER Miscellaneous samples (specimen) TISSUE SPECIMEN FROM SKIN / Unknown 08/23/2019 08/24/2019 12:40 PM RETURNED GOODS REPAIRER Leland Olivas MD LAB - PATHOLOGY/CYTOLOGY ORD ERABLES Final Result DERMATOPATHOLOGY LABORATORY [facility] - Department of Dermatology [address] [facility] [address], [address]th [place] [address], [facility] [phone] documented in this encounter Visit Diagnoses Not on filedocumented in this encounter Care Teams Electrical Systems Design Engineer Relationship Specialty Start Date End Date Juan [place] [address] [address] [place] [address] PCP - General 09/15/18 documented as of this encounter
--- OUTSIDE RECORDS SUMMARY | 2025-08-08 14:47 | XMS_ITS | Encounter Summary ---
Author Organization [facility] Address [address] [facility] [place] [address] Care Team Providers Care Applications Development Consultant Name Role Phone Juan Rinaldi MD Primary Care Provider [phone] Encounter Details Date Type Department Care Team (Late st Contact Info) Description 09/01/2019 Lab Requisition [facility] DermPath Lab [address] [facility], [place] [address] Leland Olivas MD [address] [place] [address] Social History Tobacco Use Types Packs/Day Years Used Date Smoking Tobacco: Never Assessed Comments Unknown Sex and Gender Information Value Date Recorded Sex Assigned at Not on file Legal Sex Female 5:51 AM GRINDER GEAR Gender Identity Not on file Sexual Orientation Not on file documented as of this encounter Plan of Treatment Not on file documented as of this encounter Procedures Procedure Name Priority Date/Time Associated Diagnosis Comments DERMATOPATHOLOGY Routine 08/31/2019 12:0 0 AM GRINDER GEAR documented in this encounter Results * DERMATOPATHOLOGY (08/31/2019 12:00 AM GRINDER GEAR) Case Report Dermatopathology Report Case: [id number] Authorizing Provider: Leland Olivas MD Collected: 08/31/2019 12:00 AM Ordering Location: [facility] DermPath Lab Received: 09/01/2019 01:56 PM Pathologist: Maureen Blount MD Specimens: A) - Skin, right medial calf anterior lesion B) - Skin, right medial calf posterior lesion 9 4:59 PM GRINDER GEAR DERMATOPATHOLOGY LABORATORY Final Diagnosis Specimen A. 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 SKIN, right medial calf posterior lesion: JUNCTIONAL MELANOCYTIC NEVUS (D22.71) 4:59 PM [facility] DER[facility]ORY at [address] GRINDER GEAR Clinical History A-B: R/O dys nevus, lentiginous melanocytic nevus. 4:59 PM [facility] D[facility]ORY Gross Description Specimen A: Received is one formalin filled container labeled with the patient's name and designated right medial calf anterior lesion. The specimen consists of a shave biopsy measuring 5o6e6xw. Jar 0. Specimen B: Received is one formalin filled container labeled with the patient's name and designated right medial calf posterior lesion. The specimen consists of a shave biopsy measuring 0y2r8xm. Jar 0. 4:59 PM [facility] DERMAT[facility] LABORATORY Microscopic Description Specimen A. SKIN, right medial calf anterior lesion: There are nests of melanocytes at the dermal-epidermal junction and within the dermis. The intraepidermal component shows focal bridging, and is composed of occasional larger melanocytes with dusky cytoplasm and small nucleoli. Superficial dermal fibrosis and mild perivascular lymphoid infiltrate are present. By immunohistochemistr y, Hiller-1 highlights the intraepidermal and dermal components of [...] lymphoid infiltrate are present. By immunohistochemistr y, Hiller-1 highlights the intraepidermal melanocytic proliferation without revealing a dermal component. HMB-45 is positive within the intraepidermal melanocytic proliferation. 4:59 PM [facility] DER[facility] LAB[facility]ATORY Disclaimer An external and internal positive and negative controls are appropriate for the histochemical, immunohistochemical and immunofluorescence stain(s) in this case (if any), except where stated explicitly. The performance characteristics of the stain(s) cited in this report were developed and its performance characteristic determined by the Dermatopathology Laboratory at [facility], directed by Dr. Gaurav Leonard. These tests need not be, and therefore are not, approved by the [place] Food and Drug Administration. The tests are used for clinical purposes. Billing Codes Specimen Charges Stain Charges 80618 45751 1 1 62080 28720 52084 46714 1 1 1 1 9 4:59 PM GRINDER GEAR DERMATOPATHOLOGY LABORATORY Embedded Images 9 4:59 PM GRINDER GEAR DERMATOPATHOLOGY LABORATORY Pathology/Cytology TISSUE SPECIMEN FROM SKIN / Unknown 08/31/2019 09/01/2019 1:56 PM GRINDER GEAR Miscellaneous samples (specimen) TISSUE SPECIMEN FROM SKIN / Unknown 08/31/2019 09/01/2019 1:56 PM GRINDER GEAR Leland Olivas MD LAB - PATHOLOGY/CYTOLOGY ORD ERABLES Final Result DERMATOPATHOLOGY LABORATORY [facility] - Department of Dermatology [address] [place] [address], 5th Floor Lab [address] [phone] documented in this encounter Visit Diagnoses Not on filedocumented in this encounter Care Teams Applications Development Consultant Relationship Specialty Start Date End Date Juan Rinaldi MD [address] [facility] [place] [address] PCP - General 09/15/18 documented as of this encounter
--- OUTSIDE RECORDS SUMMARY | 2025-08-08 14:47 | XMS_ITS | Encounter Summary ---
Author Organization [facility] Address [address] [place] [address] Care Team Providers Care Offset Press Operator Helper Name Role Phone Luisa Jerry MD Primary Care Provider [phone] Michelle Gutierrez MD Primary Care Provider [phone] Encounter Details Date Type Department Care Team (Late st Contact Info) Description 01/02/2025 Orders Only [facility] Health Information Management [address] [place] [address] Scanning, Provider Social History Tobacco Use Types Packs/Day Years Used Date Smoking Tobacco: Never Smokeless Tobacco: Never Alcohol Use Standard Drinks/Week Comments No 0 (1 standard drink = 0.6 oz pur e alcohol) Comments Unknown Sex and Gender Information Value Date Recorded Sex Assigned at Not on file Legal Sex Female 3:31 AM FURNITURE DETAILER Gender Identity Not on file Sexual Orientation [...] on filedocumented in this encounter Care Teams Offset Press Operator Helper Relationship Specialty Start Date End Date Luisa Jerry MD PCP - General Family Practice 05/03/19 01/25/25 Michelle Gutierrez MD PCP - General Family Medicine 01/26/25 documented as of this encounter
--- OUTSIDE RECORDS SUMMARY | 2025-08-08 14:47 | XMS_ITS | Encounter Summary ---
Author Organization [facility] Address [address] [place] [place] [address] Care Team Providers Care Attendant Coin Operated Laundry Name Role Phone Juan Rinaldi MD Primary Care Provider [phone] Encounter Details Date Type Department Care Team (Late st Contact Info) Description 10/25/2020 Lab Requisition [facility] DermPath Lab [address] [facility], [place] [address] Leland Olivas MD [address] [place] [address] Social History Tobacco Use Types Packs/Day Years Used Date Smoking Tobacco: Never Assessed Comments Unknown Sex and Gender Information Value Date Recorded Sex Assigned at Not on file Legal Sex Female 5:51 AM AVIATION ELECTRICAL TECHNICIAN Gender Identity Not on file Sexual Orientation Not on file documented as of this encounter Plan of Treatment Not on file documented as of this encounter Procedures Procedure Name Priority Date/Time Associated Diagnosis Comments DERMATOPATHOLOGY Routine 10/24/2020 12:0 0 AM AVIATION ELECTRICAL TECHNICIAN documented in this encounter Results * DERMATOPATHOLOGY (10/24/2020 12:00 AM AVIATION ELECTRICAL TECHNICIAN) Case Report Dermatopathology Report Case: [id number] Authorizing Provider: Leland Olivas MD Collected: 10/24/2020 12:00 AM Ordering Location: [facility] DermPath Lab Received: 10/25/2020 11:17 AM Pathologist: Esteban Leonard MD Specimens: A) - Skin, midline upper back B) - Skin, right distal lateral anterior thigh 1:02 PM AVIATION ELECTRICAL TECHNICIAN DERMATOPATHOLOGY LABORATORY Final Diagnosis Specimen A. SKIN, midline upper back: LENTIGINOUS MELANOCYTIC NEVUS, COMPOUND TYPE (COMPOUND MELANOCYTIC NEVUS WITH ARCHITECTURAL DISORDER) (D22.5) Specimen B. SKIN, right distal lateral anterior thigh: LENTIGINOUS MELANOCYTIC NEVUS, JUNCTIONAL TYPE, IRRITATED (JUNCTIONAL MELANOCYTIC NEVUS WITH ARCHITECTURAL DISORDER) (D22.71) NOT PRESENT AT SAMPLED MARGIN 1 1:02 PM [facility] DERMATOPATHOLOGY LABORATORY at [address] AVIATION ELECTRICAL TECHNICIAN Clinical History A: R/O dysplastic nevus B: R/O dysplastic nevus. Check margins 1 1:02 PM [facility] DERMATOPATHOLOGY LABORATORY Gross Description Specimen A: Received is one formalin filled container labeled with the patient's name and designated midline upper back. The specimen consists of a shave biopsy measuring 25g96u5 mm. Jar 0. Specimen B: Received is one formalin filled container labeled with the patients name and designated right distal lateral anterior thigh. The specimen consists of a shave removal measuring 9x6x1 mm, inked. Jar 0. 1 1:02 PM [facility] DERMATOPATHOLOGY LABORATORY [...] margin of the specimen. 1 1:02 PM [facility] DERMATOPATHOLOGY LABORATORY Disclaimer An external and internal positive and negative controls are appropriate for the histochemical, immunohistochemical and immunofluorescence stain(s) in this case (if any), except where stated explicitly. The performance characteristics of the stain(s) cited in this report were developed and its performance characteristic determined by the Dermatopathology Laboratory at [facility], directed by Dr. Gaurav Leonard. These tests need not be, and therefore are not, approved by the [place] Food and Drug Administration. The tests are used for clinical purposes. Billing Codes Specimen Charges Stain Charges 25073 83626 1 1 96891 1 1 1:02 PM AVIATION ELECTRICAL TECHNICIAN DERMATOPATHOLOGY LABORATORY Embedded Images 1 1:02 PM AVIATION ELECTRICAL TECHNICIAN DERMATOPATHOLOGY LABORATORY Pathology/Cytology TISSUE SPECIMEN FROM SKIN / Unknown 10/24/2020 10/25/2020 11:17 AM AVIATION ELECTRICAL TECHNICIAN Miscellaneous samples (specimen) TISSUE SPECIMEN FROM SKIN / Unknown 10/24/2020 10/25/2020 11:17 AM AVIATION ELECTRICAL TECHNICIAN Leland Olivas MD LAB - PATHOLOGY/CYTOLOGY ORD ERABLES Final Result DERMATOPATHOLOGY LABORATORY [facility] - Department of Dermatology [facility] Specialized Medicine [address] [place] [address], [address] [phone] documented in this encounter Visit Diagnoses Not on filedocumented in this encounter Care Teams Attendant Coin Operated Laundry Relationship Specialty Start Date End Date Juan Rinaldi MD [address] [place], [place] [id number] PCP - General 09/15/18 documented as of this encounter
--- OUTSIDE RECORDS SUMMARY | 2025-08-08 14:47 | XMS_ITS | Clinical Summary ---
Author Organization [facility] Address [address] [facility] [place] [address] Care Team Providers Care Cage Maker Machine Name Role Phone Juan Rinaldi MD Primary Care Provider [phone] [facility],non-owned Affiliates and Associated Physician Practices is amultiple site organization consisting of ambulatory clinics and hospital sitesin [place], [place], [place] and [place]. This disclosure is being madepursuant to the Care Everywhere program and may not contain all information available regarding this patient. Last updated 18.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 Case Report Dermatopathology Report Case: [id number] Authorizing Provider: Sharif Coto MD Collected: 06/13/2025 09:15 AM Ordering Location: [facility] - Received: 06/14/2025 02:05 [...] of a non-oriented ellipse of skin measuring 91d73x3 mm. The epidermal surface is unremarkable. The [...] characteristic determined by the Dermatopathology Laboratory at [facility], directed by Dr. Gaurav Leonard. These tests need not be, and therefore are not, approved by the [place] Food and Drug Administration. The tests are used for clinical purposes. Billing Codes Specimen Charges Stain Charges 46328 1 12:46 PM CDT DERMATOPATHOLOGY LABORATORY Embedded Images 12:46 PM CDT DERMATOPATHOLOGY LABORATORY Pathology/Cytolo gy TISSUE SPECIMEN FROM SKIN / Unknown 06/13/2025 9:15 AM CDT 06/14/2025 2:05 PM CDT us Sharif Coto MD LAB - PATHOLOGY/CYTOLOGY ORDERAB LES Final Result DERMATOPATHOLOGY LABORATORY [facility] - Department of Dermatology [address], [address] [phone] from Last 3 Months Insurance [employer] A[employer] SELF PAY NO INSURANCE Member Subscriber Plan / Payer (Ef fective for All Dates) Name:Radha Reich Member ID:Not on file Relation to Subscriber:Not on file Name:RADHA REICH Subscriber ID:Not on file (Home) Address: [address] [place] [address] Payer ID:Not on file Group ID:Not on file Type:Self Pay Address: [place], [place] Care Teams Cage Maker Machine Relationship Specialty Start Date End Date Juan Rinaldi MD [address] [place] [address] PCP - General 09/15/18
--- OUTSIDE RECORDS SUMMARY | 2025-08-08 14:47 | XMS_ITS | Encounter Summary ---
Author Organization [facility] Address [address] [place] [address] Care Team Providers Care It Infrastructure Specialist Name Role Phone Juan Rinaldi MD Primary Care Provider [phone] Encounter Details Date Type Department Care Team (Late st Contact Info) Description 04/28/2019 Lab Requisition [facility] Care DermPath Lab [address] [facility], [place] [address] Leland Olivas MD [address] [place] [address] Social History Tobacco Use Types Packs/Day Years Used Date Smoking Tobacco: Never Assessed Comments Unknown Sex and Gender Information Value Date Recorded Sex Assigned at Not on file 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 Jar 0. 5:20 PM T DERMATOPATHOLOGY [...] and fibrosis with scattered melanophages. 5:20 PM [facility] DERMATOPATHOLOGY LABORATORY Disclaimer An external and internal positive and negative controls are appropriate for the histochemical, immunohistochemical and immunofluorescence stain(s) in this case (if any), except where stated explicitly. The performance characteristics of the stain(s) cited in this report were developed and its performance characteristic determined by the Dermatopathology Laboratory at [facility], directed by Dr. Gaurav Leonard. These tests need not be, and therefore are not, approved by the [place] Food and Drug Administration. The tests are used for clinical purposes. Billing Codes Specimen Charges Stain Charges 09593 1 31068 1 5:20 PM CDT DERMATOPATHOLOGY LABORATORY Embedded [...] PATHOLOGY/CYTOLOGY ORD ERABLES Final Result DERMATOPATHOLOGY LABORATORY [facility] - Department of Dermatology [address] [facility], 5th Floor Lab [address] [phone] documented in this encounter Visit Diagnoses Not on filedocumented in this encounter Care Teams It Infrastructure Specialist Relationship Specialty Start Date End Date Juan Rinaldi MD [address] [place] [address] PCP - General 09/15/18 documented as of this encounter
--- OUTSIDE RECORDS SUMMARY | 2025-08-08 14:47 | XMS_ITS | Clinical Summary ---
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
--- OUTSIDE RECORDS SUMMARY | 2025-08-08 14:47 | XMS_ITS | Encounter Summary ---
Author Organization [facility] Address [address] [facility] [place] [address] Care Team Providers Care Boiler Room Operator Name Role Phone Juan Rinaldi MD Primary Care Provider [phone] Encounter Details Date Type Department Care Team (Late st Contact Info) Description 05/08/2023 Lab Requisition [facility] - DermPath Lab [address] [place] [address] Vero Mckeon PA [address] [place] [id number] Neoplasm of uncertain behavior of skin Social History Tobacco Use Types Packs/Day Years Used Date Smoking Tobacco: Never Assessed Comments Unknown Sex and Gender Information Value Date Recorded Sex Assigned at Not on file 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 Billing Codes Specimen Charges Stain Charges 76895 01541 1 1 56971 03299 1 1 3 12:34 PM CDT DERMATOPATHOLOGY LABORATORY Embedded Images 3 12:34 PM CDT DERMATOPATHOLOGY LABORATORY Pathology/Cytology TISSUE SPECIMEN FROM SKIN / Unknown 05/07/2023 05/13/2023 1:28 PM CDT Miscellaneous samples (specimen) TISSUE SPECIMEN FROM SKIN / Unknown 05/07/2023 05/13/2023 1:28 PM CDT Vero VINSON LAB - PATHOLOGY/CYTOLOGY OR DERABLES Final Result DERMATOPATHOLOGY LABORATORY [facility] - Department of Dermatology [facility] Specialized Medicine [address] [place] [address], [address] [phone] documented in this encounter Visit Diagnoses Diagnosis Neoplasm of uncertain behavior of skin documented in this encounter Care Teams Boiler Room Operator Relationship Specialty Start Date End Date Juan Rinaldi MD [address] [place] [address] PCP - General 09/15/18 documented as of this encounter
--- OUTSIDE RECORDS SUMMARY | 2025-08-08 14:47 | XMS_ITS | Encounter Summary ---
Author Organization [facility] Address [address] [place] [address] Care Team Providers Care Analytics Specialist Name Role Phone Luisa Jerry MD Primary Care Provider Michelle Gutierrez MD Primary Care Provider [phone] Encounter Details Date Type Department Care Team (Late st Contact Info) Description 01/04/2025 Orders Only [facility] Information Management [address] [place] [phone] Scanning, Provider Social History Tobacco Use Types Packs/Day Years Used Date Smoking Tobacco: Never Smokeless Tobacco: Never Alcohol Use Standard Drinks/Week Comments No 0 (1 standard drink = 0.6 oz pur e alcohol) Comments Unknown Sex and Gender Information Value Date Recorded Sex Assigned at Not on file 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
--- OUTSIDE RECORDS SUMMARY | 2025-08-08 14:47 | XMS_ITS | Encounter Summary ---
Author Organization [facility] Address [address] [place] [address] Care Team Providers Care Bar Attendant Name Role Phone Juan Rinaldi MD Primary Care Provider [phone] Encounter Details Date Type Department Care Team (Late st Contact Info) Description 05/24/2025 Lab Requisition [facility] - DermPath Lab [address] [place] [address] Dangelo Moses MD [facility] DERMATOLOGY [address] [place] [phone] Neoplasm of uncertain behavior of skin Social History Tobacco Use Types Packs/Day Years Used Date Smoking Tobacco: Never Assessed Comments Unknown Sex and Gender Information Value Date Recorded Sex Assigned at Not on file Legal Sex Female 5:51 AM RN PRODUCTION Gender Identity Not on file Sexual Orientation Not on file documented as of this encounter Plan of Treatment Not on file documented as of this encounter Procedures Procedure Name Priority Date/Time Associated Diagnosis Comments DERMATOPATHOLOGY Routine 05/23/2025 12:0 0 AM CDT Neoplasm of uncertain behavior of skin documented in this encounter Results * DERMATOPATHOLOGY (05/23/2025 12:00 AM CDT) Case Report Dermatopathology Report Case: [id number] Authorizing Provider: Dangelo oMses MD Collected: 05/23/2025 12:00 AM Ordering Location: [facility] Physician [facility] - Received: 05/25/2025 07:38 AM DermPath Lab Pathologist: Hilary Blount MD Specimens: A) - Skin, left lower forehead B) - Skin, right upper chest 10:27 AM T DERMATOPATHOLOGY LABORATORY Final Diagnosis Specimen A. SKIN, left lower forehead: BASAL CELL CARCINOMA, INFILTRATIVE PATTERN (C44.319) (see microscopic description) Specimen B. SKIN, right upper chest: BASAL CELL CARCINOMA, NODULAR TYPE (C44.519) 10:27 AM [facility] DERMATOPATHOLOGY LABORATORY at 1027 CDT Clinical History A-B: BCC 10:27 AM [facility] DERMATOPATHOLOGY LABORATORY Gross Description Specimen A: [...] measuring 6x5x1 mm. Jar 0. 10:27 AM [facility] DERMATOPATHOLOGY LABORATORY Microscopic Description Specimen A. [...] cytoplasmic ratio and peripheral palisading. 10:27 AM [facility] DERMATOPATHOLOGY LABORATORY Disclaimer An external and internal positive and negative controls are appropriate for the histochemical, immunohistochemical and immunofluorescence stain(s) in this case (if any), except where stated explicitly. The performance characteristics of the stain(s) cited in this report were developed and its performance characteristic determined by the Dermatopathology Laboratory at [facility], directed by Dr. Gaurav Leonard. These tests need not be, and therefore are not, approved by the [place] Food and Drug Administration. The tests are used for clinical purposes. Billing Codes Specimen Charges Stain Charges 28548 60703 1 1 73653 1 10:27 AM [facility] DERMATOPATHOLOGY LABORATORY Embedded Images 10:27 AM [facility] DERMATOPATHOLOGY LABORATORY Pathology/Cytology TISSUE SPECIMEN FROM SKIN / Unknown 05/23/2025 05/25/2025 7:38 AM CDT Miscellaneous samples (specimen) TISSUE SPECIMEN FROM SKIN / Unknown 05/23/2025 05/25/2025 7:38 AM CDT us Dangelo Moses MD LAB - PATHOLOGY/CYTOLOGY JONATHANE VICKIE Final Result DERMATOPATHOLOGY LABORATORY [facility] - Department of Dermatology [facility] Medicine [address] [place] [address], [address] [phone] documented in this encounter Visit Diagnoses Diagnosis Neoplasm of uncertain behavior of skin documented in this encounter Care Teams Bar Attendant Relationship Specialty Start Date End Date Juan Rinaldi MD [address] [place] [address] PCP - General 09/15/18 documented as of this encounter
--- OUTSIDE RECORDS SUMMARY | 2025-08-08 14:47 | XMS_ITS | Clinical Summary ---
Author Organization [facility] Address [address], [address] [address] Phone Care Team Providers Care Supervisor [place] Name Role Phone Luisa Doll MD Primary [...] Most Recently Relevant to Health Maintenance Insurance [employer] Care Teams Supervisor Grove Relationship Specialty Start Date End Date Luisa Doll MD [address] [place] [phone] PCP - General Family Medicine 12/20/18
--- OUTSIDE RECORDS SUMMARY | 2025-08-08 14:47 | XMS_ITS | Encounter Summary ---
Author Organization [facility] Address [address] [facility] [place] [address] Care Team Providers Care General Accounting Clerk Name Role Phone Juan Rinaldi MD Primary Care Provider [phone] Encounter Details Date Type Department Care Team (Late st Contact Info) Description 09/15/[address] 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 Gender Identity Not on file Sexual Orientation Not on file documented as of this encounter Plan of Treatment Not on file documented as of this encounter Procedures Procedure Name Priority Date/Time Associated Diagnosis Comments DERMATOPATHOLOGY Routine 09/14/2018 12:0 0 AM QUILL PICKING MACHINE OPERATOR documented in this encounter Results * DERMATOPATHOLOGY (09/14/2018 12:00 AM QUILL PICKING MACHINE OPERATOR) Case Report Dermatopathology Report Case: [id number] Authorizing Provider: Leland Olivas MD Collected: 09/14/2018 12:00 AM Pathologist: Esteban Leonard MD Received: 09/15/2018 11:31 AM Specimens: A) - Skin, right deltoid B) - Skin, right proximal extensor forearm C) - Skin, RUQ abd on sup border of scar D) - Skin, right zygoma 8 5:23 PM QUILL PICKING MACHINE OPERATOR DERMATOPATHOLOGY LABORATORY Final Diagnosis Specimen [...] (D22.39) CHRONIC PERIFOLLICULITIS (L73.8) 8 5:23 PM [facility] DERMATOPATHOLOGY LABORATORY at 1723 QUILL PICKING MACHINE OPERATOR Clinical History A-D: R/O Dys nevus 8 5:23 PM [facility] DERMATOPATHOLOGY LABORATORY Gross Description Specimen A: [...] 5x5x1 mm. Jar 0. 8 5:23 PM [facility] DERMATOPATHOLOGY LABORATORY Microscopic Description Specimen A. [...] a perifollicular lymphohistiocytic infiltrate. 8 5:23 PM [facility] DERMATOPATHOLOGY LABORATORY Disclaimer An external and internal positive and negative controls are appropriate for the histochemical, immunohistochemical and immunofluorescence stain(s) in this case (if any), except where stated explicitly. The performance characteristics of the stain(s) cited in this report were developed and its performance characteristic determined by the Dermatopathology Laboratory at [facility]. These tests need not be, and therefore are not, approved by the [place] Food and Drug Administration. The tests are used for clinical purposes. Billing Codes Specimen Charges Stain Charges 05933 69374 96315 65098 1 1 1 1 8 5:23 PM QUILL PICKING MACHINE OPERATOR DERMATOPATHOLOGY LABORATORY Embedded Images 8 5:23 PM [facility] DERMATOPATHOLOGY LABORATORY Pathology/Cytology TISSUE SPECIMEN FROM SKIN / Unknown 09/14/2018 09/15/2018 11:31 AM QUILL PICKING MACHINE OPERATOR Miscellaneous samples (specimen) TISSUE SPECIMEN FROM SKIN / Unknown 09/14/2018 09/15/2018 11:31 AM QUILL PICKING MACHINE OPERATOR Miscellaneous samples (specimen) TISSUE SPECIMEN FROM SKIN / Unknown 09/14/2018 09/15/2018 11:31 AM QUILL PICKING MACHINE OPERATOR Miscellaneous samples (specimen) TISSUE SPECIMEN FROM SKIN / Unknown 09/14/2018 09/15/2018 11:31 AM QUILL PICKING MACHINE OPERATOR us Leland Olivas MD LAB - PATHOLOGY/CYTOLOGY ORD ERABLES Final Result DERMATOPATHOLOGY LABORATORY [facility] - Department of Dermatology [address] [facility], 5th Floor Lab [address] [phone] documented in this encounter Visit Diagnoses Not on filedocumented in this encounter Care Teams General Accounting Clerk Relationship Specialty Start Date End Date Juan Rinadli MD [address] [place] [address] PCP - General 09/15/18 documented as of this encounter
--- NOTE | 2025-08-08 14:54 | ED.GENADULT ---
HPI - General Adult General Chief complaint: Recheck/Abnormal Lab/Rx Stated complaint: elevated Bp Time Seen by Provider: 08/08/25 11:39 History of Present Illness HPI narrative: This is a 59-year-old female presenting ED with chief complaint presyncope. Patient has been suffering from a head cold for last several days. She woke up this morning and took some Tylenol before work. When she was walking into work she developed chest heaviness, felt very hot and flushed and became diaphoretic. She sat down thinking that something was wrong. She then checked her blood pressure was elevated. She then came to the hospital for evaluation. Related Data Home Medications ?Medication ?Instructions ?Recorded ?Confirmed ?Last Taken ?Type azelaic acid 15 % topical gel 1 applic topical HS 10/26/24 06/14/25 01/02/25 History cholecalciferol (vitamin D3) 25 25 mcg PO DAILY 10/26/24 06/14/25 03/09/25 History mcg (1,000 unit) capsule loratadine 10 mg tablet (Claritin) 10 mg PO DAILY 10/26/24 06/14/25 03/09/25 History multivitamin (Daily Multi-Vitamin 1 tablet PO DAILY 10/26/24 06/14/25 03/09/25 History tablet) Allergies Allergy/AdvReac Type Severity Reaction Status Date / Time morphine Allergy Mild Vomiting Verified 08/08/25 11:23 nitroglycerin Allergy Unknown Other Verified 08/08/25 11:23 PMFSH Past Medical History Medical History Morbid obesity with BMI of 40.0-44.9, adult Rosacea Melanoma (~05/2019) Torn rotator cuff Breast lump 05-31-2018 left breast lump, US done Benign subcutaneous cyst Viral labyrinthitis syndrome Hx of adenomatous colonic polyps Hypertension Surgical History Surgical History H/O basal cell carcinoma excision (~06/13/25) S/P skin cancer resection (~05/2019) Removed from between her breast. H/O rotator cuff surgery (~12/23/23) History of orthopedic surgery (08/13/20) joint replacement right foot History of hysterectomy, supracervical abdominal (subtotal) 03/19/05 enlarged uterus/menometrorrhagia/dsymenorrhea/extensive adhesiolysis, adenomyosis History of bunionectomy Hx of section x3 Hx of cholecystectomy 2003 Hx of appendectomy age 12 Family History Family History Mother Family history of thyroid disease Diabetes mellitus Hypertension Family history of transient ischemic attacks Family history of cardiovascular disease Family history of Alzheimer's disease Heart disease Father Hypertension Carcinoma of colon Family history of emphysema Intracranial aneurysm Sibling Heart disease brother Social History Social History Social History: Code status: Full code Surrogate decision maker: Eduardo () Smoking status: Never smoker Second hand tobacco smoke exposure: No Alcohol intake: never Substance use: never Substance use type: does not use Do You Feel Safe in your Home?: Yes Lack of Transportation: No Lack of Food: Never True Current Housing: I Have Housing Concerned About Future Housing: No Difficulty Paying Gas/Electric Bills: No Difficulty Paying for Meds: No Currently Unemployed: No Education: Trade/Vocational Certificate Difficulty w/ Childcare or Family Care: No Living arrangements: other Additional living arrangements comments: Occupation/Education: occupation 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 Gender identity (if verbalized by the patient): Female Sexual Orientation (if Verbalized by the Patient): Straight or Heterosexual Spiritual care concerns: No Agree to blood products: Yes Exam Narrative: APPEARANCE: No apparent distress. Head: atraumatic. TMs are normal bilaterally EYES: EOMI, NOSE: Atraumatic NECK: Trachea midline RESPIRATORY: No increased rate of breathing clear to auscultation CARDIOVASCULAR: RRR, +1 edema lower extremities ABDOMINAL: Non-distended soft nontender MUSCULOSKELETAl: No obvious deformities NEURO: Alert. Cranial nerves 2-12 grossly intact. Sensation light touch, motor function cerebellar function intact for 4 extremities. Gait exam was normal. SKIN:: Warm, dry. Normal color PSYCHIATRIC: Normal affect Course Vital Signs Vital signs: Vital Signs Temperature 97.3 F L 08/08/25 11:16 Pulse Rate 82 08/08/25 11:16 Respiratory Rate 20 08/08/25 11:16 Blood Pressure 192/112 H 08/08/25 11:16 Pulse Oximetry 100 08/08/25 11:16 Oxygen Delivery Room Air 08/08/25 11:16 Temperature 97.3 F L 08/08/25 11:16 Pulse Rate 73 08/08/25 13:35 Respiratory Rate 18 08/08/25 13:35 Blood Pressure 138/86 08/08/25 13:35 Pulse Oximetry 97 08/08/25 13:35 Oxygen Delivery Room Air 08/08/25 11:16 Medical Decision Making MDM Narrative Medical decision making narrative: -Course: This is a 59-year-old female with history of intermittent blood pressure spikes presenting with an episode of presyncope and chest heaviness while at work. Blood pressures are initially elevated at arrival but improved without intervention. Review of the EMR shows 2 visits for similar presentation in the past with an inconclusive workup. Initial troponin was undetectable but up trended to 0.080. EKG showed normal sinus rhythm. Patient is positive for COVID. Chest x-ray, CT brain and the rest laboratory studies within normal limits. Then re-evaluation patient is still says she has mild chest heaviness. She has received nitroglycerin in the past for elevated blood pressures with a extreme reaction requiring immediate fluid resuscitation so we will forgo nitro today. She also has vomiting when she receives morphine. She will get oxygen and dilaudid for pain. Differential diagnosis for etiology for elevated troponins includes viral myocarditis, hypertensive emergency, cardiac dysrhythmia, ACS. Patient will be admitted the hospital for Cardiology evaluation. -Co-morbidities complicating care: Hypertension -External Chart Review: Review of previous admissions for similar presentation -Independent interpretation of studies: Independent EKG interpretation: Rhythm [sinus], Rate [75], [place] -[normal], [place] -[normal], QRS [narrow], QTC [normal], T waves -[negative for concerning inversions], ST Segments - [Negative for concerning elevations] Final interpretations: [Normal Sinus Rhythm] Labs and imaging reviewed Vital Signs Vital Signs: Vital Signs Temperature 97.3 F L 08/08/25 11:16 Pulse Rate 82 08/08/25 11:16 Respiratory Rate 20 08/08/25 11:16 Blood Pressure 192/112 H 08/08/25 11:16 Pulse Oximetry 100 08/08/25 11:16 Oxygen Delivery Room Air 08/08/25 11:16 Temperature 97.3 F L 08/08/25 11:16 Pulse Rate 73 08/08/25 13:35 Respiratory Rate 18 08/08/25 13:35 Blood Pressure 138/86 08/08/25 13:35 Pulse Oximetry 97 08/08/25 13:35 Oxygen Delivery Room Air 08/08/25 11:16 Lab Data 08/08/25 11:47 08/08/25 11:47 Labs: Lab Results 08/08/25 08/08/25 08/08/25 Range/Units 11:40 11:45 11:47 WBC 7.9 (4.5-10.0) K/mm3 RBC 4.79 (4.2-5.4) M/mm3 Hgb 14.6 (12.0-15.0) g/dL Hct 44.7 (37.0-47.0) % MCV 93.3 (80-100) fl MCH 30.5 (26-34) pg MCHC 32.7 (32-36) g/dl RDW 12.4 (11.5-14.5) % Plt Count 240 (150-375) k/mm3 MPV 9.4 (7.4-10.4) fl Immature Gran % (Auto) 0.4 (0-0.5) % Neut % (Auto) 71.5 (45.5-73.1) % Lymph % (Auto) 22.3 (18.3-44.2) % [place] % (Auto) 5.2 (2.6-8.5) % Eos % (Auto) 0.3 (0-4.4) % Baso % (Auto) 0.3 (0.2-1.2) % Lymph # (Auto) 1.75 (0.9-3.2) K/mm3 [place] # (Auto) 0.4 (0.1-0.6) K/mm3 Eos # (Auto) 0.0 (0-0.3) K/mm3 Baso # (Auto) 0.0 (0.0-0.1) K/mm3 Abs Immat Gran (auto) 0.03 (0.00-0.031) K/mm3 Absolute Neuts (auto) 5.6 (1.3-6.7) K/mm3 Absolute Nucleated RBC 0.000 (0.0-0.012) K/mm3 Nucleated RBC % 0.0 (0.0-0.2) % Sodium 135 L (137-145) mmol/L Potassium 3.7 (3.4-5.0) mmol/L Chloride 102 (98-107) mmol/L Carbon Dioxide 23 (22-30) mmol/L Anion Gap 10 (4-12) mmol/L BUN 10 (7-17) mg/dL Creatinine 0.57 L (0.7-1.0) mg/dL Estim Creat Clear Calc 103 ml/min Estimated GFR > 60 (59 - ) Glucose 104 (65-110) mg/dL Calcium 9.2 (8.4-10.2) mg/dL Total Bilirubin 0.5 (0.2-1.3) mg/dL AST 47 H (14-36) U/L ALT 49 H (6-35) U/L Alkaline Phosphatase 125 (38-126) U/L Troponin I < 0.012 (0.000-0.034) ng/mL Total Protein 8.6 H (6.3-8.2) g/dL Albumin 4.6 (3.5-5.1) g/dL Urine Color Yellow (Yellow) Urine Appearance Clear (Clear) Urine pH 7.5 (5.0-9.0) Ur Specific [place] 1.004 (1.001-1.035) Urine Protein Negative (Negative) mg/dL Urine Glucose (UA) Negative (Negative) mg/dL Urine Ketones Negative (Negative) mg/dL Ur Blood (Man) Negative (Negative) Urine Nitrate Negative (Negative) Urine Bilirubin Negative (Negative) Urine Urobilinogen 0.2 (<2.0) mg/dL Leukocyte Esterase Rfl Negative (Negative) ANTWON/UL POC Urine HCG, Qual Negative (Negative) Influenza A (RT-PCR) (Negative) Influenza B (RT-PCR) (Negative) RSV (RT-PCR) (Negative) SARS-CoV-2 RNA (RT-PCR) (Negative) 08/08/25 08/08/25 Range/Units 12:32 14:34 WBC (4.5-10.0) K/mm3 RBC (4.2-5.4) M/mm3 Hgb (12.0-15.0) g/dL Hct (37.0-47.0) % MCV (80-100) fl MCH (26-34) pg MCHC (32-36) g/dl RDW (11.5-14.5) % Plt Count (150-375) k/mm3 MPV (7.4-10.4) fl Immature Gran % (Auto) (0-0.5) % Neut % (Auto) (45.5-73.1) % Lymph % (Auto) (18.3-44.2) % [place] % (Auto) (2.6-8.5) % Eos % (Auto) (0-4.4) % Baso % (Auto) (0.2-1.2) % Lymph # (Auto) (0.9-3.2) K/mm3 [place] # (Auto) (0.1-0.6) K/mm3 Eos # (Auto) (0-0.3) K/mm3 Baso # (Auto) (0.0-0.1) K/mm3 Abs Immat Gran (auto) (0.00-0.031) K/mm3 Absolute Neuts (auto) (1.3-6.7) K/mm3 Absolute Nucleated RBC (0.0-0.012) K/mm3 Nucleated RBC % (0.0-0.2) % Sodium (137-145) mmol/L Potassium (3.4-5.0) mmol/L Chloride (98-107) mmol/L Carbon Dioxide (22-30) mmol/L Anion Gap (4-12) mmol/L BUN (7-17) mg/dL Creatinine (0.7-1.0) mg/dL Estim Creat Clear Calc ml/min Estimated GFR (59 - ) Glucose (65-110) mg/dL Calcium (8.4-10.2) mg/dL Total Bilirubin (0.2-1.3) mg/dL AST (14-36) U/L ALT (6-35) U/L Alkaline Phosphatase (38-126) U/L Troponin I 0.080 H* D (0.000-0.034) ng/mL Total Protein (6.3-8.2) g/dL Albumin (3.5-5.1) g/dL Urine Color (Yellow) Urine Appearance (Clear) Urine pH (5.0-9.0) Ur Specific [place] (1.001-1.035) Urine Protein (Negative) mg/dL Urine Glucose (UA) (Negative) mg/dL Urine Ketones (Negative) mg/dL Ur Blood (Man) (Negative) Urine Nitrate (Negative) Urine Bilirubin (Negative) Urine Urobilinogen (<2.0) mg/dL Leukocyte Esterase Rfl (Negative) ANTWON/UL POC Urine HCG, Qual (Negative) Influenza A (RT-PCR) Negative (Negative) Influenza B (RT-PCR) Negative (Negative) RSV (RT-PCR) Negative (Negative) SARS-CoV-2 RNA (RT-PCR) Positive A (Negative) Discharge Plan Discharge Clinical Impression: Pre-syncope, Hypertension, COVID, Chest pain, Elevated troponin Patient Disposition: Still a Patient Condition: Stable Instructions: Near Syncope (ED), COVID-19 (Coronavirus Disease 2019) (ED) Patient Language: Welsh Prescriptions: No Action azelaic acid 15 % gel 1 applic TOPICAL HS cholecalciferol (vitamin D3) 25 mcg (1,000 unit) capsule 25 mcg PO DAILY multivitamin [Daily Multi-Vitamin] Tablet 1 tablet PO DAILY loratadine [Claritin] 10 mg tablet 10 mg PO DAILY losartan 50 mg tablet 50 mg PO BID Qty: 180 1RF estradiol 0.5 mg tablet 0.5 mg PO DAILY Qty: 90 3RF spironolactone 25 mg tablet See Rx Instructions .ROUTE .COMPLEX Qty: 30 2RF Dose Instruction: TAKE 1 TABLET BY MOUTH EVERY DAY IN THE MORNING Rx Instructions: TAKE 1 TABLET BY MOUTH EVERY DAY IN THE MORNING Follow-up/Referrals: Michelle Gutierrez MD [Primary Care Provider, Family Practice] - 1 Week Referral Note: Labile BPs
[2025-08-08 15:06] LABS: Troponin I 0.080 ng/mL (0.000-0.034)
[2025-08-08] MEDS: ONDANSETRON INJ 4 MG/2 ML VIAL IV PUSH (16:03)
[2025-08-08] MEDS: HYDROmorphone HCL INJ (*CRX) 1 MG/ML SYR 0.5 MG IV PUSH (16:04)
[2025-08-08 16:36] LABS: INR 0.9; Prothrombin Time 12.5 Seconds (11.1-14.7)
[2025-08-08 16:37] LABS: Partial Thromboplastin Time 27.0 Seconds (22.3-36.8)
[2025-08-08] MEDS: HEPARIN SOD/D5W 100 UNITS/ML 25,000 UNITS/250 ML BAG 9 UNITS IV CONT (16:43)
--- NOTE | 2025-08-08 16:59 | PM.IMHP ---
H&P: HPI History of Present Illness Date/Time: 08/08/25 16:59 Chief Complaint: Lightheadedness Narrative: 59 y/o F with PMH of melanoma and hypertension presents here with lightheadedness. The patient presents here from home on 08/08 for further evaluation of lightheadedness. She reports she woke up this morning feeling lightheaded and dizzy. Then while walking into work at [employer] she developed chest heaviness. She described the discomfort as a heaviness, off to the left, constant, and has not full resolved but peal intensity lasted for 10 minutes. Accompanied by a sensation as if she was off balance like when you have an ear infection/fullness, hot/flushed sensation, diaphoresis, or full body heaviness like someone was pushing her to the ground. This prompted her to call her to come get her from work. Upon arrival back home she checked her blood pressure which showed a systolic in the 190s-200s/130s. She reports she did take Mucinex-D today as she has been experiencing congestion symptoms for the past week. She does report they were around a family member over the weekend who tested positive for COVID on Thursday/Thursday. She has a history of hypertension, currently on losartan b.i.d. and spironolactone daily. She reports compliance with these medications. Initial VS at presentation: 97.3? F, HR 82, R 20, 192/112, and 100% on RA. ED workup showed: No leukocytosis, no anemia, normal coags, no significant electrolyte derangements, creatinine 0.57 and GFR >60, initial troponin negative (repeat 0.080), UA unremarkable, and viral PCR positive for COVID. Head CT showed mild scattered white matter hypoattenuation consistent with chronic small-vessel ischemic disease, no acute intracranial process, mucosal thickening in the bilateral ethmoid sinuses with dependently layering fluid/mucus in the left maxillary sinus consistent with acute sinusitis. Initial EKG showed sinus rhythm, rate 87, borderline ST a-T-wave abnormality inferior/lateral leads. Review of Systems Review of Systems: All systems reviewed & are unremarkable except as noted in HPI and below PMFSH Past Medical History Medical History Morbid obesity with BMI of 40.0-44.9, adult Rosacea Melanoma (~05/2019) between breasts Torn rotator cuff Breast lump 05-31-2018 left breast lump, US done Benign subcutaneous cyst Viral labyrinthitis syndrome Hx of adenomatous colonic polyps Hypertension Surgical History Surgical History H/O basal cell carcinoma excision (~06/13/25) S/P skin cancer resection (~05/2019) Removed from between her breast. H/O rotator cuff surgery (~12/23/23) History of orthopedic surgery (08/13/20) joint replacement right foot History of hysterectomy, supracervical abdominal (subtotal) 03/19/05 enlarged uterus/menometrorrhagia/dsymenorrhea/extensive adhesiolysis, adenomyosis History of bunionectomy Hx of section x3 Hx of cholecystectomy 2003 Hx of appendectomy age 12 Family History Family History Mother Family history of thyroid disease Diabetes mellitus Hypertension Family history of transient ischemic attacks Family history of cardiovascular disease Family history of Alzheimer's disease Heart disease Father Hypertension Carcinoma of colon Family history of emphysema Intracranial aneurysm Sibling Heart disease brother Social History Social History Social History: Code status: Full code Surrogate decision maker: Eduardo () Smoking status: Never smoker Second hand tobacco smoke exposure: No Alcohol intake: never Substance use: never Substance use type: does not use Do You Feel Safe in your Home?: Yes Lack of Transportation: No Lack of Food: Never True Current Housing: I Have Housing Concerned About Future Housing: No Difficulty Paying Gas/Electric Bills: No Difficulty Paying for Meds: No Currently Unemployed: No Education: Trade/Vocational Certificate Difficulty w/ Childcare or Family Care: No Living arrangements: other Additional living arrangements comments: Occupation/Education: occupation 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 Gender identity (if verbalized by the patient): Female Sexual Orientation (if Verbalized by the Patient): Straight or Heterosexual Spiritual care concerns: No Agree to blood products: Yes Meds Home Medications and Allergies Home Medications ?Medication ?Instructions ?Recorded ?Confirmed ?Type cholecalciferol (vitamin D3) 25 25 mcg PO DAILY 10/26/24 08/08/25 History mcg (1,000 unit) capsule loratadine 10 mg tablet (Claritin) 10 mg PO DAILY 10/26/24 08/08/25 History multivitamin (Daily Multi-Vitamin 1 tablet PO DAILY 10/26/24 08/08/25 History tablet) losartan 50 mg tablet 50 mg PO BID #180 tabs 03/16/25 08/08/25 Rx estradiol 0.5 mg tablet 0.5 mg PO DAILY #90 tabs 06/05/25 08/08/25 Rx spironolactone 25 mg tablet See Rx Instructions .Route 07/29/25 08/08/25 Rx .COMPLEX #30 tabs Allergies Allergy/AdvReac Type Severity Reaction Status Date / Time morphine Allergy Mild Vomiting Verified 08/08/25 11:23 nitroglycerin Allergy Unknown Other Verified 08/08/25 11:23 Vital Signs Vital Signs - 24 hr 08/08/25 11:16 08/08/25 11:27 08/08/25 12:14 Temperature 97.3 F L Pulse Rate 82 95 18 L Respiratory Rate 20 19 16 Blood Pressure 192/112 H 200/110 H 179/98 H Pulse Oximetry 100 100 100 Oxygen Delivery Room Air 08/08/25 13:35 08/08/25 16:10 Temperature Pulse Rate 73 87 Respiratory Rate 18 15 Blood Pressure 138/86 154/91 H Pulse Oximetry 97 96 Oxygen Delivery Exam Const: General: comfortable and no acute distress Other: , female, nontoxic appearance HENMT: Face/Nose/Sinus: Normal nares present Mouth: Yes moist mucous membranes Eyes: General: appearance normal, both eyes and all related structures Sclera: sclerae normal Pupils: Equal, round and reactive pupils present EOM: EOMs intact bilaterally Resp: Effort & Inspection: normal respiratory effort Auscultation: clear to auscultation bilaterally Cardio: Rate: regular rate Rhythm: regular rhythm Other: S1-S2 present without murmur, rub, ectopy GI: Other: Abdomen soft, nondistended, nontender. Normoactive bowel sounds in all quadrants. Skin: General skin exam: normal color and no rashes or lesions noted Wounds: no wounds Neuro: Speech: normal speech Motor exam (neuro): 5/5 motor strength present throughout Sensory Exam: normal sensation Other: A&O x4 Extrem: General: normal to inspection Psych: Mental Status: mental status grossly normal Affect: normal affect Other: Good insight and judgment, pleasant H&P: Results Labs Labs: Short CBC 08/08/25 Range/Units 11:47 WBC 7.9 (4.5-10.0) K/mm3 Hgb 14.6 (12.0-15.0) g/dL Hct 44.7 (37.0-47.0) % Plt Count 240 (150-375) k/mm3 BMP 08/08/25 11:47 Sodium 135 L Potassium 3.7 Chloride 102 Carbon Dioxide 23 BUN 10 Creatinine 0.57 L Glucose 104 Calcium 9.2 Cardiac Enzymes 08/08/25 08/08/25 Range/Units 11:47 14:34 Troponin I < 0.012 0.080 H* D (0.000-0.034) ng/mL Liver Function 08/08/25 Range/Units 11:47 Total Bilirubin 0.5 (0.2-1.3) mg/dL AST 47 H (14-36) U/L ALT 49 H (6-35) U/L Alkaline Phosphatase 125 (38-126) U/L Albumin 4.6 (3.5-5.1) g/dL Urine 08/08/25 Range/Units 11:40 Urine Color Yellow (Yellow) Urine Appearance Clear (Clear) Urine pH 7.5 (5.0-9.0) Ur Specific [place] 1.004 (1.001-1.035) Urine Protein Negative (Negative) mg/dL Urine Glucose (UA) Negative (Negative) mg/dL Assessment and Plan Assessment and plan (1) Elevated troponin: Code(s): R79.89 - Other specified abnormal findings of blood chemistry Status: Acute Assessment and Plan: Initially developed lightheadedness/dizziness this morning. Later developed chest discomfort she described as a heaviness. Blood pressure check at home showed a systolic in the 190s to 200s. Initial blood pressure upon arrival 192/112. Currently on losartan and spironolactone daily for her blood pressure, reports compliance. Has been taking Mucinex D as she has been experiencing cold-like symptoms, did test positive for COVID today on 08/08. Reviewed EKGs, no significant ST depressions or elevations. Differential includes coronary artery disease/NSTEMI verses type 2 secondary to hypertensive urgency/COVID. - troponin: <0.012 -> 0.080, -> 0.177 - noted to have allergy to nitroglycerin - cardiology consulted - reviewed chart, no previous cardiac catheterization or stress test on file - started on a heparin gtt on 08/08 - check lipid panel - NPO at midnight in case of need for LHC/stress test (2) COVID: Code(s): U07.1 - COVID-19 Status: Acute Assessment and Plan: - did not meet SIRS criteria - symptom onset: has had congestion over the past week, however was exposed over the weekend by a family member who tested positive yesterday/Thursday - tested positive for COVID on: 08/08 - CXR: No acute cardiopulmonary abnormality. - Remdesivir 200 mg IVPB x1 then 100 mg x4 for 5 total doses. - no hypoxia noted during eval in the ED - supportive care: Tylenol p.r.n., Tessalon Perles p.r.n., Mucinex john - monitor VS/O2 (3) Hypertension: Qualifiers: Hypertension type: essential hypertension Qualified Code(s): I10 - Essential (primary) hypertension Code(s): I10 - Essential (primary) hypertension Status: Acute Assessment and Plan: - chronic. Initially hypertensive at 182/112 bite improved to 138/86 about medical intervention. - continue home medications: Losartan and spironolactone - hydralazine p.r.n. for BP greater than 180/90 - monitor Plan Diet: Heart healthy, NPO midnight GI Prophylaxis: N/a DVT Prophylaxis: Heparin gtt IV fluids: none Lines/Tubes: pIV Code Status: full code Quality VTE Prophylaxis VTE prophylaxis: pharmacologic ordered Hospitalist MIPS Advance Care Plan I have confirmed that the patient's Advanced Care Plan is present, code status is documented, or surrogate decision maker is listed in patient medical record.: Yes Medication Reconciliation I have utilized all available resources to obtain, update and review the patients current medications (includes all prescriptions, OTC, herbals, cannabis, and nutritional supplements).: Yes
--- NOTE | 2025-08-08 17:24 | ECG_ITS ---
Test Date: 2025-08-08 17:36:28 Measurements Intervals [place] Rate: 70 P: 58 [place]: 156 QRS: 54 QRSD: 92 T: 41 QT: 389 QTc: 422 Interpretive Statements SINUS RHYTHM BASELINE ARTIFACT- I, II, III, AVR, AVL NORMAL ECG Compared to ECG 08/08/2025 14:32:34 No significant changes Electronically Signed On 08-09-2025 09:15:25 CDT by Hudson Montoya D.O.
[2025-08-08 18:09] LABS: Troponin I 0.177 ng/mL (0.000-0.034)
[2025-08-08] MEDS: REMDESIVIR 200 MG/NS 250 ML 200 MG/250 ML BAG 250 MG IVPB (18:28)
--- NOTE | 2025-08-08 19:05 | PC.NURSE ---
Attempted to call Edith and she states You are going to have to call back, we are in night report right now and states she has not looked the patient up yet. tourist adviser aware.
[2025-08-08] MEDS: guaiFENesin 12 HR 600 MG TABCR PO (22:18)
[2025-08-08] MEDS: LOSARTAN POTASSIUM 50 MG TABLET PO (22:18)
[2025-08-08 22:49] LABS: Partial Thromboplastin Time 43.4 Seconds (22.3-36.8)
--- NOTE | 2025-08-08 23:18 | ADMGEN ---
This patient, Radha Viera, was admitted to IMU Room 202-. Patient/family oriented to hospital policies and general routines including ID bracelet, bed and alarms, visiting hours, pain management, procedures, bathroom and other care routines, personal items, smoking policy, room service/diet, and visiting hours. Information on how to activate the Rapid Response Team has been discussed. Patient/Family are encouraged to report perceived risks to care and to ask questions if they do not understand what they are told or what they should do.
[2025-08-09] VITALS (14 sets, daily range): BP systolic 108–137; BP diastolic 63–76; PULSE 64–80; RESP 16–18; TEMP 36.4–36.9; O2SAT 94–97
--- NOTE | 2025-08-09 | ECHO_ITS ---
Patient Info Name: Radha Viera Age: 59 years : 1965 Gender: Female Ht: 62 in Wt: 215 lbs BSA: 2.12 m2 HR: 71 bpm BP: 134 / 76 mmHg Technical Quality: Good Exam Date: 08/09/2025 11:39 AM Patient Status: I Admit Date: 08/08/2025 Exam Type: CA echo doppler color flow Complete two-dimensional, color flow and Doppler transthoracic echocardiogram is performed. Staff Referring Physician: Juan Darling Pure Pak Machine Operator: Daren Camilo III Attending Provider: Gonzalo Urbina Summary 1. Complete two-dimensional, color flow and Doppler transthoracic echocardiogram is performed. 2. Left ventricular systolic function is normal, estimated at 55-60. 3. There is mildly increased left ventricular wall thickness. Left Ventricle Left ventricular chamber dimension is normal. Left ventricular systolic function is normal, estimated at 55-60. There is mildly increased left ventricular wall thickness. Left ventricular septal wall motion is normal. The left ventricular diastolic function is normal. Right Ventricle Right ventricular chamber dimension is normal. Right ventricular systolic function is normal. Left Atria Left atrial chamber dimension is normal. Right Atria Right atrial chamber dimension is normal. Aortic Valve The aortic valve is trileaflet. There is no aortic valve sclerosis. There is no aortic valve stenosis. There is no aortic valve regurgitation. Pulmonic Valve The pulmonic valve is normal. There is no pulmonic valve stenosis. There is no pulmonic regurgitation. Mitral Valve The mitral valve has normal leaflets. There is no mitral valve stenosis. There is trace mitral valve regurgitation. Tricuspid Valve The tricuspid valve leaflets are normal. There is no significant tricuspid valve stenosis. There is no tricuspid valve regurgitation. Pericardium/Pleural The pericardium appears normal. There is no pericardial effusion. Inferior Vena Cava Normal inferior vena cava with >50% collapse upon inspiration consistent with normal right atrial pressure, 5 mmHg. Aorta The aortic root size at the sinus of Valsalva is normal. The prox ascending aorta size is normal. Left Ventricular Outflow Tract Name Value Normal LVOT 2D LVOT Diameter 2.3 cm LVOT Doppler LVOT Peak Velocity 114 cm/s LVOT Peak Gradient 5 mmHg LVOT Mean Gradient 3 mmHg LVOT VTI 26 cm LVOT VTI/AV VTI Ratio 1.0 LVOT Stroke Volume 103 ml LVOT CO 6.9 l/min LVOT CI 3.2 l/min/m2 Pulmonic Valve Name Value Normal PV Doppler PV Peak Velocity 85 cm/s PV Peak Gradient 3 mmHg PV Mean Gradient 2 mmHg Mitral Valve Name Value Normal MV Doppler MV Peak Gradient 3 mmHg MV Mean Gradient 1 mmHg MV Area (Cont Eq VTI) 4.4 cm2 MV Diastolic Function MV E Peak Velocity 69 cm/s MV A Peak Velocity 96 cm/s MV E/A 0.7 MV Decel Time (PW) 352 ms MV Annular TDI MV E/e' (Septal) 9.2 MV E/e' (Lateral) 8.7 MV E/e' (Average) 8.9 Tricuspid Valve Name Value Normal Estimated PAP/RSVP RA Pressure 5 mmHg <=5 TV Annular TDI TV Lateral Gretchen s' Velocity 17.6 cm/s >=9.5 Aortic Valve Name Value Normal AV Doppler AV Peak Velocity 141 cm/s AV Peak Gradient 8 mmHg AV Mean Gradient 4 mmHg AV VTI 25 cm AV Area (Cont Eq VTI) 4.0 cm2 >=3.0 AV Area (Cont Eq Christ) 3.2 cm2 AV DI (Christ) 0.81 AV Regurgitation 2D LVOT Area 4.0 cm2 Ventricles Name Value Normal LV Dimensions 2D/MM IVS Diastolic Thickness (2D) 1.1 cm 0.6-1.0 LVID Diastole (2D) 4.5 cm 3.8-5.2 LVIW Diastolic Thickness (2D) 1.0 cm 0.6-0.9 LVID Systole (2D) 2.9 cm 2.2-3.5 LVOT Diameter 2.3 cm LV Mass (2D Cubed) 157.69 g 67.00-162.00 LV Mass Index (2D Cubed) 74 g/m2 43-95 Relative Wall Thickness (2D) 0.42 <=0.42 LV Fractional Shortening/Ejection Fraction 2D/MM LV Fractional Shortening (2D) 36 % 27-45 LV EF (2D Teichholz) 66 % LV Diastolic Volume (4C MOD) 89 ml LV EF (4C MOD) 64 % LV Diastolic Volume (2C MOD) 68 ml LV EF (2C MOD) 65 % LV Diastolic Volume (BP MOD) 71 ml 46-106 LV Diastolic Volume Index (BP MOD) 34 ml/m2 29-61 LV Systolic Volume (BP MOD) 31 ml 14-42 LV Systolic Volume Index (BP MOD) 14 ml/m2 8-24 LV EF (BP MOD) 57 % 54-74 LV Diastolic Length (4C) 7.8 cm LV Systolic Length (4C) 6.4 cm LV Stroke Volume (4C MOD) 57 ml Atria Name Value Normal LA Dimensions LA Volume (4C A-L) 67 ml LA Volume (BP A-L) 59 ml RA Dimensions RA Systolic Major [place]on Length (4C) 5.6 cm 2.2-2.8 RA Area (4C) 19.5 cm2 <=18.0 Report Signatures
[2025-08-09] MEDS: ONDANSETRON INJ 4 MG/2 ML VIAL IV PUSH (03:04)
[2025-08-09 05:38] LABS: Hematocrit 38.6 % (37.0-47.0); Hemoglobin 12.7 g/dL (12.0-15.0); Immature Granulocyte Percent A 0.2 % (0-0.5); Lymphocytes Absolute Auto 2.54 K/mm3 (0.9-3.2); Mean Corpuscular HGB Conc 32.9 g/dl (32-36); Mean Corpuscular Hemoglobin 30.8 pg (26-34); Mean Corpuscular Volume 93.7 fl (80-100); Nucleated Red Blood Cells Absolute Auto 0.000 K/mm3 (0.0-0.012); Nucleated Red Blood Cells Perc 0.0 % (0.0-0.2); Platelet Count Result 210 k/mm3 (150-375); Red Blood Count 4.12 M/mm3 (4.2-5.4); White Blood Count 5.9 K/mm3 (4.5-10.0)
[2025-08-09 05:39] LABS: Anion Gap 4 mmol/L (4-12); Blood Urea Nitrogen 10 mg/dL (7-17); Calcium 8.5 mg/dL (8.4-10.2); Carbon Dioxide 26 mmol/L (22-30); Chloride 103 mmol/L (98-107); Cholesterol 153 mg/dL (0-200); Estimated CRCL calculation 90 ml/min; Estimated Glomerular Filt Rate > 60; Glucose 98 mg/dL (65-110); HDL Direct 53 mg/dL; Potassium 3.9 mmol/L (3.4-5.0); Sodium 133 mmol/L (137-145); Triglycerides 94 mg/dL (<150)
[2025-08-09 05:42] LABS: Partial Thromboplastin Time 67.5 Seconds (22.3-36.8)
[2025-08-09] MEDS: LOSARTAN POTASSIUM 50 MG TABLET PO ×2 (08:15→16:43)
[2025-08-09] MEDS: SPIRONOLACTONE 25 MG TABLET PO (08:15)
[2025-08-09] MEDS: LORATADINE 10 MG TABLET PO (08:15)
[2025-08-09] MEDS: guaiFENesin 12 HR 600 MG TABCR PO ×2 (08:16→21:21)
[2025-08-09] MEDS: ACETAMINOPHEN 325 MG TABLET 650 MG PO ×2 (08:19→15:40)
--- NOTE | 2025-08-09 10:55 | PM.CNCAR ---
Assessment and Plan Assessment and plan (1) Chest pain: Code(s): R07.9 - Chest pain, unspecified Status: Acute (2) Elevated troponin: Code(s): R79.89 - Other specified abnormal findings of blood chemistry Status: Acute (3) Hypertension: Code(s): I10 - Essential (primary) hypertension Status: Acute (4) Morbid obesity with BMI of 40.0-44.9, adult: Code(s): E66.01 - Morbid (severe) obesity due to excess calories; Z68.41 - Body mass index [BMI] 40.0-44.9, adult Status: Acute (5) COVID: Code(s): U07.1 - COVID-19 Status: Acute Plan Chest pain/NSTEMI. This is in the setting of COVID 19 and may be secondary to myocarditis vs uncontrolled HTN that was present on admission. Troponin currently 0.177, will repeat for downward trend. EKG demonstrates a NSR with no acute ST/T wave changes. Her CXR is with no acute cardiopulmonary process. Will do D-dimer if elevated plan CTA chest to r/o PE in the setting of COVID. Echo has been ordered to look for any LV dysfunction or wall motion abnormality. Patient currently on heparin drip and can continue until downward trend of troponin and echo reviewed. Would add aspirin and statin. If no acute LV dysfunction or wall motion abnormality on echo would plan for OP nuclear stress test, once recovered from COVID. Shortness of breath. May be related to COVID. Has improved. Her VSS at this time. CXR with no acute process. Will do echo as noted above. Will check D-dimer and pBNP Hypertension. Blood pressure uncontrolled on admission as high as 200/110. Has improved. Continue home losartan and aldactone. Obesity. Weight loss encouraged. History of Present Illness History of Present Illness Consult date/time: 08/09/25 10:55 Requesting physician: Claudette Rodriguez APRN Consult reason: chest pain Reason For Visit: elevated trop Narrative: Radha Viera is a 59 y.o. female with a PMH of HTN, seasonal allergies and obesity. She presented to the ER with c/o SOB, chest pain and elevated blood pressure. According to the patient she felt unwell last week with what she thought was seasonal allergies. She states by Thursday she was feeling improved and felt as though she could go to work. When walking across the parking lot she felt a pressure across her chest with associated shortness of breath. She felt as though she could just not take another step. She sat down and did call her . At home she continued to experience chest tightness and noted a SBP >200 and DBP>100. She reports compiance with meds. She at that point decided to come to the ER. In the ER she did test positive for COVID. She was also, noted to have an elevated troponin for which we were consulted. Review of Systems Review of Systems: All systems reviewed & are unremarkable except as noted in HPI and below PMFSH Past Medical History Medical History Morbid obesity with BMI of 40.0-44.9, adult Rosacea Melanoma (~05/2019) between breasts Torn rotator cuff Breast lump 05-31-2018 left breast lump, US done Benign subcutaneous cyst Viral labyrinthitis syndrome Hx of adenomatous colonic polyps Hypertension Surgical History Surgical History H/O basal cell carcinoma excision (~06/13/25) S/P skin cancer resection (~05/2019) Removed from between her breast. H/O rotator cuff surgery (~12/23/23) History of orthopedic surgery (08/13/20) joint replacement right foot History of hysterectomy, supracervical abdominal (subtotal) 03/19/05 enlarged uterus/menometrorrhagia/dsymenorrhea/extensive adhesiolysis, adenomyosis History of bunionectomy Hx of section x3 Hx of cholecystectomy 2003 Hx of appendectomy age 12 Family History Family History Mother Family history of thyroid disease Diabetes mellitus Hypertension Family history of transient ischemic attacks Family history of cardiovascular disease Family history of Alzheimer's disease Heart disease Father Hypertension Carcinoma of colon Family history of emphysema Intracranial aneurysm Sibling Heart disease brother Social History Social History Social History: Code status: Full code Surrogate decision maker: Eduardo () Smoking status: Never smoker Second hand tobacco smoke exposure: No Alcohol intake: never Substance use: never Substance use type: does not use Do You Feel Safe in your Home?: Yes Lack of Transportation: No Lack of Food: Never True Current Housing: I Have Housing Concerned About Future Housing: No Difficulty Paying Gas/Electric Bills: No Difficulty Paying for Meds: No Currently Unemployed: No Education: Bachelor's Degree Difficulty w/ Childcare or Family Care: No Living arrangements: other Additional living arrangements comments: Occupation/Education: occupation 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 Gender identity (if verbalized by the patient): Female Sexual Orientation (if Verbalized by the Patient): Straight or Heterosexual Spiritual care concerns: No Agree to blood products: Yes Meds Home Medications and Allergies Home Medications ?Medication ?Instructions ?Recorded ?Confirmed ?Type cholecalciferol (vitamin D3) 25 25 mcg PO DAILY 10/26/24 08/08/25 History mcg (1,000 unit) capsule loratadine 10 mg tablet (Claritin) 10 mg PO DAILY 10/26/24 08/08/25 History multivitamin (Daily Multi-Vitamin 1 tablet PO DAILY 10/26/24 08/08/25 History tablet) losartan 50 mg tablet 50 mg PO BID #180 tabs 03/16/25 08/08/25 Rx estradiol 0.5 mg tablet 0.5 mg PO DAILY #90 tabs 06/05/25 08/08/25 Rx spironolactone 25 mg tablet See Rx Instructions .Route 07/29/25 08/08/25 Rx .COMPLEX #30 tabs Allergies Allergy/AdvReac Type Severity Reaction Status Date / Time morphine Allergy Mild Vomiting Verified 08/08/25 23:18 nitroglycerin Allergy Unknown Other Verified 08/08/25 23:18 Vital Signs Vital Signs - 24 hr 08/08/25 11:16 08/08/25 11:27 08/08/25 12:14 Temperature 36.3 C L Pulse Rate 82 95 18 L Respiratory Rate 20 19 16 Blood Pressure 192/112 H 200/110 H 179/98 H Pulse Oximetry 100 100 100 Oxygen Delivery Room Air 08/08/25 13:35 08/08/25 16:10 08/08/25 18:08 Temperature Pulse Rate 73 87 68 Respiratory Rate 18 15 16 Blood Pressure 138/86 154/91 H 160/89 H Pulse Oximetry 97 96 98 Oxygen Delivery 08/08/25 19:25 08/08/25 20:00 08/08/25 20:00 Temperature 36.9 C Pulse Rate 82 68 69 Respiratory Rate 16 16 Blood Pressure 173/86 H Pulse Oximetry 98 98 Oxygen Delivery Room Air 08/08/25 23:30 08/08/25 23:30 08/09/25 00:00 Temperature 36.4 C Pulse Rate 68 68 72 Respiratory Rate 16 16 Blood Pressure 113/63 Pulse Oximetry 98 95 Oxygen Delivery Room Air 08/09/25 02:00 08/09/25 03:46 08/09/25 03:46 Temperature Pulse Rate 72 64 64 Respiratory Rate 16 Blood Pressure Pulse Oximetry 95 Oxygen Delivery Room Air 08/09/25 04:00 08/09/25 06:00 08/09/25 08:00 Temperature 36.8 C Pulse Rate 78 74 72 Respiratory Rate 16 16 Blood Pressure 108/64 Pulse Oximetry 97 97 Oxygen Delivery Room Air 08/09/25 08:00 08/09/25 08:00 Temperature 36.7 C Pulse Rate 72 71 Respiratory Rate 18 Blood Pressure 134/76 Pulse Oximetry 96 Oxygen Delivery Exam Const: General: comfortable and no acute distress Neck: Neck: supple and No no JVD Carotids: no bruits Resp: Effort & Inspection: normal respiratory effort Auscultation: clear to auscultation bilaterally Cardio: Rate: regular rate Rhythm: regular rhythm Heart sounds: no gallops, no murmurs and no rubs Skin: General skin exam: normal color and no erythema Neuro: Speech: normal speech Extrem: General: normal to inspection and no edema Psych: Mental Status: mental status grossly normal Results Labs and Meds 08/09/25 05:11 08/09/25 05:11 Lab results: Cardiac Enzymes 08/08/25 08/08/25 08/08/25 Range/Units 11:47 14:34 17:33 AST 47 H (14-36) U/L Troponin I < 0.012 0.080 H* D 0.177 H* D (0.000-0.034) ng/mL Coagulation 08/08/25 08/08/25 08/09/25 Range/Units 15:52 22:27 05:11 PT 12.5 (11.1-14.7) Seconds APTT 27.0 43.4 H 67.5 H (22.3-36.8) Seconds Lipids 08/09/25 Range/Units 05:11 Triglycerides 94 (<150) mg/dL Cholesterol 153 (0-200) mg/dL CBC 08/08/25 08/09/25 Range/Units 11:47 05:11 WBC 7.9 5.9 (4.5-10.0) K/mm3 RBC 4.79 4.12 L (4.2-5.4) M/mm3 Hgb 14.6 12.7 (12.0-15.0) g/dL Hct 44.7 38.6 (37.0-47.0) % Plt Count 240 210 (150-375) k/mm3 Lymph # (Auto) 1.75 2.54 (0.9-3.2) K/mm3 Dukes # (Auto) 0.4 0.5 (0.1-0.6) K/mm3 Eos # (Auto) 0.0 0.1 (0-0.3) K/mm3 Baso # (Auto) 0.0 0.0 (0.0-0.1) K/mm3 Comprehensive Metabolic Panel 08/08/25 08/09/25 Range/Units 11:47 05:11 Sodium 135 L 133 L (137-145) mmol/L Potassium 3.7 3.9 (3.4-5.0) mmol/L Chloride 102 103 (98-107) mmol/L Carbon Dioxide 23 26 (22-30) mmol/L BUN 10 10 (7-17) mg/dL Creatinine 0.57 L 0.63 L (0.7-1.0) mg/dL Glucose 104 98 (65-110) mg/dL Calcium 9.2 8.5 (8.4-10.2) mg/dL AST 47 H (14-36) U/L ALT 49 H (6-35) U/L Alkaline Phosphatase 125 (38-126) U/L Total Protein 8.6 H (6.3-8.2) g/dL Albumin 4.6 (3.5-5.1) g/dL Intake and Output 08/08/25 08/09/25 08/09/25 23:59 07:59 15:59 Intake Total 306.4 1083.6 Balance 306.4 1083.6 Intake: IV 306.4 83.6 Heparin Sod/D5w 100 Units/ml 25 56.4 83.6 ,000 units In 250 ml @ 1,200 UNITS/HR 12 mls/hr IV CONT . [id number] STA Rx#:[id number] Remdesivir 200 mg/Ns 250 ml 200 250 mg In 250 ml @ 250 mls/hr IVPB ONCE ONE Rx#:[id number] Oral 1000 Other: # Unmeasured Voids 3 Patient Weight 08/09/25 23:59 Weight 97.6 kg Imaging and Cardiology EKG results: image reviewed EKG Interpretation EKG: sinus rhythm and no acute changes EKG shows: sinus rhythm
[2025-08-09 11:41] LABS: Partial Thromboplastin Time 61.8 Seconds (22.3-36.8)
[2025-08-09 11:58] LABS: NT Pro B Type Natriuretic Pept 692 pg/mL (19.9-100); Troponin I 0.064 ng/mL (0.000-0.034)
--- NOTE | 2025-08-09 14:27 | PM.IMPN ---
Progress Note: A&P Assessment and Plan (1) Elevated troponin: Code(s): R79.89 - Other specified abnormal findings of blood chemistry Status: Acute Assessment and Plan: Initially developed lightheadedness/dizziness and later developed chest heaviness. SBP 190s to 200s. Initial blood pressure upon arrival 192/112. On losartan and spironolactone daily at home and compliant. Was taking Mucinex D as she has been experiencing cold-like symptoms and did test positive for COVID here EKG showing no significant ST depressions or elevations. Troponin peaked at 0.177 DDimer normal. Allergy to nitroglycerin. She was started on a heparin gtt Cardiology consulted and appreciate their input. LDL 67. TC 153, HDL 53 and TG 94 Willet CP related to myocarditis from COVID and/or uncontrolled HTN. ASA and statin added. Echo ordered. Planning for OP stress test. (2) COVID: Code(s): U07.1 - COVID-19 Status: Acute Assessment and Plan: Patient tested positive for COVID here. She did not meet SIRS criteria. Symptom onset: has had congestion over the past week, however was exposed over the weekend by a family member who tested positive recently. CXR was clear. No oxygen requirement. Remdesivir started. SHe does have clinical risk factors with obesity and possibly a apple condition and laboratory risks with elevated Trop. DDimer negative. CRP, ferritin or LDH not checked but wont blade changer. Remians on room air. AST/ALT mildly elevated felt related to COVID Supportive care: Tylenol p.r.n., Tessalon Perles p.r.n., Mucinex john Monitor (3) Hypertension: Qualifiers: Hypertension type: essential hypertension Qualified Code(s): I10 - Essential (primary) hypertension Code(s): I10 - Essential (primary) hypertension Status: Acute Assessment and Plan: Patient's blood pressure was reviewed on 08/09 Blood pressure much better controlled. Will continue to monitor. Hydralazine p.r.n. for BP greater than 180/90 Plan Obeisty - healthy lifestyle encouraged. DVT Prophylaxis: Heparin gtt stopped -> Lovenox Code Status: full code Subjective Date/time seen: 08/09/25 14:27 Interval history: 59 y/o F with PMH of melanoma and hypertension presents here with lightheadedness. No cough. No dyspnea on exertion when walking to the bathroom. No chest pain but does complain today of a 'weight' on her chest yesterday lasted 5 minutes. Also complains of headache and nausea. Blood pressure normally at hold runs 130/80. She is compliant with her home medications. No calf pain. No pleuritic chest pain. Exam Narrative: AF 98.1 137/74 80 18 94% ra Gen - NARD Chest - CTA bilaterally, nml RR CV - RRR S1/S2. Telemetry showing no significant dysrhythmias Abd - Soft, NT/ND, Positive BS Ext - No pedal edema. Negative Homans sign. 2+ DP pulses. Neuro - Alert and oriented. Nonfocal exam. Psych - Nml mood and affect Skin - Warm and dry Objective Data Vital Signs Vital Signs: Vital Signs - 24 hr 08/08/25 16:10 08/08/25 18:08 08/08/25 19:25 Temperature 98.4 F Pulse Rate 87 68 82 Respiratory Rate 15 16 16 Blood Pressure 154/91 H 160/89 H 173/86 H Pulse Oximetry 96 98 98 Oxygen Delivery 08/08/25 20:00 08/08/25 20:00 08/08/25 23:30 Temperature Pulse Rate 68 69 68 Respiratory Rate 16 16 Blood Pressure Pulse Oximetry 98 98 Oxygen Delivery Room Air Room Air 08/08/25 23:30 08/09/25 00:00 08/09/25 02:00 Temperature 97.6 F Pulse Rate 68 72 72 Respiratory Rate 16 Blood Pressure 113/63 Pulse Oximetry 95 Oxygen Delivery 08/09/25 03:46 08/09/25 03:46 08/09/25 04:00 Temperature 98.2 F Pulse Rate 64 64 78 Respiratory Rate 16 16 Blood Pressure 108/64 Pulse Oximetry 95 97 Oxygen Delivery Room Air 08/09/25 06:00 08/09/25 08:00 08/09/25 08:00 Temperature Pulse Rate 74 72 72 Respiratory Rate 16 Blood Pressure Pulse Oximetry 97 Oxygen Delivery Room Air 08/09/25 08:00 08/09/25 10:00 08/09/25 12:00 Temperature 98.1 F 98.1 F Pulse Rate 71 71 65 Respiratory Rate 18 18 Blood Pressure 134/76 137/74 Pulse Oximetry 96 94 Oxygen Delivery 08/09/25 12:00 08/09/25 12:00 08/09/25 14:00 Temperature Pulse Rate 70 70 80 Respiratory Rate 18 Blood Pressure Pulse Oximetry 94 Oxygen Delivery Room Air Intake/Output Intake/Output: Intake & Output 08/06/25 08/07/25 08/08/25 08/09/25 23:59 23:59 23:59 23:59 Intake Total 306.4 1323.6 Balance 306.4 1323.6 Meds/Results Medications: Active Medications Generic Name Dose Route Start Last Admin Trade Name Freq PRN Reason Stop Dose Admin Acetaminophen 650 mg 08/08/25 17:10 08/09/25 08:19 Acetaminophen 325 Mg Tablet PO 650 mg Q4H PRN Administration Mild Pain (1-3) or Fever Aspirin 81 mg 08/10/25 09:00 Aspirin 81 Mg Enteric Tablet PO QAM JOHN Benzocaine 1 lozenge 08/08/25 17:10 Benzocaine/Menthol (*Bkc) 18 Ea Lozenge PO PRN PRN Sore Throat Benzonatate 100 mg 08/08/25 17:10 Benzonatate 100 Mg Capsule PO TID PRN Cough Estradiol 0.5 mg 08/09/25 09:00 08/09/25 08:15 Estradiol 0.5 Mg Tablet PO 0.5 mg DAILY JOHN Administration Guaifenesin 600 mg 08/08/25 21:00 08/09/25 08:16 Guaifenesin 12 Hr 600 Mg Tabcr PO 600 mg Q12HR JOHN Administration Hydralazine HCl 10 mg 08/08/25 17:10 Hydralazine Hcl 20 Mg/Ml Vial IV PUSH Q8H PRN Blood Pressure - High, >180/90 Remdesivir 100 mg in 250 mls @ 250 mls/hr 08/09/25 22:00 IVPB 08/12/25 22:59 Q24H JOHN Loratadine 10 mg 08/09/25 09:00 08/09/25 08:15 Loratadine 10 Mg Tablet PO 10 mg DAILY JOHN Administration Losartan Potassium 50 mg 08/08/25 21:00 08/09/25 08:15 Losartan Potassium 50 Mg Tablet PO 50 mg BID JOHN Administration Multivitamins Therapeutic 1 tablet 08/09/25 09:00 08/09/25 10:29 Multivitamins Therapeutic Tab (*Bkc) PO Not Given DAILY JOHN Ondansetron HCl 4 mg 08/08/25 17:10 08/09/25 03:04 Ondansetron Inj 4 Mg/2 Ml Vial IV PUSH 4 mg Q6H PRN Administration Nausea And Vomiting Perflutren Lipid Microsphere 0 ml 08/09/25 08:33 Perflutren Lipid Microspheres 1.5 Ml Vial Diluted To 10 Ml Total Volume IV PUSH 08/12/25 08:33 ONCE PRN adequate visualization Protocol Rosuvastatin Calcium 5 mg 08/10/25 09:00 Rosuvastatin 5 Mg Tablet PO DAILY JOHN Spironolactone 25 mg 08/09/25 09:00 08/09/25 08:15 Spironolactone 25 Mg Tablet PO 25 mg DAILY JOHN Administration Vitamin D 25 mcg 08/09/25 09:00 08/09/25 10:29 Cholecalciferol (Vitamin D3) 25 Mcg (1,000 Units) Tablet PO Not Given DAILY [facility] Radiology Results: ITS Impressions Head CT 08/08/25 12:52 IMPRESSION: 1. Mild scattered white matter hypoattenuation consistent with chronic small vessel ischemic disease. No acute intracranial process. 2. Mucosal thickening in the bilateral ethmoid sinuses with dependently layering fluid/mucous in the left maxillary sinus consistent with acute sinusitis. Chest X-Ray 08/08/25 12:57 Impression: No acute cardiopulmonary abnormality. Labs Labs: Laboratory Results - last 24 hr 08/08/25 08/08/25 08/08/25 14:34 15:52 17:33 WBC RBC Hgb Hct MCV MCH MCHC RDW Plt Count MPV Immature Gran % (Auto) Neut % (Auto) Lymph % (Auto) Weakley % (Auto) Eos % (Auto) Baso % (Auto) Lymph # (Auto) Weak[place] # (Auto) Eos # (Auto) Baso # (Auto) Abs Immat Gran (auto) Absolute Neuts (auto) Absolute Nucleated RBC Nucleated RBC % PT 12.5 INR 0.9 APTT 27.0 D-Dimer Sodium Potassium Chloride Carbon Dioxide Anion Gap BUN Creatinine Estim Creat Clear Calc Estimated GFR Glucose Calcium Troponin I 0.080 H* D 0.177 H* D NT-Pro-B Natriuret Pep Triglycerides Cholesterol LDL Cholesterol Direct HDL Direct 08/08/25 08/09/25 08/09/25 22:27 05:11 11:17 WBC 5.9 RBC 4.12 L Hgb 12.7 Hct 38.6 MCV 93.7 MCH 30.8 MCHC 32.9 RDW 12.5 Plt Count 210 MPV 9.3 Immature Gran % (Auto) 0.2 Neut % (Auto) 47.7 Lymph % (Auto) 43.0 Weakley % (Auto) 7.6 Eos % (Auto) 1.2 Baso % (Auto) 0.3 Lymph # (Auto) 2.54 Weakley # (Auto) 0.5 Eos # (Auto) 0.1 Baso # (Auto) 0.0 Abs Immat Gran (auto) 0.01 Absolute Neuts (auto) 2.8 Absolute Nucleated RBC 0.000 Nucleated RBC % 0.0 PT INR APTT 43.4 H 67.5 H 61.8 H D-Dimer < 0.27 Sodium 133 L Potassium 3.9 Chloride 103 Carbon Dioxide 26 Anion Gap 4 BUN 10 Creatinine 0.63 L Estim Creat Clear Calc 90 Estimated GFR > 60 Glucose 98 Calcium 8.5 Troponin I 0.064 H* NT-Pro-B Natriuret Pep 692 H Triglycerides 94 Cholesterol 153 LDL Cholesterol Direct 67 HDL Direct 53
--- NOTE | 2025-08-09 18:35 | PC.NURSE ---
Report called to Lauren on med-surg. Patient being transferred to room 310. denies questions at this time.
[2025-08-09] MEDS: ENOXAPARIN 40 MG/0.4 ML SYRINGE SUB-Q (19:32)
[2025-08-09] MEDS: REMDESIVIR 100 MG/NS 250 ML 100 MG/250 ML BAG 250 MG IVPB (21:50)
[2025-08-10] VITALS: PULSE 67
[2025-08-10 04:00] VITALS: PULSE 62
[2025-08-10 06:21] LABS: Alanine Aminotransferase 28 U/L (6-35); Albumin Level 3.6 g/dL (3.5-5.1); Alkaline Phosphatase 89 U/L (38-126); Aspartate Amino Transferase 28 U/L (14-36); Bilirubin,Total 0.3 mg/dL (0.2-1.3); Total Protein 6.5 g/dL (6.3-8.2)
[2025-08-10 06:29] VITALS: BP 132/81; PULSE 68; RESP 16; TEMP 36.5; O2SAT 100
[2025-08-10 06:36] LABS: INR 1.1; Prothrombin Time 13.9 Seconds (11.1-14.7)
[2025-08-10 08:00] VITALS: PULSE 71
[2025-08-10] MEDS: LOSARTAN POTASSIUM 50 MG TABLET PO (08:25)
[2025-08-10] MEDS: guaiFENesin 12 HR 600 MG TABCR PO (08:25)
[2025-08-10] MEDS: MULTIVITAMINS THERAPEUTIC TAB (*BKC) 1 TABLET PO (08:25)
[2025-08-10] MEDS: LORATADINE 10 MG TABLET PO (08:25)
[2025-08-10] MEDS: CHOLECALCIFEROL (VITAMIN D3) 25 MCG (1,000 UNITS) TABLET PO (08:25)
[2025-08-10] MEDS: SPIRONOLACTONE 25 MG TABLET PO (08:25)
[2025-08-10] MEDS: ASPIRIN 81 MG ENTERIC TABLET PO (08:25)
[2025-08-10] MEDS: ENOXAPARIN 40 MG/0.4 ML SYRINGE SUB-Q (11:41)
--- NOTE | 2025-08-10 11:54 | P.PNCA_ITS ---
Progress Note: A&P Assessment and Plan (1) Chest pain: Code(s): R07.9 - Chest pain, unspecified Status: Acute (2) Elevated troponin: Code(s): R79.89 - Other specified abnormal findings of blood chemistry Status: Acute (3) Hypertension: Code(s): I10 - Essential (primary) hypertension Status: Acute (4) Morbid obesity with BMI of 40.0-44.9, adult: Code(s): E66.01 - Morbid (severe) obesity due to excess calories; Z68.41 - Body mass index [BMI] 40.0-44.9, adult Status: Acute (5) COVID: Code(s): U07.1 - COVID-19 Status: Acute Plan Chest pain/NSTEMI. This is in the setting of COVID 19 and may be secondary to myocarditis vs uncontrolled HTN that was present on admission. Troponin initia lly 0.080. Increase to 0.177, has down trended to 0.064. EKG demonstrates a NSR with no acute ST/T wave changes. Her CXR is with no acute cardiopulmonary process. Echo reviewed-normal LV systolic function and no wall motion abnormalities. Heparin can be stopped. Would add aspirin and statin. Plan for outpatient stress test Shortness of breath. May be related to COVID. Has improved. Her VSS at this time. CXR with no acute process. Echo unremarkable. Hypertension. Blood pressure uncontrolled on admission as high as 200/110. Has improved. Continue home losartan and aldactone. Obesity. Weight loss encouraged. Cardiology will sign off. Please call with any questions. Subjective Date/time seen: 08/10/25 11:54 Interval history: Cardiology follow-up visit Date of service 08/10/2025: She is feeling well and does not have any complaints today. Plan is for her to be discharged home from the hospital today. Review of Systems Review of Systems: All systems reviewed & are unremarkable except as noted in HPI and below Exam Const: General: comfortable and no acute distress Neck: Neck: supple and No no JVD Carotids: no bruits Resp: Effort & Inspection: normal respiratory effort Auscultation: clear to auscultation bilaterally Cardio: Rate: regular rate Rhythm: regular rhythm Heart sounds: no gallops, no murmurs and no rubs Skin: General skin exam: normal color and no erythema Neuro: Speech: normal speech Extrem: General: normal to inspection and no edema Psych: Mental Status: mental status grossly normal Objective Data Vital Signs Vital Signs: Vital Signs - 24 hr 08/09/25 12:00 08/09/25 12:00 08/09/25 12:00 Temperature 36.7 C Pulse Rate 65 70 70 Respiratory Rate 18 18 Blood Pressure 137/74 Pulse Oximetry 94 94 Oxygen Delivery Room Air 08/09/25 14:00 08/09/25 15:07 08/09/25 16:00 Temperature 36.8 C Pulse Rate 80 76 69 Respiratory Rate 16 Blood Pressure 130/71 Pulse Oximetry 96 Oxygen Delivery 08/09/25 18:00 08/09/25 20:00 08/09/25 21:53 Temperature 36.9 C Pulse Rate 73 65 72 Respiratory Rate 16 Blood Pressure 126/68 Pulse Oximetry 96 Oxygen Delivery 08/10/25 00:00 08/10/25 04:00 08/10/25 06:29 Temperature 36.5 C Pulse Rate 67 62 68 Respiratory Rate 16 Blood Pressure 132/81 Pulse Oximetry 100 Oxygen Delivery 08/10/25 08:25 Temperature Pulse Rate Respiratory Rate Blood Pressure Pulse Oximetry Oxygen Delivery Room Air Intake/Output Intake/Output: Intake & Output 08/07/25 08/08/25 08/09/25 08/10/25 23:59 23:59 23:59 23:59 Intake Total 306.4 2413.6 440 Balance 306.4 2413.6 440 Meds/Results Medications: Active Medications Generic Name Dose Route Start Last Admin Trade Name Freq PRN Reason Stop Dose Admin Acetaminophen 650 mg 08/08/25 17:10 08/09/25 15:40 Acetaminophen 325 Mg Tablet PO 650 mg Q4H PRN Administration Mild Pain (1-3) or Fever Aspirin 81 mg 08/10/25 09:00 08/10/25 08:25 Aspirin 81 Mg Enteric Tablet PO 81 mg QAM PIO Administration Benzocaine 1 lozenge 08/08/25 17:10 Benzocaine/Menthol (*Bkc) 18 Ea Lozenge PO PRN PRN Sore Throat Benzonatate 100 mg 08/08/25 17:10 Benzonatate 100 Mg Capsule PO TID PRN Cough Enoxaparin Sodium 40 mg 08/10/25 09:00 08/10/25 11:41 Enoxaparin 40 Mg/0.4 Ml Syringe SUB-Q 40 mg DAILY PIO Administration Estradiol 0.5 mg 08/09/25 09:00 08/10/25 08:25 Estradiol 0.5 Mg Tablet PO 0.5 mg DAILY PIO Administration Guaifenesin 600 mg 08/08/25 21:00 08/10/25 08:25 Guaifenesin 12 Hr 600 Mg Tabcr PO 600 mg Q12HR PIO Administration Hydralazine HCl 10 mg 08/08/25 17:10 Hydralazine Hcl 20 Mg/Ml Vial IV PUSH Q8H PRN Blood Pressure - High, >180/90 Remdesivir 100 mg in 250 mls @ 250 mls/hr 08/09/25 22:00 08/09/25 22:50 IVPB 08/12/25 22:59 Infused Q24H PIO Infusion Loratadine 10 mg 08/09/25 09:00 08/10/25 08:25 Loratadine 10 Mg Tablet PO 10 mg DAILY PIO Administration Losartan Potassium 50 mg 08/08/25 21:00 08/10/25 08:25 Losartan Potassium 50 Mg Tablet PO 50 mg BID PIO Administration Multivitamins Therapeutic 1 tablet 08/09/25 09:00 08/10/25 08:25 Multivitamins Therapeutic Tab (*Bkc) PO 1 tablet DAILY PIO Administration Ondansetron HCl 4 mg 08/08/25 17:10 08/09/25 03:04 Ondansetron Inj 4 Mg/2 Ml Vial IV PUSH 4 mg Q6H PRN Administration Nausea And Vomiting Perflutren Lipid Microsphere 0 ml 08/09/25 08:33 Perflutren Lipid Microspheres 1.5 Ml Vial Diluted To 10 Ml Total Volume IV PUSH 08/12/25 08:33 ONCE PRN adequate visualization Protocol Rosuvastatin Calcium 5 mg 08/10/25 09:00 08/10/25 08:34 Rosuvastatin 5 Mg Tablet PO Not Given DAILY PIO Spironolactone 25 mg 08/09/25 09:00 08/10/25 08:25 Spironolactone 25 Mg Tablet PO 25 mg DAILY PIO Administration Vitamin D 25 mcg 08/09/25 09:00 08/10/25 08:25 Cholecalciferol (Vitamin D3) 25 Mcg (1,000 Units) Tablet PO 25 mcg DAILY PIO Administration Radiology Results: ITS Impressions Head CT 08/08/25 12:52 IMPRESSION: 1. Mild scattered white matter hypoattenuation consistent with chronic small vessel ischemic disease. No acute intracranial process. 2. Mucosal thickening in the bilateral ethmoid sinuses with dependently layering fluid/mucous in the left maxillary sinus consistent with acute sinusitis. Chest X-Ray 08/08/25 12:57 Impression: No acute cardiopulmonary abnormality. Labs Labs: Laboratory Results - last 24 hr 08/09/25 08/10/25 11:17 05:16 PT 13.9 INR 1.1 Total Bilirubin 0.3 Direct Bilirubin 0.0 AST 28 ALT 28 Alkaline Phosphatase 89 Troponin I 0.064 H* NT-Pro-B Natriuret Pep 692 H Total Protein 6.5 Albumin 3.6 Quality VTE Prophylaxis VTE prophylaxis: pharmacologic ordered
[2025-08-10 12:00] VITALS: PULSE 71
--- NOTE | 2025-08-10 13:34 | PM.DS ---
DS: Admitting Diagnosis Discharge Date 08/10/25 Admitting Diagnosis Lightheadedness DS: Discharge Diagnosis Discharge Diagnosis (1) Elevated troponin: Code(s): R79.89 - Other specified abnormal findings of blood chemistry Status: Acute (2) COVID: Code(s): U07.1 - COVID-19 Status: Acute (3) Hypertension: Qualifiers: Hypertension type: essential hypertension Qualified Code(s): I10 - Essential (primary) hypertension Code(s): I10 - Essential (primary) hypertension Status: Acute (4) Morbid obesity with BMI of 40.0-44.9, adult: Code(s): E66.01 - Morbid (severe) obesity due to excess calories; Z68.41 - Body mass index [BMI] 40.0-44.9, adult Status: Acute DS: Summary Hospital Course Reason for hospitalization: 59yo female with PMH of melanoma and hypertension who presents here with lightheadedness. Please see H&P for details. Hospital Course: Initially, patient developed lightheadedness/dizziness and later developed chest heaviness. SBP 190s to 200s at home. Initial blood pressure upon arrival 192/112. On losartan and spironolactone daily at home and compliant with her medications. She was taking Mucinex D as she has been experiencing cold-like symptoms and did test positive for COVID here. EKG showed no significant ST depressions or elevations. Troponin peaked at 0.177. BNP 690. DDimer normal. LDL 67. TC 153, HDL 53 and TG 94. CXR was clear. No oxygen requirement. Allergy to nitroglycerin. She was started on a heparin gtt. Cardiology consulted and felt CP was related to myocarditis from COVID and/or uncontrolled HTN. ASA and statin added. Echo showing EF 55-60% with mild increase in the LV wall thickness. Planning for OP stress test. Patient tested positive for COVID here. She did not meet SIRS criteria. She had congestion over the past week and was exposed over the weekend by a family member who tested positive recently. Remdesivir started. No oxygen requirement but she does have clinical risk factors with obesity and possibly a heart condition and laboratory risks with elevated Trop. DDimer negative. CRP, ferritin or LDH were not checked. She remained on room air. AST/ALT mildly elevated felt related to COVID and normalized on repeat testing. BP was elevated on admission but became much better controlled. Healthy lifestyle was encouraged. She was advised to talk with Cardiology before starting an exercise program. She overall did well and was able to be discharged home on 08/10/25. Discharge instructions discussed including side effects of the medications. All questions answered. 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 She voiced understanding. Status at Discharge Cognitive/behavioral status at discharge: stable Time Spent with Patient Time attestation: Total time spent providing and/or coordinating discharge services: 31 minutes Time spent: Greater than 30 minutes Exam Narrative: AF 97.7 132/81 68 16 100% ra Gen - NARD Chest - CTA bilaterally, nml RR CV - RRR S1/S2. Telemetry showing no significant dysrhythmias Abd - Soft, NT/ND, Positive BS Ext - No pedal edema. Neuro - Alert and oriented. Nonfocal exam. Psych - Nml mood and affect Skin - Warm and dry DS: Data Data Completed and Pending Labs on day of discharge: Labs from last 24 hours 08/10/25 05:16 PT 13.9 INR 1.1 Total Bilirubin 0.3 Direct Bilirubin 0.0 AST 28 ALT 28 Alkaline Phosphatase 89 Total Protein 6.5 Albumin 3.6 Discharge Plan Discharge Attending physician on discharge: Shamir De La Rosa Consulting providers: Lorelei Romo Discharging Clinician: Shamir De La Rosa Anticipated Discharge Date/Time: 08/10/25 13:46 Patient Disposition: Home Activity: as tolerated Diet: heart healthy Discharge Instructions: Self isolate for at least 5 days from onset of symptoms (or when first testing positive for COVID) by staying in a separate room from other household members, use separate bathrooms and avoid contact with other members of the household and pets. Do not share personal household items like cups, towels and utensils. Please avoid large gathering, wear face coverings in public and practice social distance for 5 additional days once isolation is complete. Check blood pressure 1 to 2 times a day. Record and bring into your doctor for review. Call your doctor if your blood pressure is greater than 180/110. Contact your doctor or call 911 and come to the Emergency Room if you have chest pain, increasing shortness of breath or other worrisome symptoms. Follow-up with your primary care provider in 1-2 weeks. Please call for appointment. Follow-up with Cardiology in 2-3 weeks to schedule your cardiac stress test. Please call for an appointment. Thank you for using [facility] for your health care needs. Patient Instructions: Antibiotic Form, Blood Thinners (GEN) Patient Language: Greek Stand Alone Forms: General Discharge Information Follow-up/Referrals: Michelle Gutierrez MD [Primary Care Provider, Family Practice] - Call for Appointment Lorelei Romo APRN [Advanced Practice Nurse, Cardiology] - Call for Appointment Discharge Medications: New aspirin 81 mg Tablet,Delayed Release (Dr/Ec) 81 mg PO QAM Qty: 30 1RF rosuvastatin [Crestor] 5 mg Tablet 5 mg PO DAILY Qty: 30 1RF Continued cholecalciferol (vitamin D3) 25 mcg (1,000 unit) capsule 25 mcg PO DAILY multivitamin [Daily Multi-Vitamin] Tablet 1 tablet PO DAILY loratadine [Claritin] 10 mg tablet 10 mg PO DAILY losartan 50 mg tablet 50 mg PO BID Qty: 180 1RF estradiol 0.5 mg tablet 0.5 mg PO DAILY Qty: 90 3RF spironolactone 25 mg tablet See Rx Instructions .ROUTE .COMPLEX Qty: 30 2RF Dose Instruction: TAKE 1 TABLET BY MOUTH EVERY DAY IN THE MORNING Rx Instructions: TAKE 1 TABLET BY MOUTH EVERY DAY IN THE MORNING Date of admission: 08/08/25 15:30 Primary Care Provider: Michelle Gutierrez Admitting Provider: Gonzalo Urbina Attending physician on admission: Gonzalo Urbina Condition: Stable Hospitalist MIPS Heart Failure (Exclusion) Patient has history of Heart Transplant or Left Ventricular Assistive Device?: No IF YES, STOP HERE Heart Failure (Qualifier) Patient has current or prior documentation of LVEF less than or equal to 40%, or mod/servere depressed LVSF?: No IF NO, STOP HERE
== END 2025-08-10 15:15 | disposition home or self-care (01) | DRG 178 ==
LOC: ANHED 15:24 → ANHIMU 18:21 → ANH3MEDSUR 08-10 13:52 → ANHIMU 08-11 14:42
PROVIDERS: General Practice; Nurse Practitioner Family; Student in an Organized Health Care Education/Training Program; Admitting Provider Internal Medicine; Emergency Provider Emergency Medicine; PCP Family Medicine; Visit Provider Internal Medicine
DX: U07.1 COVID-19 (principal); B33.22 Viral myocarditis; Z68.41 Body mass index [BMI] 40.0-44.9, adult; E66.01 Morbid (severe) obesity due to excess calories; L71.9 Rosacea, unspecified; I10 Essential (primary) hypertension; R79.89 Other specified abnormal findings of blood chemistry; Z20.822 Contact with and (suspected) exposure to COVID-19; Z96.698 Presence of other orthopedic joint implants; Z85.820 Personal history of malignant melanoma of skin; Z90.49 Acquired absence of other specified parts of digestive tract; Z86.0101 Personal history of adenomatous and serrated colon polyps; Z86.018 Personal history of other benign neoplasm; Z86.69 Personal history of other diseases of the nervous system and sense organs
CPT/HCPCS: 36415; 70450; 71045; 80048; 80053; 80061; 80076; 81003; 81025; 83880; 84484; 85025; 85380; 85610; 85730; 87637; 93005; 93306; 99285; A9270; J0248; J1171; J1644; J1650; J2405

== ENCOUNTER 2025-08-28 10:54 | Outpatient (CLI) | payer OTHER, SELFPAY ==
--- NOTE | ~2025-08-28 | XR_ITS ---
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 Technique: 2 views obtained. Findings: The lungs are clear, no effusion. No pneumothorax. Heart is normal size. Mediastinal and hilar contours are within normal limits. Bony thorax no acute abnormality. Impression: No acute cardiopulmonary abnormality. Reviewed, dictated and finalized at location P. STOPPER TECHNICIAN Impression: No acute cardiopulmonary abnormality.
== END 2025-08-28 10:55 | disposition home or self-care (01) ==
LOC: MICIMG 10:55
PROVIDERS: PCP Family Medicine Adolescent Medicine
DX: R06.02 Shortness of breath (principal)
CPT/HCPCS: 71046